=== PATIENT | female | born 1945 | race Caucasian/White ===

== ENCOUNTER → 2016-07-28 | Outpatient (CLI) | payer OTHER ==
[~2016-07-28] MED LIST: ACET-1256 PO; ASPI-232 PO; ATOR-22 PO; BSP/10 PO; CALC-20 PO; CHOL100027 PO; FERR1TAB62 PO; FLV1 PO; FURO40TA3 PO; KLN5X PO; LEVO75TA PO; LEVO88TA PO; LISI20TA3 PO; METH2.5T PO; METO50TA16 PO; METO50TA7 PO; MULT-188; NXM/40 PO; POTA20TA16 PO; PRLSR20 PO; SYMIN160 INH; TPRSR/50 PO; VENL150C PO; VENL75CA PO; VNTHFA/IN INH; WARF2TAB8 PO
[2016-07-28 16:49] LABS: BASO % 0.8 %; BASO ABS # 0.08 K/uL (0-0.2); COMPLETE YES; EOS % 4.3 %; HEMATOCRIT 30.4 % (37-47); IG% 0.3 %; LYMPH % 36.2 %; LYMPH ABS # 3.81 K/uL (1.2-3.4); MEAN CELL VOLUME 80.9 fL (80-100); MEAN CORPUSCULAR HEMOGLOBIN 24.7 pg (25-34); MEAN CORPUSCULAR HGB CONC 30.6 g/dl (32-36); MEAN PLATELET VOLUME 10.1 fL (7.4-10.4); MONO % 8.5 %; NEUT % 49.9 %; PLATELET COUNT 296 K/uL (130-400); RED BLOOD COUNT 3.76 M/uL (4.2-5.4); WHITE BLOOD COUNT 10.53 K/uL (4.8-10.8)
[2016-07-28 17:00] LABS: BLOOD UREA NITROGEN 19 mg/dl (7-18); BUN/CREATININE RATIO 17.5 (10-20); CALCIUM 8.8 mg/dl (8.5-10.1); CARBON DIOXIDE 28 mmol/L (21-32); CHLORIDE 106 mmol/L (98-107); GLUCOSE 83 mg/dl (70-99); POTASSIUM 4.5 mmol/L (3.5-5.1); SODIUM 141 mmol/L (136-145)
== END | disposition home or self-care (01) ==
LOC: C.LABPBG 15:14
PROVIDERS: ATTEND Internal Medicine Geriatric Medicine
DX: I10 Essential (primary) hypertension (principal); E03.9 Hypothyroidism, unspecified; I48.0 Paroxysmal atrial fibrillation; D64.9 Anemia, unspecified

== ENCOUNTER → 2016-08-02 | Outpatient (CLI) | payer OTHER ==
[~2016-08-02] MED LIST changes: +GADAVIST IV PRN
--- NOTE | 2016-08-02 15:54 | DIAGNOSTIC IMAGING REPORT ---
LUMBAR SPINE MRI WITH AND WITHOUT CONTRAST HISTORY: M54.16 Lumbar [id number] TECHNIQUE: Multiplanar multisequence MRI of the lumbar spine was performed both before and after the intravenous administration of contrast. COMPARISON: None. FINDINGS: For the purpose of the report the L5-S1 disc space will be located on axial image 27 of 30. Mild dextroscoliosis of the lumbar spine. Alignment is intact. No fracture or subluxation. The conus terminates at the L2-L3 disc space level. Moderate to space narrowing at L1-L2, L2-L3, and L5-S1. Mild disc space narrowing at L3-L4 and L4-L5. No significant abnormal enhancement identified. Moderate facet degenerative changes within the lower lumbar spine. L1-L2: Broad-based posterior disc bulge without significant central canal or neural foraminal narrowing. L2-L3: Broad-based posterior disc bulge resulting in mild central canal and mild bilateral neural foraminal narrowing. L3-L4: Broad-based posterior disc bulge asymmetric to the left resulting in mild central canal and mild left-sided neural foraminal narrowing. There is associated facet hypertrophy at this level. L4-L5: Broad-based posterior disc bulge with ligamentum and facet hypertrophy resulting in mild to moderate central canal narrowing. There is associated small left paracentral focal disc protrusion with a 10 x 5 mm sequestered disc fragment along the left posterior L4 vertebral body. This demonstrates superior subligamentous migration and compresses the exiting left L4 nerve root at this level. L5-S1: Broad-based posterior disc bulge with an associated broad-based posterior disc protrusion. This results in moderate central canal narrowing with the facet hypertrophy. There is moderate bilateral neural foraminal narrowing. IMPRESSION: 1. Mild to moderate central canal narrowing at L4-L5 due to a broad-based posterior disc bulge and a small left paracentral focal disc protrusion. There is also a 10 x 5 mm sequestered disc fragment along the left posterior L4 vertebral body. This demonstrates superior subligamentous migration and compresses the exiting left L4 nerve root at this level. 2. Moderate central canal narrowing at L5-S1 due to a broad-based posterior disc bulge and an associated broad-based posterior disc protrusion. There is also moderate bilateral neural foraminal narrowing at this level. 3. Additional degenerative changes as described above. Electronically signed by: Raghu Chew M.D. 08/02/2016 3:52 PM Dictated Date/Time: 08/02/2016 3:43 PM
== END | disposition home or self-care (01) ==
LOC: C.MRIBC 13:28
PROVIDERS: ATTEND Internal Medicine Geriatric Medicine
DX: M51.17 Intervertebral disc disorders with radiculopathy, lumbosacral region (principal)

== ENCOUNTER → 2016-08-08 | Outpatient (CLI) | payer OTHER ==
[~2016-08-08] MED LIST changes: -GADAVIST IV PRN; -LEVO88TA PO; -METO50TA7 PO; -WARF2TAB8 PO
[2016-08-08 17:33] LABS: BASO % 0.7 %; BASO ABS # 0.06 K/uL (0-0.2); COMPLETE YES; EOS % 0.5 %; HEMATOCRIT 33.2 % (37-47); IG% 0.5 %; LYMPH % 21.5 %; LYMPH ABS # 1.83 K/uL (1.2-3.4); MEAN CELL VOLUME 82.4 fL (80-100); MEAN CORPUSCULAR HEMOGLOBIN 25.1 pg (25-34); MEAN CORPUSCULAR HGB CONC 30.4 g/dl (32-36); MEAN PLATELET VOLUME 10.2 fL (7.4-10.4); MONO % 2.9 %; NEUT % 73.9 %; PLATELET COUNT 323 K/uL (130-400); RED BLOOD COUNT 4.03 M/uL (4.2-5.4); WHITE BLOOD COUNT 8.51 K/uL (4.8-10.8)
[2016-08-08 17:50] LABS: FERRITIN 7.7 ng/ml (8.0-388.0)
== END | disposition home or self-care (01) ==
LOC: C.LABPBG 13:55
PROVIDERS: ATTEND Internal Medicine Geriatric Medicine
DX: D64.9 Anemia, unspecified (principal)

== ENCOUNTER → 2016-09-08 | Outpatient (CLI) | payer OTHER | END | disposition home or self-care (01) | LOC: C.LABPBG 14:27 | PROVIDERS: ATTEND Internal Medicine Geriatric Medicine | DX: E03.9 Hypothyroidism, unspecified (principal) ==

== ENCOUNTER → 2016-09-25 | Outpatient (CLI) | payer OTHER ==
[2016-09-25 17:46] LABS: BASO % 0.8 %; BASO ABS # 0.07 K/uL (0-0.2); COMPLETE YES; EOS % 4.6 %; HEMATOCRIT 37.5 % (37-47); IG% 0.2 %; LYMPH % 27.9 %; LYMPH ABS # 2.32 K/uL (1.2-3.4); MEAN CELL VOLUME 90.8 fL (80-100); MEAN CORPUSCULAR HEMOGLOBIN 27.8 pg (25-34); MEAN CORPUSCULAR HGB CONC 30.7 g/dl (32-36); MEAN PLATELET VOLUME 10.9 fL (7.4-10.4); MONO % 7.6 %; NEUT % 58.9 %; PLATELET COUNT 237 K/uL (130-400); RED BLOOD COUNT 4.13 M/uL (4.2-5.4); WHITE BLOOD COUNT 8.33 K/uL (4.8-10.8)
[2016-09-25 18:03] LABS: BLOOD UREA NITROGEN 20 mg/dl (7-18); BUN/CREATININE RATIO 15.2 (10-20); CALCIUM 8.6 mg/dl (8.5-10.1); CARBON DIOXIDE 29 mmol/L (21-32); CHLORIDE 106 mmol/L (98-107); GLUCOSE 103 mg/dl (70-99); POTASSIUM 4.3 mmol/L (3.5-5.1); SODIUM 142 mmol/L (136-145)
--- NOTE | 2016-09-29 09:27 | CODING QUERY MEDICAL NECESSITY ---
SUPPORTING DIAGNOSIS NEEDED Dr. Schaefer, A supporting diagnosis is required for the test/procedure performed on this patient in order for us to be reimbursed by the patient's insurance. Please provide a supporting diagnosis for the following test/procedure listed below next to the test name along with your signature. *If there is no additional diagnosis for this patient that would support the following test/procedure please document that below next to the test/procedure. Test(s)/Procedure(s) that require a supporting diagnosis: * ([id number]) B12 VITAMIN LEVEL DIAGNOSIS: DATE OF SERVICE: 09/25/16 Provider Signature: Date: Thank you Gage Ibarra [facility] Information Management Once completed, please kindly fax back to [phone] For questions please call [phone]
== END | disposition home or self-care (01) ==
LOC: C.LABPBG 12:26
PROVIDERS: ATTEND Internal Medicine Geriatric Medicine
DX: I10 Essential (primary) hypertension (principal); D64.9 Anemia, unspecified; G62.9 Polyneuropathy, unspecified

== ENCOUNTER → 2016-11-09 | Outpatient (CLI) | payer OTHER ==
[~2016-11-09] MED LIST changes: -FERR1TAB62 PO; +FERR325T PO; -SYMIN160 INH; -TPRSR/50 PO; -VNTHFA/IN INH
[2016-11-09 14:32] LABS: BASO % 0.6 %; BASO ABS # 0.06 K/uL (0-0.2); COMPLETE YES; EOS % 3.3 %; HEMATOCRIT 40.4 % (37-47); IG% 0.4 %; LYMPH % 26.3 %; LYMPH ABS # 2.66 K/uL (1.2-3.4); MEAN CORPUSCULAR HEMOGLOBIN 29.1 pg (25-34); MEAN CORPUSCULAR HGB CONC 31.9 g/dl (32-36); MEAN PLATELET VOLUME 10.4 fL (7.4-10.4); MONO % 5.3 %; NEUT % 64.1 %; PLATELET COUNT 240 K/uL (130-400); RED BLOOD COUNT 4.44 M/uL (4.2-5.4)
[2016-11-09 14:44] LABS: PROTHROMBIN TIME (PATIENT) 10.6 SECONDS (9.0-12.0)
[2016-11-09 15:02] LABS: ALT/SGPT 37 U/L (12-78); BLOOD UREA NITROGEN 23 mg/dl (7-18); BUN/CREATININE RATIO 16.6 (10-20); CALCIUM 9.6 mg/dl (8.5-10.1); CARBON DIOXIDE 30 mmol/L (21-32); CHLORIDE 105 mmol/L (98-107); GLUCOSE 107 mg/dl (70-99); POTASSIUM 4.5 mmol/L (3.5-5.1); SODIUM 139 mmol/L (136-145)
[2016-11-09 15:05] LABS: ALB/GLOB RATIO 0.8 (0.9-2); ALKALINE PHOSPHATASE 100 U/L (45-117); AST/SGOT 27 U/L (15-37)
--- NOTE | 2016-11-09 15:28 | DIAGNOSTIC IMAGING REPORT ---
(CHEST) THORAX WITHOUT CT DOSE: 554.07 mGycm CLINICAL HISTORY: 71 years-old Female with CHRONIC ASTHMATIC BRONCHITIS, COUGH. TECHNIQUE: Multiaxial CT images of the chest were performed without contrast. A dose lowering technique was utilized adhering to the principles of ALARA. COMPARISON: Chest radiograph of same day CTA of the chest 02/24/2015. FINDINGS: No focal thyroid nodule is a 2.1 x 3.3 cm lesion which essentially fatty attenuating within the superior right breast which appears similar from comparison suggesting fat necrosis. No pathologic adenopathy about the chest. Coronary arterial calcifications are noted with prior median sternotomy and CABG. There is no pneumothorax or pleural effusion. Extensive multilobar bilateral bronchial wall thickening is noted in conjunction with tree-in-bud nodularity. There is mild bronchiectasis with atelectasis and volume loss of the inferior segment lingula. No obstructing mass or endobronchial lesion is identified. Biapical pleural-parenchymal scarring is again noted. Although in a different lobar pattern from comparison the disease of the chest appears similar. Moderate sized hiatal hernia with partial intrathoracic stomach is noted. There is a partially imaged soft tissue attenuating nodule of the right adrenal gland measuring up to 3.0 cm which appears unchanged from comparison suggesting lipid poor adenoma. Bones appear intact. Multilevel bridging osteophytes are seen throughout the spine. IMPRESSION: 1. Multifocal multilobar distribution of bronchial wall thickening with scattered areas of tree-in-bud nodularity, most compatible with infectious bronchitis and bronchiolitis. There is a similar pattern of disease from comparison CT 02/24/2015. 2. Mild bronchiectasis, volume loss and consolidation of the inferior segment lingula without obstructing mass or process identified. Attention on follow-up recommended. 3. Moderate-sized hiatal hernia with partially intrathoracic stomach. 4. Additional incidental findings as above Electronically signed by: Jacinto Mcclellan M.D. 11/09/2016 3:26 PM Dictated Date/Time: 11/09/2016 3:18 PM
--- NOTE | 2016-11-14 01:08 | PULMONARY FUNCTION TEST ---
SPIROMETRY Pre-bronchodilator spirometry reveals some mild obstructive ventilatory defect, even more pronounced low lung volumes. There was no significant response to bronchodilator but this should not preclude a therapeutic trial if clinically warranted. Lung volumes demonstrate evidence for significant air trapping. Diffusion capacity was elevated. This could represent a normal variant or be seen in the presence of bronchospastic airways disease. Clinical correlation is needed.
--- NOTE | 2016-11-24 07:43 | Procedure Note ---
Pre-Mod Sedation Assessment General Date of Moderate Sedation: Nov 24, 2016. Pre-Sedation Airway Assessment Smoking Status: Never Smoker Mallampati Classification: Class II ASA Classification: Class II Procedure Planning Contraindications-for Mod Sed: None Yes Notes The planned sedation has been discussed with the patient and consent obtained. I have identified the patient, determined the appropriateness of sedation and have assessed the patient immediately prior to the procedure. All medicine(s) and interventions are by my order.
--- NOTE | 2016-11-24 07:43 | History & Physical Bridge Note ---
H&P Re-Evaluation Bridge Note: I have examined the patient, reviewed the History & Physical and in the interval since the performance of the History & Physical I have noted the following changes of clinical significance: No changes noted
--- NOTE | 2016-11-24 07:53 | Discharge Instructions ---
Discharge Instructions Date of Service Nov 24, 2016. Admission Reason for Admission: Chronic Asthmatic Bronchitis, Cough;I10, D64.9,R05 Discharge Discharge Diagnosis / Problem: Chronic Asthmatic Bronchitis Discharge Goals Goal(s): Decrease discomfort, Improve function, Improve disease control, Diagnostic testing, Therapeutic intervention Activity Recommendations Activity Limitations: resume your previous activity Lifting Limitations: none Exercise/Sports Limitations: none May Resume Sexual Activity: when tolerated Shower/Bathe: no limitations Driving or Machine Use: resume 1 day after discharge None . Instructions / Follow-Up Instructions / Follow-Up ACTIVITY RECOMMENDATIONS: * Rest today, resume normal activity tomorrow. * Do not drive today. SPECIAL CARE INSTRUCTIONS: * Call your physician if you experience any chest or shoulder pain, fever, coughing, spitting up blood (more than 2 teaspoons) or excessive shortness of breath. * Remove dressing from IV site (where needle was placed into the vein) after 2 hours. Apply a warm, moist compress to site if irritation occurs. Call physician if site becomes red or painful to touch. FOLLOW UP VISIT: * Keep any scheduled doctor appointments. Current Hospital Diet ACTIVITY RECOMMENDATIONS: * Rest today, resume normal activity tomorrow. * Do not drive today. SPECIAL CARE INSTRUCTIONS: * Call your physician if you experience any chest or shoulder pain, fever, coughing, spitting up blood (more than 2 teaspoons) or excessive shortness of breath. * Remove dressing from IV site (where needle was placed into the vein) after 2 hours. Apply a warm, moist compress to site if irritation occurs. Call physician if site becomes red or painful to touch. FOLLOW UP VISIT: * Keep any scheduled doctor appointments.Patient's current hospital diet: Discharge Diet Recommended Diet: Regular Diet Pending Studies Studies pending at discharge: no Medical Emergencies . Who to Call and When: Medical Emergencies: If at any time you feel your situation is an emergency, please call 911 immediately. . Non-Emergent Contact Non-Emergency issues call your: Vacuum Filter Operator ACTIVITY RECOMMENDATIONS: * Rest today, resume normal activity tomorrow. * Do not drive today. SPECIAL CARE INSTRUCTIONS: * Call your physician if you experience any chest or shoulder pain, fever, coughing, spitting up blood (more than 2 teaspoons) or excessive shortness of breath. * Remove dressing from IV site (where needle was placed into the vein) after 2 hours. Apply a warm, moist compress to site if irritation occurs. Call physician if site becomes red or painful to touch. FOLLOW UP VISIT: * Keep any scheduled doctor appointments. . . "Provider Documentation" section prepared by Kulwinder Ibarra. . VTE Core Measure Inpt VTE Proph given/why not?: Treatment not indicated [place] Drug Monitoring Program Drug Monitoring Findings: ACTIVITY RECOMMENDATIONS: * Rest today, resume normal activity tomorrow. * Do not drive today. SPECIAL CARE INSTRUCTIONS: * Call your physician if you experience any chest or shoulder pain, fever, coughing, spitting up blood (more than 2 teaspoons) or excessive shortness of breath. * Remove dressing from IV site (where needle was placed into the vein) after 2 hours. Apply a warm, moist compress to site if irritation occurs. Call physician if site becomes red or painful to touch. FOLLOW UP VISIT: * Keep any scheduled doctor appointments.
== END | disposition home or self-care (01) ==
LOC: C.RC 13:11
PROVIDERS: ATTEND Internal Medicine Pulmonary Disease
DX: J44.9 Chronic obstructive pulmonary disease, unspecified (principal); R05 Cough

== ENCOUNTER → 2016-11-09 | Outpatient (CLI) | payer OTHER ==
--- NOTE | 2016-11-09 15:20 | DIAGNOSTIC IMAGING REPORT ---
CHEST 2 VIEWS ROUTINE CLINICAL HISTORY: R05 [id number] dyspnea COMPARISON STUDY: 03/15/2015 FINDINGS: Interval median sternotomy chronic parenchymal/pleural scar left base. No acute infiltrate. Slight bronchovascular prominence considered chronic. IMPRESSION: Chronic and postoperative change. No acute process. Small hiatal hernia. The above report was generated using voice recognition software. It may contain grammatical, syntax or spelling errors. Electronically signed by: Sb Cochran M.D. 11/09/2016 3:19 PM Dictated Date/Time: 11/09/2016 3:18 PM
== END | disposition home or self-care (01) ==
LOC: C.RAD 13:55
PROVIDERS: ATTEND Internal Medicine Geriatric Medicine
DX: R05 Cough (principal)

== ENCOUNTER → 2016-11-24 | Day surgery (SDC) | payer OTHER ==
[~2016-11-24] VITALS: Ht 170.2 cm; Wt 104.4 kg
[2016-11-24] VITALS (10 sets, daily range): BP systolic 102–135; BP diastolic 61–83; PULSE 65–84; TEMP 36.5–36.7; O2SAT 96–98; Ht 170.2 cm; Wt 104.4 kg
[~2016-11-24] MED LIST changes: +FENTANYL CITRATE 100 MCG 2 ML CARP IV ONE; +FENTANYL CITRATE INJ 50 MCG/1 ML 2 ML VIAL IV ONE; +LEVALBUTEROL 1.25MG/3ML NEB INH ONE; +MIDAZOLAM HCL 5 MG/ML 1 ML VIAL IV ONE; +MIDAZOLAM HCL 5 MG/ML 2ML VIAL IV ONE; +NURSING VERBAL MED ORDER ONE
--- NOTE | 2016-11-24 10:25 | Procedure Note ---
Pre-Mod Sedation Assessment General Date of Moderate Sedation: Nov 24, 2016. Pre-Sedation Airway Assessment Oral Cavity: Capped Teeth Hx of Sleep Apnea: No Smoking Status: Never Smoker Mallampati Classification: Class II ASA Classification: Class II Procedure Planning Contraindications-for Mod Sed: None Yes Notes The planned sedation has been discussed with the patient and consent obtained. I have identified the patient, determined the appropriateness of sedation and have assessed the patient immediately prior to the procedure. All medicine(s) and interventions are by my order.
--- NOTE | 2016-11-24 10:36 | Discharge Instructions ---
Discharge Instructions Date of Service Nov 24, 2016. Admission Reason for Admission: Chronic Asthmatic Bronchitis, Cough Discharge Discharge Diagnosis / Problem: Chronic Asthmatic Bronchitis Discharge Goals Goal(s): Improve disease control, Therapeutic intervention Activity Recommendations Activity Limitations: resume your previous activity Lifting Limitations: none Exercise/Sports Limitations: none May Resume Sexual Activity: when tolerated Shower/Bathe: no limitations Driving or Machine Use: no limitations None . Instructions / Follow-Up Instructions / Follow-Up ACTIVITY RECOMMENDATIONS: * Rest today, resume normal activity tomorrow. * Do not drive today. SPECIAL CARE INSTRUCTIONS: * Call your physician if you experience any chest or shoulder pain, fever, coughing, spitting up blood (more than 2 teaspoons) or excessive shortness of breath. * Remove dressing from IV site (where needle was placed into the vein) after 2 hours. Apply a warm, moist compress to site if irritation occurs. Call physician if site becomes red or painful to touch. FOLLOW UP VISIT: * Keep any scheduled doctor appointments. Current Hospital Diet Patient's current hospital diet: Discharge Diet Recommended Diet: Regular Diet Fluid Restriction: None Pending Studies Studies pending at discharge: no Laboratory Results ACTIVITY RECOMMENDATIONS: * Rest today, resume normal activity tomorrow. * Do not drive today. SPECIAL CARE INSTRUCTIONS: * Call your physician if you experience any chest or shoulder pain, fever, coughing, spitting up blood (more than 2 teaspoons) or excessive shortness of breath. * Remove dressing from IV site (where needle was placed into the vein) after 2 hours. Apply a warm, moist compress to site if irritation occurs. Call physician if site becomes red or painful to touch. FOLLOW UP VISIT: * Keep any scheduled doctor appointments. Work Instructions Return To Work: 1 day Lifting Limitations: none Medical Emergencies ACTIVITY RECOMMENDATIONS: * Rest today, resume normal activity tomorrow. * Do not drive today. SPECIAL CARE INSTRUCTIONS: * Call your physician if you experience any chest or shoulder pain, fever, coughing, spitting up blood (more than 2 teaspoons) or excessive shortness of breath. * Remove dressing from IV site (where needle was placed into the vein) after 2 hours. Apply a warm, moist compress to site if irritation occurs. Call physician if site becomes red or painful to touch. FOLLOW UP VISIT: * Keep any scheduled doctor appointments. . Who to Call and When: Medical Emergencies: If at any time you feel your situation is an emergency, please call 911 immediately. . Non-Emergent Contact Non-Emergency issues call your: Director Of Player Personnel ACTIVITY RECOMMENDATIONS: * Rest today, resume normal activity tomorrow. * Do not drive today. SPECIAL CARE INSTRUCTIONS: * Call your physician if you experience any chest or shoulder pain, fever, coughing, spitting up blood (more than 2 teaspoons) or excessive shortness of breath. * Remove dressing from IV site (where needle was placed into the vein) after 2 hours. Apply a warm, moist compress to site if irritation occurs. Call physician if site becomes red or painful to touch. FOLLOW UP VISIT: * Keep any scheduled doctor appointments. . . "Provider Documentation" section prepared by Kulwinder Ibarra. . VTE Core Measure Inpt VTE Proph given/why not?: Treatment not indicated (No anticoagulation) [place] Drug Monitoring [place] Drug Monitoring Findings: ACTIVITY RECOMMENDATIONS: * Rest today, resume normal activity tomorrow. * Do not drive today. SPECIAL CARE INSTRUCTIONS: * Call your physician if you experience any chest or shoulder pain, fever, coughing, spitting up blood (more than 2 teaspoons) or excessive shortness of breath. * Remove dressing from IV site (where needle was placed into the vein) after 2 hours. Apply a warm, moist compress to site if irritation occurs. Call physician if site becomes red or painful to touch. FOLLOW UP VISIT: * Keep any scheduled doctor appointments.
--- NOTE | 2016-11-24 12:15 | OPERATIVE REPORT ---
DATE OF OPERATION: 11/24/2016 PROCEDURE: Fiberoptic bronchoscopy with bronchoalveolar lavage. INDICATIONS: Chronic cough/diffuse tree-in-bud opacities. ANESTHESIA PREOPERATIVELY: None. ANESTHESIA DURING PROCEDURE: 100 mcg IV fentanyl, 6 mg IV Versed, 20 mL 2% Xylocaine spray and below the cords, and 4% viscous Xylocaine intranasally. DESCRIPTION OF PROCEDURE: Fiberoptic bronchoscope was inserted into the right naris with minimal difficulty and passed to the level of the true vocal cords. Cords appeared to approximate normally with phonation without evidence of lesions or paralysis. The scope was then introduced in the trachea and right and left tracheobronchial tree. The sanchez was sharp. The right main stem bronchus was found to be free of endobronchial lesions. The right upper lobe, the apical posterior-anterior segments, bronchus intermedius, right middle lobe and the medial and lateral segments and all basilar segments of right lower lobe were found to be free of endobronchial lesions with a moderate amount of mucopurulent secretion lavaged from right lower lobe until clear. Bronchial crypts and clefts were seen throughout the right tracheobronchial tree. Left main stem bronchus was explored and no endobronchial lesions were seen. Left upper lobe, lingular subdivision and left lower lobe were found to be free of endobronchial lesions down to subsegmental bronchi. The left lower lobe was copiously lavaged with normosol and the aspirate sent for appropriate studies. No brushings or biopsies were deemed necessary. Fluoroscopy was not utilized. The procedure was terminated. The patient was given a nebulizer treatment with Xopenex 1.25 mg and then transferred to the medical treatment unit hemodynamically stable with no signs of respiratory compromise. We will await microbiological and cytologic examination of the bronchial washings. I attest to the content of the Intraoperative Record and any orders documented therein. Any exception s are noted below.
[2016-11-28 10:22] LABS: HERPES SIMPLEX CULT SOURCE OTHER-STOOL; HERPES SIMPLEX VIRUS CULT NOT ISOLATED (NOT ISOLATED)
== END | disposition home or self-care (01) ==
LOC: C.ACU 08:44
PROVIDERS: ATTEND Internal Medicine Pulmonary Disease
DX: R05 Cough (principal); D35.00 Benign neoplasm of unspecified adrenal gland; D64.9 Anemia, unspecified; I70.0 Atherosclerosis of aorta; I65.29 Occlusion and stenosis of unspecified carotid artery; I25.10 Atherosclerotic heart disease of native coronary artery without angina pectoris; E78.5 Hyperlipidemia, unspecified; I48.0 Paroxysmal atrial fibrillation; M06.9 Rheumatoid arthritis, unspecified; F41.8 Other specified anxiety disorders; K21.9 Gastro-esophageal reflux disease without esophagitis; I10 Essential (primary) hypertension; E03.9 Hypothyroidism, unspecified; G62.9 Polyneuropathy, unspecified; E55.9 Vitamin D deficiency, unspecified; Z95.1 Presence of aortocoronary bypass graft; Z79.82 Long term (current) use of aspirin; Z79.899 Other long term (current) drug therapy

== ENCOUNTER → 2016-11-27 | Outpatient (CLI) | payer OTHER ==
[~2016-11-27] MED LIST changes: -FENTANYL CITRATE 100 MCG 2 ML CARP IV ONE; -FENTANYL CITRATE INJ 50 MCG/1 ML 2 ML VIAL IV ONE; -LEVALBUTEROL 1.25MG/3ML NEB INH ONE; -MIDAZOLAM HCL 5 MG/ML 1 ML VIAL IV ONE; -MIDAZOLAM HCL 5 MG/ML 2ML VIAL IV ONE; -NURSING VERBAL MED ORDER ONE
[2016-11-27 17:48] LABS: URINE APPEARANCE CLEAR (CLEAR); URINE BILIRUBIN NEG (NEG); URINE COLOR DK YELLOW; URINE EPITHELIAL CELL AUTO >30 /lpf (0-5); URINE NITRITE NEG (NEG); URINE SPECIFIC GRAVITY 1.025 (1.000-1.030); UROBILINOGEN NEG (NEG)
[2016-11-27 17:52] LABS: MANUAL MICROSCOPIC REQUIRED? NO; REVIEW REQ? YES
[2016-11-27 18:42] LABS: FERRITIN 26.9 ng/ml (8.0-388.0)
== END | disposition home or self-care (01) ==
LOC: C.LABPBG 13:51
PROVIDERS: ATTEND Internal Medicine Hematology & Oncology
DX: D50.0 Iron deficiency anemia secondary to blood loss (chronic) (principal)

== ENCOUNTER → 2017-01-11 | Outpatient (CLI) | payer OTHER ==
[2017-01-11 17:34] LABS: BASO % 0.3 %; BASO ABS # 0.03 K/uL (0-0.2); COMPLETE YES; EOS % 3.5 %; HEMATOCRIT 40.4 % (37-47); IG% 0.2 %; LYMPH % 28.6 %; LYMPH ABS # 2.65 K/uL (1.2-3.4); MEAN CELL VOLUME 96.7 fL (80-100); MEAN CORPUSCULAR HEMOGLOBIN 30.6 pg (25-34); MEAN CORPUSCULAR HGB CONC 31.7 g/dl (32-36); MEAN PLATELET VOLUME 10.8 fL (7.4-10.4); MONO % 12.8 %; NEUT % 54.6 %; PLATELET COUNT 176 K/uL (130-400); RED BLOOD COUNT 4.18 M/uL (4.2-5.4); WHITE BLOOD COUNT 9.25 K/uL (4.8-10.8)
[2017-01-11 17:48] LABS: ALT/SGPT 34 U/L (12-78); AST/SGOT 25 U/L (15-37); BLOOD UREA NITROGEN 13 mg/dl (7-18); BUN/CREATININE RATIO 10.5 (10-20); CALCIUM 8.4 mg/dl (8.5-10.1); CARBON DIOXIDE 31 mmol/L (21-32); CHLORIDE 103 mmol/L (98-107); GLUCOSE 93 mg/dl (70-99); POTASSIUM 3.7 mmol/L (3.5-5.1); SODIUM 139 mmol/L (136-145)
[2017-01-11 17:59] LABS: ALB/GLOB RATIO 0.8 (0.9-2); ALKALINE PHOSPHATASE 107 U/L (45-117); CHOLESTEROL 156 mg/dl (0-200); CHOLESTEROL/HDL RATIO 2.8; HDL CHOLESTEROL 55 mg/dl; LDL CHOLESTEROL CALCULATED 71 mg/dl; TRIGLYCERIDES 148 mg/dl (0-150); VERY LOW DENSITY LIPOPROT CALC 30 mg/dl
== END | disposition home or self-care (01) ==
LOC: C.LABPBG 14:36
PROVIDERS: ATTEND Internal Medicine Geriatric Medicine
DX: I10 Essential (primary) hypertension (principal); E03.9 Hypothyroidism, unspecified; D64.9 Anemia, unspecified; I25.10 Atherosclerotic heart disease of native coronary artery without angina pectoris

== ENCOUNTER → 2017-01-13 | Outpatient (CLI) | payer OTHER ==
--- NOTE | 2017-01-13 10:09 | DIAGNOSTIC IMAGING REPORT ---
CHEST 2 VIEWS ROUTINE HISTORY: COUGH COMPARISON: Chest 11/09/2016. FINDINGS: Postoperative changes. The heart remains stable in size. No pleural effusions. No pneumothorax. Moderate hiatus hernia is again noted. Patchy lingular density persists. IMPRESSION: No change compared to the prior study. Patchy density within the lingula persists and may represent atelectasis. No new focal lung consolidations identified. Electronically signed by: Raghu Chew M.D. 01/13/2017 10:08 AM Dictated Date/Time: 01/13/2017 10:06 AM
== END | disposition home or self-care (01) ==
LOC: C.RADBC 09:43
PROVIDERS: ATTEND Internal Medicine
DX: R05 Cough (principal); R06.00 Dyspnea, unspecified; R50.9 Fever, unspecified; R91.8 Other nonspecific abnormal finding of lung field

== ENCOUNTER → 2017-02-05 | Outpatient (CLI) | payer OTHER ==
[~2017-02-05] MED LIST changes: +SYMIN160 INH; +TPRSR/50 PO; +VNTHFA/IN INH
[2017-02-05 17:29] LABS: PARTIAL THROMBOPLASTIN RATIO 0.9; PROTHROMBIN TIME (PATIENT) 10.2 SECONDS (9.0-12.0)
== END | disposition home or self-care (01) ==
LOC: C.LABPBG 15:15
PROVIDERS: ATTEND Internal Medicine Pulmonary Disease
DX: J44.9 Chronic obstructive pulmonary disease, unspecified (principal); D64.9 Anemia, unspecified; R05 Cough; R06.00 Dyspnea, unspecified

== ENCOUNTER → 2017-02-08 | Day surgery (SDC) | payer OTHER ==
[2017-02-08] VITALS (17 sets, daily range): BP systolic 122–188; BP diastolic 66–118; PULSE 66–100; TEMP 36.3–36.9; O2SAT 92–100; Ht 167.6 cm; Wt 100.0 kg
[~2017-02-08] VITALS: Ht 167.6 cm; Wt 100.0 kg
[~2017-02-08] MED LIST changes: +FENTANYL CITRATE 100 MCG 2 ML CARP IV ONE; +FENTANYL CITRATE INJ 50 MCG/1 ML 2 ML VIAL IV STA; +LEVALBUTEROL 1.25MG/3ML NEB INH ONE; +MIDAZOLAM HCL 5 MG/ML 1 ML VIAL IV ONE; +MIDAZOLAM HCL 5 MG/ML 2ML VIAL IV ONE; +NURSING VERBAL MED ORDER ONE
--- NOTE | 2017-02-08 08:09 | Procedure Note ---
Pre-Mod Sedation Assessment General Date of Moderate Sedation: Feb 08, 2017. Vital Signs: Vital Signs Past 12 Hours Date Time Temp Pulse Resp B/P (MAP) Pulse Ox O2 Delivery O2 Flow Rate FiO2 02/08/17 07:50 36.3 90 22 159/90 97 Room Air 02/08/17 07:19 36.3 90 22 159/90 (113) 97 Room Air Pre-Sedation Airway Assessment Oral Cavity: WNL Short Thick Neck: No Hx of Sleep Apnea: No Smoking Status: Never Smoker Mallampati Classification: Class II ASA Classification: Class II Procedure Planning Contraindications-for Mod Sed: None Yes Notes The planned sedation has been discussed with the patient and consent obtained. I have identified the patient, determined the appropriateness of sedation and have assessed the patient immediately prior to the procedure. All medicine(s) and interventions are by my order.
--- NOTE | 2017-02-08 09:21 | Discharge Instructions ---
Discharge Instructions Date of Service Feb 08, 2017. Admission Reason for Admission: Chronic Asthmatic Bronchitis Discharge Discharge Diagnosis / Problem: ABPA Discharge Goals Goal(s): Diagnostic testing, Therapeutic intervention Activity Recommendations Activity Limitations: resume your previous activity Lifting Limitations: none Exercise/Sports Limitations: none May Resume Sexual Activity: when tolerated Shower/Bathe: no limitations Driving or Machine Use: resume 1 day after discharge None . Instructions / Follow-Up Instructions / Follow-Up ACTIVITY RECOMMENDATIONS: * Rest today, resume normal activity tomorrow. * Do not drive today. SPECIAL CARE INSTRUCTIONS: * Call your physician if you experience any chest or shoulder pain, fever, coughing, spitting up blood (more than 2 teaspoons) or excessive shortness of breath. * Remove dressing from IV site (where needle was placed into the vein) after 2 hours. Apply a warm, moist compress to site if irritation occurs. Call physician if site becomes red or painful to touch. FOLLOW UP VISIT: * Keep any scheduled doctor appointments. Current Hospital Diet Patient's current hospital diet: Discharge Diet Recommended Diet: Regular Diet Fluid Restriction: None Pending Studies Studies pending at discharge: no Laboratory Results Lipid Panel Test 01/11/17 14:44 Range/Units Triglycerides Level 148 0-150 mg/dl Cholesterol Level 156 0-200 mg/dl HDL Cholesterol 55 mg/dl Cholesterol/HDL Ratio 2.8 LDL Cholesterol, Calculated 71 mg/dl Medical Emergencies . Who to Call and When: Medical Emergencies: If at any time you feel your situation is an emergency, please call 911 immediately. . Non-Emergent Contact Non-Emergency issues call your: Route Rider Supervisor Call Non-Emergent contact if: temperature is above 101 ACTIVITY RECOMMENDATIONS: * Rest today, resume normal activity tomorrow. * Do not drive today. SPECIAL CARE INSTRUCTIONS: * Call your physician if you experience any chest or shoulder pain, fever, coughing, spitting up blood (more than 2 teaspoons) or excessive shortness of breath. * Remove dressing from IV site (where needle was placed into the vein) after 2 hours. Apply a warm, moist compress to site if irritation occurs. Call physician if site becomes red or painful to touch. FOLLOW UP VISIT: * Keep any scheduled doctor appointments. . . "Provider Documentation" section prepared by Kulwinder Ibarra. . VTE Core Measure Inpt VTE Proph given/why not?: Treatment not indicated
--- NOTE | 2017-02-08 20:35 | OPERATIVE REPORT ---
DATE OF OPERATION: 02/08/2017 TIME OF THE PROCEDURE: At 0800. PROCEDURE: Fiberoptic bronchoscopy with bronchoalveolar lavage. INDICATIONS: R/O allergic bronchopulmonary aspergillosis versus other etiology of mucoid impaction. ANESTHESIA PREOPERATIVELY: None. ANESTHESIA DURING PROCEDURE: 9 mg IV Versed, 100 mcg IV fentanyl, 20 mL 2% Xylocaine spray above and below the cords, 4% viscous Xylocaine intranasally. PROCEDURE: Fiberoptic bronchoscope was inserted into the right naris with minimal difficulty and passed to the level of the true vocal cords. The cords appeared to approximate normally with phonation without evidence of lesions or paralysis. The scope was then introduced in to the trachea and right and left tracheobronchial tree. Immediately adherent to the subglottic trachea was thick mucus that was lavaged until clear, the sanchez was sharp, the right main stem bronchus was explored initially and there was evidence for tracheomalacia/EDAC involving the right mainstem bronchus and distal portion of the trachea just above the sanchez. The right main stem bronchus was explored and no endobronchial lesion was seen. The right upper lobe, the apical posterior, anterior segments, bronchus intermedius, right middle lobe and the medial and lateral segments and all basilar segments of the right lower lobe were found to be free of endobronchial lesions with a moderate amount of mucopurulent secretion lavaged from all lobar and segmental bronchi until clear. Left tracheobronchial tree was explored and the left upper lobe, the apical posterior and anterior segments were free of endobronchial lesions, but the lingular orifice appeared to be impacted with mucous and thick secretions that was lavaged until clear. The superior and inferior segments and subsegments were visible post-lavage. The left lower lobe with all basilar segments were free of endobronchial lesions with a moderate degree of global inflammatory mucosal changes seen throughout the left tracheobronchial tree. No brushings or biopsies were deemed necessary. The procedure was terminated. The patient was given a nebulizer treatment with Xopenex 1.25 mg and transferred to the medical treatment unit hemodynamically stable with no signs of respiratory compromise. OVERALL ASSESSMENT: Mucoid impaction was most seen involving the lingula and other lobar and segmental bronchi. We will await microbiological and cytologic examination of the bronchial washings. I attest to the content of the Intraoperative Record and any orders documented therein. Any exceptions are noted below. MTDD
== END | disposition home or self-care (01) ==
LOC: C.ACU 06:26
PROVIDERS: ATTEND Internal Medicine Critical Care Medicine
DX: J44.9 Chronic obstructive pulmonary disease, unspecified (principal); J39.8 Other specified diseases of upper respiratory tract; I25.10 Atherosclerotic heart disease of native coronary artery without angina pectoris; I48.0 Paroxysmal atrial fibrillation; I70.0 Atherosclerosis of aorta; I65.29 Occlusion and stenosis of unspecified carotid artery; E78.5 Hyperlipidemia, unspecified; I12.9 Hypertensive chronic kidney disease with stage 1 through stage 4 chronic kidney disease, or unspecified chronic kidney disease; N18.3 Chronic kidney disease, stage 3 (moderate); K21.9 Gastro-esophageal reflux disease without esophagitis; E03.9 Hypothyroidism, unspecified; N30.10 Interstitial cystitis (chronic) without hematuria; D64.9 Anemia, unspecified; E55.9 Vitamin D deficiency, unspecified; D35.00 Benign neoplasm of unspecified adrenal gland; M06.9 Rheumatoid arthritis, unspecified; G62.9 Polyneuropathy, unspecified; F41.8 Other specified anxiety disorders; Z95.1 Presence of aortocoronary bypass graft; Z79.82 Long term (current) use of aspirin; Z79.899 Other long term (current) drug therapy

== ENCOUNTER → 2017-03-28 | Outpatient (CLI) | payer OTHER ==
[~2017-03-28] MED LIST changes: -FENTANYL CITRATE 100 MCG 2 ML CARP IV ONE; -FENTANYL CITRATE INJ 50 MCG/1 ML 2 ML VIAL IV STA; +FERR1TAB62 PO; -FERR325T PO; -LEVALBUTEROL 1.25MG/3ML NEB INH ONE; -METO50TA16 PO; -MIDAZOLAM HCL 5 MG/ML 1 ML VIAL IV ONE; -MIDAZOLAM HCL 5 MG/ML 2ML VIAL IV ONE; -NURSING VERBAL MED ORDER ONE; -NXM/40 PO; -POTA20TA16 PO
--- NOTE | 2017-03-28 12:50 | DIAGNOSTIC IMAGING REPORT ---
CHEST 2 VIEWS ROUTINE CLINICAL HISTORY: Shortness of breath. COMPARISON STUDY: Chest CT November 09, 2016 and chest radiograph January 13, 2017. FINDINGS: Note is made of median sternotomy wires and postoperative findings consistent with bypass grafting. Cardiomediastinal silhouette is stable. There is no evidence of pulmonary edema. A large hiatal hernia with partially intrathoracic stomach is noted. Biapical scarring is again noted. Mild lingular opacity is unchanged. A 1.7 cm nodular density lateral to the right hilum is new since prior exam. IMPRESSION: 1.7 cm nodular density lateral to the right hilum. This could reflect minimal airspace disease or summation artifact with overlying rib. A pulmonary nodule is considered less likely however this can be assessed on subsequent exams to ensure resolution. Otherwise, unchanged appearance of the chest with patchy lingular opacity. Electronically signed by: Alex Emmanuel M.D. 03/28/2017 12:48 PM Dictated Date/Time: 03/28/2017 12:44 PM
== END | disposition home or self-care (01) ==
LOC: C.RAD 11:58
PROVIDERS: ATTEND Physician Assistant
DX: R06.02 Shortness of breath (principal); R91.8 Other nonspecific abnormal finding of lung field

== ENCOUNTER → 2017-05-10 | Outpatient (CLI) | payer OTHER ==
[~2017-05-10] MED LIST changes: +OPTIRAY 320 IV PRN
--- NOTE | 2017-05-10 12:27 | DIAGNOSTIC IMAGING REPORT ---
(CHEST) THORAX WITH CT DOSE: 695.50 mGycm HISTORY: N30.10 Chronic interstitial [id number] Chronic asthmatic bron TECHNIQUE: Multiaxial CT images of the chest were performed following the intravenous administration of contrast. A dose lowering technique was utilized adhering to the principles of ALARA. COMPARISON: 11/09/2016 FINDINGS: Chronic right and to lesser extent left apical fibrotic change. This is unaltered from the prior exam. Minimal infiltrative changes superior segment left upper lobe are improved. Slightly progressive right hemithoracic interstitial and/or reticular nodular-type infiltrative changes. This includes a progressive minimal nodularity peripheral aspect right lower lobe. The bronchiectatic changes anterior aspect of the lingula are stable. Slightly progressive infiltrative changes posterior costophrenic angle on the right as well as left. This is also seen anterior margin right middle lobe. Moderate stable cardiomegaly. Prior median sternotomy. Several pretracheal and aortopulmonary window nodes generally stable from the prior exam. Prior median sternotomy with calcification of the coronary arterial vasculature. Benign appearing nodularity of the right adrenal is stable. IMPRESSION: 1. Waxing and waning infiltrative changes throughout both hemithoraces. 2. In general, findings involving the lung apices are improved, with the mid and basilar aspects of the lungs somewhat progressive in terms of interstitial and associated nodular change. 3. The mediastinal adenopathy is stable, with unchanging findings of hiatal hernia and right adrenal adenoma. 4. Six-month follow-up is felt to be appropriate unless clinical requirements indicate otherwise. The above report was generated using voice recognition software. It may contain grammatical, syntax or spelling errors. Electronically signed by: Sb Cochran M.D. 05/10/2017 12:26 PM Dictated Date/Time: 05/10/2017 12:19 PM
== END | disposition home or self-care (01) ==
LOC: C.CTS 12:01
PROVIDERS: ATTEND Physician Assistant
DX: J44.9 Chronic obstructive pulmonary disease, unspecified (principal); N30.10 Interstitial cystitis (chronic) without hematuria

== ENCOUNTER → 2017-05-16 | Outpatient (CLI) | payer OTHER ==
[~2017-05-16] MED LIST changes: -OPTIRAY 320 IV PRN
== END | disposition home or self-care (01) ==
LOC: C.LAB1850 15:27
PROVIDERS: ATTEND Internal Medicine Geriatric Medicine
DX: R39.9 Unspecified symptoms and signs involving the genitourinary system (principal)

== ENCOUNTER → 2017-05-16 | Outpatient (CLI) | payer OTHER | END | disposition home or self-care (01) | LOC: C.LAB1850 14:54 | PROVIDERS: ATTEND Internal Medicine Pulmonary Disease | DX: R05 Cough (principal) ==

== ENCOUNTER → 2017-08-13 | Outpatient (CLI) | payer OTHER ==
[2017-08-13 16:43] LABS: BASO % 0.7 %; BASO ABS # 0.07 K/uL (0-0.2); EOS % 2.6 %; EOS ABS # 0.27 K/uL (0-0.5); HEMATOCRIT 37.9 % (37-47); HEMOGLOBIN 12.7 g/dL (12.0-16.0); IG# 0.03 K/uL (0.00-0.02); LYMPH % 20.3 %; LYMPH ABS # 2.11 K/uL (1.2-3.4); MEAN CORPUSCULAR HEMOGLOBIN 33.5 pg (25-34); MEAN CORPUSCULAR HGB CONC 33.5 g/dl (32-36); MEAN PLATELET VOLUME 10.6 fL (7.4-10.4); MONO % 6.3 %; MONO ABS # 0.65 K/uL (0.11-0.59); NEUT % 69.8 %; NEUT ABS # 7.24 K/uL (1.4-6.5); PLATELET COUNT 245 K/uL (130-400); RED CELL DISTRIBUTION WIDTH CV 15.9 % (11.5-14.5); RED CELL DISTRIBUTION WIDTH SD 57.1 fL (36.4-46.3); WHITE BLOOD COUNT 10.37 K/uL (4.8-10.8)
[2017-08-13 16:50] LABS: BLOOD UREA NITROGEN 21 mg/dl (7-18); CALCIUM 9.1 mg/dl (8.5-10.1); CARBON DIOXIDE 29 mmol/L (21-32); GLUCOSE 115 mg/dl (70-99); POTASSIUM 4.2 mmol/L (3.5-5.1); SODIUM 138 mmol/L (136-145)
== END | disposition home or self-care (01) ==
LOC: C.LABPBG 14:11
PROVIDERS: ATTEND Internal Medicine Geriatric Medicine
DX: I10 Essential (primary) hypertension (principal); E03.9 Hypothyroidism, unspecified; J44.9 Chronic obstructive pulmonary disease, unspecified; E78.5 Hyperlipidemia, unspecified; D64.9 Anemia, unspecified; N18.3 Chronic kidney disease, stage 3 (moderate); R05 Cough; R06.02 Shortness of breath

== ENCOUNTER → 2017-08-20 | Outpatient (CLI) | payer OTHER ==
[~2017-08-20] MED LIST changes: +OPTIRAY 320 IV PRN
--- NOTE | 2017-08-20 13:47 | DIAGNOSTIC IMAGING REPORT ---
CHEST CT WITH CONTRAST CT DOSE: 863.53 mGy.cm HISTORY: Chronic cough with asthma J44.9 Chronic asthmatic [id number] [facility] TECHNIQUE: Multiaxial CT images of the chest were performed following the intravenous administration of contrast. A dose lowering technique was utilized adhering to the principles of ALARA. COMPARISON: Chest CT 05/10/2017 and 11/09/2016. FINDINGS: No dominant thyroid nodule identified. 1.1 cm right paratracheal lymph node is seen on image 128 of series 4 which is indeterminate and unchanged from comparison. No additional adenopathy of the chest identified. Mild multichamber cardiac enlargement. Prior median sternotomy and CABG with [place] coronary arterial calcifications. No pericardial effusion. Thoracic aorta is normal in both course and caliber without aneurysm or dissection identified. Medial course of the bilateral common carotid arteries. The opacified pulmonary arterial tree is unremarkable. No pneumothorax or pleural effusion. Biapical pleural-parenchymal scarring redemonstrated. Chronic consolidation with central air bronchograms involves the inferior segment lingula, unchanged. Moderate bilateral bronchial wall thickening with multifocal multilobar distribution of ill-defined centrilobular nodules with tree-in-bud nodularity. Areas of mucous plugging are noted within the bilateral lower lobes. Minimal areas of mosaic attenuation of the lateral right lung base suggest some air trapping. Overall pattern of disease has slightly improved from 05/10/2017. Unchanged 1.2 cm low attenuating lesion of the right hepatic lobe. Unchanged indeterminate 3.0 cm soft tissue attenuating lesion of the right adrenal gland. Areas of fat necrosis with internal hyperattenuation are again seen involving the superior aspect of the right breast measuring up to 2.5 cm, unchanged. Moderate hiatal hernia. The bones appear intact. Multilevel endplate spurring about the spine. IMPRESSION: 1. Mildly improved multifocal multilobar distribution of ill-defined centrilobular nodules with associated tree-in-bud nodularity and moderate bronchial wall thickening with areas of associated mucous plugging. Overall pattern of disease suggests infectious or inflammatory pneumonitis with respiratory bronchiolitis interstitial lung disease a differential consideration if the patient has a history of smoking. Nonspecific interstitial pneumonitis or acute or subacute hypersensitivity pneumonitis are additional differential considerations. Minimal mosaic attenuation of the right lung base suggests associated air trapping. 2. Cardiomegaly with prior median sternotomy and CABG. 3. Additional findings as above. Electronically signed by: Jacinto Mcclellan M.D. 08/20/2017 1:46 PM Dictated Date/Time: 08/20/2017 1:35 PM
== END | disposition home or self-care (01) ==
LOC: C.CTS 12:57
PROVIDERS: ATTEND Internal Medicine Pulmonary Disease
DX: J44.9 Chronic obstructive pulmonary disease, unspecified (principal); R05 Cough; R91.8 Other nonspecific abnormal finding of lung field; I51.7 Cardiomegaly; Z95.1 Presence of aortocoronary bypass graft

== ENCOUNTER 2020-07-01 15:57 | Observation (INO) ==
[2020-07-01] MEDS ORDERED: ONDANSETRON INJ 2 MG/ML 2 ML VIAL IV STA ×2 (16:16→20:15)
--- NOTE | 2020-07-01 16:25 | Emergency Department Note ---
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 States now thinking about she been constipated for about 5 days. Is a long history of constipation but improved after some MiraLAX regular usage. States yesterday began to feel somewhat nauseous and notes she has had multiple bowel movement. Induced vomiting several times with very transient minimal improvement. Denies fever but endorses some chills. Denies chest pain palpitations or shortness of breath. Denies suspect food intake or sick contacts. Endorses significant nausea and then utilized some laxatives and MiraLAX overnight into this morning and have 1 liquid bowel movement that was blackish in nature. While vomiting several times he noted a few black specks in the vomit. No history of similar no history of ulcers or GI bleed reported. Her doctor's office who recommended she come here given some concern for possible GI bleed. Denies use of Pepto-Bismol. States she regularly takes iron but is never noticed this change in her stool color like this before. States she feels a little bit fatigued and weak. States she had Todd large loose vomit this morning and got it on her feet and was taking a shower to clean up and felt lightheaded after this and thus called an ambulance to bring her here rather than come with a friend in their private vehicle. See some [place] for EMS but states she still feels quite nauseous upon arrival. 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 Just had some blood work done for PCP appointment in a week or 2. REVIEW OF SYSTEMS: A total of 10 review of systems was obtained and negative except as stated above in the HPI. PAST MEDICAL HISTORY: As noted above MEDICATIONS: Reviewed home medication list currently includes an 81 mg daily aspirin. SOCIAL HISTORY: Non-smoker, PHYSICAL EXAM: GENERAL: alert and oriented in no acute distress on stretcher Head: normocephalic and atraumatic EYES: No injection, discharge or icterus. NECK: Trachea midline. ENT: Mucous membranes pink and moist. LUNGS: Airway patent. No retractions. Breath sounds clear with good air entry bilaterally. HEART: Regular rate and rhythm. No chest wall tenderness ABDOMEN: Soft and non-tender, without guarding or rebound. Rectal: With nurse magician/illusionist rectal performed without obvious external hemorrhoids. Trace melena visualized externally and on rectal brown to black stool was appreciated Hemoccult positive. BACK: No bilateral flank tenderness. SKIN: Acyanotic, warm, dry, without rashes EXTREMITIES: Without tenderness or significant deformity with some trace bilateral pedal edema. NEUROLOGICAL: No focal deficits. No aphasia. No facial droop or slurred speech. EK beats per normal sinus rhythm with sinus arrhythmia. No PVC or PAC. No acute ST segment elevation is noted. QTc 437. CONTINUOUS CARDIAC MONITORING: was ordered and showed a heart rate of 90s-100s bpm in normal sinus rhythm to sinus tachycardia, did have a period of rate controlled a flutter self terminated. Patient's laboratory studies and imaging reviewed. Differential includes Diverticulosis, AVM, coagulopathy, colitis, inflammatory bowel disease, malignancy, Lucy-Simpson tear, esophagitis, peptic ulcer disease, variceal bleed, gastritis, epistaxis, fissure, hemorrhoids, as well as other pathologies. IMPRESSION/MEDICAL DECISION MAKING: Patient is complaining of some illness and nausea starting yesterday. Also noted some constipation issues took laxatives and MiraLAX and development this morning but appear to be melanotic and stool here is Hemoccult positive. Noted a few black flecks in vomit but no bright red blood in this or the stool today or overnight. Endorses some chills but again denies suspect food intake or fevers or sick contact. Received 2 doses of the Covid shot but a Covid test sent here. Blood work including type and screen will be sent. Already on twice daily PPI. Not having significant abdominal discomfort at this time. Is on aspirin. Denies heavy alcohol use. Question possible lower versus upper GI bleed. Laboratory studies show evidence of count increasing from 6.82 days ago to 14 today. Hemoglobin of 12.82 days ago and 12 today. Platelets appear stable. Renal function stable but BUN significantly elevated concerning for possible again GI bleed. Troponin is undetectable. No evidence of hepatitis or pancreatitis or elevated bilirubin. Covid testing negative here. INR within normal limits. Chest x-ray with cardiomegaly but no acute process per radiology. CT abdomen pelvis noncontrast per radiology without significant acute pathology explaining her symptoms today. Given IV dose of Protonix here 80 mg. Discussed with the patient findings. Given her symptoms discussed with her staying for further observation with her melanotic stools and nausea sym ptoms versus close outpatient follow-up. Patient lives alone and she felt more comfortable with further work-up here given her symptoms. Discussed with the hospitalist team. Patient did later have a brief episode of rate controlled a flutter (reported history of A. fib in the chart). Hospitalist team aware. Not anticoagulated given GI bleed today. DIAGNOSIS: Melena, nausea and vomiting DISPOSITION: Hospitalist will evaluate Patient was agreeable with this plan. 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 History of MRSA infection of lungs 6 YEARS AGO - TREATED Hyperlipidemia Hypertension Hypothyroidism Lumbar spinal stenosis Paroxysmal atrial fibrillation Polyposis of colon Rheumatoid arthritis Seasonal allergies Vitamin D deficiency Surgical History H/O arthroscopic knee surgery (~08/2018) History of bilateral breast reduction surgery History of bronchoscopy (~06/2013) History of cardiac cath FOR[facility]LY [facility], 1928–1983 - NO STENTS/ANGIOPLASTY -- > CABG - FOLLOWS W/ DR. SARABIA ([place]) - ALSO FOLLOWS W/ DR. LYNDA MCGILL FRYEBURG History of cataract surgery History of colonoscopy (~06/2016) W/ POLYPECTOMY History of coronary artery bypass graft (~01/2016) 3 VESSELS, [facility]- FOLLOWS W/ DR. SARABIA ([place]) - ALSO FOLLOWS W/ DR. LYNDA MCGILL FRYEBURG History of esophagogastroduodenoscopy (EGD) (~2011) History of sinus surgery History of thoracotomy (~03/2018) HX OF LEFT VATS WITH BIOPSY AND LYSIS OF ADHESIONS [place]. [facility] History of total abdominal hysterectomy and bilateral salpingo-oophorectomy History of tubal ligation Hx of arthroplasty TMJ Family History Brother Diabetes Heart disease Mother Stroke Father Stroke Grandmother Stroke Grandfather Stroke Aunt Breast cancer Son Congenital heart disease Unknown Hypertension Denies family history of Ovarian cancer Colorectal cancer Social History Smoking Status: Never smoker Second Hand Exposure: No; Hx Alcohol Use: Yes Hx Substance Use: No Preferred Language: Sami Communication Ability: Effective Visual Impairment: No Limitations 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 Beliefs That Will Affect Care: None marital status: / Current Living Situation: Alone current occupational status: retired Other Information That Helps Us Care for You: No Feels Safe at Home: Yes Safety Concerns: Feels Safe At This Time Assistive Devices: Denture - Upper and Glasses Assistive Devices Comment: upper partial not here Allergies Allergies Allergy/AdvReac Type Severity Reaction Status Date / Time diphtheria toxoid,fluid Allergy Intermediate TdAP=swelli Verified 07/01/20 16:54 ng/redness poliomyelitis vaccine,killed Allergy Intermediate TdAP=swelli Verified 07/01/20 16:54 ng/redness tetanus toxoid, adsorbed Allergy Intermediate TdAP=swelli Verified 07/01/20 16:54 ng/redness etanercept [From Enbrel] AdvReac Severe pneumonia Verified 07/01/20 16:54 amoxicillin [From Augmentin] AdvReac Intermediate GI symptoms Verified 07/01/20 16:54 clavulanic acid AdvReac Intermediate GI symptoms Verified 07/01/20 16:54 [From Augmentin] Home Meds Home Medications Medication Instructions Recorded Confirmed aspirin 81 mg PO QAM 04/01/18 07/01/20 calcium carbonate-vitamin D3 1 tab PO QAM 04/01/18 07/01/20 [Calcium 600 + D(3)] cyanocobalamin (vitamin B-12) 2,000 mcg PO QAM 04/01/18 07/01/20 [Vitamin B-12] furosemide [Lasix] 40 mg PO BID 04/01/18 07/01/20 losartan 25 mg PO QAM 04/01/18 07/01/20 acetaminophen 325 mg tablet 650 mg PO BID tab 01/13/19 07/01/20 venlafaxine 150 mg 150 mg PO HS cap 01/31/19 07/01/20 capsule,extended release 24 hr venlafaxine 75 mg capsule,extended 75 mg PO QAM cap 01/31/19 07/01/20 release 24 hr atorvastatin 40 mg tablet 40 mg PO HS tab 05/08/19 07/01/20 fluticasone fur. 100 mcg-umeclid 1 puffs INH DAILY 05/08/19 07/01/20 62.5 mcg-vilant 25 mcg inhalat.powder gabapentin 300 mg capsule 300 mg PO BID 05/08/19 07/01/20 montelukast 10 mg tablet 10 mg PO DAILY 05/08/19 07/01/20 doxycycline hyclate 50 mg PO BIDM 07/01/20 07/01/20 omeprazole 40 mg PO BID 07/01/20 07/01/20 Previous Rx's Medication Instructions Recorded hnqshrfzrs-asajsooygbeto-cqmuxcba 1 cap PO Q6H PRN #30 cap 05/28/19 50 mg-325 mg-40 mg capsule levothyroxine 100 mcg capsule 100 mcg PO QAM #90 cap 10/17/19 ketoconazole 2 % shampoo 1 applic TOPICAL Q14D #120 ml 12/31/19 ferrous gluconate 240 mg (27 mg 240 mg PO DAILY #90 tab 01/22/20 iron) tablet folic acid 1 mg tablet 1 mg PO QAM #90 tab 05/06/20 Results & Data (ED) Vital Signs Vital Signs - 24 hr 07/01/20 16:02 07/01/20 16:07 07/01/20 16:14 Temperature 36.9 C Temperature Source Oral Pulse Rate 88 100 H Pulse Rate from SpO2 Sensor 89 Pulse Rhythm Regular Pulse Strength Normal Respiratory Rate 20 20 Respiratory Effort / Characteristics Non-Labored Spontaneous Respiratory Depth Normal Respiratory Pattern Regular Blood Pressure 149/92 H 149/92 H Blood Pressure Mean 111 111 Blood Pressure Position Sitting Pulse Oximetry 100 94 96 Oxygen Delivery Method Room Air Room Air Sepsis Recent Fever Within 48 Hours No Sepsis New/Unexplained Change in Mental Status No Sepsis Action Taken by Nursing No Action Required 07/01/20 17:53 07/01/20 19:00 Temperature Temperature Source Pulse Rate 93 H 90 Pulse Rate from SpO2 Sensor 98 H 92 H Pulse Rhythm Pulse Strength Respiratory Rate 18 24 Respiratory Effort / Characteristics Respiratory Depth Respiratory Pattern Blood Pressure 118/70 Blood Pressure Mean 86 Blood Pressure Position Pulse Oximetry 98 96 Oxygen Delivery Method Sepsis Recent Fever Within 48 Hours Sepsis New/Unexplained Change in Mental Status Sepsis Action Taken by Nursing Laboratory Data Result diagrams: 07/01/20 23:03 07/01/20 16:47 Lab Results 07/01/20 07/01/20 07/01/20 Range/Units 16:44 16:44 16:47 WBC 14.00 H (4.8-10.8) K/uL RBC 3.77 L (4.2-5.4) M/uL Hgb 12.0 (12.0-16.0) g/dL Hct 35.6 L (37-47) % MCV 94.4 (80-100) fL MCH 31.8 (25-34) pg MCHC 33.7 (32-36) g/dL RDW Std Deviation 46.4 H (36.4-46.3) fL RDW Coeff of Sara 13.4 (11.5-14.5) % Plt Count 209 (130-400) K/uL MPV 10.7 H (7.4-10.4) fL Immature Gran % (Auto) 0.4 % Neut % (Auto) 80.5 % Lymph % (Auto) 11.9 % [place] % (Auto) 6.4 % Eos % (Auto) 0.5 % Baso % (Auto) 0.3 % Neut # (Auto) 11.29 H (1.4-6.5) K/uL Lymph # (Auto) 1.66 (1.2-3.4) K/uL [place] # (Auto) 0.89 H (0.11-0.59) K/uL Eos # (Auto) 0.07 (0-0.5) K/uL Baso # (Auto) 0.04 (0-0.2) K/uL Immature Gran # (Auto) 0.05 H (0.00-0.02) K/uL PT (9.0-12.0) Seconds INR (0.9-1.1) Sodium (136-145) mmol/L Potassium (3.5-5.1) mmol/L Chloride (98-107) mmol/L Carbon Dioxide (21-32) mmol/L Anion Gap (3-11) BUN (7-18) mg/dl Creatinine (0.6-1.2) mg/dl Est Cr Clr Drug Dosing ml/min Est GFR ( Amer) Est GFR (Non-Af Amer) BUN/Creatinine Ratio (10-20) Glucose (70-99) mg/dl Calcium (8.5-10.1) mg/dl Total Bilirubin (0.2-1) mg/dl AST (15-37) U/L ALT (12-78) U/L Alkaline Phosphatase (45-117) U/L Troponin I (0-0.045) ng/ml Total Protein (6.4-8.2) gm/dl Albumin (3.4-5.0) gm/dl Globulin (2.5-4.0) gm/dl Albumin/Globulin Ratio (0.9-2) Lipase (73-393) U/L Urine Color Urine Appearance (Clear) Urine pH (4.5-7.5) Ur Specific [place] (1.000-1.030) Urine Protein (Negative) Urine Glucose (UA) (Negative) Urine Ketones (Negative) Urine Blood (Negative) Urine Nitrite (Negative) Urine Bilirubin (Negative) Urine Urobilinogen (Negative) Ur Leukocyte Esterase (Negative) COVID-19 Eval Order Covid19 [facility]Now [facility] SARS-CoV-2, RNA, NAAT NEGATIVE (NEGATIVE) Blood Type Antibody Screen 07/01/20 07/01/20 07/01/20 Range/Units 16:47 16:47 16:47 WBC (4.8-10.8) K/uL RBC (4.2-5.4) M/uL Hgb (12.0-16.0) g/dL Hct (37-47) % MCV (80-100) fL MCH (25-34) pg MCHC (32-36) g/dL RDW Std Deviation (36.4-46.3) fL RDW Coeff of Sara (11.5-14.5) % Plt Count (130-400) K/uL MPV (7.4-10.4) fL Immature Gran % (Auto) % Neut % (Auto) % Lymph % (Auto) % [place] % (Auto) % Eos % (Auto) % Baso % (Auto) % Neut # (Auto) (1.4-6.5) K/uL Lymph # (Auto) (1.2-3.4) K/uL [place] # (Auto) (0.11-0.59) K/uL Eos # (Auto) (0-0.5) K/uL Baso # (Auto) (0-0.2) K/uL Immature Gran # (Auto) (0.00-0.02) K/uL PT 10.8 (9.0-12.0) Seconds INR 1.1 (0.9-1.1) Sodium 142 (136-145) mmol/L Potassium 5.1 (3.5-5.1) mmol/L Chloride 108 H (98-107) mmol/L Carbon Dioxide 29 (21-32) mmol/L Anion Gap 5.0 (3-11) BUN 68 H (7-18) mg/dl Creatinine 1.31 H (0.6-1.2) mg/dl Est Cr Clr Drug Dosing 44.6 ml/min Est GFR ( Amer) 45.7 Est GFR (Non-Af Amer) 39.5 BUN/Creatinine Ratio 51.9 H (10-20) Glucose 106 H (70-99) mg/dl Calcium 9.4 (8.5-10.1) mg/dl Total Bilirubin 0.5 (0.2-1) mg/dl AST 16 (15-37) U/L ALT 26 (12-78) U/L Alkaline Phosphatase 90 (45-117) U/L Troponin I < 0.015 (0-0.045) ng/ml Total Protein 7.3 (6.4-8.2) gm/dl Albumin 3.3 L (3.4-5.0) gm/dl Globulin 4.0 (2.5-4.0) gm/dl Albumin/Globulin Ratio 0.8 L (0.9-2) Lipase 94 (73-393) U/L Urine Color Urine Appearance (Clear) Urine pH (4.5-7.5) Ur Specific [place] (1.000-1.030) Urine Protein (Negative) Urine Glucose (UA) (Negative) Urine Ketones (Negative) Urine Blood (Negative) Urine Nitrite (Negative) Urine Bilirubin (Negative) Urine Urobilinogen (Negative) Ur Leukocyte Esterase (Negative) COVID-19 Eval Order SARS-CoV-2, RNA, NAAT (NEGATIVE) Blood Type O Positive Antibody Screen NEGATIVE 07/01/20 Range/Units 19:56 WBC (4.8-10.8) K/uL RBC (4.2-5.4) M/uL Hgb (12.0-16.0) g/dL Hct (37-47) % MCV (80-100) fL MCH (25-34) pg MCHC (32-36) g/dL RDW Std Deviation (36.4-46.3) fL RDW Coeff of Sara (11.5-14.5) % Plt Count (130-400) K/uL MPV (7.4-10.4) fL Immature Gran % (Auto) % Neut % (Auto) % Lymph % (Auto) % [place] % (Auto) % Eos % (Auto) % Baso % (Auto) % Neut # (Auto) (1.4-6.5) K/uL Lymph # (Auto) (1.2-3.4) K/uL [place] # (Auto) (0.11-0.59) K/uL Eos # (Auto) (0-0.5) K/uL Baso # (Auto) (0-0.2) K/uL Immature Gran # (Auto) (0.00-0.02) K/uL PT (9.0-12.0) Seconds INR (0.9-1.1) Sodium (136-145) mmol/L Potassium (3.5-5.1) mmol/L Chloride (98-107) mmol/L Carbon Dioxide (21-32) mmol/L Anion Gap (3-11) BUN (7-18) mg/dl Creatinine (0.6-1.2) mg/dl Est Cr Clr Drug Dosing ml/min Est GFR ( Amer) Est GFR (Non-Af Amer) BUN/Creatinine Ratio (10-20) Glucose (70-99) mg/dl Calcium (8.5-10.1) mg/dl Total Bilirubin (0.2-1) mg/dl AST (15-37) U/L ALT (12-78) U/L Alkaline Phosphatase (45-117) U/L Troponin I (0-0.045) ng/ml Total Protein (6.4-8.2) gm/dl Albumin (3.4-5.0) gm/dl Globulin (2.5-4.0) gm/dl Albumin/Globulin Ratio (0.9-2) Lipase (73-393) U/L Urine Color Yellow Urine Appearance Clear (Clear) Urine pH 6.0 (4.5-7.5) Ur Specific [place] 1.019 (1.000-1.030) Urine Protein Negative (Negative) Urine Glucose (UA) Negative (Negative) Urine Ketones Negative (Negative) Urine Blood Negative (Negative) Urine Nitrite Negative (Negative) Urine Bilirubin Negative (Negative) Urine Urobilinogen Negative (Negative) Ur Leukocyte Esterase Negative (Negative) COVID-19 Eval Order SARS-CoV-2, RNA, NAAT (NEGATIVE) Blood Type Antibody Screen Administered Medications Discontinued Medications Pantoprazole Sodium 80 mg/ (Dextrose) 100 mls @ 400 mls/hr IV ONE STA Stop: 07/01/20 16:44 Last Infusion: 07/01/20 17:54 Dose: 0 mls/hr Documented by: [id number] Admin: 07/01/20 17:23 Dose: 400 mls/hr Documented by: [id number] Sodium Chloride (Nss 1000ml) 1,000 mls @ 999 mls/hr IV .Q1H1M ONE Stop: 07/01/20 18:27 Last Infusion: 07/01/20 19:42 Dose: 0 mls/hr Documented by: [id number] Admin: 07/01/20 17:53 Dose: 999 mls/hr Documented by: [id number] Ondansetron HCl (Ondansetron Inj 2 Mg/Ml 2 Ml Vial) 4 mg IV NOW STA Stop: 07/01/20 16:17 Last Admin: 07/01/20 16:43 Dose: 4 mg Documented by: [id number] Ondansetron HCl (Ondansetron Inj 2 Mg/Ml 2 Ml Vial) Confirm Administered Dose 4 mg .ROUTE .STK-MED ONE Stop: 07/01/20 20:21 Last Admin: 07/01/20 20:22 Dose: 4 mg Documented by: [id number] Discharge Plan Visit Data Chief Complaint: Vomiting Stated Complaint: CONSTIPATION, ILLNESS NAUSEA ED Provider: Sergio Jones Discharge Problem: Nausea & vomiting, Melena Patient Disposition: Admitted As Inpatient Discharge Instructions Interventions: ED Discharge Assessment Last Done: 07/01/20 22:34 Discharge Problem: Nausea & vomiting Qualifiers: Vomiting type: unspecified Vomiting Intractability: non-intractable Qualified Code(s): R11.2 - Nausea with vomiting, unspecified
[2020-07-01] MEDS ORDERED: PANTOprazole 80 MG in DEXTROSE 5% 100 ML IV STA (16:30)
[2020-07-01 16:57] LABS: Basophils # (auto) 0.04 K/uL (0-0.2); Basophils % (auto) 0.3 %; Eosinophils # (auto) 0.07 K/uL (0-0.5); Eosinophils % (auto) 0.5 %; Hematocrit (blood only) 35.6 % (37-47); Immature Granulocytes # (auto) 0.05 K/uL (0.00-0.02); Immature Granulocytes % (auto) 0.4 %; Lymphocytes # (auto) 1.66 K/uL (1.2-3.4); Lymphocytes % (auto) 11.9 %; Mean Corpuscular Hemoglobin 31.8 pg (25-34); Mean Corpuscular Hgb Conc 33.7 g/dL (32-36); Mean Corpuscular Volume 94.4 fL (80-100); Mean Platelet Volume 10.7 fL (7.4-10.4); Monocytes # (auto) 0.89 K/uL (0.11-0.59); Monocytes % (auto) 6.4 %; Neutrophils # (auto) 11.29 K/uL (1.4-6.5); Neutrophils % (auto) 80.5 %; Platelet Count 209 K/uL (130-400); RDW Coefficient of Variation 13.4 % (11.5-14.5); RDW Standard Deviation 46.4 fL (36.4-46.3); Red Blood Count 3.77 M/uL (4.2-5.4)
[2020-07-01 17:07] LABS: INR 1.1 (0.9-1.1); Prothrombin Time 10.8 Seconds (9.0-12.0)
[2020-07-01 17:14] LABS: Alanine Aminotransferase 26 U/L (12-78); Albumin Level 3.3 gm/dl (3.4-5.0); Aspartate Aminotransferase 16 U/L (15-37); BUN Creatinine Ratio 51.9 (10-20); Blood Urea Nitrogen 68 mg/dl (7-18); Calcium 9.4 mg/dl (8.5-10.1); Carbon Dioxide 29 mmol/L (21-32); Chloride 108 mmol/L (98-107); Creatinine Clr Calc Pharmacy 44.6 ml/min; Est GFR (African American) 45.7; Est GFR (Non-African American) 39.5; Glucose 106 mg/dl (70-99); Lipase 94 U/L (73-393); Potassium 5.1 mmol/L (3.5-5.1); Sodium 142 mmol/L (136-145)
[2020-07-01 17:19] LABS: Albumin Globulin Ratio 0.8 (0.9-2); Alkaline Phosphatase 90 U/L (45-117); Bilirubin,Total 0.5 mg/dl (0.2-1); Total Protein 7.3 gm/dl (6.4-8.2); Troponin I < 0.015 ng/ml (0-0.045)
--- NOTE | 2020-07-01 17:19 | XRay Report ---
XR chest 1V portable HISTORY: 74 years-old Female vomiting acute vomiting with chest pain COMPARISON: Chest radiograph 11/05/2018, CT abdomen and pelvis 07/01/2020 TECHNIQUE: Portable AP view the chest FINDINGS: Cardiac silhouette is enlarged. Prior median sternotomy with CABG. Prominent epicardial fat pad. Mode rate hiatal hernia. There is no pneumothorax, pleural effusion, airspace consolidation or overt pulmo nary edema. Ejection changes of the shoulders and spine. IMPRESSION: 1. Cardiomegaly without acute process. 2. Moderate hiatal hernia. ACT 112: Negative or not required by law. The above report was generated using voice recognition software. It may contain grammatical, syntax o r spelling errors. Electronically signed by: Jacinto Mcclellan M.D. 07/01/2020 5:18 PM
[2020-07-01] MEDS ORDERED: SODIUM CHLORIDE 0.9% 1000ML 1,000 ML IV ONE (17:27)
--- NOTE | 2020-07-01 17:38 | CT Scan Report ---
ABDOMEN AND PELVIS CT WITHOUT CONTRAST CT DOSE: 932.37 mGycm HISTORY: Acute nausea with generalized abdominal pain nausea, melena TECHNIQUE: Multiaxial CT images of the abdomen and pelvis were performed without contrast. A dose lo wering technique was utilized adhering to the principles of ALARA. COMPARISON STUDY: CT abdomen and pelvis 11/16/2011 FINDINGS: Coronary artery calcifications. Ill-defined groundglass opacities of the right middle lobe appears similar to comparison suggestive of atelectasis/scarring versus chronic infectious or inflamm atory pneumonitis. No pneumatosis or pneumoperitoneum. The unenhanced spleen, moderately atrophic fernandez creas and left adrenal gland are unremarkable. 3.3 x 2.2 cm ovoid lesion of the right adrenal gland m eets diagnostic criteria for an adenoma with Hounsfield of 8, previously measuring 3.0 x 2.1 cm. 9 mm right hepatic lobe cyst. Otherwise unremarkable liver. Unremarkable gallbladder. Nonspecific bilateral perinephric stranding with bilateral renal cortical thinning. No urolith or obs tructive uropathy. Unremarkable urinary bladder. Hysterectomy. No adnexal mass lesion. Calcified plaq ue of the aorta without aneurysm. There is no adenopathy. Moderate sized hiatal hernia. Colonic diverticulosis without acute diverticulitis. The appendix is no t diagnostically visualized. No secondary signs of acute appendicitis. Diastases recti. Small periumb ilical hernia contains mesenteric fat and a nonobstructed loop of small bowel, diastases of 2.1 cm. D egenerative changes of the spine, pelvis and hips. No acute fracture or suspicious bone lesion. IMPRESSION: 1. No bowel obstruction or bowel wall thickening. 2. Colonic diverticulosis. 3. Small umbilical hernia contains mesenteric fat and a nonobstructed loop of small bowel. 4. Moderate sized hiatal hernia. 5. Additional findings as above. ACT 112: Negative or not required by law. The above report was generated using voice recognition software. It may contain grammatical, syntax o r spelling errors. Electronically signed by: Jacinto Mcclellan M.D. 07/01/2020 5:36 PM
[2020-07-01 20:09] LABS: Appearance Urine Clear (Clear); Bilirubin Urine Negative (Negative); Blood Urine Negative (Negative); Color Urine Yellow; Glucose Urine UA Negative (Negative); Ketones Urine Negative (Negative); Leukocyte Esterase Urine Negative (Negative); Nitrite Urine Negative (Negative); Protein Urine Negative (Negative); Specific Gravity Urine 1.019 (1.000-1.030); Urobilinogen Urine Negative (Negative)
[2020-07-01] MEDS ORDERED: ONDANSETRON INJ 2 MG/ML 2 ML VIAL ONE (20:20)
--- NOTE | 2020-07-01 21:37 | History & Physical Report ---
Date of Service July 01, 2020 Assessment & Plan (1) Melena: GI bleed Hemoglobin 12 on admission Type and cross, consented for blood transfusion Gastroenterology consult Protonix drip H&H q. 6 Zofran for nausea Continue folate and B12 supplements. iron supplement held due to potential to make stools appear melanotic Paroxysmal A. fib Rate controlled, not anticoagulated at home Takes aspirin daily. Held for now Coronary artery disease/hypertension Continue statin, Lasix, losartan Depression Continue venlafaxine at bedtime and a.m. doses CKD Creatinine 1.31 on admission Baseline appears to be 1.3 Hypothyroidism Continue levothyroxine GERD On Protonix drip for GI bleed as above Asthmatic bronchitis Continue montelukast, daily inhaler and fluticasone DVT prophylaxis: Contraindicated in setting of GI bleed FEN/GI: Blass, n.p.o. at midnight for possible procedure, Protonix drip CODE STATUS: Full code Dispo: MedSurg (2) Rheumatoid arthritis: (3) Paroxysmal atrial fibrillation: (4) Hypothyroidism: (5) Hypertension: (6) Hyperlipidemia: (7) GERD (gastroesophageal reflux disease): (8) Dyslipidemia: (9) Chronic kidney disease, stage III (moderate): (10) Chronic asthmatic bronchitis: (11) Obesity: (12) Adrenal cortical adenoma: (13) Nausea & vomiting: History of Present Illness 74-year-old female with past medical history of rheumatoid arthritis, PAF, hypertension, hyperlipidemia, GERD, hypothyroidism, CKD stage III, obesity, 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 States that she got her second Covid vaccination last and was feeling rather ill the following day so she started taking Aleve to help with her symptoms. She states that she took anywhere from 1-2 tabs at a time twice a day for the next 5 days. Today she was not feeling well had a decreased appetite and then had an episode of clear emesis with black coffee ground-like substance in it. She states that after that she also started feeling somewhat lightheaded had to go to the bathroom and had multiple melanotic stools which was abnormal and she normally is constipated. She denies seeing any bright red blood, she denies any previous episodes of coffee-ground emesis or melanotic stool. She does attest to having a history of colonic polyps that were evaluated by both eva Florez and Teresa gastroenterology. States that she went to [facility] for an outside opinion so that she would not have to get a colectomy who diagnosed her with nonhereditary FAP. She states that her [facility] Doctor removed to the polyps on a yearly basis but she now has not seen him for the past 2 years and has not had a colonoscopy in that same amount of time. She denies frequent caffeine use, she denies any alcohol use. She takes a daily baby aspirin. She denies any chest palpitations, shortness of breath, numbness or tingling. ER course significant for positive FOBT, CT abdomen pelvis showing diverticulosis without diverticulitis, moderate sized hiatal hernia and small umbilical hernia. Hemoglobin mildly reduced at 12 but otherwise stable. She was consented for blood transfusion if the need arose that she would need it. Primary Care Provider: Theo Tripathi, Allergies Allergy/AdvReac Type Severity Reaction Status Date / Time diphtheria toxoid,fluid Allergy Intermediate TdAP=swelli Verified 07/01/20 16:54 ng/redness poliomyelitis vaccine,killed Allergy Intermediate TdAP=swelli Verified 07/01/20 16:54 ng/redness tetanus toxoid, adsorbed Allergy Intermediate TdAP=swelli Verified 07/01/20 16:54 ng/redness etanercept [From Enbrel] AdvReac Severe pneumonia Verified 07/01/20 16:54 amoxicillin [From Augmentin] AdvReac Intermediate GI symptoms Verified 07/01/20 16:54 clavulanic acid AdvReac Intermediate GI symptoms Verified 07/01/20 16:54 [From Augmentin] Home Medications Medication Instructions Recorded Confirmed Type aspirin 81 mg PO QAM 04/01/18 07/01/20 History calcium carbonate-vitamin D3 1 tab PO QAM 04/01/18 07/01/20 History [Calcium 600 + D(3)] cyanocobalamin (vitamin B-12) 2,000 mcg PO QAM 04/01/18 07/01/20 History [Vitamin B-12] furosemide [Lasix] 40 mg PO BID 04/01/18 07/01/20 History losartan 25 mg PO QAM 04/01/18 07/01/20 History acetaminophen 325 mg tablet 650 mg PO BID tab 01/13/19 07/01/20 History venlafaxine 150 mg 150 mg PO HS cap 01/31/19 07/01/20 History capsule,extended release 24 hr venlafaxine 75 mg capsule,extended 75 mg PO QAM cap 01/31/19 07/01/20 History release 24 hr atorvastatin 40 mg tablet 40 mg PO HS tab 05/08/19 07/01/20 History fluticasone fur. 100 mcg-umeclid 1 puffs INH DAILY 05/08/19 07/01/20 History 62.5 mcg-vilant 25 mcg inhalat.powder gabapentin 300 mg capsule 300 mg PO BID 05/08/19 07/01/20 History montelukast 10 mg tablet 10 mg PO DAILY 05/08/19 07/01/20 History gkcdzrfcer-sahoxtlbnetmq-pczkdghx 1 cap PO Q6H PRN #30 cap 05/28/19 07/01/20 Rx 50 mg-325 mg-40 mg capsule levothyroxine 100 mcg capsule 100 mcg PO QAM #90 cap 10/17/19 07/01/20 Rx ketoconazole 2 % shampoo 1 applic TOPICAL Q14D #120 ml 12/31/19 07/01/20 Rx ferrous gluconate 240 mg (27 mg 240 mg PO DAILY #90 tab 01/22/20 07/01/20 Rx iron) tablet folic acid 1 mg tablet 1 mg PO QAM #90 tab 05/06/20 07/01/20 Rx doxycycline hyclate 50 mg PO BIDM 07/01/20 07/01/20 History omeprazole 40 mg PO BID 07/01/20 07/01/20 History Past Med/Surg History Medical History 43, 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 History of MRSA infection of lungs 6 YEARS AGO - TREATED Hyperlipidemia Hypertension Hypothyroidism Lumbar spinal stenosis Paroxysmal atrial fibrillation Polyposis of colon Rheumatoid arthritis Seasonal allergies Vitamin D deficiency Surgical History H/O arthroscopic knee surgery (~08/2018) History of bilateral breast reduction surgery History of bronchoscopy (~06/2013) History of cardiac cath [facility] - NO STENTS/ANGIOPLASTY -- > CABG - FOLLOWS W/ DR. SARABIA ([place]) - ALSO FOLLOWS W/ DR. HOWELL IN [place] History of cataract surgery History of colonoscopy (~06/2016) W/ POLYPECTOMY History of coronary artery bypass graft (~01/2016) 3 VESSELS, [facility]- FOLLOWS W/ DR. SARABIA ([place]) - ALSO FOLLOWS W/ DR. HOWELL IN [place] History of esophagogastroduodenoscopy (EGD) (~2011) History of sinus surgery History of thoracotomy (~03/2018) HX OF LEFT VATS WITH BIOPSY AND LYSIS OF ADHESIONS [place]. 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 Beliefs That Will Affect Care: None marital status: / Current Living Situation: Alone current occupational status: retired Other Information That Helps Us Care for You: No Feels Safe at Home: Yes Safety Concerns: Feels Safe At This Time Assistive Devices: Glasses Assistive Devices Comment: upper partial not here Review of Systems Constitutional: no fever, no chills, no body aches and no fatigue Respiratory: no cough and no dyspnea Cardiovascular: no chest pain, no dyspnea and no edema Gastrointestinal: + abdominal pain, + nausea, + vomiting, + coffee ground emesis, + change in bowel habits, + diarrhea/loose stools and + melena; no hematemesis, no constipation and no fecal incontinence Genitourinary: no hematuria Physical Exam Physical Exam: Constitutional: obese, in no apparent distress, sitting comfortably in bed. Eyes: EOMI, pupils equal and reactive bilaterally, no scleral icterus Cardiac: RRR, no murmurs, gallops or rubs. Normal S1, S2 Pulm: CTA BL, no wheezes, rhonchi, crackles or rubs, moving air well throughout both lungs Abd: soft, tender to palpation of LUQ and epigastrium, distended, normal bowel sounds, no rebound or guarding Extremities: 2+ peripheral pulses, no edema Neuro: no focal deficits, moving all 4 limbs, A&Ox3 Results & Data Results & Data ([facility]) Vital Signs (Past 12 Hours) Vital Signs Temp Pulse Resp BP Pulse Ox 07/01/20 20:25 100 H 21 148/77 H 99 07/01/20 19:00 90 24 96 07/01/20 17:53 93 H 18 118/70 98 07/01/20 16:14 96 07/01/20 16:07 36.9 C 100 H 20 149/92 H 94 07/01/20 16:02 88 20 149/92 H 100 Laboratory Results WBC 14.00 K/uL (4.8-10.8) H 07/01/20 16:47 RBC 3.77 M/uL (4.2-5.4) L 07/01/20 16:47 Hgb 11.7 g/dL (12.0-16.0) L 07/01/20 23:03 Hct 35.3 % (37-47) L 07/01/20 23:03 MCV 94.4 fL (80-100) 07/01/20 16:47 MCH 31.8 pg (25-34) 07/01/20 16:47 MCHC 33.7 g/dL (32-36) 07/01/20 16:47 RDW Std Deviation 46.4 fL (36.4-46.3) H 07/01/20 16:47 RDW Coeff of Sara 13.4 % (11.5-14.5) 07/01/20 16:47 Plt Count 209 K/uL (130-400) 07/01/20 16:47 MPV 10.7 fL (7.4-10.4) H 07/01/20 16:47 Immature Gran % (Auto) 0.4 % 07/01/20 16:47 Neut % (Auto) 80.5 % 07/01/20 16:47 Lymph % (Auto) 11.9 % 07/01/20 16:47 [place] % (Auto) 6.4 % 07/01/20 16:47 Eos % (Auto) 0.5 % 07/01/20 16:47 Baso % (Auto) 0.3 % 07/01/20 16:47 Neut # (Auto) 11.29 K/uL (1.4-6.5) H 07/01/20 16:47 Lymph # (Auto) 1.66 K/uL (1.2-3.4) 07/01/20 16:47 [place] # (Auto) 0.89 K/uL (0.11-0.59) H 07/01/20 16:47 Eos # (Auto) 0.07 K/uL (0-0.5) 07/01/20 16:47 Baso # (Auto) 0.04 K/uL (0-0.2) 07/01/20 16:47 Immature Gran # (Auto) 0.05 K/uL (0.00-0.02) H 07/01/20 16:47 PT 10.8 Seconds (9.0-12.0) 07/01/20 16:47 INR 1.1 (0.9-1.1) 07/01/20 16:47 Sodium 142 mmol/L (136-145) 07/01/20 16:47 Potassium 5.1 mmol/L (3.5-5.1) 07/01/20 16:47 Chloride 108 mmol/L (98-107) H 07/01/20 16:47 Carbon Dioxide 29 mmol/L (21-32) 07/01/20 16:47 Anion Gap 5.0 (3-11) 07/01/20 16:47 BUN 68 mg/dl (7-18) H 07/01/20 16:47 Creatinine 1.31 mg/dl (0.6-1.2) H 07/01/20 16:47 Est Cr Clr Drug Dosing 44.6 ml/min 07/01/20 16:47 Est GFR ( Amer) 45.7 07/01/20 16:47 Est GFR (Non-Af Amer) 39.5 07/01/20 16:47 BUN/Creatinine Ratio 51.9 (10-20) H 07/01/20 16:47 Glucose 106 mg/dl (70-99) H 07/01/20 16:47 Calcium 9.4 mg/dl (8.5-10.1) 07/01/20 16:47 Total Bilirubin 0.5 mg/dl (0.2-1) 07/01/20 16:47 AST 16 U/L (15-37) 07/01/20 16:47 ALT 26 U/L (12-78) 07/01/20 16:47 Alkaline Phosphatase 90 U/L (45-117) 07/01/20 16:47 Troponin I < 0.015 ng/ml (0-0.045) 07/01/20 16:47 Total Protein 7.3 gm/dl (6.4-8.2) 07/01/20 16:47 Albumin 3.3 gm/dl (3.4-5.0) L 07/01/20 16:47 Globulin 4.0 gm/dl (2.5-4.0) 07/01/20 16:47 Albumin/Globulin Ratio 0.8 (0.9-2) L 07/01/20 16:47 Lipase 94 U/L (73-393) 07/01/20 16:47 Urine Color Yellow 07/01/20 19:56 Urine Appearance Clear (Clear) 07/01/20 19:56 Urine pH 6.0 (4.5-7.5) 07/01/20 19:56 Ur Specific [place] 1.019 (1.000-1.030) 07/01/20 19:56 Urine Protein Negative (Negative) 07/01/20 19:56 Urine Glucose (UA) Negative (Negative) 07/01/20 19:56 Urine Ketones Negative (Negative) 07/01/20 19:56 Urine Blood Negative (Negative) 07/01/20 19:56 Urine Nitrite Negative (Negative) 07/01/20 19:56 Urine Bilirubin Negative (Negative) 07/01/20 19:56 Urine Urobilinogen Negative (Negative) 07/01/20 19:56 Ur Leukocyte Esterase Negative (Negative) 07/01/20 19:56 POC Stool Occult Blood Positive (Negative) A 07/01/20 Unknown COVID-19 Eval Order Covid19 IDNow [facility] 07/01/20 16:44 SARS-CoV-2, RNA, NAAT NEGATIVE (NEGATIVE) 07/01/20 16:44 Blood Type O Positive 07/01/20 16:47 Antibody Screen NEGATIVE 07/01/20 16:47 Code Status & VTE Plan VTE Prophylaxis Plan VTE Prophylaxis will be ordered: No Supervising Physician Co-Signing Physician Notes Attending addendum: I have physically seen this patient, have supervised the medical residents activities, and agree with the H&P unless as otherwise noted. Assessment and Plan: GI bleed NPO except essential medications H&H every 6 hours Pantoprazole bolus then drip Zofran 4 mg IV every 6 hours as needed Hold aspirin, doxycycline. Consult gastroenterology Paroxysmal atrial fibrillation/CAD/hypertension- Hold aspirin, furosemide, losartan Depression- Continue venlafaxine Hypothyroidism- Continue levothyroxine Remaining orders and notations as noted Resident Activity Tracking Resident Involvement: Resident Care Provided Care Provided: Adult Hospital Medicine (1) Nausea & vomiting Vomiting Intractability: non-intractable Vomiting type: unspecified Qualified Code(s): R11.2 - Nausea with vomiting, unspecified
[2020-07-01 23:13] LABS: Hematocrit (blood only) 35.3 % (37-47); Hemoglobin 11.7 g/dL (12.0-16.0)
[2020-07-01] MEDS: VENLAFAXINE HCL XR 150 MG CAPXR PO SCH (23:49)
[2020-07-01] MEDS: ATORVASTATIN 40 MG TAB PO SCH (23:49)
[2020-07-01] MEDS: FUROSEMIDE 40 MG TAB PO SCH (23:49)
[2020-07-01] MEDS: GABAPENTIN 300 MG CAP PO SCH (23:49)
[2020-07-01] MEDS: ACETAMINOPHEN 500 MG TAB PO SCH (23:51)
[2020-07-02] MEDS: PANTOprazole 40 MG in DEXTROSE 5% 100 ML IV SCH ×5 (00:23→19:30)
[2020-07-02] MEDS: SODIUM CHLORIDE 0.9% 1000ML 1,000 ML IV SCH ×3 (00:23→16:24)
[2020-07-02] MEDS: LEVOTHYROXINE SODIUM 100 MCG TABLET PO SCH (05:55)
[2020-07-02] MEDS: ACETAMINOPHEN 500 MG TAB PO SCH ×4 (06:44→21:23)
[2020-07-02 07:01] LABS: Hematocrit (blood only) 32.2 % (37-47); Hemoglobin 10.5 g/dL (12.0-16.0)
[2020-07-02] MEDS: MONTELUKAST SODIUM 10 MG TABLET PO SCH (07:39)
[2020-07-02] MEDS: FOLIC ACID 1 MG TAB PO SCH (07:39)
[2020-07-02] MEDS: UMECLIDINIUM/VILANTEROL 62.5/25MCG 7 PUFFS/INHALER INH SCH (07:39)
[2020-07-02] MEDS: FLUTICASONE FUROATE 100MCG 14 PUFFS/INHALER INH SCH (07:39)
[2020-07-02] MEDS: LOSARTAN POTASSIUM 25 MG TAB PO SCH (07:39)
[2020-07-02] MEDS: FUROSEMIDE 40 MG TAB PO SCH ×2 (07:40→20:17)
[2020-07-02] MEDS: VENLAFAXINE HCL XR 75 MG CAPXR PO SCH (07:40)
[2020-07-02] MEDS: CYANOCOBALAMIN 500 MCG TABLET (VITAMIN B-12) PO SCH (07:40)
[2020-07-02] MEDS: GABAPENTIN 300 MG CAP PO SCH ×2 (07:40→20:18)
[2020-07-02 07:41] LABS: BUN Creatinine Ratio 40.9 (10-20); Calcium 8.6 mg/dl (8.5-10.1); Creatinine Clr Calc Pharmacy 43.8 ml/min; Est GFR (African American) 44.9; Est GFR (Non-African American) 38.7; Potassium 3.9 mmol/L (3.5-5.1)
--- NOTE | 2020-07-02 10:12 | Gastrointestinal Consultation ---
Date of Consultation July 02, 2020 Assessment & Plan (1) Melena: Patient is a 74 yo female with melena and recent NSAID use. Also with a PMH of a non-hereditary polyposis syndrome for which a total colectomy was advised, however patient had declined and opted for routine colonoscopy surveil joelle for which she is due. -Keep NPO for EGD today with Dr. Crews -Continue to monitor H/H -Patient notes she already has plans for a 2020 colonoscopy at [facility] -IV Protonix 40 mg BID Thank you for allowing us to participate in the care of this patient. If you should have any further questions or concerns, do not hesitate to contact us at [phone] or our office at [phone]. Supervising Physician Co-Signing Physician Notes I personally evaluated the patient and agree with the findings as documented by Lillian Friend, MILLY Exam: abd: soft, nt, nd Proceed with EGD. History of Present Illness Reason for Consultation: GI bleeding, melena Attending Physician: Allie Looney MD History of Present Illness Patient is a 74 yo female with a PMH of PAF, HTN, HLD, GERD, CKD3, [place]'s Syndrome, Adrenal Cortical Adenoma, & Non-hereditary Polyposis syndrome. Since her recent COVID19 vaccination, she was feeling poorly and was taking Aleve to treat her symptoms. She reports that over the course of 5 days, she took about 4 tablets daily. She notes that she had coffee-ground emesis and began to experience multiple episodes of melanotic stool. This alarmed her because she is typically very constipated. H/H is 10.5/32.2. CT of the abdomen/pelvis in the ED showed diverticulosis, a hiatal hernia, & an umbilical hernia. In 2014, she had a colonoscopy by Dr. Triana. She was found to have innumerable polyps in the colon, many of which could not be removed at once. Dr. Triana referred the patient to heme/onc, genetics, and colorectal surgery due to the concern of a polyposis syndrome. She had a repeat colonoscopy 1 week after her colonoscopy with Dr. Triana. 44 polyps were resected at that time. The following week, another co lonoscopy retrieved 33 polyps. The patient saw [facility] Colorectal Surgery. A total colectomy was advised and scheduled. Patient was not interested in a colectomy and sought another opinion at [facility]. I am unclear of all of their formal recommendations, but the patient reports that without a colectomy she was advised to have a colonoscopy on an annual basis (at [facility]). She notes that at some point, that recommendation changed to every 2 years. She notes she is due this year and plans to proceed with this at [facility]. No pertinent family history. Allergies Allergy/AdvReac Type Severity Reaction Status Date / Time diphtheria toxoid,fluid Allergy Intermediate TdAP=swelli Verified 07/01/20 16:54 ng/redness poliomyelitis vaccine,killed Allergy Intermediate TdAP=swelli Verified 07/01/20 16:54 ng/redness tetanus toxoid, adsorbed Allergy Intermediate TdAP=swelli Verified 07/01/20 16:54 ng/redness etanercept [From Enbrel] AdvReac Severe pneumonia Verified 07/01/20 16:54 amoxicillin [From Augmentin] AdvReac Intermediate GI symptoms Verified 07/01/20 16:54 clavulanic acid AdvReac Intermediate GI symptoms Verified 07/01/20 16:54 [From Augmentin] Home Medications Medication Instructions Recorded Confirmed Type aspirin 81 mg PO QAM 04/01/18 07/01/20 History calcium carbonate-vitamin D3 1 tab PO QAM 04/01/18 07/01/20 History [Calcium 600 + D(3)] cyanocobalamin (vitamin B-12) 2,000 mcg PO QAM 04/01/18 07/01/20 History [Vitamin B-12] furosemide [Lasix] 40 mg PO BID 04/01/18 07/01/20 History losartan 25 mg PO QAM 04/01/18 07/01/20 History acetaminophen 325 mg tablet 650 mg PO BID tab 01/13/19 07/01/20 History venlafaxine 150 mg 150 mg PO HS cap 01/31/19 07/01/20 History capsule,extended release 24 hr venlafaxine 75 mg capsule,extended 75 mg PO QAM cap 01/31/19 07/01/20 History release 24 hr atorvastatin 40 mg tablet 40 mg PO HS tab 05/08/19 07/01/20 History fluticasone fur. 100 mcg-umeclid 1 puffs INH DAILY 05/08/19 07/01/20 History 62.5 mcg-vilant 25 mcg inhalat.powder gabapentin 300 mg capsule 300 mg PO BID 05/08/19 07/01/20 History montelukast 10 mg tablet 10 mg PO DAILY 05/08/19 07/01/20 History vqxinjjtqg-nwjgscmtqzglg-nmdzageo 1 cap PO Q6H PRN #30 cap 05/28/19 07/01/20 Rx 50 mg-325 mg-40 mg capsule levothyroxine 100 mcg capsule 100 mcg PO QAM #90 cap 10/17/19 07/01/20 Rx ketoconazole 2 % shampoo 1 applic TOPICAL Q14D #120 ml 12/31/19 07/01/20 Rx ferrous gluconate 240 mg (27 mg 240 mg PO DAILY #90 tab 01/22/20 07/01/20 Rx iron) tablet folic acid 1 mg tablet 1 mg PO QAM #90 tab 05/06/20 07/01/20 Rx doxycycline hyclate 50 mg PO BIDM 07/01/20 07/01/20 History omeprazole 40 mg PO BID 07/01/20 07/01/20 History Patient History Medical History 43, 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 History of MRSA infection of lungs 6 YEARS AGO - TREATED Hyperlipidemia Hypertension Hypothyroidism Lumbar spinal stenosis Paroxysmal atrial fibrillation Polyposis of colon Rheumatoid arthritis Seasonal allergies Vitamin D deficiency Surgical History H/O arthroscopic knee surgery (~08/2018) History of bilateral breast reduction surgery History of bronchoscopy (~06/2013) History of cardiac cath [facility] - NO STENTS/ANGIOPLASTY -- > CABG - FOLLOWS W/ DR. SARABIA ([place]) - ALSO FOLLOWS W/ DR. LYNDA MCGILL [place] History of cataract surgery History of colonoscopy (~06/2016) W/ POLYPECTOMY History of coronary artery bypass graft (~01/2016) 3 VESSELS, [facility]- FOLLOWS W/ DR. SARABIA ([place]) - ALSO FOLLOWS W/ DR. HOWELL IN [place] History of esophagogastroduodenoscopy (EGD) (~2011) History of sinus surgery History of thoracotomy (~03/2018) HX OF LEFT VATS WITH BIOPSY AND LYSIS OF ADHESIONS [place] 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 Beliefs That Will Affect Care: None marital status: / Current Living Situation: Alone current occupational status: retired Other Information That Helps Us Care for You: No Feels Safe at Home: Yes Safety Concerns: Feels Safe At This Time Assistive Devices: Glasses Assistive Devices Comment: upper partial not here Review of Systems Constitutional: no fever and no chills Respiratory: no dyspnea Cardiovascular: no chest pain Gastrointestinal: + coffee ground emesis and + melena Physical Exam Constitutional: well developed Neck: normal visual inspection Respiratory: normal respiratory effort Cardiovascular: Extremities: no edema Gastrointestinal (Abdomen): Inspection/Auscultation: abdomen normal to inspection Percussion/Palpation: abdomen soft; abdomen nontender Musculoskeletal: Head/Neck/Chest: normocephalic Psychiatric: A+Ox3, euthymic affect Results & Data ([facility]) Vital Signs (Past 12 Hours) Vital Signs Temp Pulse Pulse Resp BP BP Pulse Ox 07/02/20 07:22 36.8 C 75 16 97/57 L 95 07/01/20 22:45 36.8 C 107 H 16 166/79 H 99 07/01/20 22:30 90 20 122/71 99 PG Care Time/CCT Total # of Minutes Spent Total Time Spent with Patient: Total time spent is greater than 50% in coordination of care (as documented) at patient's floor/unit and/or counseling patient: Coding Level of Care Code 60372 Initial Inpt Care Lvl 3 Diagnoses Melena K92.1
[2020-07-02 11:05] LABS: Hematocrit (blood only) 32.8 % (37-47); Hemoglobin 10.7 g/dL (12.0-16.0)
--- NOTE | 2020-07-02 11:20 | Anesthesiology Consultation ---
Date of Service July 02, 2020 History Surgery Operation Date: 07/02/20 16:30 Proposed Procedures p Esophagogastroduodenoscopy Dr. Crews - Rudolph Crews MD Height/Weight Height: 5 ft 4 in Weight: 110.9 kg Allergies Allergy/AdvReac Type Severity Reaction Status Date / Time diphtheria toxoid,fluid Allergy Intermediate TdAP=swelli Verified 07/01/20 16:54 ng/redness poliomyelitis vaccine,killed Allergy Intermediate TdAP=swelli Verified 07/01/20 16:54 ng/redness tetanus toxoid, adsorbed Allergy Intermediate TdAP=swelli Verified 07/01/20 16:54 ng/redness etanercept [From Enbrel] AdvReac Severe pneumonia Verified 07/01/20 16:54 amoxicillin [From Augmentin] AdvReac Intermediate GI symptoms Verified 07/01/20 16:54 clavulanic acid AdvReac Intermediate GI symptoms Verified 07/01/20 16:54 [From Augmentin] Medications Home Medications Medication Instructions Recorded Confirmed Last Taken aspirin 81 mg PO QAM 04/01/18 07/01/20 06/30/20 calcium carbonate-vitamin D3 1 tab PO QAM 04/01/18 07/01/20 06/30/20 [Calcium 600 + D(3)] cyanocobalamin (vitamin B-12) 2,000 mcg PO QAM 04/01/18 07/01/20 06/30/20 [Vitamin B-12] furosemide [Lasix] 40 mg PO BID 04/01/18 07/01/20 06/30/20 losartan 25 mg PO QAM 04/01/18 07/01/20 06/30/20 acetaminophen 325 mg tablet 650 mg PO BID tab 01/13/19 07/01/20 06/30/20 venlafaxine 150 mg 150 mg PO HS cap 01/31/19 07/01/20 06/30/20 capsule,extended release 24 hr venlafaxine 75 mg capsule,extended 75 mg PO QAM cap 01/31/19 07/01/20 07/01/20 release 24 hr atorvastatin 40 mg tablet 40 mg PO HS tab 05/08/19 07/01/20 06/30/20 fluticasone fur. 100 mcg-umeclid 1 puffs INH DAILY 05/08/19 07/01/20 06/30/20 62.5 mcg-vilant 25 mcg inhalat.powder gabapentin 300 mg capsule 300 mg PO BID 05/08/19 07/01/20 06/30/20 montelukast 10 mg tablet 10 mg PO DAILY 05/08/19 07/01/20 06/30/20 xbufgspdoy-wydpymaknumxg-aubrgajx 1 cap PO Q6H PRN #30 cap 05/28/19 07/01/20 Unknown 50 mg-325 mg-40 mg capsule levothyroxine 100 mcg capsule 100 mcg PO QAM #90 cap 10/17/19 07/01/20 06/30/20 ketoconazole 2 % shampoo 1 applic TOPICAL Q14D #120 ml 12/31/19 07/01/20 Unknown ferrous gluconate 240 mg (27 mg 240 mg PO DAILY #90 tab 01/22/20 07/01/20 06/30/20 iron) tablet folic acid 1 mg tablet 1 mg PO QAM #90 tab 05/06/20 07/01/20 06/30/20 doxycycline hyclate 50 mg PO BIDM 07/01/20 07/01/20 06/30/20 omeprazole 40 mg PO BID 07/01/20 07/01/20 06/30/20 Active Medications Generic Name Dose Route Start Last Admin Trade Name Freq PRN Reason Stop Dose Admin Acetaminophen 1,000 mg 07/02/20 06:00 07/02/20 09:34 Acetaminophen 500 Mg Tab PO 08/01/20 05:59 1,000 mg Q8 DONNA Administration Atorvastatin Calcium 40 mg 07/01/20 22:46 07/01/20 23:49 Atorvastatin 40 Mg Tab PO 07/31/20 22:45 40 mg HS DONNA Administration Cyanocobalamin 2,000 mcg 07/02/20 09:00 07/02/20 07:40 Cyanocobalamin 500 Mcg Tablet (Vitamin B-12) PO 08/01/20 08:59 2,000 mcg QAM DONNA Administration Fluticasone Furoate 1 puffs 07/02/20 09:00 07/02/20 07:39 Fluticasone Furoate 100mcg 14 Puffs/Inhaler INH 08/01/20 08:59 1 puffs DAILY DONNA Administration Folic Acid 1 mg 07/02/20 09:00 07/02/20 07:39 Folic Acid 1 Mg Tab PO 08/01/20 08:59 1 mg QAM DONNA Administration Furosemide 40 mg 07/01/20 22:46 07/02/20 07:40 Furosemide 40 Mg Tab PO 07/31/20 22:45 40 mg BID DONNA Administration Gabapentin 300 mg 07/01/20 22:46 07/02/20 07:40 Gabapentin 300 Mg Cap PO 07/31/20 22:45 300 mg BID DONNA Administration Pantoprazole Sodium 40 mg/ 100 mls @ 20 mls/hr 07/01/20 23:00 07/02/20 09:34 Dextrose IV 07/31/20 22:59 8 mg/hr Q5H DONNA 20 mls/hr Administration 8 MG/HR Sodium Chloride 1,000 mls @ 125 mls/hr 07/01/20 22:46 07/02/20 07:38 Nss 1000ml IV 07/31/20 22:45 125 mls/hr .Q8H DONNA Administration Levothyroxine Sodium 100 mcg 07/02/20 06:30 07/02/20 05:55 Levothyroxine Sodium 100 Mcg Tablet PO 08/01/20 06:29 100 mcg DAILYBB DONNA Administration Losartan Potassium 25 mg 07/02/20 09:00 07/02/20 07:39 Losartan Potassium 25 Mg Tab PO 08/01/20 08:59 25 mg QAM DONNA Administration Montelukast Sodium 10 mg 07/02/20 09:00 07/02/20 07:39 Montelukast Sodium 10 Mg Tablet PO 08/01/20 08:59 10 mg DAILY DONNA Administration Umeclidinium/Vilanterol 1 puffs 07/02/20 09:00 07/02/20 07:39 Umeclidinium/Vilanterol 62.5/25mcg 7 Puffs/Inhaler INH 08/01/20 08:59 1 puffs DAILY DONNA Administration Venlafaxine HCl 75 mg 07/02/20 09:00 07/02/20 07:40 Venlafaxine Hcl Xr 75 Mg Capxr PO 08/01/20 08:59 75 mg QAM DONNA Administration Venlafaxine HCl 150 mg 07/01/20 22:46 07/01/20 23:49 Venlafaxine Hcl Xr 150 Mg Capxr PO 07/31/20 22:45 150 mg HS DONNA Administration NPO Date Last Intake of Fluids: 07/01/20 Time Last Intake of Fluids: 23:59 Date Last Intake of Solids: 07/01/20 Time Last Intake of Solids: 23:59 Past Medical History Medical History 43, 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 History of MRSA infection of lungs 6 YEARS AGO - TREATED Hyperlipidemia Hypertension Hypothyroidism Lumbar spinal stenosis Paroxysmal atrial fibrillation Polyposis of colon Rheumatoid arthritis Seasonal allergies Vitamin D deficiency Past Family History Family History Brother Diabetes Heart disease Mother Stroke Father Stroke Grandmother Stroke Grandfather Stroke Aunt Breast cancer Son Congenital heart disease Unknown Hypertension Denies family history of Ovarian cancer Colorectal cancer Past Surgical History Surgical History H/O arthroscopic knee surgery (~08/2018) History of bilateral breast reduction surgery History of bronchoscopy (~06/2013) History of cardiac cath [facility] - NO STENTS/ANGIOPLASTY -- > CABG - FOLLOWS W/ DR. SARABIA ([place]) - ALSO FOLLOWS W/ DR. HOWELL IN [place] History of cataract surgery History of colonoscopy (~06/2016) W/ POLYPECTOMY History of coronary artery bypass graft (~01/2016) 3 [facility], [facility]- FOLLOWS W/ DR. SARABIA ([place]) - ALSO FOLLOWS W/ DR. LYNDA MCGILL [place] History of esophagogastroduodenoscopy (EGD) (~2011) History of sinus surgery History of thoracotomy (~03/2018) HX OF LEFT VATS WITH BIOPSY AND LYSIS OF ADHESIONS [place]. [facility] History of total abdominal hysterectomy and bilateral salpingo-oophorectomy History of tubal ligation Hx of arthroplasty TMJ Social History Smoking Status: Never smoker Hx Alcohol Use: Yes alcohol intake frequency: holidays/special occasions only Hx Substance Use: No substance use type: does not use Physical Exam Vital Signs Last Vital Signs Temp 36.8 C 07/02/20 07:22 Pulse 75 07/02/20 07:22 Resp 16 07/02/20 07:22 BP 97/57 L 07/02/20 07:22 Pulse Ox 95 07/02/20 07:22 Testing Laboratory Results 07/02/20 10:32 07/02/20 06:36 PT 10.8 Seconds (9.0-12.0) 07/01/20 16:47 INR 1.1 (0.9-1.1) 07/01/20 16:47 Urine Color Yellow 07/01/20 19:56 Urine Appearance Clear (Clear) 07/01/20 19:56 Urine pH 6.0 (4.5-7.5) 07/01/20 19:56 Ur Specific [place] 1.019 (1.000-1.030) 07/01/20 19:56 Urine Protein Negative (Negative) 07/01/20 19:56 Urine Glucose (UA) Negative (Negative) 07/01/20 19:56 Urine Ketones Negative (Negative) 07/01/20 19:56 Urine Nitrite Negative (Negative) 07/01/20 19:56 Ur Leukocyte Esterase Negative (Negative) 07/01/20 19:56 Blood Type O Positive 07/01/20 16:47 Antibody Screen NEGATIVE 07/01/20 16:47 Electrocardiogram Date: 07/01/20 Normal sinus rhythm with sinus arrhythmia Normal ECG When compared with ECG of 19-MAR-2018 11:06, No significant change was found Chest X-Ray Date: 07/01/20 IMPRESSION: 1. Cardiomegaly without acute process. 2. Moderate hiatal hernia.
[2020-07-02] MEDS ORDERED: PROPOFOL IV EMULSION 10 MG/ML 20 ML VIAL IV ONE (11:48)
[2020-07-02] MEDS ORDERED: LIDOCAINE HCL 2% 2 ML VIAL/AMP(20MG/ML) INFIL ONE (11:48)
--- NOTE | 2020-07-02 12:33 | GI REPORT ---
Patient Name: Mariel Tao Procedure Date: 07/02/2020 11:59 AM Date of : 1945 Admit Type: Inpatient Age: 74 Gender: Female Attending MD: Rudolph Crews MD Procedure: Upper GI endoscopy Providers: Rudolph Crews MD Referring MD: Allie Looney Indications: Unexplained iron deficiency anemia, Melena Medicines: Monitored Anesthesia Care Complications: No immediate complications. Estimated blood loss: None. Estimated Blood Loss: Estimated blood loss: none. Procedure: Pre-Anesthesia Assessment: - Prior Anticoagulants: The patient has taken no previous anticoagulant or antiplatelet agents. - ASA Grade Assessment: II - A patient with mild systemic disease. After obtaining informed consent, the endoscope was passed under direct vision. Throughout the procedure, the patient's blood pressure, pulse, and oxygen saturations were monitored continuously. The Endoscope was introduced through the mouth, and advanced to the second part of duodenum. The upper GI endoscopy was accomplished without difficulty. The patient tolerated the procedure well. Findings: A large hiatal hernia was present. Segmental mild inflammation characterized by erythema was found in the gastric antrum. Biopsies were taken with a cold forceps for Helicobacter pylori testing. Estimated blood loss: none. The duodenal bulb and second portion of the duodenum were normal. No evidence of blood, ulcers, AVMs throughout entire exam. Impression: - Large hiatal hernia. - Gastritis. Biopsied. - Normal duodenal bulb and second portion of the duodenum. Recommendation: - Return patient to [facility] for ongoing care. - Resume previous diet today. - Await pathology results. -protonix daily -strict avoidance of NSAIDS -trend H/H, transfuse prn -will need colonoscopy as an outpatient Rudolph Crews MD 07/02/2020 12:32:49 PM This report has been signed electronically. Note Initiated On: 07/02/2020 11:59 AM Number of Addenda: 0 I attest to the content of the Intraoperative Record and orders documented therein, exceptions below {[id number]}
--- NOTE | 2020-07-02 13:17 | Hospitalist Progress Note ---
Date of Service July 02, 2020 Assessment & Plan (1) Melena: Mariel is a very pleasant 74-year-old female with a notable past medical history of nonhereditary polyposis syndrome, GERD, Eunice's syndrome, proximal atrial fibrillation, hypertension, hyperlipidemia, and CKD stage III who presen ciaran to [facility] for evaluation of lightheadedness, melanotic stools, and coffee-ground emesis in the setting of recent heavy NSAID use over the last 5 days, currently admitted for work-up of an upper GI bleed. She remains hemodynamically stable. Gastritis with Likely Upper GI Bleed -- in setting of new, heavy NSAID use - Patient reporting ~2 days of melanotic stools, coffee-ground emesis, and lightheadedness - COVID-19 vaccine last --> took Aleve ~4/day for last 5 days - Work-up significant for the following/: - Hgb as below - CT A/P: No acute process. Diverticulosis. Hiatal, umbilical hernia - EGD (07/02): Segmental inflammation in gastric antrum (gastritis). No blood, ulcers, AVMs. - Biopsy: [ await results ] - Type/Screen: O+/Ig- - GI consulted, appreciate insight and recommendations: - Continue PPI (gtt for now) - Strict avoidance of NSAIDs - Resume diet - Await biopsy results, r/o H. pylori - Suspect that this is an upper source, however, cannot r/o colonic source -- especially given her history. Plan as below. - 2 large-bore IVs - As below Acute Blood Loss Anemia -- secondary to suspected GIB - Hgb on admission 12 --> ~10.5 on 07/02 AM - H&H q6h - Continue Folate, B12 - Transfuse < 7 or if symptomatic - Otherwise as above Nonhereditary Polyposis Syndrome -- followed by [facility] - Discovered in [address] Triana, numerous polyps identified -- dignosed thereafter - Previously seen by [facility], who recommended/scheduled a total colectomy - Patient now follows with [facility] -- patient reports that she was advised to have yearly colonoscopies - Approx. 2 years since last colonoscopy - Upon discharge, patient will need another colonoscopy to f/u -- cannot r/o LGIB as possible explanation for symptoms Paroxysmal Atrial Fibrillation - Documented on pcp chart from 2017 - Rate controlled. - Not on anticoagulation at home. Likely sec to GI bleed risk?. Follow. CHRONIC MEDICAL PROBLEMS CAD: Continue statin, hold ASA HTN: Continue Losartan, Lasix MDD: Continue Effexor CKD: Cr baseline ~1.3. Noted. 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 He and agree with the findings and care plan. Subjective NAEO. Feeling well this AM. Denies dizziness, lightheadedness, shortness of breath. Denies chest pain. Says she feels hungry. No n/v/d. No emesis through admission. We reviewed her admitting history -- no additions at this time Review of Systems Review of Systems: as per HPI Physical Exam Constitutional: Well, but somewhat pale appearing 74-year-old female who is lyign back in her hospital bed, relaxed, upon my arrival. She speaks freely and without conversational dyspnea. NAD. Respiratory: Good respiratory effort with symmetric expansion of the chest. Lungs CTAB without crackles or wheezes. Cardiovascular: Normal rate, irregular rhythm. S1/S2 present without m/r/g. Gastrointestinal (Abdomen): NABS. Abdomen is soft, nontender, and nondistended. No rebound or guarding. Results & Data Results & Data ([facility]) Vital Signs (Past 12 Hours) Vital Signs Temp Pulse Resp BP Pulse Ox 07/02/20 12:32 61 18 104/54 L 100 07/02/20 11:33 37.1 C 74 18 149/67 H 95 07/02/20 07:22 36.8 C 75 16 97/57 L 95 Resident Activity Tracking Resident Involvement: Resident Care Provided Care Provided: Adult Hospital Medicine (1) Nausea & vomiting Vomiting Intractability: non-intractable Vomiting type: unspecified Qualified Code(s): R11.2 - Nausea with vomiting, unspecified
--- NOTE | 2020-07-02 13:33 | Electrocardiogram Report ---
Test Reason : Blood Pressure : / mmHG Vent. Rate : 094 BPM Atrial Rate : 094 BPM P-R Int : 184 ms QRS Dur : 092 ms QT Int : 350 ms P-R-T Axes : 032 024 038 degrees QTc Int : 437 ms Normal sinus rhythm with sinus arrhythmia Normal ECG When compared with ECG of 19-MAR-2018 11:06, No significant change was found Confirmed by Robert Kaur ([id number]) on 07/02/2020 1:32:46 PM Referred By: REFERRED SELF Confirmed By:Robert Kaur
--- NOTE | 2020-07-02 13:42 | Anesthesiology Progress Note ---
Date of Service July 02, 2020 Anesthesia Post Procedure Vital Signs Vital Signs: Temp Pulse Pulse Resp BP BP Pulse Ox 07/02/20 13:17 70 14 119/46 L 98 07/02/20 13:02 77 14 120/60 99 07/02/20 12:47 75 14 105/41 L 98 07/02/20 12:32 61 18 104/54 L 100 07/02/20 11:33 37.1 C 74 18 149/67 H 95 07/02/20 07:22 36.8 C 75 16 97/57 L 95 07/01/20 22:45 36.8 C 107 H 16 166/79 H 99 07/01/20 22:30 90 20 122/71 99 07/01/20 20:25 100 H 21 148/77 H 99 07/01/20 19:00 90 24 96 07/01/20 17:53 93 H 18 118/70 98 07/01/20 16:14 96 07/01/20 16:07 36.9 C 100 H 20 149/92 H 94 07/01/20 16:02 88 20 149/92 H 100 Transfer of Care Handoff Completed per policy Notes Mental Status: alert / awake / arousable and participated in evaluation Patient Amnestic to Procedure: Yes Nausea / Vomiting: adequately controlled Pain: adequately controlled Airway Patency, RR, SpO2: stable & adequate BP & HR: stable & adequate Hydration State: stable & adequate Anesthetic Complications: no major complications apparent and Pt Satisfied with anesthetic care Notes: The patient is s/p EGD with Dr. Zelaya to evaluate for history of anemia and coffee ground emesis. She was noted to be in atrial fibrillation when she was placed on the monitor in the procedure room. Her HR was controlled in the 70s and she is asymptomatic. She did have an episode of atiral fibrillation immediately after her CABG in 2016 but appears to have been in a sinus rhythm since then. A 12 lead EKG was done in recovery and confirmed atrial fibrillation with a competing junctional rhythm, HR 70. I notified the family practice resident, Parveen He, who is taking care of the patient on the floor.
[2020-07-02 17:31] LABS: Hematocrit (blood only) 33.7 % (37-47); Hemoglobin 10.8 g/dL (12.0-16.0)
[2020-07-02] MEDS: ATORVASTATIN 40 MG TAB PO SCH (20:18)
--- NOTE | 2020-07-02 20:49 | Billing Data ---
Date of Service July 02, 2020 Coding Level of Care Code 29305 Initial Inpt Care Lvl 3
--- NOTE | 2020-07-02 21:17 | Electrocardiogram Report ---
Test Reason : Blood Pressure : / mmHG Vent. Rate : 070 BPM Atrial Rate : 000 BPM P-R Int : 000 ms QRS Dur : 098 ms QT Int : 424 ms P-R-T Axes : 000 020 076 degrees QTc Int : 457 ms Atrial fibrillation Incomplete right bundle branch block Cannot rule out Anterior infarct , age undetermined Abnormal ECG When compared with ECG of 01-JUL-2020 16:41, Atrial fibrillation has replaced Sinus rhythm Nonspecific T wave abnormality no longer evident in Inferior leads Confirmed by Robert Kaur ([id number]) on 07/02/2020 9:17:37 PM Referred By: REFERRED SELF Confirmed By:Robert Kaur
[2020-07-02] MEDS: VENLAFAXINE HCL XR 150 MG CAPXR PO SCH (21:23)
[2020-07-02] MEDS ORDERED: MELATONIN 3 MG TAB PO PRN (23:46)
[2020-07-03] MEDS: SODIUM CHLORIDE 0.9% 1000ML 1,000 ML IV SCH ×2 (00:05→08:40)
[2020-07-03] MEDS: PANTOprazole 40 MG in DEXTROSE 5% 100 ML IV SCH ×3 (01:13→10:52)
[2020-07-03] MEDS: LEVOTHYROXINE SODIUM 100 MCG TABLET PO SCH (05:52)
[2020-07-03] MEDS: ACETAMINOPHEN 500 MG TAB PO SCH (05:52)
[2020-07-03 07:21] LABS: Hematocrit (blood only) 28.2 % (37-47); Hemoglobin 9.3 g/dL (12.0-16.0)
[2020-07-03] MEDS: FOLIC ACID 1 MG TAB PO SCH (07:28)
[2020-07-03] MEDS: GABAPENTIN 300 MG CAP PO SCH (07:29)
[2020-07-03] MEDS: VENLAFAXINE HCL XR 75 MG CAPXR PO SCH (07:29)
[2020-07-03] MEDS: CYANOCOBALAMIN 500 MCG TABLET (VITAMIN B-12) PO SCH (07:29)
[2020-07-03] MEDS: MONTELUKAST SODIUM 10 MG TABLET PO SCH (07:29)
[2020-07-03] MEDS: UMECLIDINIUM/VILANTEROL 62.5/25MCG 7 PUFFS/INHALER INH SCH (07:31)
[2020-07-03] MEDS: FLUTICASONE FUROATE 100MCG 14 PUFFS/INHALER INH SCH (07:31)
[2020-07-03] MEDS: LOSARTAN POTASSIUM 25 MG TAB PO SCH (08:42)
[2020-07-03] MEDS: FUROSEMIDE 40 MG TAB PO SCH (08:42)
[2020-07-03] MEDS ORDERED: LORazepam 0.5 MG TAB PO PRN (10:56)
[2020-07-03 12:22] LABS: Hematocrit (blood only) 30.5 % (37-47); Hemoglobin 9.9 g/dL (12.0-16.0)
--- NOTE | 2020-07-03 12:51 | Discharge Summary ---
Date of Service July 03, 2020 Admission HPI Per Admitting Provider 74-year-old female with past medical history of rheumatoid arthritis, PAF, hypertension, hyperlipidemia, GERD, hypothyroidism, CKD stage III, obesity, adrenal cortical adenoma and Nakia's syndrome who presents to the emergency department with weakness lightheadedness and coffee-ground emesis. States that she got her second Covid vaccination last and was feeling rather ill the following day so she started taking Aleve to help with her symptoms. She states that she took anywhere from 1-2 tabs at a time twice a day for the next 5 days. Today she was not feeling well had a decreased appetite and then had an episode of clear emesis with black coffee ground-like substance in it. She states that after that she also started feeling somewhat lightheaded had to go to the bathroom and had multiple melanotic stools which was abnormal and she normally is constipated. She denies seeing any bright red blood, she denies any previous episodes of coffee-ground emesis or melanotic stool. She does attest to having a history of colonic polyps that were evaluated by both eva Florez and [facility]. States that she went to [facility] for an outside opinion so that she would not have to get a colectomy who diagnosed her with nonhereditary FAP. She states that her [facility] Doctor removed to the polyps on a yearly basis but she now has not seen him for the past 2 years and has not had a colonoscopy in that same amount of time. She denies frequent caffeine use, she denies any alcohol use. She takes a daily baby aspirin. She denies any chest palpitations, shortness of breath, numbness or tingling. ER course significant for positive FOBT, CT abdomen pelvis showing diverticulosis without diverticulitis, moderate sized hiatal hernia and small umbilical hernia. Hemoglobin mildly reduced at 12 but otherwise stable. She was consented for blood transfusion if the need arose that she would need it. Admission Exam Per Admitting Provider Physical Exam: Constitutional: obese, in no apparent distress, sitting comfortably in bed. Eyes: EOMI, pupils equal and reactive bilaterally, no scleral icterus Cardiac: RRR, no murmurs, gallops or rubs. Normal S1, S2 Pulm: CTA BL, no wheezes, rhonchi, crackles or rubs, moving air well throughout both lungs Abd: soft, tender to palpation of LUQ and epigastrium, distended, normal bowel sounds, no rebound or guarding Extremities: 2+ peripheral pulses, no edema Neuro: no focal deficits, moving all 4 limbs, A&Ox3 Principal Diagnosis Acute blood loss anemia Gastrointestinal bleed Gastritis Discharge Exam Constitutional Well-appearing 74-year-old female who is lying back in her hospital bed, relaxed, upon my arrival. She converses freely and without any acute distress. Respiratory Good respiratory effort with symmetric expansion of the chest. Lungs are clear to auscultation bilaterally without crackles or wheezes. No conversational dyspnea. Cardiovascular Normal rate, irregular rhythm. S1 and S2 are present with a grade 1 out of 6 systolic ejection murmur best heard at the right upper sternal border that does not radiate. No rubs or gallops. Gastrointestinal (Abdomen) Normoactive bowel sounds. Abdomen soft, nontender, nondistended to palpation. No rebound or guarding. Skin Slightly pale appearing. Capillary refill < 3 seconds in UEs. Discharge Data Allergies Allergy/AdvReac Type Severity Reaction Status Date / Time diphtheria toxoid,fluid Allergy Intermediate TdAP=swelli Verified 07/01/20 16:54 ng/redness poliomyelitis vaccine,killed Allergy Intermediate TdAP=swelli Verified 07/01/20 16:54 ng/redness tetanus toxoid, adsorbed Allergy Intermediate TdAP=swelli Verified 07/01/20 16:54 ng/redness etanercept [From Enbrel] AdvReac Severe pneumonia Verified 07/01/20 16:54 amoxicillin [From Augmentin] AdvReac Intermediate GI symptoms Verified 07/01/20 16:54 clavulanic acid AdvReac Intermediate GI symptoms Verified 07/01/20 16:54 [From Augmentin] Consultations 07/01/20 20:14 ED Decision to Admit Stat 07/01/20 22:46 Consult Gastroenterology Routine Procedures Performed Operation Date: 07/02/20 16:30 Actual Procedures p EGD Biopsy Cytology - Rudolph Crews MD Ordered Studies ABDOMEN AND PELVIS CT WITHOUT CONTRAST (07/01) CT DOSE: 932.37 mGycm HISTORY: Acute nausea with generalized abdominal pain nausea, melena TECHNIQUE: Multiaxial CT images of the abdomen and pelvis were performed without contrast. A dose lowering technique was utilized adhering to the principles of ALARA. COMPARISON STUDY: CT abdomen and pelvis 11/16/2011 FINDINGS: Coronary artery calcifications. Ill-defined groundglass opacities of the right middle lobe appears similar to comparison suggestive of atelectasis/scarring versus chronic infectious or inflammatory pneumonitis. No pneumatosis or pneumoperitoneum. The unenhanced spleen, moderately atrophic pancreas and left adrenal gland are unremarkable. 3.3 x 2.2 cm ovoid lesion of the right adrenal gland meets diagnostic criteria for an adenoma with Hounsfield of 8, previously measuring 3.0 x 2.1 cm. 9 mm right hepatic lobe cyst. Otherwise unremarkable liver. Unremarkable gallbladder. Nonspecific bilateral perinephric stranding with bilateral renal cortical thinning. No urolith or obstructive uropathy. Unremarkable urinary bladder. Hysterectomy. No adnexal mass lesion. Calcified plaque of the aorta without aneurysm. There is no adenopathy. Moderate sized hiatal hernia. Colonic diverticulosis without acute diverticuli tis. The appendix is not diagnostically visualized. No secondary signs of acute appendicitis. Diastases recti. Small periumbilical hernia contains mesenteric fat and a nonobstructed loop of small bowel, diastases of 2.1 cm. Degenerative changes of the spine, pelvis and hips. No acute fracture or suspicious bone lesion. IMPRESSION: 1. No bowel obstruction or bowel wall thickening. 2. Colonic diverticulosis. 3. Small umbilical hernia contains mesenteric fat and a nonobstructed loop of small bowel. 4. Moderate sized hiatal hernia. 5. Additional findings as above. EGD (07/02) - Large hiatal hernia - Duodenal bulb and second portion of duodenum were normal. No evidence of blood, ulcers, AVMs throughout the entire exam - Segmental mild inflammation characterized by erythema found in the gastric antrum. Biopsies taken for H. pylori testing. No blood loss. Hospital Course (1) Melena: Mariel is a very pleasant 74-year-old female with a notable past medical history of nonhereditary polyposis syndrome, GERD, Salinas's syndrome, proximal atrial fibrillation, hypertension, hyperlipidemia, and CKD stage III who presented to [facility] for evaluation of lightheadedness, melanotic stools, and coffee-ground emesis in the setting of recent heavy NSAID use over the last 5 days, currently admitted for work-up of an upper GI bleed. She remains hemodynamically stable. Gastritis with Likely Upper GI Bleed -- in setting of new, heavy NSAID use - Patient reporting ~2 days of melanotic stools, coffee-ground emesis, and lightheadedness - COVID-19 vaccine last --> took Aleve ~4/day for last 5 days - Work-up significant for the following/: - Anemia as below - CT A/P: No acute process. Diverticulosis. Hiatal, umbilical hernia - EGD (07/02): Segmental inflammation in gastric antrum (gastritis). No blood, ulcers, AVMs. - Antrum Biopsy: [ await results at discharge ] - GI consulted, appreciate insight and recommendations: - Continue PPI on discharge - Strict avoidance of NSAIDs - Await biopsy results, r/o H. pylori (not available at time of discharge) - Suspect that this is an upper source, however, cannot r/o colonic source -- especially given her history. Plan as below. Acute Blood Loss Anemia -- secondary to suspected GIB - Hgb on admission 12 --> 9.3 lowest, improved to 9.9 prior to discharge - Continue Folate, B12 - Recommend repeat CBC within 3 days of discharge Nonhereditary Polyposis Syndrome -- followed by [facility] - Discovered in [address] Triana, numerous polyps identified -- diagnosed thereafter - Previously seen [facility], who recommended/scheduled a total colectomy - Patient now follows with [facility] -- patient reports that she was advised to have yearly colonoscopies (2 years since last one) - Upon discharge, patient will need another colonoscopy to f/u -- cannot r/o LGIB as possible explanation for symptoms - Patient preferred to maintain care with [place] Paroxysmal Atrial Fibrillation -- rate controlled while here - Noted to be in NSR upon arrival, but AF without RVR throughout admission - Has been noted in past back to [phone] around time of patient's bypass surgery - Likely secondary to physiologic stress in setting of acute GIB - Discussed need for cardiology follow-up, which patient will be arranging upon discharge with her preferred oil mixer - Anticoagulation contraindicated at this time in setting of likely GIB, acute blood loss anemia CHRONIC MEDICAL PROBLEMS CAD: Continue statin, hold ASA at discharge HTN: Continue Losartan, Lasix MDD: Continue Effexor CKD: Cr baseline ~1.3. Noted. GERD: Protonix as above Asthmatic Bronchitis: Continue Singulair, inhalers, fluticasone PPX: SCDs, PPI FEN/GI: Regular Dispo: MedSurg CODE STATUS: Full code (2) Rheumatoid arthritis: (3) Paroxysmal atrial fibrillation: (4) Hypothyroidism: (5) Hypertension: (6) Hyperlipidemia: (7) GERD (gastroesophageal reflux disease): (8) Dyslipidemia: (9) Chronic kidney disease, stage III (moderate): (10) Chronic asthmatic bronchitis: (11) Obesity: (12) Adrenal cortical adenoma: (13) Nausea & vomiting: Total Time Total Time Spent Total Time Spent (In Minutes): 30 minutes Discharge Plan Discharge Items Patient Disposition: Home - Self-Care Reason For Visit: MELANOTIC STOOL Discharge Diagnosis: gastrointestinal bleed acute blood loss anemia paroxysmal atrial fibrillation Condition on Discharge: Good Activity: Per Instructions section Non-emergency contact: Primary Care Provider, Green Feed Attendant and Brush Cleaner Call non-emergency contact if: you have any medication questions, your symptoms worsen and your temperature is above 101 Follow-up/Referrals: Theo Tripathi DO [Primary Care Provider] - Diet: Heart Healthy Addtl Attending Provider Instructions: You were seen at [facility] from 07/01- for evaluation of symptoms concerning for an acute gastrointestinal bleed. Upon your arrival, you were found to be slightly anemic -- suggesting mild blood loss. You were started on medications to protect your GI tract while here. The gastrointestinal team was consulted to aid with management. You underwent an upper GI scope ("EGD") which did not show any active areas of bleeding, but did reveal inflammation at the top part of your stomach. A biopsy was taken to further understand why this information was occurring. We continued with regular checks of your blood counts as well as vital signs. While your hemoglobin (component of red blood cells) did show decreasing, it did stabilize while here. AIt is difficult to say at this time exactly where the bleeding in the GI tract is coming from; given your history of nonpolyposis in the large bowel, it is possible that this may represent the s ource. As discussed, you will need a colonoscopy performed as an outpatient; since you have followed with [facility] in the past, you were working with your team to set this up through them. If you are unable to arrange this through their office in a timely manner, we are glad to arranage this through our system. During your stay here, you were also found to have an irregular heart rhythm (atrial fibrillation - paroxysmal type). This has been noted in your medical history on arrival; however, you should continue following with your oil mixer upon discharge to determine next steps of caring for this. Starting anticoagulation at this time is not appropriate, given the concern for an active/ongoing GI bleed. Upon discharge, please refrain from using any NSAID medications (ibuprofen, Aleve, Motrin) and Aspirin until safetly directed to do so by your doctor; these can make an active GI bleed worse and cause them to happen again. In the interim, we recommend Tylenol as an alternative pain medication. It is also important that you continue utilizing your Protonix (or alternative) on a daily basis. No other medication changes were made while here. We recommend following up with your primary care physician within 1 week to review this visit. In the interim, if you experience any lightheadedness, dizziness, feeling like you are to pass out, dark or discolored stools, bright red stools, recurrent nausea or vomiting, vomit with a black appearance, shortness of breath, or any other worrisome symptoms, please seek medical attention, if your symptoms are serious, please call 911 or report to the nearest ER for evaluation. Pending Studies at Discharge: Yes Studies:: Pending -- stomach wall biopsy Stand-Alone Forms: My [facility], Smoking Cessation Medications and DC Order Prescriptions: New pantoprazole [Protonix] 40 mg tablet,delayed release (DR/EC) 40 mg PO HS 28 Days Qty: 28 RF: 0 Continued bhjxjnktpi-fhumnmimvfjvb-bvmr 50-325-40 mg capsule 1 cap PO Q6H PRN (Reason: pain) Qty: 30 RF: 0 levothyroxine 100 mcg capsule 100 mcg PO QAM Qty: 90 RF: 3 ferrous gluconate [Ferate] 240 mg (27 mg iron) tablet 240 mg PO DAILY Qty: 90 RF: 3 folic acid 1 mg tablet 1 mg PO QAM Qty: 90 RF: 1 gabapentin 300 mg capsule 300 mg PO BID RF: 0 montelukast 10 mg tablet 10 mg PO DAILY RF: 0 Trelegy Ellipta 100-62.5-25 mcg blister with device 1 puffs INH DAILY RF: 0 acetaminophen 325 mg tablet 650 mg PO BID RF: 0 venlafaxine 150 mg capsule,extended release 24hr 150 mg PO HS RF: 0 venlafaxine 75 mg capsule,extended release 24hr 75 mg PO QAM RF: 0 atorvastatin 40 mg tablet 40 mg PO HS RF: 0 ketoconazole 2 % shampoo 1 applic topical Q14D Qty: 120 RF: 1 furosemide [Lasix] 40 mg Tablet 40 mg PO BID RF: 0 losartan 25 mg Tablet 25 mg PO QAM RF: 0 cyanocobalamin (vitamin B-12) [Vitamin B-12] 2,000 mcg Tablet Extended Release 2,000 mcg PO QAM RF: 0 calcium carbonate-vitamin D3 [Calcium 600 + D(3)] 600 mg(1,500mg) -400 unit Tablet 1 tab PO QAM RF: 0 doxycycline hyclate 50 mg capsule 50 mg PO BIDM RF: 0 omeprazole 40 mg capsule,delayed release(DR/EC) 40 mg PO BID RF: 0 Discontinued aspirin 81 mg Tablet,Delayed Release (Dr/Ec) 81 mg PO QAM RF: 0 Discharge Orders: Discharge Order (Routine); Ordered 07/03/20 Ordered By: Parveen Zamarripa/Other Patient Handouts: Bleeding Gastrointestinal, Anatomy of the Digestive System, ED Upper GI Bleeding (Stable) Admission Data Admit Date/Time: 07/01/20 20:14 Attending Provider: Allie Looney Admit Provider: Rosalva Carmen Primary Care Provider: Theo Tripathi Other Providers: Lance Trevino ; Isaac Triana Other Interventions: Discharge Summary Assessment (RN) Last Done: 07/03/20 13:09 Supervising Physician Co-Signing Physician Notes Resident Physician Supervision Note: I independently interviewed and examined the patient and verified the ho history and physical, reviewed labs and image studies, discussed the case with the resident Dr. He and agree with the findings and care plan. Resident Activity Tracking Resident Involvement: Resident Care Provided Care Provided: Adult Hospital Medicine
== END 2020-07-03 15:27 | disposition home or self-care (01) ==
LOC: 3W 15:57 → ED 15:57 → SUATTDRO 20:14 → 3W 22:34

== ENCOUNTER 2022-10-19 01:41 | Inpatient (IN) ==
[2022-10-19] MEDS ORDERED: ONDANSETRON INJ 2 MG/ML 2 ML VIAL ONE (01:56)
[2022-10-19] MEDS ORDERED: ONDANSETRON INJ 2 MG/ML 2 ML VIAL IV STA (01:57)
[2022-10-19] MEDS ORDERED: fentaNYL citrate PF 100 MCG/2 ML VIAL ONE (02:48)
[2022-10-19 03:02] LABS: Creatinine Clr Calc Pharmacy 34.3 ml/min
[2022-10-19 03:24] LABS: Basophils # (auto) 0.03 K/uL (0-0.2); Basophils % (auto) 0.5 %; Hematocrit (blood only) 33.9 % (37.0-47.0); Hemoglobin 11.3 g/dl (12.0-16.0); Immature Granulocytes # (auto) 0.05 K/uL (0.01-0.20); Immature Granulocytes % (auto) 0.9 %; Lymphocytes # (auto) 0.54 K/uL (1.2-3.4); Lymphocytes % (auto) 9.7 %; Mean Corpuscular Hemoglobin 31.5 pg (25.0-34.0); Mean Corpuscular Hgb Conc 33.3 g/dL (32.0-36.0); Mean Corpuscular Volume 94.4 fL (80.0-100.0); Mean Platelet Volume 10.4 fL (9.4-12.4); Monocytes # (auto) 0.27 K/uL (0.11-0.59); Monocytes % (auto) 4.9 %; Neutrophils # (auto) 4.65 K/uL (1.40-6.50); Platelet Count 128 K/uL (130-400); RDW Coefficient of Variation 13.4 % (11.5-14.5); RDW Standard Deviation 46.2 fL (36.4-46.3); Red Blood Count 3.59 M/uL (4.20-5.40); White Blood Count 5.54 K/ul (4.8-10.8)
--- NOTE | 2022-10-19 03:38 | Emergency Department Note ---
Impression & Plan Headache, Nausea Admit to the [facility] ED Provider Note NAME: SJ GORMAN AGE: 77 SEX: F ARRIVES VIA: Ambulance INFORMANT: Patient and her son ED PROVIDER(S): Katharine Lee DO CHIEF COMPLAINT: Headache and nausea PLAN: Disposition: Admit to the [facility] Condition: Fair MEDICAL DECISION MAKING: This is a 77-year-old female patient who presents to the emergency department with severe frontal headache and nausea. The patient has a history of chronic headaches for which she takes venlafaxine. She underwent MRI of the brain around noontime yesterday as an outpatient which was unremarkable. Patient started with significant nausea before the MRI. The head pain started around midnight tonight. EMS was called to the home because the symptoms were severe. On my evaluation of the patient, her symptoms seemed vertiginous in nature. She was given 2 doses of IV Zofran to get control of the nausea. She was given a dose of IV fentanyl which gave significant relief to her headache. She went for a CT scan of the brain to rule out any acute pathology since the symptoms were so severe. This was negative. Laboratory studies revealed no leukocytosis. Hemoglobin was slightly low at 11.3 creatinine was slightly elevated at 1.63. Patient's glucose was 119. There were no other significant electrolyte abnormalities noted. Patient did take her own dose of venlafaxine while here in the ER and stated that she was feeling much better while she was lying there. Once the patient attempted to get up and drink clear liquids, she became quite nauseated again and the dizziness returned. She does not feel that she could be safe for discharge home. I discussed the case with the [facility] and they will evaluate for further management. Triage Nursing notes reviewed and agree with them. Additional history obtained from patient's son is at the bedside External medical records were reviewed including MRI of the brain from earlier today Vital Signs: reviewed and remarkable for bradycardia Differential diagnosis: Intracranial hemorrhage, vertigo, anxiety, posterior circulation stroke ER treatment provided: Cardiac monitoring Twelve-lead EKG IV Zofran IV fentanyl IV Zofran Oral venlafaxine Diagnostics interpreted by me: ECG: Normal sinus rhythm at a rate of 66 with first-degree AV block Cardiac Monitoring: Sinus bradycardia at a rate of 55. Laboratory studies: See below Imaging studies: As per stat rad CT scan of the brain: See report HPI: 77/F arrives for evaluation of nausea and headache. Patient has a history of chronic headaches for which she takes venlafaxine. She explains that she typically gets a withdrawal headache if she misses a dose of that medication. Patient presents with a severe headache, nausea and dry heaving. She has not missed any doses of the medication. Patient symptoms are exacerbated by head movement and bright lights. PAST MEDICAL HISTORY:See Below PAST SURGICAL HISTORY:See Below FAMILY HISTORY:See Below SOCIAL HISTORY:See Below HOME MEDICATIONS:See list ALLERGIES:See list VITALS:See Below PHYSICAL EXAMINATION: HEENT: Head - normocephalic and atraumatic. Pupils are equal, round, and re active to light. Extraocular eye muscles are intact and sclera are anicteric. Ears - bilaterally patent canals with noninjected tympanic membranes and no evidence of hemotympanum. Nose - moist nasal mucosa without discharge. Mouth - moist buccal mucosa. Oropharynx is nonerythematous and there is no tonsillar exudate or edema noted. Neck: Supple; no JVD or cervical lymphadenopathy Heart: Bradycardic rate and regular rhythm there is a normal S1 and S2 with no murmurs, clicks, or gallops appreciated. Lungs: Clear to auscultation bilaterally with no wheezes, rales, or rhonchi. Abdomen: Soft, completely nontender, nondistended, with good bowel sounds. There are no palpable pulsatile masses or hepatosplenomegaly. There is no guarding, rigidity, or rebound noted. Extremities: No evidence of cyanosis, clubbing, or edema. There are easily palpable peripheral pulses. Neuro:The patient is awake and alert, oriented to day, time, and place. Muscle strength is 5/5 in all 4 extremities. 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 There are no cerebellar signs. ED COURSE: Times/Reassessments: 0145: Patient was evaluated in room A-11. A complete history and physical was performed. Twelve-lead EKG was obtained as described above. An order was placed for continuous cardiac monitoring. The patient was in a sinus bradycardia at a rate of 55. Patient had significant nausea and dry heaving. She was given a dose of IV Zofran upon my initial evaluation of her. Much of the history was obtained from the patient's son who was at the bedside. She continued with severe nausea and dry heaving with any type of eye movement or head movement. She was given a second dose of IV Zofran. Patient complained of severe headache and was given a dose of IV fentanyl. She went for CT scan of the brain as described above. Upon returning from radiology, the patient took her home dose of venlafaxine. Patient was able to sleep for a period of time. She seemed to be feeling somewhat better. She was given clear liquids to drink but unfortunately became quite nauseated again and upon sitting up became dizzy again. I discussed the case with the [facility] and they will evaluate for further management. 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 Amblyopia Aortic atherosclerosis Asthma Bronchiectasis CAD (coronary artery disease) Chronic kidney disease, stage III (moderate) Chronic sinusitis Depression Dietary counseling and surveillance Dyslipidemia Familial adenomatous polyposis Gastrointestinal bleed Generalized osteoarthritis GERD (gastroesophageal reflux disease) History of fractured vertebra Hyperlipidemia Hypertension Hypothyroidism Lumbar spinal stenosis Metabolic syndrome Paroxysmal atrial fibrillation Periodic limb movement disorder Pulmonary nodule Rheumatoid arthritis Surgical History H/O arthroscopic knee surgery (~08/2018) History of bilateral breast reduction surgery History of bronchoscopy (~06/2013) History of cardiac cath History of cataract surgery History of colonoscopy (~06/2016) History of coronary artery bypass graft (~01/2016) History of esophagogastroduodenoscopy (EGD) (~2011) History of sinus surgery History of thoracotomy (~03/2018) History of total abdominal hysterectomy and bilateral salpingo-oophorectomy History of tubal ligation Hx of arthroplasty Family History Brother Diabetes Heart disease Mother Stroke Father Stroke Grandmother Stroke Grandfather Stroke Aunt Breast cancer Son Congenital heart disease Unknown Hypertension Daughter Liposarcoma Denies family history of Ovarian cancer Prostate cancer Myocardial infarction Colorectal cancer Social History Smoking Status: Never smoker Second Hand Exposure: No; Do You Dip or Chew Tobacco: No; Hx Alcohol Use: No Hx Substance Use: No Preferred Language: Sami Communication Ability: Effective Visual Impairment: Limited Hearing Ability: Normal 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 Beliefs That Will Affect Care: None marital status: / Current Living Situation: Alone current occupational status: retired Feels Safe at Home: Yes Childhood Exposure to Second-Hand Smoke: No caffeine: Yes Dental Care, Regularly: Yes Physical Activity Frequency: Does not Exercise Seatbelt Use: always Sunscreen Use: No Assistive Devices: Contacts and Glasses Allergies Allergies Allergy/AdvReac Type Severity Reaction Status Date / Time diphtheria toxoid,fluid Allergy Intermediate TdAP=swelli Verified 10/02/22 14:44 ng/redness poliomyelitis vaccine,killed Allergy Intermediate TdAP=swelli Verified 10/02/22 14:44 ng/redness tetanus toxoid, adsorbed Allergy Intermediate TdAP=swelli Verified 10/02/22 14:44 ng/redness nickel Allergy Mild pruritus Verified 10/02/22 14:44 etanercept [From Enbrel] AdvReac Severe pneumonia Verified 10/02/22 14:44 amoxicillin [From Augmentin] AdvReac Intermediate GI symptoms Verified 10/02/22 14:44 clavulanic acid AdvReac Intermediate GI symptoms Verified 10/02/22 14:44 [From Augmentin] NSAIDS (Non-Steroidal AdvReac Intermediate gi bleed Verified 10/02/22 14:44 Anti-Inflamma Home Meds Home Medications Medication Instructions Recorded Confirmed calcium carbonate 600 mg-vitamin 1 tab PO QAM 04/01/18 09/28/22 D3 10 mcg (400 unit) tablet (Calcium 600 + D(3)) venlafaxine 150 mg 150 mg PO HS 01/31/19 09/28/22 capsule,extended release 24 hr venlafaxine 75 mg capsule,extended 75 mg PO QAM 01/31/19 09/28/22 release 24 hr isosorbide dinitrate 30 mg tablet 30 mg PO ONCE 02/03/21 09/28/22 diazepam See Rx Instructions PO .COMPLEX 07/26/22 09/28/22 aspirin 81 mg tablet,delayed 81 mg PO DAILY 09/22/22 09/28/22 release (Adult Low Dose Aspirin) cholecalciferol (vitamin D3) 25 25 mcg PO DAILY 09/22/22 09/28/22 mcg (1,000 unit) capsule fluticasone fur. 100 mcg-umeclid 1 inh inhalation DAILY 09/22/22 09/28/22 62.5 mcg-vilant 25 mcg inhalat.powder (Trelegy Ellipta) furosemide 40 mg tablet (Lasix) 80 mg PO DAILY 09/22/22 09/28/22 metoprolol succinate 50 mg 50 mg PO DAILY 09/22/22 09/28/22 tablet,extended release 24 hr nitroglycerin 0.4 mg sublingual 0.4 mg sublingual Q5M PRN 09/22/22 09/28/22 tablet (Nitrostat) acetaminophen 500 mg tablet 1,000 mg PO BID PRN 10/02/22 10/02/22 ferrous sulfate 325 mg (65 mg 325 mg PO DAILY 10/02/22 10/02/22 iron) tablet cyanocobalamin-cobamamide [B12] 1 tab sublingual DAILY 10/17/22 Previous Rx's Medication Instructions Recorded levalbuterol tartrate 45 2 inh inhalation Q6H #15 grams 10/21/21 mcg/actuation aerosol inhaler (Xopenex HFA) omeprazole 40 mg capsule,delayed 40 mg PO BID #180 caps 02/13/22 release montelukast 10 mg tablet 10 mg PO QPM #90 tabs 02/28/22 Walking Cane #1 ea 05/29/22 atorvastatin 40 mg tablet 40 mg PO HS #90 tabs 08/28/22 levothyroxine 100 mcg tablet See Rx Instructions .Route 09/25/22 .COMPLEX #90 tabs Results & Data (ED) Vital Signs Vital Signs - 24 hr 10/19/22 01:45 10/19/22 02:17 10/19/22 03:00 Temperature 37.1 C Temperature Source Oral Pulse Rate 67 55 L 59 L Pulse Rate from SpO2 Sensor 60 Respiratory Rate 16 24 Respiratory Effort / Characteristics Non-Labored Spontaneous Respiratory Depth Normal Blood Pressure 146/80 H Blood Pressure Mean 102 Pulse Oximetry 94 95 Oxygen Delivery Method Room Air Sepsis Recent Fever Within 48 Hours No Sepsis New/Unexplained Change in Mental Status No Sepsis Action Taken by Nursing No Action Required 10/19/22 03:30 10/19/22 04:00 10/19/22 04:30 Temperature Temperature Source Pulse Rate 59 L 59 L 60 Pulse Rate from SpO2 Sensor 58 L 60 59 L Respiratory Rate 22 24 27 H Respiratory Effort / Characteristics Respiratory Depth Blood Pressure 121/60 122/60 122/63 Blood Pressure Mean 80 80 82 Pulse Oximetry 95 98 98 Oxygen Delivery Method Sepsis Recent Fever Within 48 Hours Sepsis New/Unexplained Change in Mental Status Sepsis Action Taken by Nursing 10/19/22 05:00 10/19/22 05:01 10/19/22 05:01 Temperature Temperature Source Pulse Rate 58 L 61 Pulse Rate from SpO2 Sensor 58 L Respiratory Rate 30 H 24 Respiratory Effort / Characteristics Respiratory Depth Blood Pressure Blood Pressure Mean 73 Pulse Oximetry 97 Oxygen Delivery Method Sepsis Recent Fever Within 48 Hours Sepsis New/Unexplained Change in Mental Status Sepsis Action Taken by Nursing 10/19/22 05:27 10/19/22 05:30 Temperature Temperature Source Pulse Rate 60 61 Pulse Rate from SpO2 Sensor 62 62 Respiratory Rate 24 24 Respiratory Effort / Characteristics Respiratory Depth Blood Pressure 131/69 Blood Pressure Mean 89 Pulse Oximetry 95 93 Oxygen Delivery Method Sepsis Recent Fever Within 48 Hours Sepsis New/Unexplained Change in Mental Status Sepsis Action Taken by Nursing Laboratory Data 10/19/22 01:50 10/19/22 01:57 Lab Results 10/19/22 10/19/22 Range/Units 01:50 01:57 WBC 5.54 (4.8-10.8) K/ul RBC 3.59 L (4.20-5.40) M/uL Hgb 11.3 L (12.0-16.0) g/dl Hct 33.9 L (37.0-47.0) % MCV 94.4 (80.0-100.0) fL MCH 31.5 (25.0-34.0) pg MCHC 33.3 (32.0-36.0) g/dL RDW Std Deviation 46.2 (36.4-46.3) fL RDW Coeff of Sara 13.4 (11.5-14.5) % Plt Count 128 L (130-400) K/uL MPV 10.4 (9.4-12.4) fL Immature Gran % (Auto) 0.9 % Neut % (Auto) 84.0 % Lymph % (Auto) 9.7 % [place] % (Auto) 4.9 % Eos % (Auto) 0.0 % Baso % (Auto) 0.5 % Neut # (Auto) 4.65 (1.40-6.50) K/uL Lymph # (Auto) 0.54 L (1.2-3.4) K/uL [place] # (Auto) 0.27 (0.11-0.59) K/uL Eos # (Auto) 0.00 (0-0.50) K/uL Baso # (Auto) 0.03 (0-0.2) K/uL Immature Gran # (Auto) 0.05 (0.01-0.20) K/uL Sodium 136 (136-145) mmol/L Potassium 3.9 (3.5-5.1) mmol/L Chloride 102 (98-107) mmol/L Carbon Dioxide 25 (21-32) mmol/L Anion Gap 9 (3-11) BUN 22 (6-23) mg/dl Creatinine 1.63 H (0.6-1.2) mg/dl Est Cr Clr Drug Dosing 34.3 ml/min Est GFR ( Amer) 34.4 Est GFR (Non-Af Amer) 29.7 BUN/Creatinine Ratio 13.5 (10-20) Glucose 119 H (70-99(Fasting)) mg/dl Calcium 8.6 (8.6-10.3) mg/dl Total Bilirubin 0.6 (0.2-1.0) mg/dl AST 25 (13-39) U/L ALT 14 (7-52) U/L Alkaline Phosphatase 69 (34-104) U/L Total Protein 6.7 (6.0-8.3) gm/dl Albumin 3.6 (3.4-5.0) gm/dl Globulin 3.1 (2.5-4.0) gm/dl Albumin/Globulin Ratio 1.2 (0.9-2) Administered Medications Discontinued Medications Fentanyl Citrate (Fentanyl Citrate Pf 100 Mcg/2 Ml Vial) Confirm Administered Dose 100 mcg .ROUTE .AugmentWare-MED ONE Stop: 10/19/22 02:49 Last Admin: 10/19/22 04:09 Dose: Not Given Documented By: NOLVIA Ondansetron HCl (Ondansetron Inj 2 Mg/Ml 2 Ml Vial) Confirm Administered Dose 4 mg .ROUTE .STK-MED ONE Stop: 10/19/22 01:57 Last Admin: 10/19/22 04:10 Dose: Not Given Documented By: NOLVIA Ondansetron HCl (Ondansetron Inj 2 Mg/Ml 2 Ml Vial) 4 mg IV NOW STA Stop: 10/19/22 01:58 Last Admin: 10/19/22 04:09 Dose: Not Given Documented By: NOLVIA Imaging Data Radiologist's Impression: Head CT 10/19/22 03:11 Exam(s): CT HEAD Without Contrast EXAM: CT Head Without Intravenous Contrast CLINICAL HISTORY: Reason for exam: SYNCOPE. TECHNIQUE: Axial computed tomography images of the head/brain without intravenous contrast. Automated exposure control was utilized for the study. A dose lowering technique was utilized adhering to the principles of ALARA. COMPARISON: May 22, 2022 CT head and MRI brain from October 18, 2022. FINDINGS: Brain: Mild patchy periventricular and deep white matter low density throughout the cerebrum consistent with chronic small vessel disease and/or senescent changes, unchanged. No acute large vessel infarct or intracranial hemorrhage is seen. Ventricles: Unremarkable. No ventriculomegaly. Bones/joints: Mild hyperostosis of the skull, unchanged. No acute fracture. Soft tissues: Unremarkable. Sinuses: Unremarkable as visualized. No acute sinusitis. Mastoid air cells: Unremarkable as visualized. No mastoid effusion. IMPRESSION: Mild patchy periventricular and deep white matter low density throughout the cerebrum consistent with chronic small vessel disease and/or senescent changes, unchanged. No acute large vessel infarct or intracranial hemorrhage is seen. Electronically signed by: Sergio Samson MD 10/19/22 04:42 AM Discharge Plan Visit Data Chief Complaint: Nausea Stated Complaint: Head Pain, Nausea, Dizziness ED Provider: Katharine Lee Discharge Problem: Headache, Nausea Discharge Instructions [place]/Other Patient Handouts: Understanding Headache Pain Activity Restrictions/Additional Instructions: Rest Keep yourself well-hydrated Take medications as directed Follow-up with your PCP and psychiatrist to discuss headaches and any further episodes of dizziness Return to the emergency department for any worsening symptoms. Forms Stand Alone Forms: My [employer] Prescriptions Prescriptions: No Action omeprazole 40 mg capsule,delayed release(DR/EC) 40 mg PO BID Qty: 180 3RF Rx Instructions: TAKE 1 CAPSULE BY MOUTH TWICE A DAY montelukast 10 mg tablet 10 mg PO QPM Qty: 90 3RF atorvastatin 40 mg tablet 40 mg PO HS Qty: 90 3RF metoprolol succinate 50 mg tablet extended release 24 hr 50 mg PO DAILY furosemide [Lasix] 40 mg tablet 80 mg PO DAILY Hold Instructions: per [place] Ellipta 100-62.5-25 mcg blister with device 1 inh inhalation DAILY cholecalciferol (vitamin D3) 25 mcg (1,000 unit) capsule 25 mcg PO DAILY aspirin [Adult Low Dose Aspirin] 81 mg tablet,delayed release (DR/EC) 81 mg PO DAILY nitroglycerin [Nitrostat] 0.4 mg tablet, sublingual 0.4 mg sublingual Q5M PRN Rx Instructions: do not exceed 3 doses per episode levothyroxine 100 mcg tablet See Rx Instructions .ROUTE .COMPLEX Qty: 90 3RF Dose Instruction: TAKE 1 TABLET BY MOUTH DAILY Rx Instructions: TAKE 1 TABLET BY MOUTH DAILY cyanocobalamin-cobamamide [B12] 1 tab sublingual DAILY Rx Instructions: 1000 ius daily (DME) Walking Cane Misc See Rx Instructions .Route Qty: 1 0RF Rx Instructions: As directed acetaminophen 500 mg tablet 1,000 mg PO BID PRN ferrous sulfate 325 mg (65 mg iron) tablet 325 mg PO DAILY levalbuterol tartrate [Xopenex HFA] 45 mcg/actuation HFA aerosol inhaler 2 inh inhalation Q6H Qty: 15 2RF venlafaxine 150 mg capsule,extended release 24hr 150 mg PO HS venlafaxine 75 mg capsule,extended release 24hr 75 mg PO QAM isosorbide dinitrate 30 mg tablet 30 mg PO ONCE Rx Instructions: allow nitrate-free interval of 12-14 hrs per 24-hr period diazepam See Rx Instructions PO .COMPLEX Rx Instructions: 1/2 in a.m. and whole tablet at qhs orally; calcium carbonate-vitamin D3 [Calcium 600 + D(3)] 600 mg(1,500mg) -400 unit Tablet 1 tab PO QAM Referrals Referrals: Theo Tripathi DO [Primary Care Provider] - Headache Qualifiers: Headache type: other headache syndrome Qualified Code(s): G44.89 - Other headache syndrome
--- NOTE | 2022-10-19 04:44 | CT Scan Report ---
Exam(s): CT HEAD Without Contrast EXAM: CT Head Without Intravenous Contrast CLINICAL HISTORY: Reason for exam: SYNCOPE. TECHNIQUE: Axial computed tomography images of the head/brain without intravenous contrast. Automated exposure control was utilized for the study. A dose lowering technique was utilized adhering to the principles of ALARA. COMPARISON: May 22, 2022 CT head and MRI brain from October 18, 2022. FINDINGS: Brain: Mild patchy periventricular and deep white matter low density throughout the cerebrum consistent with chronic small vessel disease and/or senescent changes, unchanged. No acute large vessel infarct or intracranial hemorrhage is seen. Ventricles: Unremarkable. No ventriculomegaly. Bones/joints: Mild hyperostosis of the skull, unchanged. No acute fracture. Soft tissues: Unremarkable. Sinuses: Unremarkable as visualized. No acute sinusitis. Mastoid air cells: Unremarkable as visualized. No mastoid effusion. IMPRESSION: Mild patchy periventricular and deep white matter low density throughout the cerebrum consistent with chronic small vessel disease and/or senescent changes, unchanged. No acute large vessel infarct or intracranial hemorrhage is seen. Electronically signed by: Sergio Samson MD 10/19/22 04:42 AM
[2022-10-19] MEDS ORDERED: ACETAMINOPHEN 1,000 MG/100 ML VIAL IV STA (06:39)
[2022-10-19] MEDS ORDERED: LORazepam 2 MG/1 ML VIAL IV STA (06:39)
--- NOTE | 2022-10-19 06:48 | History & Physical Report ---
Date of Service October 19, 2022 Assessment & Plan (1) Headache: Plan: 77yo female with severe, intermittent headache. Patient's description is somewhat consistent with "brain zaps" or SSRI/SNRI discontinuation headache. Patient states, however, that she did not miss any doses and her timing of doses was fairly consistent as well. She did just take her 150mg dose around 03:00 in the ER. MRI brain performed yesterday without evidence of acute CVA. Physical exam is largely unremarkable -Observation to medical with telemetry -Check MR Venogram - possible dural venous sinus thrombosis -Less likely infectious etiology - patient has multiple bug bites on her extr emities - mosquitos/?ticks - will check tick labs. She is not meningitic or encephalopathic -Tylenol as needed -Oxycodone as needed -Continue Venlafaxine -Reglan as needed for nausea (2) Hypertension: Plan: Blood pressure stable -Continue Metoprolol and Isosorbide -Monitor (3) CAD (coronary artery disease): Plan: CAD s/p CABG x 4V. No chest pain. Echo in April 2022 with reduced EF of 54% -Continue Metoprolol -Continue Atorvastatin -Continue ASA -Continue Isosorbide -Holding Lasix for now as patient appears dry on exam. Consider resuming in AM (4) Hyperlipidemia: Plan: Chronic. Stable -Continue Atorvastatin (5) Hypothyroidism: Plan: Chronic. Stable. Last TSH on 09/28/22 = 3.647 -Continue Synthroid 100mcg po daily (6) GERD (gastroesophageal reflux disease): Plan: Patient is on Omeprazole BID -Continue Protonix 40mg po BID while inpatient (7) Depression: Plan: Chronic -Continue Venlafaxine F/E/N - LR at 125mL/hr x 1 liter, check Mg and PO4 and replete as needed, full liquid diet - advance as tolerated - patient reports she has no appetite Ppx -Low risk for DVT Code - Full DIspo -Observation to medical with telemetry History of Present Illness Chief Complaint: severe headache Primary Care Provider: Theo Tripathi DO Mariel Tao is a 77yo female with history of HTN, CAD, PAF, HLP, Hypothyroidsim and depression presenting with worsening headache. Patein reports overall decline over the last several weeks - poor appetite, decreased oral intake, generalized weakness and gait instability. She woke from sleep early in the morning on 10/18/22 with a severe headache. Headache is located on the left temporal region and radiates bandlike across the forehead. She describes it as a severe shocking pain, intermittent. Patient takes Venlafaxine 75mg po qAM and 150mg po qHS and reports that she has experienced a similar headache in the past when she was late on her dosing or skipped a dose. She did not skip any doses recently and reports taking her medication as prescribed. The headache persisted all day yesterday which eventually prompted her to call her son and EMS. Patient has nausea associated with the headache. She was recently seen by her PCP and had an MRI of the brain performed on 10/18/22 which was unremarkable. Patient fell down the stairs in April and sustained head and neck trauma. No head trauma since then. No fever but she has occasional chills. She reports poor appetite and decreased oral intake. Otherwise denies chest pain, palpitations, abdominal pain, diarrhea. No recent travel or sick contacts. She denies tick bites but does have some bug bites on her arms and legs. She denies dizziness or vertigo. Denies blurry vision, loss of vision, focal numbness/tingling/weakness. No additional complaints at this time. In the ER she is in moderate distress due to ongoing pain and nausea. She was administered [id number] IV x 2 doses with minimal improvement in pain. She was given Fentanyl 100mcg IV with improvement in symptoms. She tried to get up after the Fentanyl and had a recurrence of her nausea and headache. Pain made worse by looking to the side. Associated dry heaving. ER Course: Fentanyl 100mcg Zofran 4mg IV x 2 Ativan 0.5mg IV - ordered Tylenol 1gm IV - ordered Allergies Allergy/AdvReac Type Severity Reaction Status Date / Time diphtheria toxoid,fluid Allergy Intermediate TdAP=swelli Verified 10/02/22 14:44 ng/redness poliomyelitis vaccine,killed Allergy Intermediate TdAP=swelli Verified 10/02/22 14:44 ng/redness tetanus toxoid, adsorbed Allergy Intermediate TdAP=swelli Verified 10/02/22 14:44 ng/redness nickel Allergy Mild pruritus Verified 10/02/22 14:44 etanercept [From Enbrel] AdvReac Severe pneumonia Verified 10/02/22 14:44 amoxicillin [From Augmentin] AdvReac Intermediate GI symptoms Verified 10/02/22 14:44 clavulanic acid AdvReac Intermediate GI symptoms Verified 10/02/22 14:44 [From Augmentin] NSAIDS (Non-Steroidal AdvReac Intermediate gi bleed Verified 10/02/22 14:44 Anti-Inflamma Home Medications Medication Instructions Recorded Confirmed Type calcium carbonate 600 mg-vitamin 1 tab PO QAM 04/01/18 10/19/22 History D3 10 mcg (400 unit) tablet (Calcium 600 + D(3)) venlafaxine 150 mg 150 mg PO HS 01/31/19 10/19/22 History capsule,extended release 24 hr venlafaxine 75 mg capsule,extended 75 mg PO QAM 01/31/19 10/19/22 History release 24 hr isosorbide dinitrate 30 mg tablet 30 mg PO ONCE 02/03/21 10/19/22 History levalbuterol tartrate 45 2 inh inhalation Q6H #15 grams 10/21/21 09/28/22 Rx mcg/actuation aerosol inhaler (Xopenex HFA) omeprazole 40 mg capsule,delayed 40 mg PO BID #180 caps 02/13/22 10/19/22 Rx release montelukast 10 mg tablet 10 mg PO QPM #90 tabs 02/28/22 10/19/22 Rx Walking Cane #1 ea 05/29/22 09/28/22 Rx diazepam 5 mg PO UD 07/26/22 10/19/22 History atorvastatin 40 mg tablet 40 mg PO HS #90 tabs 08/28/22 10/19/22 Rx aspirin 81 mg tablet,delayed 81 mg PO DAILY 09/22/22 10/19/22 History release (Adult Low Dose Aspirin) cholecalciferol (vitamin D3) 25 25 mcg PO DAILY 09/22/22 10/19/22 History mcg (1,000 unit) capsule fluticasone fur. 100 mcg-umeclid 1 inh inhalation DAILY 09/22/22 09/28/22 History 62.5 mcg-vilant 25 mcg inhalat.powder (Trelegy Ellipta) furosemide 40 mg tablet (Lasix) 80 mg PO DAILY 09/22/22 10/19/22 History metoprolol succinate 50 mg 50 mg PO DAILY 09/22/22 10/19/22 History tablet,extended release 24 hr nitroglycerin 0.4 mg sublingual 0.4 mg sublingual Q5M PRN 09/22/22 09/28/22 History tablet (Nitrostat) levothyroxine 100 mcg tablet See Rx Instructions .Route 09/25/22 10/19/22 Rx .COMPLEX #90 tabs acetaminophen 500 mg tablet 1,000 mg PO BID PRN Pain 10/02/22 10/19/22 History ferrous sulfate 325 mg (65 mg 325 mg PO DAILY 10/02/22 10/19/22 History iron) tablet cyanocobalamin-cobamamide [B12] 1 tab sublingual DAILY 10/17/22 History fluticasone fur. 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 Follows with pulm at [facility] Bronchiectasis CAD (coronary artery disease) s/p CABG x 3 in 2015. Chronic kidney disease, stage III (moderate) Chronic sinusitis Depression Dietary counseling and surveillance Dyslipidemia Familial adenomatous polyposis Gastrointestinal bleed Generalized osteoarthritis GERD (gastroesophageal reflux disease) History of fractured vertebra Hyperlipidemia Hypertension Hypothyroidism Lumbar spinal stenosis Metabolic syndrome Paroxysmal atrial fibrillation Post-op after CABG. EKG 07/02/20 also shows afib. Seen by cardio 07/16/20 after brief hospitalization for UGIB. ASA was d/c'd at that time due to GI bleed. Cardio notes possible recent afib but states would not anticoagulate at this time anyway due to bleed. At [facility] appt, notably in SR on exam, and H/H has normalized. Pt will call clother in re: restarting ASA. Periodic limb movement disorder Pulmonary nodule Rheumatoid arthritis Started seeing rheum 07/2020, started on MTX Surgical History H/O arthroscopic knee surgery (~08/2018) History of bilateral breast reduction surgery History of bronchoscopy (~06/2013) History of cardiac cath [facility] - NO STENTS/ANGIOPLASTY -- > CABG - FOLLOWS W/ DR. SARABIA ([place]) - ALSO FOLLOWS W/ DR. LYNDA MCGILL [place] History of cataract surgery History of colonoscopy (~06/2016) 09/2021 repeat 1 yr History of coronary artery bypass graft (~01/2016) 2016 - 3 V[address], [facility]- FOLLOWS W/ DR. SARABIA ([place]) - ALSO FOLLOWS W/ DR. LYNDA MCGILL [place] History of esophagogastroduodenoscopy (EGD) (~2011) History of sinus surgery History of thoracotomy (~03/2018) HX OF LEFT VATS WITH BIOPSY AND LYSIS OF ADHESIONS SLAVALAREvangelista. [facility] History of total abdominal hysterectomy and bilateral salpingo-oophorectomy History of tubal ligation Hx of arthroplasty TMJ Family History Brother Diabetes Heart disease Mother Stroke Father Stroke Grandmother Stroke Grandfather Stroke Aunt Breast cancer Son Congenital heart disease Unknown Hypertension Daughter , 50 Liposarcoma Denies family history of Ovarian cancer Prostate cancer Myocardial infarction Colorectal cancer Social History Smoking Status: Never smoker Second Hand Exposure: No; Do You Dip or Chew Tobacco: No; Hx Alcohol Use: No Hx Substance Use: No Preferred Language: Bulgarian Communication Ability: Effective Visual Impairment: Limited Hearing Ability: Normal Clother In Required: No Beliefs That Will Affect Care: None marital status: / Current Living Situation: Alone current occupational status: retired Feels Safe at Home: Yes Childhood Exposure to Second-Hand Smoke: No caffeine: Yes Dental Care, Regularly: Yes Physical Activity Frequency: Does not Exercise Seatbelt Use: always Sunscreen Use: No Assistive Devices: Contacts and Glasses Review of Systems Review of Systems: All systems reviewed & are unremarkable except as noted in HPI & below Physical Exam Physical Exam: General: patient resting comfortably, NAD, ill in appearance, AA&O x 4 Skin: warm, dry, intact, bruising present on LLE, scattered small eschar on bilateral arms and legs HEENT: NC/AT, PERRL with no nystagmus or saccades, EOMI, anicteric sclera, conjunctiva without injection, limited bedside fundoscopic exam with normal vessels and no evidence of papilledema, external ear normal to inspection and nontender, nares patent, dry mucus membranes, dentition intact, no oropharyngeal lesions, neck supple, trachea midline, no LAD, no thyromegaly, no JVD Heart: +S1/S2, regular, bradycardic, no m/r/g Lungs: equal air entry bilaterally, no rales/rhonchi/wheezes Abd: +BS, soft, NT/ND, no masses/organomegaly/ascites Ext: warm, 2+ pulses in UE/LE bilaterally, no clubbing/cyanosis or edema Neuro: nonfocal, patient AA&O x 4, speech intact, no facial droop, moving all extremities on command with equal strength 5/5 Results & Data Results & Data Vital Signs (Past 12 Hours) Vital Signs Temp Pulse Resp BP Pulse Ox O2 Del Method 10/19/22 06:30 63 26 H 142/72 H 93 10/19/22 06:00 54 L 26 H 93 10/19/22 06:00 135/76 10/19/22 05:30 61 24 93 10/19/22 05:27 60 24 131/69 95 10/19/22 05:01 61 24 10/19/22 05:00 58 L 30 H 97 10/19/22 04:30 60 27 H 122/63 98 10/19/22 04:00 59 L 24 122/60 98 10/19/22 03:30 59 L 22 121/60 95 10/19/22 03:00 59 L 24 95 10/19/22 02:17 55 L 10/19/22 01:45 37.1 C 67 16 146/80 H 94 Room Air Laboratory Results Laboratory Results WBC 5.54 K/ul (4.8-10.8) 10/19/22 01:50 RBC 3.59 M/uL (4.20-5.40) L 10/19/22 01:50 Hgb 11.3 g/dl (12.0-16.0) L 10/19/22 01:50 Hct 33.9 % (37.0-47.0) L 10/19/22 01:50 MCV 94.4 fL (80.0-100.0) 10/19/22 01:50 MCH 31.5 pg (25.0-34.0) 10/19/22 01:50 MCHC 33.3 g/dL (32.0-36.0) 10/19/22 01:50 RDW Std Deviation 46.2 fL (36.4-46.3) 10/19/22 01:50 RDW Coeff of Sara 13.4 % (11.5-14.5) 10/19/22 01:50 Plt Count 128 K/uL (130-400) L 10/19/22 01:50 MPV 10.4 fL (9.4-12.4) 10/19/22 01:50 Immature Gran % (Auto) 0.9 % 10/19/22 01:50 Neut % (Auto) 84.0 % 10/19/22 01:50 Lymph % (Auto) 9.7 % 10/19/22 01:50 Stevens % (Auto) 4.9 % 10/19/22 01:50 Eos % (Auto) 0.0 % 10/19/22 01:50 Baso % (Auto) 0.5 % 10/19/22 01:50 Neut # (Auto) 4.65 K/uL (1.40-6.50) 10/19/22 01:50 Lymph # (Auto) 0.54 K/uL (1.2-3.4) L 10/19/22 01:50 Stevens # (Auto) 0.27 K/uL (0.11-0.59) 10/19/22 01:50 Eos # (Auto) 0.00 K/uL (0-0.50) 10/19/22 01:50 Baso # (Auto) 0.03 K/uL (0-0.2) 10/19/22 01:50 Immature Gran # (Auto) 0.05 K/uL (0.01-0.20) 10/19/22 01:50 Sodium 136 mmol/L (136-145) 10/19/22 01:57 Potassium 3.9 mmol/L (3.5-5.1) 10/19/22 01:57 Chloride 102 mmol/L (98-107) 10/19/22 01:57 Carbon Dioxide 25 mmol/L (21-32) 10/19/22 01:57 Anion Gap 9 (3-11) 10/19/22 01:57 BUN 22 mg/dl (6-23) 10/19/22 01:57 Creatinine 1.63 mg/dl (0.6-1.2) H 10/19/22 01:57 Est Cr Clr Drug Dosing 34.3 ml/min 10/19/22 01:57 Est GFR ( Amer) 34.4 10/19/22 01:57 Est GFR (Non-Af Amer) 29.7 10/19/22 01:57 BUN/Creatinine Ratio 13.5 (10-20) 10/19/22 01:57 Glucose 119 mg/dl (70-99(Fasting)) H 10/19/22 01:57 Calcium 8.6 mg/dl (8.6-10.3) 10/19/22 01:57 Total Bilirubin 0.6 mg/dl (0.2-1.0) 10/19/22 01:57 AST 25 U/L (13-39) 10/19/22 01:57 ALT 14 U/L (7-52) 10/19/22 01:57 Alkaline Phosphatase 69 U/L (34-104) 10/19/22 01:57 Total Protein 6.7 gm/dl (6.0-8.3) 10/19/22 01:57 Albumin 3.6 gm/dl (3.4-5.0) 10/19/22 01:57 Globulin 3.1 gm/dl (2.5-4.0) 10/19/22 01:57 Albumin/Globulin Ratio 1.2 (0.9-2) 10/19/22 01:57 SARS-CoV-2, RNA, NAAT NEGATIVE (NEGATIVE) 10/19/22 05:[address] 10/19/22 03:11 Exam(s): CT HEAD Without Contrast EXAM: CT Head Without Intravenous Contrast CLINICAL HISTORY: Reason for exam: SYNCOPE. TECHNIQUE: Axial computed tomography images of the head/brain without intravenous contrast. Automated exposure control was utilized for the study. A dose lowering technique was utilized adhering to the principles of ALARA. COMPARISON: May 22, 2022 CT head and MRI brain from October 18, 2022. FINDINGS: Brain: Mild patchy periventricular and deep white matter low density throughout the cerebrum consistent with chronic small vessel disease and/or senescent changes, unchanged. No acute large vessel infarct or intracranial hemorrhage is seen. Ventricles: Unremarkable. No ventriculomegaly. Bones/joints: Mild hyperostosis of the skull, unchanged. No acute fracture. Soft tissues: Unremarkable. Sinuses: Unremarkable as visualized. No acute sinusitis. Mastoid air cells: Unremarkable as visualized. No mastoid effusion. IMPRESSION: Mild patchy periventricular and deep white matter low density throughout the cerebrum consistent with chronic small vessel disease and/or senescent changes, unchanged. No acute large vessel infarct or intracranial hemorrhage is seen. Electronically signed by: Sergio Samson MD 10/19/22 04:42 AM MR brain wo/w con OUTPATIENT STUDY FROM 10/18/22 CLINICAL HISTORY: headache, memory changes s/p fall 04/2022 TECHNIQUE: Multiplanar and multisequence MR images of the brain were obtained prior to and following administration of gadolinium contrast. Comparison: Comparison is made to MRI brain 06/22/[address] head 05/22/2022 FINDINGS: No abnormal restricted diffusion is identified. Foci of T2 and FLAIR hyperintensity are noted in the paraventricular areas consistent with chronic small vessel ischemic disease. Ex vacuo ventriculomegaly and sulcal enlargement is noted compatible with diffuse volume loss. No mass or abnormal enhancement is seen. There is no mass effect or midline shift. There is no evidence of acute intraparenchymal hemorrhage. No extra axial fluid collections are seen. The corpus callosum, pituitary gland, and cerebellar tonsils appear grossly unremarkable. Flow voids of the major intracranial arterial vessels are identified. Postsu rgical changes of sinus no significant sinus disease. IMPRESSION: No acute abnormalities. ACT 112: Negative or not required by law. Electronically signed by: Vince Goodwin M.D. 10/18/2022 2:44 PM Dictated:10/18/22 1432 Transcribed: 10/18/22 1435 ECG Additional Comments: Per my interpretation - study reveals SR at 66bpm, normal axis, 1st degree AV block with UV=464bm, QRS normal at 98, QTC 440. No acute ischemic changes PG Care Time/CCT Total # of Minutes Spent Total Time Spent with Patient: Total time spent is greater than 50% in coordination of care (as documented) at patient's floor/unit and/or counseling patient: Coding Level of Care Code 15375 INT INP/OBS CARE 3/75MIN Diagnoses Headache G44.89 Headache type: other headache syndrome Hypertension I10 CAD (coronary artery disease) I25.10 Hyperlipidemia E78.5 Hypothyroidism E03.9 GERD (gastroesophageal reflux disease) K21.9 Depression F32.9 (1) Headache Headache type: other headache syndrome Qualified Code(s): G44.89 - Other headache syndrome
[2022-10-19 07:22] LABS: Lyme Ab IgG w/WB Rflx Negative (Negative); Lyme Ab IgM w/WB Rflx Negative (Negative)
[2022-10-19] MEDS ORDERED: LACTATED RINGER'S 1,000 ML IV SCH (07:51)
[2022-10-19] MEDS ORDERED: LEVALBUTEROL TARTRATE 15 GM HFA.AER.AD INH PRN (07:51)
[2022-10-19] MEDS ORDERED: METOCLOPRAMIDE HCL INJ 5 MG/ML 2 ML VIAL IV PRN (07:51)
--- NOTE | 2022-10-19 08:53 | Electrocardiogram Report ---
Test Reason : Blood Pressure : / mmHG Vent. Rate : 066 BPM Atrial Rate : 066 BPM P-R Int : 214 ms QRS Dur : 098 ms QT Int : 420 ms P-R-T Axes : 081 001 078 degrees QTc Int : 440 ms Sinus rhythm with 1st degree A-V block with Premature supraventricular complexes Abnormal ECG When compared with ECG of 02-JUL-2020 13:19, Sinus rhythm has replaced Atrial fibrillation T wave inversion no longer evident in Anterior leads Confirmed by Bishop Malagon ([id number]) on 10/19/2022 8:53:25 AM Referred By: REFERRED SELF Confirmed By:Bishop Malagon
[2022-10-19] MEDS: PANTOprazole 40 MG TAB PO SCH ×2 (08:57→20:18)
[2022-10-19] MEDS: ASPIRIN 81 MG ECTAB PO SCH (08:57)
[2022-10-19] MEDS: METOPROLOL SUCC 50MG EXT REL TAB PO SCH (08:57)
[2022-10-19] MEDS: VENLAFAXINE HCL XR 75 MG CAPXR PO SCH (08:57)
[2022-10-19] MEDS: UMECLIDINIUM/VILANTEROL 62.5/25MCG 7 PUFFS/INHALER INH SCH (08:58)
[2022-10-19] MEDS ORDERED: NON-FORMULARY MEDICATION (Fluticasone-Umeclidin-Vilanter [Trelegy Ellipta] 100-62.5-25 mcg INH SCH (09:00)
[2022-10-19 09:04] LABS: Albumin Level 3.6 gm/dl (3.4-5.0); Bilirubin,Total 0.5 mg/dl (0.2-1.0); Calcium 8.7 mg/dl (8.6-10.3)
[2022-10-19 09:10] LABS: Albumin Globulin Ratio 1.2 (0.9-2); BUN Creatinine Ratio 13.9 (10-20); Est GFR (African American) 35.7; Est GFR (Non-African American) 30.8; Globulin 3.1 gm/dl (2.5-4.0); Phosphorus 3.3 mg/dl (2.5-4.9); Total Protein 6.7 gm/dl (6.0-8.3)
[2022-10-19] MEDS ORDERED: diazePAM 5 MG TABLET PO PRN (09:10)
--- NOTE | 2022-10-19 09:50 | Magnetic Resonance Report ---
MR VENOGRAM OF THE BRAIN CLINICAL HISTORY: Headache. COMPARISON STUDY: CT of the brain dated 10/19/2022. MRI of the brain dated 10/18/2022. TECHNIQUE: Sagittal MR venogram of the brain is performed. 3-D reformats are created and assessed. IV contrast was not administered for this examination. FINDINGS: There is no MRI evidence of venous sinus thrombosis. The superior sagittal sinus is widely patent, as are the transverse and sigmoid sinuses. Normal flow is shown within the internal jugular v eins. The inferior sagittal sinus and the straight sinus are clear. IMPRESSION: Normal MR venogram of the brain. Electronically signed by: Michael Corona M.D. 10/19/2022 9:48 AM
[2022-10-19] MEDS: FLUTICASONE FUROATE 100MCG 14 PUFFS/INHALER INH SCH (10:15)
[2022-10-19] MEDS: ISOSORBIDE MONO EXTENDED REL 30 MG TABCR PO SCH (11:17)
[2022-10-19] MEDS: ONDANSETRON INJ 2 MG/ML 2 ML VIAL IV PRN (14:22)
[2022-10-19] MEDS: ACETAMINOPHEN 325 MG TAB PO PRN (18:40)
[2022-10-19] MEDS: VENLAFAXINE HCL XR 150 MG CAPXR PO SCH (20:17)
[2022-10-19] MEDS: MONTELUKAST SODIUM 10 MG TABLET PO SCH (20:17)
[2022-10-19] MEDS: ATORVASTATIN 40 MG TAB PO SCH (20:18)
[2022-10-20] MEDS: LEVOTHYROXINE SODIUM 100 MCG TABLET PO SCH (05:43)
[2022-10-20 07:06] LABS: BUN Creatinine Ratio 18.4 (10-20); Calcium 8.3 mg/dl (8.6-10.3); Creatinine Clr Calc Pharmacy 36.9 ml/min; Est GFR (African American) 38.9 ml/min; Est GFR (Non-African American) 33.6 ml/min
[2022-10-20 07:41] LABS: Hematocrit (blood only) 33.1 % (37.0-47.0); Hemoglobin 11.4 g/dl (12.0-16.0); Mean Corpuscular Hemoglobin 31.5 pg (25.0-34.0); Mean Corpuscular Hgb Conc 34.4 g/dL (32.0-36.0); Mean Corpuscular Volume 91.4 fL (80.0-100.0); Mean Platelet Volume 11.3 fL (9.4-12.4); Platelet Count 71 K/uL (130-400); Platelet Estimate Decreased (Normal); RDW Coefficient of Variation 13.9 % (11.5-14.5); Red Blood Count 3.62 M/uL (4.20-5.40); White Blood Count 5.08 K/ul (4.8-10.8)
[2022-10-20 07:42] LABS: Anaplasmosis Smear(Rpt to DOH) Pos for Anaplasma
[2022-10-20] MEDS: oxyCODONE HCL IR 5 MG TAB (IMMEDIATE RELEASE) PO PRN ×2 (08:45→21:21)
[2022-10-20] MEDS: ACETAMINOPHEN 325 MG TAB PO PRN ×3 (08:45→20:16)
[2022-10-20] MEDS: ASPIRIN 81 MG ECTAB PO SCH (08:46)
[2022-10-20] MEDS: PANTOprazole 40 MG TAB PO SCH ×2 (08:46→20:16)
[2022-10-20] MEDS: METOPROLOL SUCC 50MG EXT REL TAB PO SCH (08:46)
[2022-10-20] MEDS: ONDANSETRON INJ 2 MG/ML 2 ML VIAL IV PRN (08:46)
[2022-10-20] MEDS: VENLAFAXINE HCL XR 75 MG CAPXR PO SCH (08:46)
[2022-10-20] MEDS: ISOSORBIDE MONO EXTENDED REL 30 MG TABCR PO SCH (08:46)
[2022-10-20] MEDS: UMECLIDINIUM/VILANTEROL 62.5/25MCG 7 PUFFS/INHALER INH SCH (08:47)
[2022-10-20] MEDS: FLUTICASONE FUROATE 100MCG 14 PUFFS/INHALER INH SCH (08:47)
[2022-10-20] MEDS: DOXYCYCLINE HYCLATE 100 MG in DEXTROSE 5% 100 ML IV SCH ×2 (09:23→20:16)
[2022-10-20] MEDS ORDERED: HEPARIN SOD 5,000 UNIT/0.5 ML VIAL SQ STA (10:08)
--- NOTE | 2022-10-20 10:09 | Hospitalist Progress Note ---
Date of Service October 20, 2022 Assessment & Plan (1) Anaplasmosis: Plan: 77yo female with severe, intermittent headache. Patient's description is somewhat consistent with "brain zaps" or SSRI/SNRI discontinuation headache. Patient states, however, that she did not miss any doses and her timing of doses was fairly consistent as well. She did just take her 150mg dose around 03:00 in the ER. MRI brain performed yesterday without evidence of acute CVA. Physical exam is largely unremarkable At this point, it appears her symptoms likely from anaplasmosis. Patient does have a cat at home. Patient now with fever, generalized weakness, headache though headache has improved Patient will get first dose of doxycyline on 10/20 Will order PT/OT and will monitor (2) Headache: Plan: -Check MR Venogram - possible dural venous sinus thrombosis: negative -As headache is improving, likely from problem 1 -Tylenol as needed -Oxycodone as needed -Continue Venlafaxine -Reglan as needed for nausea (3) Hypertension: Plan: Blood pressure stable -Continue Metoprolol and Isosorbide -Monitor (4) CAD (coronary artery disease): Plan: CAD s/p CABG x 4V. No chest pain. Echo in April 2022 with slightly reduced EF of 54% -Continue Metoprolol -Continue Atorvastatin -Continue ASA -Continue Isosorbide -Lasix continues to be on hold due to acute kidney injury and patient being dry. (5) Hyperlipidemia: Plan: Chronic. Stable -Continue Atorvastatin (6) Hypothyroidism: Plan: Chronic. Stable. Last TSH on 09/28/22 = 3.647 -Continue Synthroid 100mcg po daily (7) GERD (gastroesophageal reflux disease): Plan: Patient is on Omeprazole BID -Continue Protonix 40mg po BID while inpatient (8) Depression: Plan: Chronic -Continue Venlafaxine F/E/N - LR at 125mL/hr x 1 liter, check Mg and PO4 and replete as needed, full liquid diet - advance as tolerated - patient reports she has no appetite Ppx -heparin Code - Full Admission and Anticipated Discharge Date Admission Date: October 19, 2022 Subjective Patient reports feeling weak, tired, and continues to have a headache. Review of Systems Review of Systems: All systems reviewed & are unremarkable except as noted in HPI & below Physical Exam Physical Exam: General: patient resting comfortably, NAD Skin: warm, dry, intact HEENT: NC/AT Heart: +S1/S2, RRR Lungs: equal air entry bilaterally Abd: +BS, soft, NT/ND, no masses/organomegaly/ascites Ext: warm, 2+ pulses in UE/LE bilaterally Neuro: nonfocal, patient AA&O x 4 Results & Data Results & Data Vital Signs (Past 12 Hours) Vital Signs Temp Pulse Resp BP BP Pulse Ox O2 Del Method 10/20/22 09:25 38.4 C H 10/20/22 08:26 37.8 C H 76 20 116/68 91 Room Air 10/20/22 06:28 78 20 90 Room Air 10/20/22 03:48 37.8 C H 77 22 145/79 H 93 Room Air 10/19/22 23:34 Room Air 10/19/22 22:17 36.5 C 62 16 103/64 91 Room Air PG Care Time/CCT Total # of Minutes Spent Total Time Spent with Patient: Total time spent is greater than 50% in coordination of care (as documented) at patient's floor/unit and/or counseling patient: Coding Level of Care Code 03804 SUB INP/OBS CARE 2/35MIN Diagnoses Anaplasmosis A77.49 Headache G44.89 Headache type: other headache syndrome Hypertension I10 CAD (coronary artery disease) I25.10 Hyperlipidemia E78.5 Hypothyroidism E03.9 GERD (gastroesophageal reflux disease) K21.9 Depression F32.9 (2) Headache Headache type: other headache syndrome Qualified Code(s): G44.89 - Other headache syndrome
[2022-10-20] MEDS: CALCIUM CARBONATE 1250MG TAB PO SCH ×2 (12:47→20:16)
[2022-10-20] MEDS ORDERED: HEPARIN SOD 5,000 UNIT/0.5 ML VIAL SQ SCH ×2 (14:00)
[2022-10-20] MEDS: POLYETHYLENE (MIRALAX) 17 GM PACK PO SCH (15:53)
[2022-10-20] MEDS: MONTELUKAST SODIUM 10 MG TABLET PO SCH (20:16)
[2022-10-20] MEDS: ATORVASTATIN 40 MG TAB PO SCH (20:16)
[2022-10-20] MEDS: VENLAFAXINE HCL XR 150 MG CAPXR PO SCH (20:16)
[2022-10-20] MEDS ORDERED: SOD PHOSPHATE/SOD BIPHOSPHATE ENEMA 132 ML BTL PR ONE (21:41)
[2022-10-21] MEDS: LEVOTHYROXINE SODIUM 100 MCG TABLET PO SCH (05:38)
[2022-10-21 07:10] LABS: Hematocrit (blood only) 34.5 % (37.0-47.0); Hemoglobin 11.5 g/dl (12.0-16.0); Mean Corpuscular Hgb Conc 33.3 g/dL (32.0-36.0); Mean Platelet Volume 11.9 fL (9.4-12.4); Platelet Count 46 K/uL (130-400); RDW Coefficient of Variation 14.3 % (11.5-14.5); RDW Standard Deviation 48.5 fL (36.4-46.3); Red Blood Count 3.71 M/uL (4.20-5.40); White Blood Count 4.06 K/ul (4.8-10.8)
[2022-10-21 07:33] LABS: BUN Creatinine Ratio 19.5 (10-20); Calcium 8.1 mg/dl (8.6-10.3); Creatinine Clr Calc Pharmacy 27.8 ml/min; Est GFR (African American) 27.7 ml/min; Est GFR (Non-African American) 23.9 ml/min; Potassium 3.6 mmol/L (3.5-5.1)
[2022-10-21] MEDS: PANTOprazole 40 MG TAB PO SCH ×2 (08:49→20:50)
[2022-10-21] MEDS: DOXYCYCLINE HYCLATE 100 MG in DEXTROSE 5% 100 ML IV SCH ×2 (08:49→20:50)
[2022-10-21] MEDS: VENLAFAXINE HCL XR 75 MG CAPXR PO SCH (08:50)
[2022-10-21] MEDS: ASPIRIN 81 MG ECTAB PO SCH (08:50)
[2022-10-21] MEDS: ISOSORBIDE MONO EXTENDED REL 30 MG TABCR PO SCH (08:51)
[2022-10-21] MEDS: DOCUSATE SODIUM/SENNA 50/8.6MG TAB PO SCH (08:51)
[2022-10-21] MEDS: POLYETHYLENE (MIRALAX) 17 GM PACK PO SCH (08:53)
[2022-10-21] MEDS: FLUTICASONE FUROATE 100MCG 14 PUFFS/INHALER INH SCH (08:53)
[2022-10-21] MEDS: UMECLIDINIUM/VILANTEROL 62.5/25MCG 7 PUFFS/INHALER INH SCH (08:53)
[2022-10-21] MEDS: METOPROLOL SUCC 50MG EXT REL TAB PO SCH (09:03)
--- NOTE | 2022-10-21 13:14 | Hospitalist Progress Note ---
Date of Service October 21, 2022 Assessment & Plan (1) Anaplasmosis: Plan: Anaplasmosis smear was +. Leukopenia, thrombocytopenia, fevers, chills, high AST, etc all suggestive of anaplasmosis (or viral infection). Remains on doxycycline, day #2 of such. Lyme screen was negative. Babesiosis smear was negative. Pancytopenia should be leveling off in the next 24-36 hours, then counts will likely begin to rise. Repeat CBC w/ diff in am. Repeat AST in am. Cont doxycycline. If she fails to improve with doxycycline, headaches worsen, etc would need to consider LP - anaplasmosis can cause meningoencephalitis. Fortunately she has no signs of such at this time. (2) Headache: Plan: MRI brain 10/18 negative for acute findings. MRV brain 10/[address] head 10/19 negative for ICH/acute findings. No meningeal signs on exam. Headache is likely due to #1. Should improve with doxycycline and time. If headaches worsen or persist may need to consider LP but hold off at this time. (3) Lung field abnormal finding on examination: Plan: The patient has known h/o asthma and bronchiectasis per the record. She has b/l rales and wheezes on exam. CXR today without overt edema. There is a ?LLL infiltrate. Uncertain if she has a developing pneumonia in the LLL or if all of her lung exam findings are 2nd asthma/bronchiectasis. Will add rocephin 2gm daily in the event she has a LLL pneumonia brewing. Start duonebs QID. Flutter valve/incentive spirometry. Consider repeat cxr in 1-2 days. Defer on systemic steroids. Cont usual home inhalers. (4) Hyponatremia: Plan: Worse today. Patient appears mildly volume contracted; no signs of decompensated CHF. Check urine osm, urine Na. Checked serum osm - <280. Gentle hydration - NS x 1 liter and repeat BMP am. Hold lasix. (5) Acute metabolic encephalopathy: Plan: 2nd to #1. Can't rule out #4 contributing. Benzodiazepine withdrawal could be contributing as well. (6) Paroxysmal atrial fibrillation: Plan: Patient is in a.fib. Rates are controlled with metoprolol succinate 50mg daily. She had PAF following her CABG years ago. Uncertain why she is not on chronic anticoagulation but will need to consider such. Cannot institute a blood thinner at this time, however, due to thrombocytopenia. Cont metoprolol. Appreciate cardiology consultation. (7) Hypertension: Plan: Controlled with metoprolol & imdur. BPs are low-normal due to #1 and an element of volume contraction. Adjust meds as needed. (8) CAD (coronary artery disease): Plan: CAD s/p CABG x 4V. Echo in April 2022 with slightly reduced EF of 54% but still normal. Grade 1 diastolic dysfunction also seen. She does not examine volume overloaded today. Continue Metoprolol Continue Atorvastatin HOLD ASA due to dropping platelets Continue Isosorbide (9) Hyperlipidemia: Plan: AST only minimally elevated Reasonable to continue Atorvastatin (10) Hypothyroidism: Plan: TSH on 09/28/22 = 3.647 Continue Synthroid 100mcg po daily (11) GERD (gastroesophageal reflux disease): Plan: Continue Protonix 40mg po BID while inpatient Resume omeprazole at discharge (12) Depression: Plan: Continue Venlafaxine Son concerned she misses several doses at times at home Will reinforce compliance May benefit ultimately from home health services (13) Mixed action and resting tremor: Plan: Worse than baseline Due to benzodiazepine withdrawal (no benzos in 2+ days)? Start back her valium at home doses Follow tremor (14) Mobitz type 1 second degree AV block: Plan: Seen on tele intermittently No higher block witnessed Follow closely on monitors Appreciate Dr Mauricio's consultation (15) Anxiety: Plan: Resume valium - 2.5mg qam, 5mg qpm She takes valium SCHEDULED, not prn (16) 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 CBC daily (17) Morbid obesity with BMI of 40.0-44.9, adult: Plan: BMI 40 (18) Rheumatoid arthritis: Plan: Mtx on hold Plan PT, OT consults appreciated; as of today would need rehab post-d/c, but perhaps strength/mobility will improve as anaplasmosis clears son extensively updated at bedside today care d/w Dr Mauricio cardiology extensive care time today (85 min) - extensive chart review, extensive lab review, reviewing outside records from cardiology, discussion with Dr Mauricio, ordering & interpretation of additional labs, complex care coordination, review of PDMP (benzos), etc Admission and Anticipated Discharge Date Admission Date: October 20, 2022 Subjective tele overnight - [place] 1 AV block noted intermittently last pm she also appears to be in rate-controlled a.fib no higher AV block seen son at bedside during the visit interestingly he researches/studies tick-borne diseases at [facility] he reports that her mental status today - although not back to baseline - is better than yesterday she reports ongoing headaches, fever, chills, weakness, fatigue, and lack of appetite no dyspnea at rest some cough in addition, she is concerned she is not getting her usual valium for years she was taking clonazepam, then was changed briefly to ativan by her psychiatrist early in 2022, then ultimately changed to valium she takes the valium EVERY Day twice a day -- 1/2 tab (2.5mg) each am, 1 full tab (5mg) each evening her tremors are worse than baseline - tremors started when her daughter earlier this year? Review of Systems Review of Systems: gen - fevers/chills/weakness cv - no chest pain, no orthopnea pulm - no dyspnea at rest GI - no nausea/emesis/abd pain Physical Exam Physical Exam: gen - obese, sickly, a little confused at times, tremulous eyes - PERRL mouth - MM dry neck - no JVD; no nuchal rigidity or pain/tenderness heart - irregular, s1 s2, no murmur lungs - b/l basilar rales with wheezes, no respiratory distress abd - soft NT ND BS+ ext - no edema, pulses 2+ b/l psych - follows commands, but mildly confused neuro - tremors b/l arms Results & Data Results & Data Vital Signs (Past 12 Hours) Vital Signs Temp Pulse Resp BP BP Pulse Ox O2 Del Method 10/21/22 12:01 38.9 C H 72 20 114/70 91 Room Air 10/21/22 07:47 36.7 C 54 L 20 100/65 93 Room Air 10/21/22 04:20 36.5 C 53 L 20 114/60 93 Room Air Laboratory Results Laboratory Results - last 24 hr 10/21/22 10/21/22 06:24 06:24 WBC 4.06 L RBC 3.71 L Hgb 11.5 L Hct 34.5 L MCV 93.0 MCH 31.0 MCHC 33.3 RDW Std Deviation 48.5 H RDW Coeff of Sara 14.3 Plt Count 46 L MPV 11.9 Sodium 129 L Potassium 3.6 Chloride 94 L Carbon Dioxide 25 Anion Gap 10 BUN 38 H Creatinine 1.95 H D Est Cr Clr Drug Dosing 27.8 Est GFR ( Amer) 27.7 Est GFR (Non-Af Amer) 23.9 BUN/Creatinine Ratio 19.5 Glucose 81 Calcium 8.1 L Diagnostic Findings Laboratory Results - last 24 hr 10/21/22 10/21/22 10/21/22 06:24 06:24 16:04 WBC 4.06 L RBC 3.71 L Hgb 11.5 L Hct 34.5 L MCV 93.0 MCH 31.0 MCHC 33.3 RDW Std Deviation 48.5 H RDW Coeff of Sara 14.3 Plt Count 46 L MPV 11.9 PT 12.2 H INR 1.1 Sodium 129 L Potassium 3.6 Chloride 94 L Carbon Dioxide 25 Anion Gap 10 BUN 38 H Creatinine 1.95 H D Est Cr Clr Drug Dosing 27.8 Est GFR ( Amer) 27.7 Est GFR (Non-Af Amer) 23.9 BUN/Creatinine Ratio 19.5 Glucose 81 Osmolality Calcium 8.1 L Total Bilirubin AST ALT Alkaline Phosphatase B-Natriuretic Peptide Total Protein Albumin Globulin Albumin/Globulin Ratio 10/21/22 10/21/22 10/21/22 16:04 16:04 16:04 WBC RBC Hgb Hct MCV MCH MCHC RDW Std Deviation RDW Coeff of Sara Plt Count MPV PT INR Sodium 127 L Potassium 3.8 Chloride 96 L Carbon Dioxide 24 Anion Gap 7 BUN 42 H Creatinine 1.81 H Est Cr Clr Drug Dosing 30.0 Est GFR ( Amer) 30.3 Est GFR (Non-Af Amer) 26.1 BUN/Creatinine Ratio 23.2 H Glucose 95 Osmolality 278 L Calcium 8.3 L Total Bilirubin 0.9 AST 62 H ALT 28 Alkaline Phosphatase 91 B-Natriuretic Peptide 1050 H Total Protein 5.9 L Albumin 3.2 L Globulin 2.7 Albumin/Globulin Ratio 1.2 PG Care Time/CCT Total # of Minutes Spent Total Time Spent with Patient: Total time spent is greater than 50% in coordination of care (as documented) at patient's floor/unit and/or counseling patient: Prolonged Care Time Prolonged Care Time: Yes Total Prolonged Care Time: 85 Coding Level of Care Code 24022 SUB INP/OBS CARE 3/50MIN (25 - SIGNIFICANT, SEPARATELY IDENTIFIABLE ) Diagnoses Anaplasmosis A77.49 Headache G44.89 Headache type: other headache syndrome Lung field abnormal finding on examination R91.8 Hyponatremia E87.1 Acute metabolic encephalopathy G93.41 Paroxysmal atrial fibrillation I48.0 Hypertension I10 CAD (coronary artery disease) I25.10 Hyperlipidemia E78.5 Hypothyroidism E03.9 GERD (gastroesophageal reflux disease) K21.9 Depression F32.9 Mixed action and resting tremor R25.9 Mobitz type 1 second degree AV block I44.1 Anxiety F41.9 Pancytopenia D61.818 Morbid obesity with BMI of 40.0-44.9, adult E66.01; Z68.41 Rheumatoid arthritis M06.9 Additional Codes Prolonged Care Time - Prolonged Care Time: Yes ([id number]) (2) Headache Headache type: other headache syndrome Qualified Code(s): G44.89 - Other headache syndrome
[2022-10-21] MEDS ORDERED: diazePAM 5 MG TABLET PO ONE (13:28)
--- NOTE | 2022-10-21 16:22 | XRay Report ---
XR chest 1V portable HISTORY: fevers, check for pneumonia COMPARISON: Chest 02/24/2022. FINDINGS: No pneumothorax. The heart remains mildly enlarged. There is a large hiatus hernia, unchang ed. There are poststernotomy changes. Mild interstitial thickening is likely chronic. No evidence for pulmonary edema. There are old, healed left-sided rib fractures. Small bilateral pleural effusions a re noted. There are patchy left basilar densities. The upper lung zones remain clear. IMPRESSION: 1. Small bilateral pleural effusions. 2. Stable cardiomegaly. 3. Patchy left basilar densities which favor atelectasis. A pneumonia could also have a similar appea lisa. 4. Large hiatus hernia, unchanged. ACT 112: Negative or not required by law. Electronically signed by: Raghu Chew M.D. 10/21/2022 4:20 PM
[2022-10-21 16:48] LABS: Albumin Globulin Ratio 1.2 (0.9-2); Albumin Level 3.2 gm/dl (3.4-5.0); BUN Creatinine Ratio 23.2 (10-20); Bilirubin,Total 0.9 mg/dl (0.2-1.0); Calcium 8.3 mg/dl (8.6-10.3); Est GFR (African American) 30.3 ml/min; Est GFR (Non-African American) 26.1 ml/min; Globulin 2.7 gm/dl (2.5-4.0); Potassium 3.8 mmol/L (3.5-5.1); Total Protein 5.9 gm/dl (6.0-8.3)
[2022-10-21 16:56] LABS: INR 1.1 (0.9-1.1); Prothrombin Time 12.2 Seconds (9.0-12.0)
[2022-10-21] MEDS ORDERED: SODIUM CHLORIDE 0.9% 1000ML 1,000 ML IV SCH (17:30)
--- NOTE | 2022-10-21 17:31 | Cardiology Consultation ---
Date of Consultation October 21, 2022 Assessment & Plan (1) Paroxysmal atrial fibrillation: (2) CAD (coronary artery disease): (3) Hyperlipidemia: (4) Hypertension: (5) Edema: Plan ASSESSMENT/PLAN: 1. Atrial fibrillation: Had atrial fibrillation following CABG. Unclear if she had other episodes. Asymptomatic and likely to have paroxysmal atrial fibrillation. She is asymptomatic currently. Heart rate well controlled. Continue beta-kimberlyn. Recommend anticoagulation for stroke risk reduction when able. 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 When platelet count is reasonable, would recommend anticoagulation therapy. 2. Possible Mobitz 1/blocked PACs: While in sinus, first-degree AV block with transient Mobitz 1. No symptoms. No significant pause. No specific therapy necessary. Could consider outpatient monitor through her primary exhibit designer. 3. CAD s/p CABG x 4: No angina. Continue aspirin if no contraindication, high intensity statin therapy, beta-kimberlyn. Can continue nitrate therapy. She appears euvolemic and in fact edema much better than baseline according to her son. BNP is elevated but clinically does not appear hypervolemic and has had reduced oral intake. Can resume home diuretic later this hospital stay, when more appropriate. 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 5. Hypertension: Blood pressure well controlled. No changes made at this time. 6. Dyslipidemia: Continue high intensity statin therapy. 7. Edema: Edema much better than typical per her son. Can resume outpatient diuretic when taking more adequate p.o. She does not appear significantly hypervolemic today. 8. Hyponatremia: As per primary service. 9. Disposition: Recommend close follow-up with her primary exhibit designer after discharge. Please call with any further questions or concerns or if further inpatient evaluation is necessary from a cardiac standpoint. Patient care communicated with Dr. Rasheed of the primary hospitalist service. Thank you for allowing me to participate in the care of your patient. Please call for any other questions or concerns. Sincerely, Gibran Mauricio M.D. History of Present Illness Reason for Consultation: Arrhythmia Requesting Physician: Toni Rasheed MD Attending Physician: Toni Rasheed MD History of Present Illness Ms. Tao is a pleasant 77-year-old female with a history significant for CAD s/p CABG x4 (approximately 2015 [facility]), hypertension, CKD, dyslipidemia and at least postoperative atrial fibrillation from CABG. She also had a history of upper GI bleed in the setting of aspirin and NSAID use. Her primary exhibit designer is with [facility]. She was hospitalized on 10/19/2022 and has been diagnosed with anaplasmosis. She presented with severe headaches and has had fever, generalized weakness, and confusion. Her son, Jax, who performs research on ticks and tick borne illnesses through [facility], was present at the bedside. He states that she has had significant improvement in the past 24 hours after receiving antibiotics. History was obtained both from the patient but also supplemented by her son. She noted some dyspnea on exertion with physical therapy today. Her son admits that she has been sedentary for the past 2 or 3 years. She lives alone and has fallen on multiple occasions including rib fractures and vertebrae fractures. She states that the falls have been mechanical in nature and denied syncope or near syncope as part of her falling. They report that multiple falls occurred in April 2022. She chronically has lower extremity swelling. Her son states that her legs are typically not elevated. She had to buy bigger shoes to allow for her feet to fit. She used Lasix 80 mg daily as an outpatient. Her exhibit designer changed her diuretic to a "stronger" medication for some time but there were apparently some issues and she was placed back on Lasix 80 mg daily. Her son states that she has lost 25 pounds in the past 2 months. He states that her legs look much improved currently. There was reported upper GI bleed in 2020 and she recalls being on aspirin and Aleve at that time. She did not require a blood transfusion at that time and has not had any further bleeding such as melena, hematochezia, or hematuria. She denies chest pain, shortness of breath at rest, orthopnea, or palpitations. On telemetry, she was noted to have sinus rhythm with first-degree AV block. There appeared to be Mobitz 1 transiently as well as junctional escape beats. There appeared to be locked PACs. These issues appear to be transient and there were no significant pauses upon formal review. She then developed atrial fibrillation on 10/20/2022 at 1637 and her heart rate was actually slower while in A-fib compared to sinus. She remains completely asymptomatic in this regard and did not note a change. Review of systems: As above. Review of systems otherwise negative/unremarkable. Family history: Mother and father with stroke. Social history: She denies tobacco, alcohol, or drug abuse. She lives alone. She had 2 children but her daughter . Her son, Jax, was present at the bedside. Jax studies ticks at [facility]. Allergies Allergy/AdvReac Type Severity Reaction Status Date / Time diphtheria toxoid,fluid Allergy Intermediate TdAP=swelli Verified 10/02/22 14:44 ng/redness poliomyelitis vaccine,killed Allergy Intermediate TdAP=swelli Verified 10/02/22 14:44 ng/redness tetanus toxoid, adsorbed Allergy Intermediate TdAP=swelli Verified 10/02/22 14:44 ng/redness nickel Allergy Mild pruritus Verified 10/02/22 14:44 etanercept [From Enbrel] AdvReac Severe pneumonia Verified 10/02/22 14:44 amoxicillin [From Augmentin] AdvReac Intermediate GI symptoms Verified 10/02/22 14:44 clavulanic acid AdvReac Intermediate GI symptoms Verified 10/02/22 14:44 [From Augmentin] NSAIDS (Non-Steroidal AdvReac Intermediate gi bleed Verified 10/02/22 14:44 Anti-Inflamma Home Medications Medication Instructions Recorded Confirmed Type calcium carbonate 600 mg-vitamin 1 tab PO QAM 04/01/18 10/19/22 History D3 10 mcg (400 unit) tablet (Calcium 600 + D(3)) venlafaxine 150 mg 150 mg PO HS 01/31/19 10/19/22 History capsule,extended release 24 hr venlafaxine 75 mg capsule,extended 75 mg PO QAM 01/31/19 10/19/22 History release 24 hr isosorbide dinitrate 30 mg tablet 30 mg PO ONCE 02/03/21 10/19/22 History levalbuterol tartrate 45 2 inh inhalation Q6H #15 grams 10/21/21 09/28/22 Rx mcg/actuation aerosol inhaler (Xopenex HFA) omeprazole 40 mg capsule,delayed 40 mg PO BID #180 caps 02/13/22 10/19/22 Rx release montelukast 10 mg tablet 10 mg PO QPM #90 tabs 02/28/22 10/19/22 Rx Walking Cane #1 ea 05/29/22 09/28/22 Rx diazepam 5 mg PO UD 04/05/23 06/29/23 History atorvastatin 40 mg tablet 40 mg PO HS #90 tabs 08/28/22 10/19/22 Rx aspirin 81 mg tablet,delayed 81 mg PO DAILY 09/22/22 10/19/22 History release (Adult Low Dose Aspirin) cholecalciferol (vitamin D3) 25 25 mcg PO DAILY 09/22/22 10/19/22 History mcg (1,000 unit) capsule fluticasone fur. 100 mcg-umeclid 1 inh inhalation DAILY 09/22/22 09/28/22 History 62.5 mcg-vilant 25 mcg inhalat.powder (Trelegy Ellipta) furosemide 40 mg tablet (Lasix) 80 mg PO DAILY 09/22/22 10/19/22 History metoprolol succinate 50 mg 50 mg PO DAILY 09/22/22 10/19/22 History tablet,extended release 24 hr nitroglycerin 0.4 mg sublingual 0.4 mg sublingual Q5M PRN 09/22/22 09/28/22 History tablet (Nitrostat) levothyroxine 100 mcg tablet See Rx Instructions .Route 09/25/22 10/19/22 Rx .COMPLEX #90 tabs acetaminophen 500 mg tablet 1,000 mg PO BID PRN Pain 10/02/22 10/19/22 History ferrous sulfate 325 mg (65 mg 325 mg PO DAILY 10/02/22 10/19/22 History iron) tablet cyanocobalamin-cobamamide [B12] 1 tab sublingual DAILY 10/17/22 History fluticasone fur. 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 Follows with pulm at [facility] Bronchiectasis CAD (coronary artery disease) s/p CABG x 3 in 2016. Chronic kidney disease, stage III (moderate) Chronic sinusitis Depression Dietary counseling and surveillance Dyslipidemia Familial adenomatous polyposis Gastrointestinal bleed Generalized osteoarthritis GERD (gastroesophageal reflux disease) History of fractured vertebra Hyperlipidemia Hypertension Hypothyroidism Lumbar spinal stenosis Metabolic syndrome Paroxysmal atrial fibrillation Post-op after CABG. EKG 07/02/20 also shows afib. Seen by cardio 07/16/20 after brief hospitalization for UGIB. ASA was d/c'd at that time due to GI bleed. Cardio notes possible recent afib but states would not anticoagulate at this time anyway due to bleed. At [facility] appt, notably in SR on exam, and H/H has normalized. Pt will call exhibit designer re: restarting ASA. Periodic limb movement disorder Pulmonary nodule Rheumatoid arthritis Started seeing rheum 07/2020, started on MTX Surgical History H/O arthroscopic knee surgery (~08/2018) History of bilateral breast reduction surgery History of bronchoscopy (~06/2013) History of cardiac cath [facility] - NO STENTS/ANGIOPLASTY -- > CABG - FOLLOWS W/ DR. SARABIA ([place]) - ALSO FOLLOWS W/ DR. HOWELL IN [place] History of cataract surgery History of colonoscopy (~06/2016) 09/2021 repeat 1 yr History of coronary artery bypass graft (~01/2016) 2016 - 3 VESSELS, [facility]- FOLLOWS W/ DR. SARABIA ([place]) - ALSO FOLLOWS W/ DR. HOWELL IN [place] History of esophagogastroduodenoscopy (EGD) (~2011) History of sinus surgery History of thoracotomy (~03/2018) HX OF LEFT VATS WITH BIOPSY AND LYSIS OF ADHESIONS [place]. [facility] History of total abdominal hysterectomy and bilateral salpingo-oophorectomy History of tubal ligation Hx of arthroplasty TMJ Family History Brother Diabetes Heart disease Mother Stroke Father Stroke Grandmother Stroke Grandfather Stroke Aunt Breast cancer Son Congenital heart disease Unknown Hypertension Daughter , 50 Liposarcoma Denies family history of Ovarian cancer Prostate cancer Myocardial infarction Colorectal cancer Social History Smoking Status: Never smoker Second Hand Exposure: No; Do You Dip or Chew Tobacco: No; Tobacco Cessation Education Requested by Patient: No Hx Alcohol Use: Yes Alcohol type: beer Hx Substance Use: No Preferred Language: Cymraes Communication Ability: Effective Visual Impairment: Limited Hearing Ability: Normal [employer] Products Inspectors Required: No Beliefs That Will Affect Care: None marital status: / Current Living Situation: Alone current occupational status: retired Feels Safe at Home: Yes Safety Concerns: Feels Safe At This Time Childhood Exposure to Second-Hand Smoke: No caffeine: Yes Dental Care, Regularly: Yes Physical Activity Frequency: Does not Exercise Seatbelt Use: always Sunscreen Use: No Assistive Devices: Cane Physical Exam Physical Exam: Gen.: No acute distress. Alert. HEENT: Anicteric sclera. Neck: No JVD. Thick neck. No bruits. Normal carotid upstrokes bilaterally. Cardiac: No ventricular heave. Irregularly irregular. Heart rate near 60 bpm. Normal S1-S2. No murmurs, rubs, or gallops. Pulmonary: Occasional crackles bilaterally with expiratory wheezing. Abdomen: Soft, nontender, nondistended, with normoactive bowel sounds. No bruits noted. Extremities: 2+ radial pulses bilaterally. 2+ posterior tibialis pulses bilaterally. Trace bilateral lower extremity edema. No cyanosis. Results & Data Vital Signs (Past 12 Hours) Vital Signs Temp Pulse Resp BP Pulse Ox O2 Del Method 10/21/22 15:15 36.8 C 60 20 107/70 93 Room Air 10/21/22 12:01 38.9 C H 72 20 114/70 91 Room Air 10/21/22 07:47 36.7 C 54 L 20 100/65 93 Room Air Intake & Output 10/19/22 10/20/22 10/21/22 10/22/22 06:59 06:59 06:59 06:59 Intake Total 1497.083 / 2334.207 5773 / 1320 590 / 590 Output Total Balance 1497.083 / 2766.638 3642 / 1319 590 / 590 Weight 232 lb 2.348 oz 234 lb 2.095 oz Laboratory Results Laboratory Results - last 24 hr 10/21/22 10/21/22 10/21/22 06:24 06:24 16:04 WBC 4.06 L RBC 3.71 L Hgb 11.5 L Hct 34.5 L MCV 93.0 MCH 31.0 MCHC 33.3 RDW Std Deviation 48.5 H RDW Coeff of Sara 14.3 Plt Count 46 L MPV 11.9 PT 12.2 H INR 1.1 Sodium 129 L Potassium 3.6 Chloride 94 L Carbon Dioxide 25 Anion Gap 10 BUN 38 H Creatinine 1.95 H D Est Cr Clr Drug Dosing 27.8 Est GFR ( Amer) 27.7 Est GFR (Non-Af Amer) 23.9 BUN/Creatinine Ratio 19.5 Glucose 81 Osmolality Calcium 8.1 L Total Bilirubin AST ALT Alkaline Phosphatase B-Natriuretic Peptide Total Protein Albumin Globulin Albumin/Globulin Ratio 10/21/22 10/21/22 10/21/22 16:04 16:04 16:04 WBC RBC Hgb Hct MCV MCH MCHC RDW Std Deviation RDW Coeff of Sara Plt Count MPV PT INR Sodium 127 L Potassium 3.8 Chloride 96 L Carbon Dioxide 24 Anion Gap 7 BUN 42 H Creatinine 1.81 H Est Cr Clr Drug Dosing 30.0 Est GFR ( Amer) 30.3 Est GFR (Non-Af Amer) 26.1 BUN/Creatinine Ratio 23.2 H Glucose 95 Osmolality 278 L Calcium 8.3 L Total Bilirubin 0.9 AST 62 H ALT 28 Alkaline Phosphatase 91 B-Natriuretic Peptide 1050 H Total Protein 5.9 L Albumin 3.2 L Globulin 2.7 Albumin/Globulin Ratio 1.2 Diagnostic Findings Telemetry personally reviewed as outlined in HPI. ECG personally reviewed 10/19/2022: Sinus rhythm first-degree AV block with PAC 66 bpm. ECG 10/21/2022 at 1245: A-fib [address]/T wave abnormality. Labs reviewed from 10/21/2022 and notable for: Pancytopenia, abnormal renal function, normal potassium, worsening hyponatremia. BNP 1050. Echo from 05/17/2022 report reviewed: LVEF 54%. Mild MR. Mild to moderate TR. Moderate left atrial dilation. History and physical report reviewed. Chest x-ray 10/21/2022: Small bilateral pleural effusions. Large hiatal hernia. Patchy left basilar densities. Medications Administered Current Inpatient Medications Acetaminophen (Acetaminophen 325 Mg Tab) 650 mg PO Q4H PRN PRN Reason: pain/fever Stop: 11/18/22 07:50 Last Admin: 10/20/22 20:16 Dose: 650 mg Albuterol (Albut/Ipratrop 3mg/0.5mg Neb 3 Ml Vial) 3 ml NEB QIDR [facility]; Protocol Stop: 11/20/22 18:59 Aspirin (Aspirin 81 Mg Ectab) 81 mg PO DAILY [facility] Stop: 11/18/22 08:59 Last Admin: 10/21/22 08:50 Dose: 81 mg Atorvastatin Calcium (Atorvastatin 40 Mg Tab) 40 mg PO HS [facility] Stop: 11/18/22 20:59 Last Admin: 10/20/22 20:16 Dose: 40 mg Diazepam (Diazepam 5 Mg Tablet) 5 mg PO DAILY PRN PRN Reason: Anxiety Stop: 11/18/22 09:09 Diazepam (Diazepam 5 Mg Tablet) 5 mg PO HS [facility] Stop: 11/20/22 20:59 Diazepam (Diazepam 5 Mg Tablet) 2.5 mg PO QAM [facility] Stop: 11/21/22 08:59 Fluticasone Furoate (Fluticasone Furoate 100mcg 14 Puffs/Inhaler) 1 puffs INH DAILY [facility] Stop: 11/18/22 08:59 Last Admin: 10/21/22 08:53 Dose: 1 puffs Doxycycline Hyclate 100 mg/ (Dextrose) 110 mls @ 50 mls/hr IV Q12H [facility] Stop: 11/03/22 08:29 Last Infusion: 10/21/22 11:01 Dose: Infused Sodium Chloride (Nss 1000ml) 1,000 mls @ 80 mls/hr IV .[id number] [facility] Stop: 10/22/22 05:59 Isosorbide Mononitrate (Isosorbide [place] Extended Rel 30 Mg Tabcr) 30 mg PO DAILY [facility] Stop: 11/18/22 09:29 Last Admin: 10/21/22 08:51 Dose: 30 mg Levalbuterol HCl (Levalbuterol Tartrate 15 Gm Hfa.Aer.Ad) 2 puffs INH QID PRN PRN Reason: Shortness Of Breath Stop: 11/18/22 07:50 Last Admin: 10/20/22 06:28 Dose: 2 puffs Levothyroxine Sodium (Levothyroxine Sodium 100 Mcg Tablet) 100 mcg PO DAILYBB [facility] Stop: 11/19/22 06:29 Last Admin: 10/21/22 05:38 Dose: 100 mcg Metoclopramide HCl (Metoclopramide Hcl Inj 5 Mg/Ml 2 Ml Vial) 10 mg IV Q6H PRN PRN Reason: Nausea Stop: 11/18/22 07:50 Last Admin: 10/19/22 18:39 Dose: 10 mg Metoprolol Succinate (Metoprolol Succ 50mg Ext Rel Tab) 50 mg PO DAILY [facility] Stop: 11/18/22 08:59 Last Admin: 10/21/22 09:03 Dose: Not Given Montelukast Sodium (Montelukast Sodium 10 Mg Tablet) 10 mg PO QPM [facility] Stop: 11/18/22 20:59 Last Admin: 10/20/22 20:16 Dose: 10 mg Ondansetron HCl (Ondansetron Inj 2 Mg/Ml 2 Ml Vial) 4 mg IV Q6H PRN PRN Reason: Nausea Stop: 11/18/22 07:50 Last Admin: 10/20/22 08:46 Dose: 4 mg Oxycodone HCl (Oxycodone Hcl Ir 5 Mg Tab (Immediate Release)) 5 mg PO Q4H PRN PRN Reason: Pain Stop: 11/02/22 07:50 Last Admin: 10/20/22 21:21 Dose: 5 mg Pantoprazole Sodium (Pantoprazole 40 Mg Tab) 40 mg PO BID [facility] Stop: 11/18/22 08:59 Last Admin: 10/21/22 08:49 Dose: 40 mg Polyethylene Glycol (Polyethylene (Miralax) 17 Gm Pack) 17 gm PO DAILY [facility] Stop: 11/19/22 14:44 Last Admin: 10/21/22 08:53 Dose: 17 gm Senna/Docusate Sodium (Docusate Sodium/Senna 50/8.6mg Tab) 1 tab PO QAM [facility] Stop: 11/20/22 08:59 Last Admin: 10/21/22 08:51 Dose: 1 tab Umeclidinium/Vilanterol (Umeclidinium/Vilanterol 62.5/25mcg 7 Puffs/Inhaler) 1 puffs INH DAILY [facility] Stop: 11/18/22 08:59 Last Admin: 10/21/22 08:53 Dose: 1 puffs Venlafaxine HCl (Venlafaxine Hcl Xr 75 Mg Capxr) 75 mg PO QAM [facility] Stop: 07/29/23 08:59 Last Admin: 10/21/22 08:50 Dose: 75 mg Venlafaxine HCl (Venlafaxine Hcl Xr 150 Mg Capxr) 150 mg PO HS [facility] Stop: 11/18/22 20:59 Last Admin: 10/20/22 20:16 Dose: 150 mg PG Care Time/CCT Total # of Minutes Spent Total Time Spent with Patient: Total time spent is greater than 50% in coordination of care (as documented) at patient's floor/unit and/or counseling patient: Coding Level of Care Code 25650 INT INP/OBS CARE 3/75MIN Diagnoses Paroxysmal atrial fibrillation I48.0 CAD (coronary artery disease) I25.10 Hyperlipidemia E78.5 Hypertension I10 Edema R60.9
[2022-10-21] MEDS: ALBUT/IPRATROP 3MG/0.5MG NEB 3 ML VIAL NEB SCH (19:15)
[2022-10-21] MEDS: cefTRIAXone SODIUM 2,000 MG in DEXTROSE 5% 50 ML IV SCH (19:51)
[2022-10-21] MEDS: VENLAFAXINE HCL XR 150 MG CAPXR PO SCH (20:50)
[2022-10-21] MEDS: ATORVASTATIN 40 MG TAB PO SCH (20:50)
[2022-10-21] MEDS: ACETAMINOPHEN 325 MG TAB PO PRN (20:50)
[2022-10-21] MEDS: diazePAM 5 MG TABLET PO SCH (20:50)
[2022-10-21] MEDS: MELATONIN 3 MG TAB PO SCH (20:50)
[2022-10-21] MEDS: MONTELUKAST SODIUM 10 MG TABLET PO SCH (20:50)
--- NOTE | 2022-10-21 21:45 | Electrocardiogram Report ---
Test Reason : Blood Pressure : / mmHG Vent. Rate : 055 BPM Atrial Rate : 043 BPM P-R Int : 000 ms QRS Dur : 108 ms QT Int : 460 ms P-R-T Axes : 000 009 074 degrees QTc Int : 440 ms Probable Atrial fibrillation with slow ventricular response with occasional Premature ventricular com plexes Low voltage QRS Incomplete right bundle branch block Nonspecific ST and T wave abnormality Abnormal ECG When compared with ECG of 19-OCT-2022 01:46, Atrial fibrillation has replaced Sinus rhythm Confirmed by Cholo Mauricio ([id number]) on 10/21/2022 9:45:29 PM Referred By: REFERRED SELF Confirmed By:Cholo Mauricio
[2022-10-21 23:38] LABS: Appearance Urine Clear (Clear); Bacteria Urine Automated Negative (Negative); Bilirubin Urine Negative (Negative); Blood Urine Negative (Negative); Color Urine Yellow; Epithelial Cell Urine Auto >30 /lpf (0-5); Glucose Urine UA Negative (Negative); Ketones Urine Negative (Negative); Leukocyte Esterase Urine 1+ (Negative); Nitrite Urine Negative (Negative); Protein Urine Trace (Negative); Urobilinogen Urine Negative (Negative); pH Urine 5.5 (4.5-7.5)
[2022-10-21 23:55] LABS: RBC Urine Automated 0-4 /hpf (0-4)
[2022-10-22] MEDS: oxyCODONE HCL IR 5 MG TAB (IMMEDIATE RELEASE) PO PRN (01:41)
[2022-10-22] MEDS: ONDANSETRON INJ 2 MG/ML 2 ML VIAL IV PRN (01:41)
[2022-10-22 02:24] LABS: Babesia microti DNA Not Detected (Not Detected)
[2022-10-22] MEDS: LEVOTHYROXINE SODIUM 100 MCG TABLET PO SCH (05:37)
[2022-10-22 06:44] LABS: BUN Creatinine Ratio 22.4 (10-20); Calcium 8.1 mg/dl (8.6-10.3); Creatinine Clr Calc Pharmacy 31.9 ml/min; Est GFR (African American) 32.7 ml/min; Est GFR (Non-African American) 28.2 ml/min; Potassium 3.8 mmol/L (3.5-5.1)
[2022-10-22 06:46] LABS: Hematocrit (blood only) 31.6 % (37.0-47.0); Hemoglobin 10.8 g/dl (12.0-16.0); Mean Corpuscular Hemoglobin 31.2 pg (25.0-34.0); Mean Corpuscular Hgb Conc 34.2 g/dL (32.0-36.0); Mean Corpuscular Volume 91.3 fL (80.0-100.0); Mean Platelet Volume 13.4 fL (9.4-12.4); Platelet Count 48 K/uL (130-400); RDW Coefficient of Variation 13.8 % (11.5-14.5); RDW Standard Deviation 46.4 fL (36.4-46.3); Red Blood Count 3.46 M/uL (4.20-5.40); White Blood Count 6.38 K/ul (4.8-10.8)
[2022-10-22 06:57] LABS: Basophils # (auto) 0.04 K/uL (0-0.2); Basophils % (auto) 0.6 %; Echinocytes 1+; Eosinophils # (auto) 0.06 K/uL (0-0.50); Eosinophils % (auto) 0.9 %; Immature Granulocytes # (auto) 0.03 K/uL (0.01-0.20); Immature Granulocytes % (auto) 0.5 %; Lymphocytes % (auto) 37.6 %; Monocytes # (auto) 0.69 K/uL (0.11-0.59); Monocytes % (auto) 10.8 %; Neutrophils # (auto) 3.16 K/uL (1.40-6.50); Neutrophils % (auto) 49.6 %
[2022-10-22] MEDS: ALBUT/IPRATROP 3MG/0.5MG NEB 3 ML VIAL NEB SCH ×4 (07:36→19:23)
[2022-10-22] MEDS: PANTOprazole 40 MG TAB PO SCH ×2 (08:08→20:44)
[2022-10-22] MEDS: ISOSORBIDE MONO EXTENDED REL 30 MG TABCR PO SCH (08:09)
[2022-10-22] MEDS: METOPROLOL SUCC 50MG EXT REL TAB PO SCH (08:09)
[2022-10-22] MEDS: ASPIRIN 81 MG ECTAB PO SCH (08:09)
[2022-10-22] MEDS: VENLAFAXINE HCL XR 75 MG CAPXR PO SCH (08:09)
[2022-10-22] MEDS: DOCUSATE SODIUM/SENNA 50/8.6MG TAB PO SCH (08:10)
[2022-10-22] MEDS: diazePAM 5 MG TABLET PO SCH ×2 (08:10→20:47)
[2022-10-22] MEDS: UMECLIDINIUM/VILANTEROL 62.5/25MCG 7 PUFFS/INHALER INH SCH (08:10)
[2022-10-22] MEDS: FLUTICASONE FUROATE 100MCG 14 PUFFS/INHALER INH SCH (08:11)
[2022-10-22] MEDS: POLYETHYLENE (MIRALAX) 17 GM PACK PO SCH (08:13)
[2022-10-22] MEDS: DOXYCYCLINE HYCLATE 100 MG in DEXTROSE 5% 100 ML IV SCH ×2 (08:19→20:46)
[2022-10-22] MEDS: SODIUM CHLORIDE 1 GM TABLET PO SCH (15:00)
--- NOTE | 2022-10-22 20:33 | Hospitalist Progress Note ---
Date of Service October 22, 2022 Assessment & Plan (1) Anaplasmosis: Plan: IMPROVING. Anaplasmosis smear was +. Leukopenia, thrombocytopenia, fevers, chills, high AST, etc all suggestive of anaplasmosis (or viral infection). Remains on doxycycline, day #3 of such. Plan 14 days of Rx. Leave on IV formulation until she is consistently taking PO and keeping everything down. Lyme screen was negative. Babesiosis smear was negative. Babesiosis DNA returned negative. Leukopenia resolved today. Platelets have plateaued at 46; 48 today. AST modestly improved today. No fevers or chills today; headache improved. Anaplasmosis DNA test is pending. CBC in am. (2) Headache: Plan: MRI brain 10/18 negative for acute findings. MRV brain 10/[address] head 10/19 negative for ICH/acute findings. No meningeal signs on exam. Headache is 2nd to #1 --- improving with doxycycline. If headaches were to worsen or persist may need to consider LP but hold off at this time. She clinically does not have signs of meningitis. (3) Lung field abnormal finding on examination: Plan: The patient has known h/o asthma and bronchiectasis per the record. She has b/l rales and wheezes on exam. CXR yesterday without overt edema. There was a ?LLL infiltrate. Uncertain if she has a developing pneumonia in the LLL or if all of her lung exam findings are 2nd asthma/bronchiectasis. Added rocephin 2gm daily on 10/21/22 in the event she has a LLL pneumonia brewing. Cont duonebs QID. Flutter valve/incentive spirometry. Defer on systemic steroids. Cont usual home inhalers. Will repeat a 2-view cxr in am tomorrow. If the LLL infiltrate is better consider d/c of rocephin. (4) Hyponatremia: Plan: IMPROVED s/p 1 liter of saline overnight. U osm was low - thus, no SIADH. U Na low at 13 - c/w solute deficiency (recent emesis, chronic lasix, etc). Na now 133. To get Na level back to 135-140 place on a few days of NaCL tablets 1gm daily. Repeat BMP am. (5) Acute metabolic encephalopathy: Plan: 2nd to #1. IMPROVING. Cont doxy for anaplasmosis Cont supportive care (6) Paroxysmal atrial fibrillation: Plan: Patient is in rate-controlled a.fib Remains on metoprolol succinate 50mg daily. She had PAF following her CABG years ago. Uncertain why she is not on chronic anticoagulation but will need to consider such. Cannot institute a blood thinner at this time, however, due to thrombocytopenia. Appreciate cardiology consultation by Dr Mauricio. He, too, recommends anticoagulation when medically stable for such. (7) Hypertension: Plan: Controlled with metoprolol & imdur. BPs are stable today. Adjust meds as needed. (8) CAD (coronary artery disease): Plan: CAD s/p CABG x 4V. Echo in April 2022 with slightly reduced EF of 54% but still normal. Grade 1 diastolic dysfunction also seen. Again she does not examine volume overloaded today. 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: Plan: She reports multiple family members with chronic tremor This is c/w familial tremor I spoke to her today about seeing neurology as outpatient to seek out Rx for her severe tremor (14) Mobitz type 1 second degree AV block: Plan: Seen on tele intermittently 48 hours ago No higher block witnessed Follow closely on monitors Appreciate Dr Mauricio's consultation -- ok to continue on metoprolol; continue telemetry (15) Anxiety: Plan: Cont valium scheduled - 2.5mg qam, 5mg qpm These are prescribed by her psychiatrist PDMP confirms valium scripts (16) 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 WBC count improved today H/H stable Platelets have leveled off CBC daily B12/folate earlier this month were both wnl TSH wnl (17) Morbid obesity with BMI of 40.0-44.9, adult: Plan: BMI 40 (18) Rheumatoid arthritis: Plan: Mtx on hold Plan PT, OT consults appreciated -- rehab advised post discharge son extensively updated at bedside yesterday and by phone today Admission and Anticipated Discharge Date Admission Date: October 20, 2022 Subjective tele overnight - a.fib, rates <100 pt sitting in chair by the window she feels better today appetite a little better headache improved energy modestly better no fevers today tremors slightly better today Review of Systems Review of Systems: gen - no fevers or chills today cv - no chest pain pulm - denies dyspnea at rest; albuterol nebs have helped her breathing over the last 24 hours GI - no pain, nausea, vomiting overnight Physical Exam Physical Exam: gen - obese, looks better today, sitting in chair mouth - MMM today neck - no JVD heart - irregular, s1 s2, no murmur lungs - b/l basilar rales improved today; wheezes not present today; no respiratory distress; airation improved abd - soft NT ND BS+ ext - no edema, pulses 2+ b/l psych - confusion improved neuro - tremors b/l arms - modestly better today Results & Data Results & Data Vital Signs (Past 12 Hours) Vital Signs Temp Pulse Resp BP BP Pulse Ox O2 Del Method 10/22/22 19:49 37.5 C 63 18 111/65 90 Room Air 10/22/22 15:13 68 18 96 Room Air 10/22/22 14:57 37.2 C 66 20 110/71 94 Room Air 10/22/22 13:23 37.3 C 67 20 115/71 96 Room Air 10/22/22 10:51 67 18 93 Room Air Laboratory Results Laboratory Results - last 24 hr 10/19/22 10/21/22 10/21/22 06:51 Unknown Unknown WBC RBC Hgb Hct MCV MCH MCHC RDW Std Deviation RDW Coeff of Sara Plt Count MPV Immature Gran % (Auto) Neut % (Auto) Lymph % (Auto) Hitchcock % (Auto) Eos % (Auto) Baso % (Auto) Neut # (Auto) Lymph # (Auto) Hitchcock # (Auto) Eos # (Auto) Baso # (Auto) Immature Gran # (Auto) Echinocytes Sodium Potassium Chloride Carbon Dioxide Anion Gap BUN Creatinine Est Cr Clr Drug Dosing Est GFR ( Amer) Est GFR (Non-Af Amer) BUN/Creatinine Ratio Glucose Calcium AST Urine Color Yellow Urine Appearance Clear Urine pH 5.5 Ur Specific Austin 1.010 Urine Protein Trace H Urine Glucose (UA) Negative Urine Ketones Negative Urine Blood Negative Urine Nitrite Negative Urine Bilirubin Negative Urine Urobilinogen Negative Ur Leukocyte Esterase 1+ H Urine WBC (Auto) 5-10 H Urine RBC (Auto) 0-4 U Hyaline Cast (Auto) 1-5 U Epithel Cells (Auto) >30 H Urine Bacteria (Auto) Negative Urine Yeast Not Reportable Urine Osmolality 257 L Ur Random Sodium Babesia microti DNA PCR Not Detected 10/21/22 10/22/22 10/22/22 Unknown 06:05 06:05 WBC 6.38 RBC 3.46 L Hgb 10.8 L Hct 31.6 L MCV 91.3 MCH 31.2 MCHC 34.2 RDW Std Deviation 46.4 H RDW Coeff of Sara 13.8 Plt Count 48 L MPV 13.4 H Immature Gran % (Auto) 0.5 Neut % (Auto) 49.6 Lymph % (Auto) 37.6 Hitchcock % (Auto) 10.8 Eos % (Auto) 0.9 Baso % (Auto) 0.6 Neut # (Auto) 3.16 Lymph # (Auto) 2.40 Hitchcock # (Auto) 0.69 H Eos # (Auto) 0.06 Baso # (Auto) 0.04 Immature Gran # (Auto) 0.03 Echinocytes 1+ Sodium 133 L Potassium 3.8 Chloride 99 Carbon Dioxide 26 Anion Gap 8 BUN 38 H Creatinine 1.70 H Est Cr Clr Drug Dosing 31.9 Est GFR ( Amer) 32.7 Est GFR (Non-Af Amer) 28.2 BUN/Creatinine Ratio 22.4 H Glucose 80 Calcium 8.1 L AST 52 H Urine Color Urine Appearance Urine pH Ur Specific Austin Urine Protein Urine Glucose (UA) Urine Ketones Urine Blood Urine Nitrite Urine Bilirubin Urine Urobilinogen Ur Leukocyte Esterase Urine WBC (Auto) Urine RBC (Auto) U Hyaline Cast (Auto) U Epithel Cells (Auto) Urine Bacteria (Auto) Urine Yeast Urine Osmolality Ur Random Sodium 13 Babesia microti DNA PCR PG Care Time/CCT Total # of Minutes Spent Total Time Spent with Patient: Total time spent is greater than 50% in coordination of care (as documented) at patient's floor/unit and/or counseling patient: Coding Level of Care Code 33584 SUB INP/OBS CARE 50MIN Diagnoses Anaplasmosis A77.49 Headache G44.89 Headache type: other headache syndrome Lung field abnormal finding on examination R91.8 Hyponatremia E87.1 Acute metabolic encephalopathy G93.41 Paroxysmal atrial fibrillation I48.0 Hypertension I10 CAD (coronary artery disease) I25.10 Hyperlipidemia E78.5 Hypothyroidism E03.9 GERD (gastroesophageal reflux disease) K21.9 Depression F32.9 Mixed action and resting tremor R25.9 Mobitz type 1 second degree AV block I44.1 Anxiety F41.9 Pancytopenia D61.818 Morbid obesity with BMI of 40.0-44.9, adult E66.01; Z68.41 Rheumatoid arthritis M06.9 (2) Headache Headache type: other headache syndrome Qualified Code(s): G44.89 - Other headache syndrome
[2022-10-22] MEDS: ATORVASTATIN 40 MG TAB PO SCH (20:45)
[2022-10-22] MEDS: VENLAFAXINE HCL XR 150 MG CAPXR PO SCH (20:45)
[2022-10-22] MEDS: MONTELUKAST SODIUM 10 MG TABLET PO SCH (20:45)
[2022-10-22] MEDS: MELATONIN 3 MG TAB PO SCH (20:45)
[2022-10-22] MEDS: cefTRIAXone SODIUM 2,000 MG in DEXTROSE 5% 50 ML IV SCH (20:46)
[2022-10-22] MEDS: ACETAMINOPHEN 325 MG TAB PO PRN (20:47)
[2022-10-23] MEDS: LEVOTHYROXINE SODIUM 100 MCG TABLET PO SCH (05:34)
[2022-10-23] MEDS: ALBUT/IPRATROP 3MG/0.5MG NEB 3 ML VIAL NEB SCH ×4 (07:20→19:53)
[2022-10-23 08:25] LABS: Hematocrit (blood only) 31.5 % (37.0-47.0); Hemoglobin 10.8 g/dl (12.0-16.0); Mean Corpuscular Hgb Conc 34.3 g/dL (32.0-36.0); Mean Corpuscular Volume 90.5 fL (80.0-100.0); Mean Platelet Volume 12.1 fL (9.4-12.4); Platelet Count 66 K/uL (130-400); RDW Coefficient of Variation 14.1 % (11.5-14.5); RDW Standard Deviation 46.7 fL (36.4-46.3); Red Blood Count 3.48 M/uL (4.20-5.40); White Blood Count 8.87 K/ul (4.8-10.8)
[2022-10-23] MEDS: POLYETHYLENE (MIRALAX) 17 GM PACK PO SCH (08:25)
[2022-10-23] MEDS: VENLAFAXINE HCL XR 75 MG CAPXR PO SCH (08:26)
[2022-10-23] MEDS: DOCUSATE SODIUM/SENNA 50/8.6MG TAB PO SCH (08:26)
[2022-10-23] MEDS: SODIUM CHLORIDE 1 GM TABLET PO SCH (08:26)
[2022-10-23] MEDS: METOPROLOL SUCC 50MG EXT REL TAB PO SCH (08:26)
[2022-10-23] MEDS: FLUTICASONE FUROATE 100MCG 14 PUFFS/INHALER INH SCH (08:27)
[2022-10-23] MEDS: PANTOprazole 40 MG TAB PO SCH ×2 (08:27→22:21)
[2022-10-23] MEDS: UMECLIDINIUM/VILANTEROL 62.5/25MCG 7 PUFFS/INHALER INH SCH (08:27)
[2022-10-23] MEDS: ISOSORBIDE MONO EXTENDED REL 30 MG TABCR PO SCH (08:27)
[2022-10-23] MEDS: DOXYCYCLINE HYCLATE 100 MG in DEXTROSE 5% 100 ML IV SCH ×2 (08:33→20:43)
[2022-10-23] MEDS: diazePAM 5 MG TABLET PO SCH ×2 (08:33→20:49)
[2022-10-23 08:43] LABS: BUN Creatinine Ratio 24.1 (10-20); Calcium 8.5 mg/dl (8.6-10.3); Creatinine Clr Calc Pharmacy 39.9 ml/min; Est GFR (Non-African American) 35.3 ml/min; Potassium 3.6 mmol/L (3.5-5.1)
--- NOTE | 2022-10-23 09:17 | XRay Report ---
XR chest 2V PA/lateral CLINICAL HISTORY: ?LLL infiltrate, interval change COMPARISON STUDY: Chest CT November 02, 2021. Chest radiograph October 21, 2022. FINDINGS: Median sternotomy wires are noted. Cardiomegaly is unchanged. No evidence for pulmonary fede ma. Small bilateral pleural effusions are again noted. Mild left basilar opacity persists. A hiatal h ernia is again noted. IMPRESSION: 1. No change in mild left basilar opacity which could reflect a focus of pneumonia or atelectasis. 2. Small bilateral pleural effusions. ACT 112: Negative or not required by law. Electronically signed by: Alex Emmanuel M.D. 10/23/2022 9:15 AM
[2022-10-23 09:25] LABS: Basophils # (auto) 0.04 K/uL (0-0.2); Basophils % (auto) 0.5 %; Eosinophils # (auto) 0.11 K/uL (0-0.50); Eosinophils % (auto) 1.2 %; Immature Granulocytes # (auto) 0.03 K/uL (0.01-0.20); Immature Granulocytes % (auto) 0.3 %; Lymphocytes # (auto) 3.51 K/uL (1.2-3.4); Lymphocytes % (auto) 39.6 %; Monocytes # (auto) 0.73 K/uL (0.11-0.59); Monocytes % (auto) 8.2 %; Neutrophils # (auto) 4.45 K/uL (1.40-6.50); Neutrophils % (auto) 50.2 %
[2022-10-23] MEDS: cefTRIAXone SODIUM 2,000 MG in DEXTROSE 5% 50 ML IV SCH (18:17)
[2022-10-23] MEDS: ATORVASTATIN 40 MG TAB PO SCH (20:50)
[2022-10-23] MEDS: MONTELUKAST SODIUM 10 MG TABLET PO SCH (20:50)
[2022-10-23] MEDS: MELATONIN 3 MG TAB PO SCH (20:50)
[2022-10-23] MEDS: VENLAFAXINE HCL XR 150 MG CAPXR PO SCH (20:51)
--- NOTE | 2022-10-23 22:21 | Electrocardiogram Report ---
Test Reason : Blood Pressure : / mmHG Vent. Rate : 070 BPM Atrial Rate : 065 BPM P-R Int : 000 ms QRS Dur : 106 ms QT Int : 372 ms P-R-T Axes : 000 010 059 degrees QTc Int : 401 ms Atrial fibrillation Incomplete right bundle branch block Nonspecific ST and T wave abnormality Abnormal ECG When compared with ECG of 20-OCT-2022 16:44, No significant change Confirmed by Cholo Mauricio [id number] on 10/23/2022 10:21:31 PM Referred By: REFERRED SELF Confirmed By:Cholo Mauricio
--- NOTE | 2022-10-23 23:05 | Hospitalist Progress Note ---
Date of Service October 23, 2022 Assessment & Plan (1) Anaplasmosis: Plan: IMPROVING. Anaplasmosis smear was +. Leukopenia, thrombocytopenia, fevers, chills, high AST, etc all suggestive of anaplasmosis (or viral infection). Remains on doxycycline, day #3 of such. Plan 14 days of Rx. Leave on IV formulation until she is consistently taking PO and keeping everything down. Lyme screen was negative. Babesiosis smear was negative. Babesiosis DNA returned negative. Leukopenia resolved today. Platelets have plateaued at 46; now improving. AST modestly improved today. No fevers or chills today; headache improved. Anaplasmosis DNA test is pending. (2) Headache: Plan: MRI brain 10/18 negative for acute findings. MRV brain 10/[address] head 10/19 negative for ICH/acute findings. No meningeal signs on exam. Headache is 2nd to #1 --- improving with doxycycline. She clinically does not have signs of meningitis. Continues to improve. (3) Lung field abnormal finding on examination: Plan: The patient has known h/o asthma and bronchiectasis per the record. She has b/l rales and wheezes on exam. CXR yesterday without overt edema. There was a ?LLL infiltrate. Uncertain if she has a developing pneumonia in the LLL or if all of her lung exam findings are 2nd asthma/bronchiectasis. Added rocephin 2gm daily on 10/21/22 in the event she has a LLL pneumonia brewing. Cont duonebs QID. Flutter valve/incentive spirometry. Defer on systemic steroids. Cont usual home inhalers. Will repeat a 2-view cxr in am tomorrow. If the LLL infiltrate is better consider d/c of rocephin. Difficult to determine improvement with x ray, will continue for now. Consider ordering procal and crp. (4) Hyponatremia: Plan: IMPROVED s/p 1 liter of saline overnight. U osm was low - thus, no SIADH. U Na low at 13 - c/w solute deficiency (recent emesis, chronic lasix, etc). Na improving. To get Na level back to 135-140 place on a few days of NaCL tablets 1gm daily. (5) Acute metabolic encephalopathy: Plan: 2nd to #1. IMPROVING. Cont doxy for anaplasmosis Cont supportive care (6) Paroxysmal atrial fibrillation: Plan: Patient is in rate-controlled a.fib Remains on metoprolol succinate 50mg daily. She had PAF following her CABG years ago. Uncertain why she is not on chronic anticoagulation but will need to consider such. Cannot institute a blood thinner at this time, however, due to thrombocytopenia. Appreciate cardiology consultation by Dr Mauricio. He, too, recommends anticoagulation when medically stable for such. (7) Hypertension: Plan: Controlled with metoprolol & imdur. BPs are stable today. Adjust meds as needed. (8) CAD (coronary artery disease): Plan: CAD s/p CABG x 4V. Echo in April 2022 with slightly reduced EF of 54% but still normal. Grade 1 diastolic dysfunction also seen. Again she does not examine volume overloaded today. 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: Plan: She reports multiple family members with chronic tremor This is c/w familial tremor I spoke to her today about seeing neurology as outpatient to seek out Rx for her severe tremor (14) Mobitz type 1 second degree AV block: Plan: Seen on tele intermittently 48 hours ago No higher block witnessed Follow closely on monitors Appreciate Dr Mauricio's consultation -- ok to continue on metoprolol; continue telemetry (15) Anxiety: Plan: Cont valium scheduled - 2.5mg qam, 5mg qpm These are prescribed by her psychiatrist PDMP confirms valium scripts (16) 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 She has no new complaints. Review of Systems Review of Systems: All systems reviewed & are unremarkable except as noted in HPI & below Physical Exam Physical Exam: General: patient resting comfortably, NAD Skin: warm, dry, intact HEENT: NC/AT Heart: +S1/S2, RRR Lungs: equal air entry bilaterally Abd: +BS, soft, NT/ND, no masses/organomegaly/ascites Ext: warm, 2+ pulses in UE/LE bilaterally Neuro: nonfocal, patient AA&O x 4 Results & Data Results & Data Vital Signs (Past 12 Hours) Vital Signs Temp Pulse Pulse Resp BP Pulse Ox O2 Del Method 10/23/22 20:00 Room Air 10/23/22 19:55 49 L 18 95 Room Air 10/23/22 19:00 36.8 C 85 18 125/77 95 Room Air 10/23/22 15:18 37.2 C 56 L 18 131/78 92 Room Air 10/23/22 15:02 78 18 91 Room Air 10/23/22 15:00 60 PG Care Time/CCT Total # of Minutes Spent Total Time Spent with Patient: Total time spent is greater than 50% in coordination of care (as documented) at patient's floor/unit and/or counseling patient: Coding Level of Care Code 68042 SUB INP/OBS CARE 2/35MIN Diagnoses Anaplasmosis A77.49 Headache G44.89 Headache type: other headache syndrome Lung field abnormal finding on examination R91.8 Hyponatremia E87.1 Acute metabolic encephalopathy G93.41 Paroxysmal atrial fibrillation I48.0 Hypertension I10 CAD (coronary artery disease) I25.10 Hyperlipidemia E78.5 Hypothyroidism E03.9 GERD (gastroesophageal reflux disease) K21.9 Depression F32.9 Mixed action and resting tremor R25.9 Mobitz type 1 second degree AV block I44.1 Anxiety F41.9 Pancytopenia D61.818 Morbid obesity with BMI of 40.0-44.9, adult E66.01; Z68.41 Rheumatoid arthritis M06.9 (2) Headache Headache type: other headache syndrome Qualified Code(s): G44.89 - Other headache syndrome
[2022-10-24] MEDS: LEVOTHYROXINE SODIUM 100 MCG TABLET PO SCH (05:55)
[2022-10-24 06:49] LABS: Hematocrit (blood only) 28.8 % (37.0-47.0); Hemoglobin 9.8 g/dl (12.0-16.0); Mean Corpuscular Hemoglobin 31.5 pg (25.0-34.0); Mean Corpuscular Volume 92.6 fL (80.0-100.0); Mean Platelet Volume 11.3 fL (9.4-12.4); Platelet Count 78 K/uL (130-400); RDW Coefficient of Variation 14.1 % (11.5-14.5); Red Blood Count 3.11 M/uL (4.20-5.40); White Blood Count 9.51 K/ul (4.8-10.8)
[2022-10-24 07:13] LABS: BUN Creatinine Ratio 21.6 (10-20); Calcium 8.3 mg/dl (8.6-10.3); Est GFR (African American) 47.4 ml/min; Est GFR (Non-African American) 40.9 ml/min; Potassium 3.6 mmol/L (3.5-5.1)
[2022-10-24] MEDS: ALBUT/IPRATROP 3MG/0.5MG NEB 3 ML VIAL NEB SCH ×4 (07:35→19:47)
[2022-10-24] MEDS: UMECLIDINIUM/VILANTEROL 62.5/25MCG 7 PUFFS/INHALER INH SCH (09:42)
[2022-10-24] MEDS: FLUTICASONE FUROATE 100MCG 14 PUFFS/INHALER INH SCH (09:42)
[2022-10-24] MEDS: VENLAFAXINE HCL XR 75 MG CAPXR PO SCH (09:43)
[2022-10-24] MEDS: SODIUM CHLORIDE 1 GM TABLET PO SCH (09:43)
[2022-10-24] MEDS: PANTOprazole 40 MG TAB PO SCH ×2 (09:43→22:18)
[2022-10-24] MEDS: DOCUSATE SODIUM/SENNA 50/8.6MG TAB PO SCH (09:44)
[2022-10-24] MEDS: ISOSORBIDE MONO EXTENDED REL 30 MG TABCR PO SCH (09:44)
[2022-10-24] MEDS: METOPROLOL SUCC 50MG EXT REL TAB PO SCH (09:44)
[2022-10-24] MEDS: POLYETHYLENE (MIRALAX) 17 GM PACK PO SCH ×2 (09:46→22:17)
[2022-10-24] MEDS: diazePAM 5 MG TABLET PO SCH ×2 (09:54→22:17)
[2022-10-24] MEDS: DOXYCYCLINE HYCLATE 100 MG in DEXTROSE 5% 100 ML IV SCH ×2 (09:56→22:16)
[2022-10-24] MEDS: cefTRIAXone SODIUM 2,000 MG in DEXTROSE 5% 50 ML IV SCH (17:09)
--- NOTE | 2022-10-24 18:13 | XRay Report ---
KUB CLINICAL HISTORY: Constipation. FINDINGS: 4 AP, portable, supine abdominal radiographs are correlated with abdominal CT dated 08/11/19. There is a nonobstructed abdominal bowel gas pattern. Mild fecal retention is seen throughout the colon. There is no evidence of intraperitoneal free air on these supine images. There are no abnorma l abdominal calcifications. Phleboliths are seen in the pelvis. The skeletal structures are osteopeni c and appear intact. Moderate lumbosacral spondylosis is observed. IMPRESSION: No acute abnormality is identified. Electronically signed by: Michael Corona M.D. 10/24/2022 6:11 PM
[2022-10-24] MEDS: MONTELUKAST SODIUM 10 MG TABLET PO SCH (22:17)
[2022-10-24] MEDS: ATORVASTATIN 40 MG TAB PO SCH (22:17)
[2022-10-24] MEDS: MELATONIN 3 MG TAB PO SCH (22:18)
[2022-10-24] MEDS: VENLAFAXINE HCL XR 150 MG CAPXR PO SCH (22:18)
--- NOTE | 2022-10-24 23:44 | Hospitalist Progress Note ---
Date of Service October 24, 2022 Assessment & Plan (1) Anaplasmosis: Plan: IMPROVING. Anaplasmosis smear was +. Leukopenia, thrombocytopenia, fevers, chills, high AST, etc all suggestive of anaplasmosis (or viral infection). Remains on doxycycline, day #3 of such. Plan 14 days of Rx. Leave on IV formulation until she is consistently taking PO and keeping everything down. Lyme screen was negative. Babesiosis smear was negative. Babesiosis DNA returned negative. Leukopenia resolved today. Platelets have plateaued at 46; now improving. AST modestly improved today. No fevers or chills today; headache improved. Anaplasmosis DNA test is pending. (2) Headache: Plan: MRI brain 10/18 negative for acute findings. MRV brain 10/[address] head 10/19 negative for ICH/acute findings. No meningeal signs on exam. Headache is 2nd to #1 --- improving with doxycycline. She clinically does not have signs of meningitis. Continues to improve. (3) Lung field abnormal finding on examination: Plan: The patient has known h/o asthma and bronchiectasis per the record. She has b/l rales and wheezes on exam. CXR yesterday without overt edema. There was a ?LLL infiltrate. Uncertain if she has a developing pneumonia in the LLL or if all of her lung exam findings are 2nd asthma/bronchiectasis. Added rocephin 2gm daily on 10/21/22 in the event she has a LLL pneumonia brewing. Cont duonebs QID. Flutter valve/incentive spirometry. Defer on systemic steroids. Cont usual home inhalers. Difficult to determine improvement with x ray, will continue for now. Consider ordering procal and crp. At this point, will continue antibiotics and monitor. (4) Hyponatremia: Plan: IMPROVED s/p 1 liter of saline overnight. U osm was low - thus, no SIADH. U Na low at 13 - c/w solute deficiency (recent emesis, chronic lasix, etc). Na improving. To get Na level back to 135-140 place on a few days of NaCL tablets 1gm daily. (5) Acute metabolic encephalopathy: Plan: 2nd to #1. IMPROVING. Cont doxy for anaplasmosis Cont supportive care (6) Paroxysmal atrial fibrillation: Plan: Patient is in rate-controlled a.fib Remains on metoprolol succinate 50mg daily. She had PAF following her CABG years ago. Uncertain why she is not on chronic anticoagulation but will need to consider such. Cannot institute a blood thinner at this time, however, due to thrombocytopenia. Appreciate cardiology consultation by Dr Mauricio. He, too, recommends anticoagulation when medically stable for such. (7) Hypertension: Plan: Controlled with metoprolol & imdur. BPs are stable today. Adjust meds as needed. (8) CAD (coronary artery disease): Plan: CAD s/p CABG x 4V. Echo in April 2022 with slightly reduced EF of 54% but still normal. Grade 1 diastolic dysfunction also seen. Again she does not examine volume overloaded today. 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: Plan: She reports multiple family members with chronic tremor This is c/w familial tremor I spoke to her today about seeing neurology as outpatient to seek out Rx for her severe tremor (14) Mobitz type 1 second degree AV block: Plan: Seen on tele intermittently 48 hours ago No higher block witnessed Follow closely on monitors Appreciate Dr Mauricio's consultation -- ok to continue on metoprolol; continue telemetry (15) Anxiety: Plan: Cont valium scheduled - 2.5mg qam, 5mg qpm These are prescribed by her psychiatrist PDMP confirms valium scripts (16) 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 Review of Systems Review of Systems: All systems reviewed & are unremarkable except as noted in HPI & below Physical Exam Physical Exam: General: patient resting comfortably, NAD Skin: warm, dry, intact HEENT: NC/AT Heart: +S1/S2, RRR Lungs: equal air entry bilaterally Abd: +BS, soft, NT/ND, no masses/organomegaly/ascites Ext: warm, 2+ pulses in UE/LE bilaterally Neuro: nonfocal, patient AA&O x 4 Results & Data Results & Data Vital Signs (Past 12 Hours) Vital Signs Temp Pulse Resp BP Pulse Ox O2 Del Method 10/24/22 22:55 36.8 C 53 L 20 110/61 98 Room Air 10/24/22 19:47 48 L 18 95 Room Air 10/24/22 19:40 36.7 C 55 L 18 115/62 97 Room Air 10/24/22 15:00 36.4 C L 82 18 130/78 90 Room Air 10/24/22 14:41 58 L 20 97 Room Air PG Care Time/CCT Total # of Minutes Spent Total Time Spent with Patient: Total time spent is greater than 50% in coordination of care (as documented) at patient's floor/unit and/or counseling patient: Coding Level of Care Code 43950 SUB INP/OBS CARE 2/35MIN Diagnoses Anaplasmosis A77.49 Headache G44.89 Headache type: other headache syndrome Lung field abnormal finding on examination R91.8 Hyponatremia E87.1 Acute metabolic encephalopathy G93.41 Paroxysmal atrial fibrillation I48.0 Hypertension I10 CAD (coronary artery disease) I25.10 Hyperlipidemia E78.5 Hypothyroidism E03.9 GERD (gastroesophageal reflux disease) K21.9 Depression F32.9 Mixed action and resting tremor R25.9 Mobitz type 1 second degree AV block I44.1 Anxiety F41.9 Pancytopenia D61.818 Morbid obesity with BMI of 40.0-44.9, adult E66.01; Z68.41 Rheumatoid arthritis M06.9 (2) Headache Headache type: other headache syndrome Qualified Code(s): G44.89 - Other headache syndrome
[2022-10-25] MEDS: LEVOTHYROXINE SODIUM 100 MCG TABLET PO SCH (05:35)
[2022-10-25] MEDS: ALBUT/IPRATROP 3MG/0.5MG NEB 3 ML VIAL NEB SCH ×4 (07:08→19:40)
[2022-10-25] MEDS: POLYETHYLENE (MIRALAX) 17 GM PACK PO SCH ×2 (08:17→21:39)
[2022-10-25] MEDS: DOXYCYCLINE HYCLATE 100 MG in DEXTROSE 5% 100 ML IV SCH ×2 (08:17→21:42)
[2022-10-25] MEDS: UMECLIDINIUM/VILANTEROL 62.5/25MCG 7 PUFFS/INHALER INH SCH (08:17)
[2022-10-25] MEDS: FLUTICASONE FUROATE 100MCG 14 PUFFS/INHALER INH SCH (08:17)
[2022-10-25] MEDS: SODIUM CHLORIDE 1 GM TABLET PO SCH (08:18)
[2022-10-25] MEDS: METOPROLOL SUCC 50MG EXT REL TAB PO SCH (08:18)
[2022-10-25] MEDS: DOCUSATE SODIUM/SENNA 50/8.6MG TAB PO SCH (08:18)
[2022-10-25] MEDS: diazePAM 5 MG TABLET PO SCH ×2 (08:18→21:37)
[2022-10-25] MEDS: ISOSORBIDE MONO EXTENDED REL 30 MG TABCR PO SCH (08:18)
[2022-10-25] MEDS: VENLAFAXINE HCL XR 75 MG CAPXR PO SCH (08:18)
[2022-10-25] MEDS: PANTOprazole 40 MG TAB PO SCH ×2 (08:18→21:38)
[2022-10-25] MEDS ORDERED: MINERAL OIL ENEMA 133 ML BTL PR ONE (16:10)
[2022-10-25] MEDS: cefTRIAXone SODIUM 2,000 MG in DEXTROSE 5% 50 ML IV SCH (18:16)
[2022-10-25] MEDS ORDERED: ALBUT/IPRATROP 3MG/0.5MG NEB 3 ML VIAL NEB PRN (20:11)
[2022-10-25] MEDS: MELATONIN 3 MG TAB PO SCH (21:37)
[2022-10-25] MEDS: ATORVASTATIN 40 MG TAB PO SCH (21:38)
[2022-10-25] MEDS: VENLAFAXINE HCL XR 150 MG CAPXR PO SCH (21:38)
[2022-10-25] MEDS: MONTELUKAST SODIUM 10 MG TABLET PO SCH (21:38)
--- NOTE | 2022-10-25 22:27 | Hospitalist Progress Note ---
Date of Service October 25, 2022 Assessment & Plan (1) Anaplasmosis: Plan: IMPROVING. Anaplasmosis smear was +. Leukopenia, thrombocytopenia, fevers, chills, high AST, etc all suggestive of anaplasmosis (or viral infection). Remains on doxycycline, day #3 of such. Plan 14 days of Rx. Leave on IV formulation until she is consistently taking PO and keeping everything down. Lyme screen was negative. Babesiosis smear was negative. Babesiosis DNA returned negative. Leukopenia resolved today. Platelets have plateaued at 46; now improving. AST modestly improved today. No fevers or chills today; headache improved. Anaplasmosis DNA test is pending. Pending placement. Anticoagulation not ordered due to thrombocytopenia. (2) Headache: Plan: MRI brain 10/18 negative for acute findings. MRV brain 10/[address] head 10/19 negative for ICH/acute findings. No meningeal signs on exam. Headache is 2nd to #1 --- improving with doxycycline. She clinically does not have signs of meningitis. Continues to improve. (3) Lung field abnormal finding on examination: Plan: The patient has known h/o asthma and bronchiectasis per the record. She has b/l rales and wheezes on exam. CXR yesterday without overt edema. There was a ?LLL infiltrate. Uncertain if she has a developing pneumonia in the LLL or if all of her lung exam findings are 2nd asthma/bronchiectasis. Added rocephin 2gm daily on 10/21/22 in the event she has a LLL pneumonia brewing. Cont duonebs QID. Flutter valve/incentive spirometry. Defer on systemic steroids. Cont usual home inhalers. Difficult to determine improvement with x ray, will continue for now. Consider ordering procal and crp. At this point, will continue antibiotics and monitor. (4) Hyponatremia: Plan: IMPROVED s/p 1 liter of saline overnight. U osm was low - thus, no SIADH. U Na low at 13 - c/w solute deficiency (recent emesis, chronic lasix, etc). Na improving. To get Na level back to 135-140 place on a few days of NaCL tablets 1gm daily. (5) Acute metabolic encephalopathy: Plan: 2nd to #1. IMPROVING. Cont doxy for anaplasmosis Cont supportive care (6) Paroxysmal atrial fibrillation: Plan: Patient is in rate-controlled a.fib Remains on metoprolol succinate 50mg daily. She had PAF following her CABG years ago. Uncertain why she is not on chronic anticoagulation but will need to consider such. Cannot institute a blood thinner at this time, however, due to thrombocytopenia. Appreciate cardiology consultation by Dr Mauricio. He, too, recommends anticoagulation when medically stable for such. (7) Hypertension: Plan: Controlled with metoprolol & imdur. BPs are stable today. Adjust meds as needed. (8) CAD (coronary artery disease): Plan: CAD s/p CABG x 4V. Echo in April 2022 with slightly reduced EF of 54% but still normal. Grade 1 diastolic dysfunction also seen. Again she does not examine volume overloaded today. 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: Plan: She reports multiple family members with chronic tremor This is c/w familial tremor I spoke to her today about seeing neurology as outpatient to seek out Rx for her severe tremor (14) Mobitz type 1 second degree AV block: Plan: Seen on tele intermittently 48 hours ago No higher block witnessed Follow closely on monitors Appreciate Dr Mauricio's consultation -- ok to continue on metoprolol; continue telemetry (15) Anxiety: Plan: Cont valium scheduled - 2.5mg qam, 5mg qpm These are prescribed by her psychiatrist PDMP confirms valium scripts (16) 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 Admission and Anticipated Discharge Date Admission Date: October 20, 2022 Subjective Patient reports she only has BMs at home. Patient had no BM today, but has no nausea nor does she feel distended. Review of Systems Review of Systems: All systems reviewed & are unremarkable except as noted in HPI & below Physical Exam Physical Exam: General: patient resting comfortably, NAD Skin: warm, dry, intact HEENT: NC/AT Heart: +S1/S2, RRR Lungs: equal air entry bilaterally Abd: +BS, soft, NT/ND, no masses/organomegaly/ascites Ext: warm, 2+ pulses in UE/LE bilaterally Neuro: nonfocal, patient AA&O x 4 Results & Data Results & Data Vital Signs (Past 12 Hours) Vital Signs Temp Pulse Pulse Resp BP BP Pulse Ox 10/25/22 19:19 36.6 C 62 18 121/76 97 10/25/22 16:30 10/25/22 15:37 68 10/25/22 15:24 36.5 C 69 16 124/78 95 10/25/22 15:02 63 20 90 10/25/22 11:23 36.4 C L 71 20 121/63 95 10/25/22 10:43 66 20 93 O2 Del Method 10/25/22 19:19 Room Air 10/25/22 16:30 Room Air 10/25/22 15:37 10/25/22 15:24 Room Air 10/25/22 15:02 Room Air 10/25/22 11:23 Room Air 10/25/22 10:43 Room Air PG Care Time/CCT Total # of Minutes Spent Total Time Spent with Patient: Total time spent is greater than 50% in coordination of care (as documented) at patient's floor/unit and/or counseling patient: Coding Level of Care Code 45568 SUB INP/OBS CARE 2/35MIN Diagnoses Anaplasmosis A77.49 Headache G44.89 Headache type: other headache syndrome Lung field abnormal finding on examination R91.8 Hyponatremia E87.1 Acute metabolic encephalopathy G93.41 Paroxysmal atrial fibrillation I48.0 Hypertension I10 CAD (coronary artery disease) I25.10 Hyperlipidemia E78.5 Hypothyroidism E03.9 GERD (gastroesophageal reflux disease) K21.9 Depression F32.9 Mixed action and resting tremor R25.9 Mobitz type 1 second degree AV block I44.1 Anxiety F41.9 Pancytopenia D61.818 Morbid obesity with BMI of 40.0-44.9, adult E66.01; Z68.41 Rheumatoid arthritis M06.9 (2) Headache Headache type: other headache syndrome Qualified Code(s): G44.89 - Other headache syndrome
[2022-10-26] MEDS: LEVOTHYROXINE SODIUM 100 MCG TABLET PO SCH (05:49)
[2022-10-26] MEDS: diazePAM 5 MG TABLET PO SCH ×2 (08:39→21:15)
[2022-10-26] MEDS: VENLAFAXINE HCL XR 75 MG CAPXR PO SCH (08:39)
[2022-10-26] MEDS: SODIUM CHLORIDE 1 GM TABLET PO SCH (08:40)
[2022-10-26] MEDS: POLYETHYLENE (MIRALAX) 17 GM PACK PO SCH ×2 (08:40→21:15)
[2022-10-26] MEDS: METOPROLOL SUCC 50MG EXT REL TAB PO SCH (08:40)
[2022-10-26] MEDS: DOXYCYCLINE HYCLATE 100 MG in DEXTROSE 5% 100 ML IV SCH ×2 (08:40→21:15)
[2022-10-26] MEDS: PANTOprazole 40 MG TAB PO SCH ×2 (08:40→21:14)
[2022-10-26] MEDS: DOCUSATE SODIUM/SENNA 50/8.6MG TAB PO SCH (08:40)
[2022-10-26] MEDS: ISOSORBIDE MONO EXTENDED REL 30 MG TABCR PO SCH (08:40)
[2022-10-26] MEDS: FLUTICASONE FUROATE 100MCG 14 PUFFS/INHALER INH SCH (08:41)
[2022-10-26] MEDS: UMECLIDINIUM/VILANTEROL 62.5/25MCG 7 PUFFS/INHALER INH SCH (08:41)
--- NOTE | 2022-10-26 09:01 | Hospitalist Progress Note ---
Date of Service October 26, 2022 Assessment & Plan (1) Anaplasmosis: Plan: IMPROVING. Anaplasmosis smear was +. Leukopenia, thrombocytopenia, fevers, chills, high AST, etc all suggestive of anaplasmosis. Remains on doxycycline, LD 11/03/22. Leave on IV formulation until she is consistently taking PO and keeping everything down. Lyme screen was negative. Babesiosis smear was negative. Babesiosis DNA returned negative. Leukopenia resolved Platelets improving. AST modestly improved No fevers or chills today; headache improved. 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 (2) Headache: Plan: MRI brain 10/18 negative for acute findings. MRV brain 10/[address] head 10/19 negative for ICH/acute findings. No meningeal signs on exam. Headache is 2nd to anaplasmosis --- improving with doxycycline. (3) Lung field abnormal finding on examination: Plan: The patient has known h/o asthma and bronchiectasis per the record. Added rocephin 2gm daily on 10/21/22 complete 5 days of treatment Cont duonebs QID. Flutter valve/incentive spirometry. Defer on systemic steroids. Cont usual home inhalers. (4) Hyponatremia: Plan: IMPROVED/resolved (5) Acute metabolic encephalopathy: Plan: 2nd to #1. IMPROVING. Cont doxy for anaplasmosis Cont supportive care (6) Paroxysmal atrial fibrillation: Plan: Patient is in rate-controlled a.fib with metoprolol succinate 50mg daily. She had PAF following her CABG years ago. she is not on chronic anticoagulation but will not start with thrombocytopenia. Appreciate cardiology consultation by Dr Mauricio did have heather one on monitor intermittently He recommends continued metoprolol and to consider anticoagulation when medically stable for such. (7) CAD (coronary artery disease): Plan: CAD s/p CABG x 4V. Echo in April 2022 with slightly reduced EF of 54% but still normal. Grade 1 diastolic dysfunction also seen. Again she does not examine volume overloaded Continue Metoprolol Continue Atorvastatin HOLD ASA due to low platelets Continue Isosorbide (8) Hypothyroidism: Plan: TSH on 09/28/22 = 3.647 Continue Synthroid 100mcg po daily (9) GERD (gastroesophageal reflux disease): Plan: Continue Protonix 40mg po BID while inpatient Resume omeprazole at discharge (10) Depression: Plan: Continue Venlafaxine Son concerned she misses several doses at times at home Will reinforce compliance Anxiety also, Cont valium scheduled - 2.5mg qam, 5mg qpm These are prescribed by her psychiatrist PDMP confirms valium scripts (11) Mixed action and resting tremor: Plan: She reports multiple family members with chronic tremor This is c/w familial tremor consider outpt follow up neurology (12) Morbid obesity with BMI of 40.0-44.9, adult: Plan: BMI 40 (13) Rheumatoid arthritis: Plan: Mtx on hold with acute infection Plan PT, OT consults appreciated -- rehab advised post discharge pending placement, pt frustrated on the process Admission and Anticipated Discharge Date Admission Date: October 20, 2022 Subjective pt feels improved is frustrated with the issues with placement for rehab. overall clinical symptoms are resolving, does not know were she could have gotten anaplasmosis Physical Exam Physical Exam: awake alert and appropriate cardiac is regular lungs are clear Results & Data Results & Data Vital Signs (Past 12 Hours) Vital Signs Temp Pulse Pulse Resp BP Pulse Ox O2 Del Method 10/26/22 07:52 97.5 F L 71 20 118/65 93 Room Air 10/26/22 03:31 97.5 F L 67 18 119/71 95 Room Air 10/25/22 22:03 66 10/25/22 22:37 97.5 F L 67 18 127/77 96 Room Air PG Care Time/CCT Total # of Minutes Spent Total Time Spent with Patient: Total time spent is greater than 50% in coordination of care (as documented) at patient's floor/unit and/or counseling patient: Coding Level of Care Code 78931 SUB INP/OBS CARE 2/35MIN Diagnoses Anaplasmosis A77.49 Headache G44.89 Headache type: other headache syndrome Lung field abnormal finding on examination R91.8 Hyponatremia E87.1 Acute metabolic encephalopathy G93.41 Paroxysmal atrial fibrillation I48.0 CAD (coronary artery disease) I25.10 Hypothyroidism E03.9 GERD (gastroesophageal reflux disease) K21.9 Depression F32.9 Mixed action and resting tremor R25.9 Morbid obesity with BMI of 40.0-44.9, adult E66.01; Z68.41 Rheumatoid arthritis M06.9 (2) Headache Headache type: other headache syndrome Qualified Code(s): G44.89 - Other headache syndrome
[2022-10-26] MEDS: cefTRIAXone SODIUM 2,000 MG in DEXTROSE 5% 50 ML IV SCH (17:34)
[2022-10-26] MEDS: VENLAFAXINE HCL XR 150 MG CAPXR PO SCH (21:15)
[2022-10-26] MEDS: MELATONIN 3 MG TAB PO SCH (21:15)
[2022-10-26] MEDS: MONTELUKAST SODIUM 10 MG TABLET PO SCH (21:15)
[2022-10-26] MEDS: ATORVASTATIN 40 MG TAB PO SCH (21:15)
[2022-10-27] MEDS: LEVOTHYROXINE SODIUM 100 MCG TABLET PO SCH (05:44)
[2022-10-27] MEDS: DOXYCYCLINE HYCLATE 100 MG in DEXTROSE 5% 100 ML IV SCH ×2 (08:21→23:20)
[2022-10-27] MEDS: VENLAFAXINE HCL XR 75 MG CAPXR PO SCH (08:21)
[2022-10-27] MEDS: diazePAM 5 MG TABLET PO SCH (08:21)
[2022-10-27] MEDS: DOCUSATE SODIUM/SENNA 50/8.6MG TAB PO SCH (08:21)
[2022-10-27] MEDS: ISOSORBIDE MONO EXTENDED REL 30 MG TABCR PO SCH (08:21)
[2022-10-27] MEDS: PANTOprazole 40 MG TAB PO SCH ×2 (08:22→21:04)
[2022-10-27] MEDS: METOPROLOL SUCC 50MG EXT REL TAB PO SCH (08:22)
[2022-10-27] MEDS: SODIUM CHLORIDE 1 GM TABLET PO SCH (08:22)
[2022-10-27] MEDS: UMECLIDINIUM/VILANTEROL 62.5/25MCG 7 PUFFS/INHALER INH SCH (08:22)
[2022-10-27] MEDS: FLUTICASONE FUROATE 100MCG 14 PUFFS/INHALER INH SCH (08:22)
[2022-10-27] MEDS: POLYETHYLENE (MIRALAX) 17 GM PACK PO SCH ×2 (08:23→21:04)
--- NOTE | 2022-10-27 19:47 | Hospitalist Progress Note ---
Date of Service October 27, 2022 Assessment & Plan (1) Anaplasmosis: Plan: IMPROVING. Anaplasmosis smear was +. Leukopenia, thrombocytopenia, fevers, chills, high AST, etc all suggestive of anaplasmosis. Remains on doxycycline, LD 11/03/22. Leave on IV formulation until she is consistently taking PO and keeping everything down. Lyme screen was negative. Babesiosis smear was negative. Babesiosis DNA returned negative. Leukopenia resolved Platelets improving. AST modestly improved No fevers or chills today; headache improved. 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 (2) Headache: Plan: MRI brain 10/18 negative for acute findings. MRV brain 10/[address] head 10/19 negative for ICH/acute findings. No meningeal signs on exam. Headache is 2nd to anaplasmosis --- improving with doxycycline. (3) Lung field abnormal finding on examination: Plan: The patient has known h/o asthma and bronchiectasis per the record. Added rocephin 2gm daily on 10/21/22 complete 5 days of treatment Cont duonebs QID. Flutter valve/incentive spirometry. Defer on systemic steroids. Cont usual home inhalers. (4) Hyponatremia: Plan: IMPROVED/resolved (5) Acute metabolic encephalopathy: Plan: 2nd to #1. IMPROVING. Cont doxy for anaplasmosis Cont supportive care (6) Paroxysmal atrial fibrillation: Plan: Patient is in rate-controlled a.fib with metoprolol succinate 50mg daily. She had PAF following her CABG years ago. she is not on chronic anticoagulation but will not start with thrombocytopenia. Appreciate cardiology consultation by Dr Mauricio did have heather one on monitor intermittently He recommends continued metoprolol and to consider anticoagulation when medically stable for such. (7) CAD (coronary artery disease): Plan: CAD s/p CABG x 4V. Echo in April 2022 with slightly reduced EF of 54% but still normal. Grade 1 diastolic dysfunction also seen. Again she does not examine volume overloaded Continue Metoprolol Continue Atorvastatin HOLD ASA due to low platelets Continue Isosorbide (8) Hypothyroidism: Plan: TSH on 09/28/22 = 3.647 Continue Synthroid 100mcg po daily (9) GERD (gastroesophageal reflux disease): Plan: Continue Protonix 40mg po BID while inpatient Resume omeprazole at discharge (10) Depression: Plan: Continue Venlafaxine Son concerned she misses several doses at times at home Will reinforce compliance Anxiety also, Cont valium scheduled - 2.5mg qam, 5mg qpm These are prescribed by her psychiatrist PDMP confirms valium scripts (11) Mixed action and resting tremor: Plan: She reports multiple family members with chronic tremor This is c/w familial tremor consider outpt follow up neurology (12) Morbid obesity with BMI of 40.0-44.9, adult: Plan: BMI 40 (13) Rheumatoid arthritis: Plan: Mtx on hold with acute infection Plan PT, OT consults appreciated -- rehab advised post discharge pending placement, pt frustrated on the process Admission and Anticipated Discharge Date Admission Date: October 20, 2022 Subjective pt is frustrated but improving headache resolved dispostion is in question Physical Exam Physical Exam: patient with no focal symptoms is frustrated about her disposition issues to continues to do poorly and Occupational Therapy requesting rehab placement Results & Data Results & Data Vital Signs (Past 12 Hours) Vital Signs Temp Pulse Pulse Resp BP Pulse Ox O2 Del Method 10/27/22 16:00 72 10/27/22 15:00 97.5 F L 86 18 150/77 H 96 Room Air 10/27/22 11:40 98.2 F 70 18 123/65 93 Room Air PG Care Time/CCT Total # of Minutes Spent Total Time Spent with Patient: Total time spent is greater than 50% in coordination of care (as documented) at patient's floor/unit and/or counseling patient: Coding Level of Care Code 73479 SUB INP/OBS CARE 2/35MIN Diagnoses Anaplasmosis A77.49 Headache G44.89 Headache type: other headache syndrome Lung field abnormal finding on examination R91.8 Hyponatremia E87.1 Acute metabolic encephalopathy G93.41 Paroxysmal atrial fibrillation I48.0 CAD (coronary artery disease) I25.10 Hypothyroidism E03.9 GERD (gastroesophageal reflux disease) K21.9 Depression F32.9 Mixed action and resting tremor R25.9 Morbid obesity with BMI of 40.0-44.9, adult E66.01; Z68.41 Rheumatoid arthritis M06.9 (2) Headache Headache type: other headache syndrome Qualified Code(s): G44.89 - Other headache syndrome
[2022-10-27] MEDS ORDERED: DOXYCYCLINE HYCLATE 100 MG CAP PO STA (20:31)
[2022-10-27] MEDS ORDERED: clonazePAM 1 MG TAB PO SCH (21:00)
[2022-10-27] MEDS: MONTELUKAST SODIUM 10 MG TABLET PO SCH (21:03)
[2022-10-27] MEDS: VENLAFAXINE HCL XR 150 MG CAPXR PO SCH (21:03)
[2022-10-27] MEDS: ATORVASTATIN 40 MG TAB PO SCH (21:04)
[2022-10-27] MEDS: MELATONIN 3 MG TAB PO SCH (21:04)
[2022-10-28] MEDS: LEVOTHYROXINE SODIUM 100 MCG TABLET PO SCH (05:54)
--- NOTE | 2022-10-28 07:57 | Hospitalist Progress Note ---
Date of Service October 28, 2022 Assessment & Plan (1) Anaplasmosis: Plan: IMPROVING. Anaplasmosis smear was +. Leukopenia, thrombocytopenia, fevers, chills, high AST, etc all suggestive of anaplasmosis. Remains on doxycycline, LD 11/03/22. Leave on IV formulation until she is consistently taking PO and keeping everything down. Lyme screen was negative. Babesiosis smear was negative. Babesiosis DNA returned negative. Leukopenia resolved Platelets improving. AST modestly improved No fevers or chills today; headache improved. 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 (2) Headache: Plan: MRI brain 10/18 negative for acute findings. MRV brain 10/[address] head 10/19 negative for ICH/acute findings. No meningeal signs on exam. Headache is 2nd to anaplasmosis --- improving with doxycycline. (3) Lung field abnormal finding on examination: Plan: The patient has known h/o asthma and bronchiectasis per the record. Added rocephin 2gm daily on 10/21/22 complete 5 days of treatment Cont duonebs QID. Flutter valve/incentive spirometry. Defer on systemic steroids. Cont usual home inhalers. (4) Hyponatremia: Plan: IMPROVED/resolved (5) Acute metabolic encephalopathy: Plan: 2nd to #1. IMPROVING. Cont doxy for anaplasmosis Cont supportive care (6) Paroxysmal atrial fibrillation: Plan: Patient is in rate-controlled a.fib with metoprolol succinate 50mg daily. She had PAF following her CABG years ago. she is not on chronic anticoagulation but will not start with thrombocytopenia. Appreciate cardiology consultation by Dr Mauricio did have heather one on monitor intermittently He recommends continued metoprolol and to consider anticoagulation when medically stable for such. (7) CAD (coronary artery disease): Plan: CAD s/p CABG x 4V. Echo in April 2022 with slightly reduced EF of 54% but still normal. Grade 1 diastolic dysfunction also seen. Again she does not examine volume overloaded Continue Metoprolol Continue Atorvastatin HOLD ASA due to low platelets Continue Isosorbide (8) Hypothyroidism: Plan: TSH on 09/28/22 = 3.647 Continue Synthroid 100mcg po daily (9) GERD (gastroesophageal reflux disease): Plan: Continue Protonix 40mg po BID while inpatient Resume omeprazole at discharge (10) Depression: Plan: Continue Venlafaxine Son concerned she misses several doses at times at home Will reinforce compliance , psychiatric eval consolitated two doses of effexor to one and added hs mirtazapine, changing To clonazepam only (11) Mixed action and resting tremor: Plan: She reports multiple family members with chronic tremor This is c/w familial tremor consider outpt follow up neurology (12) Morbid obesity with BMI of 40.0-44.9, adult: Plan: BMI 40 (13) Rheumatoid arthritis: Plan: Mtx on hold with acute infection Plan PT, OT consults appreciated -- rehab advised post discharge pending placement, pt frustrated on the process Admission and Anticipated Discharge Date Admission Date: October 20, 2022 Subjective pt is frustrated but improving headache resolved dispostion is in question seen by psyche and added mirtazapine Physical Exam Physical Exam: patient with no focal symptoms is frustrated about her disposition issues to continues to do poorly and Occupational Therapy requesting rehab placement Pt has periods of asymptomatic bradycardia checked Qtc and is stable, pt is resistant to reducing b kimberlyn per her head of biology recommendation Results & Data Results & Data Vital Signs (Past 12 Hours) Vital Signs Temp Pulse Pulse Resp BP Pulse Ox O2 Del Method 10/28/22 04:24 98.1 F 68 18 116/76 91 Room Air 10/27/22 23:13 49 L 10/27/22 21:50 Room Air 10/27/22 20:16 98.6 F 55 L 18 145/71 H 94 Room Air PG Care Time/CCT Total # of Minutes Spent Total Time Spent with Patient: Total time spent is greater than 50% in coordination of care (as documented) at patient's floor/unit and/or counseling patient: Coding Level of Care Code 96596 SUB INP/OBS CARE 2/35MIN Diagnoses Anaplasmosis A77.49 Headache G44.89 Headache type: other headache syndrome Lung field abnormal finding on examination R91.8 Hyponatremia E87.1 Acute metabolic encephalopathy G93.41 Paroxysmal atrial fibrillation I48.0 CAD (coronary artery disease) I25.10 Hypothyroidism E03.9 GERD (gastroesophageal reflux disease) K21.9 Depression F32.9 Mixed action and resting tremor R25.9 Morbid obesity with BMI of 40.0-44.9, adult E66.01; Z68.41 Rheumatoid arthritis M06.9 (2) Headache Headache type: other headache syndrome Qualified Code(s): G44.89 - Other headache syndrome
[2022-10-28] MEDS: DOCUSATE SODIUM/SENNA 50/8.6MG TAB PO SCH (08:47)
[2022-10-28] MEDS: PANTOprazole 40 MG TAB PO SCH ×2 (08:47→21:09)
[2022-10-28] MEDS: ISOSORBIDE MONO EXTENDED REL 30 MG TABCR PO SCH (08:47)
[2022-10-28] MEDS: SODIUM CHLORIDE 1 GM TABLET PO SCH (08:47)
[2022-10-28] MEDS: UMECLIDINIUM/VILANTEROL 62.5/25MCG 7 PUFFS/INHALER INH SCH (08:48)
[2022-10-28] MEDS: FLUTICASONE FUROATE 100MCG 14 PUFFS/INHALER INH SCH (08:48)
[2022-10-28] MEDS: METOPROLOL SUCC 50MG EXT REL TAB PO SCH (08:48)
[2022-10-28] MEDS: POLYETHYLENE (MIRALAX) 17 GM PACK PO SCH ×2 (08:48→21:09)
[2022-10-28] MEDS ORDERED: VENLAFAXINE HCL XR 150 MG CAPXR PO SCH (09:00)
--- NOTE | 2022-10-28 10:59 | Psychiatric Consultation ---
Date of Consultation October 28, 2022 Impression / Recommendations Impression 77 yo woman with a history of depression, anxiety and complicated bereavement admitted medically. Diagnostically consistent with MDD, GALA and adjustment disorder with anxiety in setting of inpatient hospitalization. Acute risk of self-harm is low given denial of SI. Discussed medication treatment options in detail. Discussed risks, benefits and alternatives. Patient would like to start and consented to mirtazapine for depression augmentation, GALA, and sleep benefits as well as clonazepam as needed for severe anxiety/panic. Reviewed side effects including but not limited to: sedation, increased appetite with mirtazapine and cognitive deficits, fall risk, not operating car/heavy machinery and addictive potential with clonazepam. (1) Anxiety: (2) Depression: Plan -Consolidate Effexor XR to 225mg qAM -Start mirtazapine 15mg HS -Discontinue scheduled Klonopin and prn diazepam -Start clonazepam 0.5mg BID prn for anxiety/panic attacks -She has outpatient psychiatry follow-up at [facility] with Dr. 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 Psychiatry consulted for recommendations regarding depression and anxiety. Chief Complaint "I just really don't like being in the hospital". History of Present Illness Mariel reports worsened anxiety due to being in the hospital and that "it's the waiting that's difficult" expressing her desire to return home. Reviewed that she feels she needs some subacute rehab to get stronger for a few days before returning home but has been looking into options for having friends available if she were to go home who could provide help with laundry/cleaning/groceries. Her son is also a good support. She's been dealing with depression throughout her life, feels it is currently stable though has been worse in the last 1.5 years since her daughter last July 2021. Her anxiety has been lifelong since childhood and recently she felt it has been "fine" but is worse in the hospital as it reminds her of her mother being in a skilled nursing and prefers to be at home. She likes her Effexor and was restarted don benzodiazepines by Dr. Garcia, her outpatient psychiatrist at [facility], after the of her daughter. At one point had been off clonazepam completely but then restarted after her da ughter's , more recently was switched to Valium given her sense that clonazepam wasn't working as well. She hasn't been finding Valium helpful recently and would prefer to go back to clonazepam. She understands that it increases risk of falls and agrees with goal of using it as prn and ideally tapering in the outpatient setting over time. She denies SI, denies any history of suicide attempts, no hx of inpt psych hospitalization. Allergies Allergy/AdvReac Type Severity Reaction Status Date / Time diphtheria toxoid,fluid Allergy Intermediate TdAP=swelli Verified 10/02/22 14:44 ng/redness poliomyelitis vaccine,killed Allergy Intermediate TdAP=swelli Verified 10/02/22 14:44 ng/redness tetanus toxoid, adsorbed Allergy Intermediate TdAP=swelli Verified 10/02/22 14:44 ng/redness nickel Allergy Mild pruritus Verified 10/02/22 14:44 etanercept [From Enbrel] AdvReac Severe pneumonia Verified 10/02/22 14:44 amoxicillin [From Augmentin] AdvReac Intermediate GI symptoms Verified 10/02/22 14:44 clavulanic acid AdvReac Intermediate GI symptoms Verified 10/02/22 14:44 [From Augmentin] NSAIDS (Non-Steroidal AdvReac Intermediate gi bleed Verified 10/02/22 14:44 Anti-Inflamma Home Medications Medication Instructions Recorded Confirmed Type calcium carbonate 600 mg-vitamin 1 tab PO QAM 04/01/18 10/19/22 History D3 10 mcg (400 unit) tablet (Calcium 600 + D(3)) venlafaxine 150 mg 150 mg PO HS 01/31/19 10/19/22 History capsule,extended release 24 hr venlafaxine 75 mg capsule,extended 75 mg PO QAM 01/31/19 10/19/22 History release 24 hr isosorbide dinitrate 30 mg tablet 30 mg PO ONCE 02/03/21 10/19/22 History levalbuterol tartrate 45 2 inh inhalation Q6H #15 grams 10/21/21 09/28/22 Rx mcg/actuation aerosol inhaler (Xopenex HFA) omeprazole 40 mg capsule,delayed 40 mg PO BID #180 caps 02/13/22 10/19/22 Rx release montelukast 10 mg tablet 10 mg PO QPM #90 tabs 02/28/22 10/19/22 Rx Walking Cane #1 ea 05/29/22 09/28/22 Rx diazepam 5 mg PO UD 07/26/22 10/19/22 History atorvastatin 40 mg tablet 40 mg PO HS #90 tabs 08/28/22 10/19/22 Rx aspirin 81 mg tablet,delayed 81 mg PO DAILY 09/22/22 10/19/22 History release (Adult Low Dose Aspirin) cholecalciferol (vitamin D3) 25 25 mcg PO DAILY 09/22/22 10/19/22 History mcg (1,000 unit) capsule fluticasone fur. 100 mcg-umeclid 1 inh inhalation DAILY 09/22/22 09/28/22 History 62.5 mcg-vilant 25 mcg inhalat.powder (Trelegy Ellipta) furosemide 40 mg tablet (Lasix) 80 mg PO DAILY 09/22/22 10/19/22 History metoprolol succinate 50 mg 50 mg PO DAILY 09/22/22 10/19/22 History tablet,extended release 24 hr nitroglycerin 0.4 mg sublingual 0.4 mg sublingual Q5M PRN 09/22/22 09/28/22 History tablet (Nitrostat) levothyroxine 100 mcg tablet See Rx Instructions .Route 09/25/22 10/19/22 Rx .COMPLEX #90 tabs acetaminophen 500 mg tablet 1,000 mg PO BID PRN Pain 10/02/22 10/19/22 History ferrous sulfate 325 mg (65 mg 325 mg PO DAILY 10/02/22 10/19/22 History iron) tablet cyanocobalamin-cobamamide [B12] 1 tab sublingual DAILY 10/17/22 History fluticasone fur. 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 Follows with pulm at [facility] Bronchiectasis CAD (coronary artery disease) s/p CABG x 3 in 2016. Chronic kidney disease, stage III (moderate) Chronic sinusitis Depression Dietary counseling and surveillance Dyslipidemia Familial adenomatous polyposis Gastrointestinal bleed Generalized osteoarthritis GERD (gastroesophageal reflux disease) History of fractured vertebra Hyperlipidemia Hypertension Hypothyroidism Lumbar spinal stenosis Metabolic syndrome Paroxysmal atrial fibrillation Post-op after CABG. EKG 07/02/20 also shows afib. Seen by cardio 07/16/20 after brief hospitalization for UGIB. ASA was d/c'd at that time due to GI bleed. Cardio notes possible recent afib but states would not anticoagulate at this time anyway due to bleed. At [facility] appt, notably in SR on exam, and H/H has normalized. Pt will call microbiology quality control technician re: restarting ASA. Periodic limb movement disorder Pulmonary nodule Rheumatoid arthritis Started seeing rheum 07/2020, started on MTX Surgical History H/O arthroscopic knee surgery (~08/2018) History of bilateral breast reduction surgery History of bronchoscopy (~06/2013) History of cardiac cath COUNT INCLUDES THE [facility] - NO STENTS/ANGIOPLASTY -- > CABG - FOLLOWS W/ DR. SARABIA ([place]) - ALSO FOLLOWS W/ DR. LYNDA MCGILL ADAK History of cataract surgery History of colonoscopy (~06/2016) 09/2021 repeat 1 yr History of coronary artery bypass graft (~01/2016) 2016 - 3 [place], [facility]- FOLLOWS W/ DR. SARABIA ([place]) - ALSO FOLLOWS W/ DR. LYNDA MCGILL ADAK History of esophagogastroduodenoscopy (EGD) (~2011) History of sinus surgery History of thoracotomy (~03/2018) HX OF LEFT VATS WITH BIOPSY AND LYSIS OF ADHESIONS [place]. [facility] History of total abdominal hysterectomy and bilateral salpingo-oophorectomy History of tubal ligation Hx of arthroplasty TMJ Family History Brother Diabetes Heart disease Mother Stroke Father Stroke Grandmother Stroke Grandfather Stroke Aunt Breast cancer Son Congenital heart disease Unknown Hypertension Daughter , 50 Liposarcoma Denies family history of Ovarian cancer Prostate cancer Myocardial infarction Colorectal cancer Social History Smoking Status: Never smoker Second Hand Exposure: No; Do You Dip or Chew Tobacco: No; Tobacco Cessation Education Requested by Patient: No Hx Alcohol Use: Yes Alcohol type: beer Hx Substance Use: No Preferred Language: Azeri Communication Ability: Effective Visual Impairment: Limited Hearing Ability: Normal Operating Theatre Technician Required: No Beliefs That Will Affect Care: None marital status: / Current Living Situation: Alone current occupational status: retired Feels Safe at Home: Yes Safety Concerns: Feels Safe At This Time Childhood Exposure to Second-Hand Smoke: No caffeine: Yes Dental Care, Regularly: Yes Physical Activity Frequency: Does not Exercise Seatbelt Use: always Sunscreen Use: No Assistive Devices: Cane Physical Exam Psychiatric: Orientation: alert and oriented x 3 Apperance: appropriately dressed and appropriately groomed Eye Contact: good eye contact Motor Behavior: no abnormal motor movements Speech: normal rate/rhythm/volume of speech Affect: + constricted affect Mood: + depressed mood and + anxious mood Thought Process: goal directed thought process Thought Content: reality based without delusions Suicidal Thoughts: denies suicidal thoughts Homicidal Thoughts: denies homicidal thoughts Hallucinations: no auditory hallucinations and no visual hallucinations Cognition: attention grossly intact and language grossly intact Estimated Intelligence: consistent with education level Insight: + fair insight Judgment: + fair judgement Vital Signs (Past 24 Hours): Last Vital Signs Temp 36.4 C L 10/28/22 07:22 Pulse 57 L 10/28/22 07:22 Resp 18 10/28/22 07:22 BP 148/73 H 10/28/22 07:22 Pulse Ox 93 10/28/22 07:22 O2 Del Method Room Air 10/28/22 07:22 Review of Systems All systems reviewed & are unremarkable except as noted in HPI & below Results & Data (PSY) Laboratory Results -Sodium normal Medications Administered Acetaminophen (Acetaminophen 325 Mg Tab) 650 mg PO Q4H PRN PRN Reason: pain/fever Stop: 11/18/22 07:50 Last Admin: 10/22/22 20:47 Dose: 650 mg Documented By: Admin: 10/21/22 20:50 Dose: 650 mg Documented By: Admin: 10/20/22 20:16 Dose: 650 mg Documented By: Admin: 10/20/22 16:10 Dose: 650 mg Documented By: Admin: 10/20/22 08:45 Dose: 650 mg Documented By: [id number] Admin: 10/19/22 18:40 Dose: 650 mg Documented By: ROWAN Aspirin (Aspirin 81 Mg Ectab) 81 mg PO DAILY DONNA Stop: 11/18/22 08:59 Last Admin: 10/22/22 08:09 Dose: 81 mg Documented By: Admin: 10/21/22 08:50 Dose: 81 mg Documented By: Admin: 10/20/22 08:46 Dose: 81 mg Documented By: [id number] Admin: 10/19/22 08:57 Dose: 81 mg Documented By: JUDAH Atorvastatin Calcium (Atorvastatin 40 Mg Tab) 40 mg PO HS DONNA Stop: 11/18/22 20:59 Last Admin: 10/27/22 21:04 Dose: 40 mg Documented By: Admin: 10/26/22 21:15 Dose: 40 mg Documented By: Admin: 10/25/22 21:38 Dose: 40 mg Documented By: Admin: 10/24/22 22:17 Dose: 40 mg Documented By: Admin: 10/23/22 20:50 Dose: 40 mg Documented By: Admin: 10/22/22 20:45 Dose: 40 mg Documented By: Admin: 10/21/22 20:50 Dose: 40 mg Documented By: Admin: 10/20/22 20:16 Dose: 40 mg Documented By: Admin: 10/19/22 20:18 Dose: 40 mg Documented By: VEENA Clonazepam (Clonazepam 1 Mg Tab) 1 mg PO HS DONNA Stop: 11/26/22 20:59 Last Admin: 10/27/22 21:04 Dose: 1 mg Documented By: JACQUELIN Fluticasone Furoate (Fluticasone Furoate 100mcg 14 Puffs/Inhaler) 1 puffs INH DAILY DONNA Stop: 11/18/22 08:59 Last Admin: 10/28/22 08:48 Dose: 1 puffs Documented By: Admin: 10/27/22 08:22 Dose: 1 puffs Documented By: Admin: 10/26/22 08:41 Dose: 1 puffs Documented By: Admin: 10/25/22 08:17 Dose: 1 puffs Documented By: Admin: 10/24/22 09:42 Dose: 1 puffs Documented By: Admin: 10/23/22 08:27 Dose: 1 puffs Documented By: Admin: 10/22/22 08:11 Dose: 1 puffs Documented By: Admin: 10/21/22 08:53 Dose: 1 puffs Documented By: Admin: 10/20/22 08:47 Dose: 1 puffs Documented By: [id number] Admin: 10/19/22 10:15 Dose: 1 puffs Documented By: JUDAH Doxycycline Hyclate 100 mg/ (Dextrose) 110 mls @ 50 mls/hr IV Q12H DONNA Stop: 11/03/22 08:29 Last Admin: 10/27/22 23:20 Dose: Not Given Documented By: Infusion: 10/27/22 10:30 Dose: 0 mls/hr Documented By: Admin: 10/27/22 08:21 Dose: 50 mls/hr Documented By: Infusion: 10/26/22 23:36 Dose: 0 mls/hr Documented By: Admin: 10/26/22 21:15 Dose: 50 mls/hr Documented By: Infusion: 10/26/22 11:00 Dose: 0 mls/hr Documented By: Admin: 10/26/22 08:40 Dose: 50 mls/hr Documented By: Infusion: 10/25/22 23:59 Dose: 0 mls/hr Documented By: Admin: 10/25/22 21:42 Dose: 50 mls/hr Documented By: Infusion: 10/25/22 10:35 Dose: 0 mls/hr Documented By: Admin: 10/25/22 08:17 Dose: 50 mls/hr Documented By: Infusion: 10/25/22 01:35 Dose: 0 mls/hr Documented By: Admin: 10/24/22 22:16 Dose: 50 mls/hr Documented By: Infusion: 10/24/22 12:22 Dose: 0 mls/hr Documented By: Admin: 10/24/22 09:56 Dose: 50 mls/hr Documented By: Infusion: 10/23/22 23:07 Dose: 0 mls/hr Documented By: Admin: 10/23/22 20:43 Dose: 50 mls/hr Documented By: Infusion: 10/23/22 10:55 Dose: 0 mls/hr Documented By: Admin: 10/23/22 08:33 Dose: 50 mls/hr Documented By: Infusion: 10/22/22 22:51 Dose: 0 mls/hr Documented By: Admin: 10/22/22 20:46 Dose: 50 mls/hr Documented By: Infusion: 10/22/22 10:31 Dose: 0 mls/hr Documented By: Admin: 10/22/22 08:19 Dose: 50 mls/hr Documented By: Infusion: 10/21/22 23:23 Dose: 0 mls/hr Documented By: Admin: 10/21/22 20:50 Dose: 50 mls/hr Documented By: Infusion: 10/21/22 11:01 Dose: 0 mls/hr Documented By: Admin: 10/21/22 08:49 Dose: 50 mls/hr Documented By: Infusion: 10/20/22 22:36 Dose: 0 mls/hr Documented By: Admin: 10/20/22 20:16 Dose: 50 mls/hr Documented By: Infusion: 10/20/22 11:44 Dose: 0 mls/hr Documented By: [id number] Admin: 10/20/22 09:23 Dose: 50 mls/hr Documented By: [id number] Isosorbide Mononitrate (Isosorbide [facility] Extended Rel 30 Mg Tabcr) 30 mg PO DAILY DONNA Stop: 11/18/22 09:29 Last Admin: 10/28/22 08:47 Dose: 30 mg Documented By: Admin: 10/27/22 08:21 Dose: 30 mg Documented By: Admin: 10/26/22 08:40 Dose: 30 mg Documented By: Admin: 10/25/22 08:18 Dose: 30 mg Documented By: Admin: 10/24/22 09:44 Dose: 30 mg Documented By: Admin: 10/23/22 08:27 Dose: 30 mg Documented By: Admin: 10/22/22 08:09 Dose: 30 mg Documented By: Admin: 10/21/22 08:51 Dose: 30 mg Documented By: Admin: 10/20/22 08:46 Dose: 30 mg Documented By: [id number] Admin: 10/19/22 11:17 Dose: 30 mg Documented By: JUDAH Levalbuterol HCl (Levalbuterol Tartrate 15 Gm Hfa.Aer.Ad) 2 puffs INH QID PRN PRN Reason: Shortness Of Breath Stop: 11/18/22 07:50 Last Admin: 10/20/22 06:28 Dose: 2 puffs Documented By: TAN Levothyroxine Sodium (Levothyroxine Sodium 100 Mcg Tablet) [facility]: 11/19/22 06:29 Last Admin: 10/28/22 05:54 Dose: 100 mcg Documented By: Admin: 10/27/22 05:44 Dose: 100 mcg Documented By: Admin: 10/26/22 05:49 Dose: 100 mcg Documented By: Admin: 10/25/22 05:35 Dose: 100 mcg Documented By: Admin: 10/24/22 05:55 Dose: 100 mcg Documented By: Admin: 10/23/22 05:34 Dose: 100 mcg Documented By: Admin: 10/22/22 05:37 Dose: 100 mcg Documented By: Admin: 10/21/22 05:38 Dose: 100 mcg Documented By: Admin: 10/20/22 05:43 Dose: 100 mcg Documented By: VEENA Melatonin (Melatonin 3 Mg Tab) 3 mg PO [facility] Stop: 11/20/22 20:59 Last Admin: 10/27/22 21:04 Dose: 3 mg Documented By: Admin: 10/26/22 21:15 Dose: 3 mg Documented By: Admin: 10/25/22 21:37 Dose: 3 mg Documented By: Admin: 10/24/22 22:18 Dose: 3 mg Documented By: Admin: 10/23/22 20:50 Dose: 3 mg Documented By: Admin: 10/22/22 20:45 Dose: 3 mg Documented By: Admin: 10/21/22 20:50 Dose: 3 mg Documented By: VEENA Metoprolol Succinate (Metoprolol Succ 50mg Ext Rel Tab) 50 mg PO DAILY [facility] Stop: 11/18/22 08:59 Last Admin: 10/28/22 08:48 Dose: Not Given Documented By: Admin: 10/27/22 08:22 Dose: 50 mg Documented By: Admin: 10/26/22 08:40 Dose: 50 mg Documented By: Admin: 10/25/22 08:18 Dose: 50 mg Documented By: Admin: 10/24/22 09:44 Dose: 50 mg Documented By: Admin: 10/23/22 08:26 Dose: 50 mg Documented By: Admin: 10/22/22 08:09 Dose: 50 mg Documented By: Admin: 10/21/22 09:03 Dose: Not Given Documented By: Admin: 10/20/22 08:46 Dose: 50 mg Documented By: [id number] Admin: 10/19/22 08:57 Dose: 50 mg Documented By: JUDAH Montelukast Sodium (Montelukast Sodium 10 Mg Tablet) 10 mg PO QPM DONNA Stop: 11/18/22 20:59 Last Admin: 10/27/22 21:03 Dose: 10 mg Documented By: Admin: 10/26/22 21:15 Dose: 10 mg Documented By: Admin: 10/25/22 21:38 Dose: 10 mg Documented By: Admin: 10/24/22 22:17 Dose: 10 mg Documented By: Admin: 10/23/22 20:50 Dose: 10 mg Documented By: Admin: 10/22/22 20:45 Dose: 10 mg Documented By: Admin: 10/21/22 20:50 Dose: 10 mg Documented By: Admin: 10/20/22 20:16 Dose: 10 mg Documented By: Admin: 10/19/22 20:17 Dose: 10 mg Documented By: VEENA Ondansetron HCl (Ondansetron Inj 2 Mg/Ml 2 Ml Vial) 4 mg IV Q6H PRN PRN Reason: Nausea Stop: 11/18/22 07:50 Last Admin: 10/22/22 01:41 Dose: 4 mg Documented By: Admin: 10/20/22 08:46 Dose: 4 mg Documented By: [id number] Admin: 10/19/22 14:22 Dose: 4 mg Documented By: JUDAH Oxycodone HCl (Oxycodone Hcl Ir 5 Mg Tab (Immediate Release)) 5 mg PO Q4H PRN PRN Reason: Pain Stop: 11/02/22 07:50 Last Admin: 10/22/22 01:41 Dose: 5 mg Documented By: Admin: 10/20/22 21:21 Dose: 5 mg Documented By: Admin: 10/20/22 08:45 Dose: 5 mg Documented By: [id number] Pantoprazole Sodium (Pantoprazole 40 Mg Tab) 40 mg PO BID DONNA Stop: 11/18/22 08:59 Last Admin: 10/28/22 08:47 Dose: 40 mg Documented By: Admin: 10/27/22 21:04 Dose: 40 mg Documented By: Admin: 10/27/22 08:22 Dose: 40 mg Documented By: Admin: 10/26/22 21:14 Dose: 40 mg Documented By: Admin: 10/26/22 08:40 Dose: 40 mg Documented By: Admin: 10/25/22 21:38 Dose: 40 mg Documented By: Admin: 10/25/22 08:18 Dose: 40 mg Documented By: Admin: 10/24/22 22:18 Dose: 40 mg Documented By: Admin: 10/24/22 09:43 Dose: 40 mg Documented By: Admin: 10/23/22 22:21 Dose: 40 mg Documented By: Admin: 10/23/22 08:27 Dose: 40 mg Documented By: Admin: 10/22/22 20:44 Dose: 40 mg Documented By: Admin: 10/22/22 08:08 Dose: 40 mg Documented By: Admin: 10/21/22 20:50 Dose: 40 mg Documented By: Admin: 10/21/22 08:49 Dose: 40 mg Documented By: Admin: 10/20/22 20:16 Dose: 40 mg Documented By: Admin: 10/20/22 08:46 Dose: 40 mg Documented By: [id number] Admin: 10/19/22 20:18 Dose: 40 mg Documented By: Admin: 10/19/22 08:57 Dose: 40 mg Documented By: JUDAH Polyethylene Glycol (Polyethylene (Miralax) 17 Gm Pack) 17 gm PO BID DONNA Stop: 11/23/22 08:59 Last Admin: 10/28/22 08:48 Dose: Not Given Documented By: Admin: 10/27/22 21:04 Dose: 17 gm Documented By: Admin: 10/27/22 08:23 Dose: Not Given Documented By: Admin: 10/26/22 21:15 Dose: 17 gm Documented By: Admin: 10/26/22 08:40 Dose: 17 gm Documented By: Admin: 10/25/22 21:39 Dose: 17 gm Documented By: Admin: 10/25/22 08:17 Dose: 17 gm Documented By: Admin: 10/24/22 22:17 Dose: 17 gm Documented By: Admin: 10/24/22 09:46 Dose: 17 gm Documented By: RICCO Senna/Docusate Sodium (Docusate Sodium/Senna 50/8.6mg Tab) 1 tab PO QAM DONNA Stop: 11/20/22 08:59 Last Admin: 10/28/22 08:47 Dose: 1 tab Documented By: Admin: 10/27/22 08:21 Dose: 1 tab Documented By: Admin: 10/26/22 08:40 Dose: 1 tab Documented By: Admin: 10/25/22 08:18 Dose: 1 tab Documented By: Admin: 10/24/22 09:44 Dose: 1 tab Documented By: Admin: 10/23/22 08:26 Dose: 1 tab Documented By: Admin: 10/22/22 08:10 Dose: 1 tab Documented By: Admin: 10/21/22 08:51 Dose: 1 tab Documented By: SUZIE Sodium Chloride (Sodium Chloride 1 Gm Tablet) 1 gm PO DAILY DONNA Stop: 11/21/22 14:29 Last Admin: 10/28/22 08:47 Dose: 1 gm Documented By: Admin: 10/27/22 08:22 Dose: 1 gm Documented By: Admin: 10/26/22 08:40 Dose: 1 gm Documented By: Admin: 10/25/22 08:18 Dose: 1 gm Documented By: Admin: 10/24/22 09:43 Dose: 1 gm Documented By: Admin: 10/23/22 08:26 Dose: 1 gm Documented By: Admin: 10/22/22 15:00 Dose: 1 gm Documented By: SUZIE Umeclidinium/Vilanterol (Umeclidinium/Vilanterol 62.5/25mcg 7 Puffs/Inhaler) 1 puffs INH DAILY DONNA Stop: 11/18/22 08:59 Last Admin: 10/28/22 08:48 Dose: 1 puffs Documented By: Admin: 10/27/22 08:22 Dose: 1 puffs Documented By: Admin: 10/26/22 08:41 Dose: 1 puffs Documented By: Admin: 10/25/22 08:17 Dose: 1 puffs Documented By: Admin: 10/24/22 09:42 Dose: 1 puffs Documented By: Admin: 10/23/22 08:27 Dose: 1 puffs Documented By: Admin: 10/22/22 08:10 Dose: 1 puffs Documented By: Admin: 10/21/22 08:53 Dose: 1 puffs Documented By: Admin: 10/20/22 08:47 Dose: 1 puffs Documented By: [id number] Admin: 10/19/22 08:58 Dose: 1 puffs Documented By: JUDAH Venlafaxine HCl (Venlafaxine Hcl Xr 150 Mg Capxr) 150 mg PO HS DONNA Stop: 11/18/22 20:59 Last Admin: 10/27/22 21:03 Dose: 150 mg Documented By: Admin: 10/26/22 21:15 Dose: 150 mg Documented By: Admin: 10/25/22 21:38 Dose: 150 mg Documented By: Admin: 10/24/22 22:18 Dose: 150 mg Documented By: Admin: 10/23/22 20:51 Dose: 150 mg Documented By: Admin: 10/22/22 20:45 Dose: 150 mg Documented By: Admin: 10/21/22 20:50 Dose: 150 mg Documented By: Admin: 10/20/22 20:16 Dose: 150 mg Documented By: Admin: 10/19/22 20:17 Dose: 150 mg Documented By: VEENA Coding Level of Care Code 21616 IN/OBS CONSULT LVL 4,60M Diagnoses Anxiety F41.9 Depression F32.9 Time Spent (min) 65
[2022-10-28] MEDS: clonazePAM 0.5 MG TAB PO PRN ×2 (13:17→21:15)
--- NOTE | 2022-10-28 19:43 | Communication Note ---
Date of Service: October 28, 2022 Received notification patient was to be on doxycycline for anaplasmosis with end date 11/03/22, however no abx running at this time, IV doxycycline currently on hold, placed order for doxycycline 100mg PO BID.
[2022-10-28] MEDS: MIRTAZAPINE TAB 15 MG TAB PO SCH (21:09)
[2022-10-28] MEDS: DOXYCYCLINE HYCLATE 100 MG CAP PO SCH (21:09)
[2022-10-28] MEDS: VENLAFAXINE HCL XR 75 MG CAPXR PO SCH (21:09)
[2022-10-28] MEDS: MONTELUKAST SODIUM 10 MG TABLET PO SCH (21:09)
[2022-10-28] MEDS: ATORVASTATIN 40 MG TAB PO SCH (21:09)
[2022-10-28] MEDS: MELATONIN 3 MG TAB PO SCH (21:09)
[2022-10-29] MEDS: LEVOTHYROXINE SODIUM 100 MCG TABLET PO SCH (06:07)
--- NOTE | 2022-10-29 07:01 | Electrocardiogram Report ---
Test Reason : Blood Pressure : / mmHG Vent. Rate : 059 BPM Atrial Rate : 357 BPM P-R Int : 000 ms QRS Dur : 100 ms QT Int : 458 ms P-R-T Axes : 000 013 -80 degrees QTc Int : 453 ms Atrial fibrillation with slow ventricular response Abnormal ECG When compared with ECG of 21-OCT-2022 12:45, Incomplete right bundle branch block is no longer Present Confirmed by Joao Baker ([id number]) on 10/29/2022 7:00:58 AM Referred By: REFERRED SELF Confirmed By:Fran Baker
[2022-10-29] MEDS: UMECLIDINIUM/VILANTEROL 62.5/25MCG 7 PUFFS/INHALER INH SCH (07:09)
[2022-10-29 07:10] LABS: Hematocrit (blood only) 34.2 % (37.0-47.0); Hemoglobin 11.2 g/dl (12.0-16.0); Mean Corpuscular Hemoglobin 31.1 pg (25.0-34.0); Mean Corpuscular Hgb Conc 32.7 g/dL (32.0-36.0); Mean Platelet Volume 10.1 fL (9.4-12.4); Platelet Count 245 K/uL (130-400); RDW Standard Deviation 48.8 fL (36.4-46.3); White Blood Count 8.57 K/ul (4.8-10.8)
[2022-10-29] MEDS: POLYETHYLENE (MIRALAX) 17 GM PACK PO SCH ×2 (07:10→20:09)
[2022-10-29] MEDS: FLUTICASONE FUROATE 100MCG 14 PUFFS/INHALER INH SCH (07:10)
[2022-10-29] MEDS: ISOSORBIDE MONO EXTENDED REL 30 MG TABCR PO SCH (07:12)
[2022-10-29] MEDS: METOPROLOL SUCC 50MG EXT REL TAB PO SCH (07:12)
[2022-10-29] MEDS: DOCUSATE SODIUM/SENNA 50/8.6MG TAB PO SCH (07:12)
[2022-10-29] MEDS: SODIUM CHLORIDE 1 GM TABLET PO SCH (07:12)
[2022-10-29] MEDS: DOXYCYCLINE HYCLATE 100 MG CAP PO SCH ×2 (07:13→20:08)
[2022-10-29] MEDS: PANTOprazole 40 MG TAB PO SCH ×2 (07:14→20:08)
[2022-10-29 07:37] LABS: BUN Creatinine Ratio 14.3 (10-20); Calcium 8.8 mg/dl (8.6-10.3); Creatinine Clr Calc Pharmacy 53.5 ml/min; Est GFR (African American) 58.5 ml/min; Est GFR (Non-African American) 50.5 ml/min; Potassium 4.4 mmol/L (3.5-5.1)
--- NOTE | 2022-10-29 07:43 | Hospitalist Progress Note ---
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 Leukopenia, thrombocytopenia, fevers, chills, high AST, etc all suggestive of anaplasmosis. Remains on doxycycline, LD 11/03/22. Lyme screen was negative. Babesiosis smear was negative. Babesiosis DNA returned negative. Leukopenia resolved Platelets improving. AST modestly improved No fevers or chills, headache improved. 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 (2) Headache: Plan: MRI brain 10/18 negative for acute findings. MRV brain 10/[address] head 10/19 negative for ICH/acute findings. No meningeal signs on exam. Headache is 2nd to anaplasmosis --- improving with doxycycline. (3) Lung field abnormal finding on examination: Plan: The patient has known h/o asthma and bronchiectasis per the record. Added rocephin 2gm daily on 10/21/22 complete 5 days of treatment Cont duonebs QID. Flutter valve/incentive spirometry. Defer on systemic steroids. Cont usual home inhalers. (4) Paroxysmal atrial fibrillation: Plan: Patient is in rate-controlled a.fib with metoprolol succinate 50mg daily. She had PAF following her CABG years ago. she is not on chronic anticoagulation but will not start in the sort of anticoagulation until she speaks to her range mounter in [facility] Appreciate cardiology consultation by Dr Mauricio did have mobitz one on monitor intermittently He recommends continued metoprolol and to consider anticoagulation when medically stable for such. however patient refuses anticoagulation as above (5) CAD (coronary artery disease): Plan: CAD s/p CABG x 4V. Echo in April 2022 with slightly reduced EF of 54% but still normal. Grade 1 diastolic dysfunction also seen. with mild shortness of breath and lower extremity edema will reinstitute d iuretic therapy at this time for acute on chronic diastolic heart failure which is mild Continue Metoprolol Continue Atorvastatin HOLD ASA due to low platelets Continue Isosorbide (6) Depression: Plan: Continue Venlafaxine Son concerned she misses several doses at times at home Will reinforce compliance , psychiatric eval consolitated two doses of effexor to one and added hs mirtazapine, changing To clonazepam only (7) Mixed action and resting tremor: Plan: She reports multiple family members with chronic tremor This is c/w familial tremor consider outpt follow up neurology (8) Hyponatremia: Plan: IMPROVED/resolved (9) Rheumatoid arthritis: Plan: Mtx on hold with acute infection Plan PT, OT consults appreciated -- rehab advised post discharge pending placement, pt frustrated on the process Admission and Anticipated Discharge Date Admission Date: October 20, 2022 Subjective patient's headache has resolved. Has not seen much effect from 1 dose of mirtazapine. This morning having some mild dyspnea and coughing. No productivity of her cough. Patient remains on room air Physical Exam Physical Exam: with shortness of breath in the a.m. of 7 9 pulm examination did not reveal any focal air loss wheezes or crackles. As needed nebulizer was ordered. She does have trace lower extremity edema bilaterally Results & Data Results & Data Vital Signs (Past 12 Hours) Vital Signs Temp Pulse Resp BP BP Pulse Ox O2 Del Method 10/29/22 07:22 97.5 F L 70 16 150/70 H 93 Room Air 10/29/22 02:58 97.7 F 72 20 160/81 H 96 Room Air 10/28/22 23:26 97.5 F L 74 20 168/82 H 94 Room Air 10/28/22 22:20 Room Air 10/28/22 20:07 97.3 F L 66 18 115/61 93 Room Air Laboratory Results reviewed CBC\ reviewed chemistry PG Care Time/CCT Total # of Minutes Spent Total Time Spent with Patient: Total time spent is greater than 50% in coordination of care (as documented) at patient's floor/unit and/or counseling patient: Coding Level of Care Code 07689 SUB INP/OBS CARE 2/35MIN Diagnoses Anaplasmosis A77.49 Headache G44.89 Headache type: other headache syndrome Lung field abnormal finding on examination R91.8 Paroxysmal atrial fibrillation I48.0 CAD (coronary artery disease) I25.10 Depression F32.9 Mixed action and resting tremor R25.9 Hyponatremia E87.1 Rheumatoid arthritis M06.9 (2) Headache Headache type: other headache syndrome Qualified Code(s): G44.89 - Other headache syndrome
[2022-10-29] MEDS ORDERED: VENLAFAXINE HCL XR 75 MG CAPXR PO SCH (09:00)
[2022-10-29] MEDS: clonazePAM 0.5 MG TAB PO PRN (14:34)
[2022-10-29] MEDS ORDERED: FUROSEMIDE 20 MG TAB PO ONE (14:52)
[2022-10-29] MEDS: ATORVASTATIN 40 MG TAB PO SCH (20:07)
[2022-10-29] MEDS: MIRTAZAPINE TAB 15 MG TAB PO SCH (20:08)
[2022-10-29] MEDS: MELATONIN 3 MG TAB PO SCH (20:08)
[2022-10-29] MEDS: MONTELUKAST SODIUM 10 MG TABLET PO SCH (20:08)
[2022-10-29] MEDS: HEPARIN SOD 5,000 UNIT/0.5 ML VIAL SQ SCH (21:14)
[2022-10-30] MEDS: LEVOTHYROXINE SODIUM 100 MCG TABLET PO SCH (06:04)
[2022-10-30] MEDS: HEPARIN SOD 5,000 UNIT/0.5 ML VIAL SQ SCH ×3 (06:04→21:48)
[2022-10-30 06:38] LABS: Hematocrit (blood only) 31.8 % (37.0-47.0); Hemoglobin 10.4 g/dl (12.0-16.0); Mean Corpuscular Hemoglobin 30.6 pg (25.0-34.0); Mean Corpuscular Hgb Conc 32.7 g/dL (32.0-36.0); Mean Corpuscular Volume 93.5 fL (80.0-100.0); Platelet Count 233 K/uL (130-400); RDW Coefficient of Variation 14.2 % (11.5-14.5); RDW Standard Deviation 48.1 fL (36.4-46.3); White Blood Count 8.56 K/ul (4.8-10.8)
[2022-10-30] MEDS: VENLAFAXINE HCL XR 75 MG CAPXR PO SCH (08:46)
[2022-10-30] MEDS: SODIUM CHLORIDE 1 GM TABLET PO SCH (08:47)
[2022-10-30] MEDS: DOCUSATE SODIUM/SENNA 50/8.6MG TAB PO SCH (08:47)
[2022-10-30] MEDS: PANTOprazole 40 MG TAB PO SCH ×2 (08:48→20:38)
[2022-10-30] MEDS: ISOSORBIDE MONO EXTENDED REL 30 MG TABCR PO SCH (08:48)
[2022-10-30] MEDS: FUROSEMIDE 40 MG TAB PO SCH (08:48)
[2022-10-30] MEDS: METOPROLOL SUCC 50MG EXT REL TAB PO SCH (08:48)
[2022-10-30] MEDS: DOXYCYCLINE HYCLATE 100 MG CAP PO SCH ×2 (08:48→20:38)
[2022-10-30] MEDS: POLYETHYLENE (MIRALAX) 17 GM PACK PO SCH ×2 (08:48→20:40)
[2022-10-30] MEDS: FLUTICASONE FUROATE 100MCG 14 PUFFS/INHALER INH SCH (08:49)
[2022-10-30] MEDS: UMECLIDINIUM/VILANTEROL 62.5/25MCG 7 PUFFS/INHALER INH SCH (08:49)
[2022-10-30] MEDS: clonazePAM 0.5 MG TAB PO PRN ×2 (08:56→20:37)
--- NOTE | 2022-10-30 15:20 | Hospitalist Progress Note ---
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 Leukopenia, thrombocytopenia, fevers, chills, high AST, etc all suggestive of anaplasmosis. Remains on doxycycline, LD 11/03/22. Lyme screen was negative. Babesiosis smear was negative. Babesiosis DNA returned negative. Leukopenia resolved Platelets improving. AST modestly improved No fevers or chills, headache improved. 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 (2) Headache: Plan: MRI brain 10/18 negative for acute findings. MRV brain 10/[address] head 10/19 negative for ICH/acute findings. No meningeal signs on exam. Headache is 2nd to anaplasmosis --- improving with doxycycline. (3) Lung field abnormal finding on examination: Plan: The patient has known h/o asthma and bronchiectasis per the record. Added rocephin 2gm daily on 10/21/22 complete 5 days of treatment Cont duonebs QID. Flutter valve/incentive spirometry. Defer on systemic steroids. Cont usual home inhalers. (4) Paroxysmal atrial fibrillation: Plan: Patient is in rate-controlled a.fib with metoprolol succinate 50mg daily. She had PAF following her CABG years ago. she is not on chronic anticoagulation but will not start in the sort of anticoagulation until she speaks to her cushion maker in [facility] Appreciate cardiology consultation by Dr Mauricio did have mobitz one on monitor intermittently He recommends continued metoprolol and to consider anticoagulation when medically stable for such. however patient refuses anticoagulation as above restarted diuretic 10/29/22 for HFpEF (5) CAD (coronary artery disease): Plan: CAD s/p CABG x 4V. Echo in April 2022 with slightly reduced EF of 54% but still normal. Grade 1 diastolic dysfunction also seen. with mild shortness of breath and lower extremity edema will reinstitute diuretic therapy at this time for acute on chronic diastolic heart failure which is mild Continue Metoprolol Continue Atorvastatin HOLD ASA due to low platelets Continue Isosorbide (6) Depression: Plan: Continue Venlafaxine Son concerned she misses several doses at times at home Will reinforce compliance , psychiatric eval consolitated two doses of effexor to one and added hs mirtazapine, changing To clonazepam only (7) Mixed action and resting tremor: Plan: She reports multiple family members with chronic tremor This is c/w familial tremor consider outpt follow up neurology (8) Hyponatremia: Plan: IMPROVED/resolved (9) Rheumatoid arthritis: Plan: Mtx on hold with acute infection Plan PT, OT consults appreciated -- rehab advised post discharge pending placement, pt frustrated on the process Admission and Anticipated Discharge Date Admission Date: October 20, 2022 Subjective patient's headache has resolved. Has not seen much effect from mirtazapine. pt is feeling better Physical Exam Physical Exam: with shortness of breath in the a.m. of 7 9 pulm examination did not reveal any focal air loss wheezes or crackles. As needed nebulizer was ordered. She does have trace lower extremity edema bilaterally Results & Data Results & Data Vital Signs (Past 12 Hours) Vital Signs Temp Pulse Pulse Resp BP BP Pulse Ox 10/30/22 10:59 98.4 F 84 20 137/91 97 10/30/22 11:16 97.9 F 55 L 20 133/75 96 10/30/22 07:00 51 L 10/30/22 09:26 10/30/22 07:19 97.5 F L 46 L 20 142/74 H 93 O2 Del Method 10/30/22 10:59 Room Air 10/30/22 11:16 Room Air 10/30/22 07:00 10/30/22 09:26 Room Air 10/30/22 07:19 Room Air PG Care Time/CCT Total # of Minutes Spent Total Time Spent with Patient: Total time spent is greater than 50% in coordination of care (as documented) at patient's floor/unit and/or counseling patient: Coding Level of Care Code 64154 SUB INP/OBS CARE 2/35MIN Diagnoses Anaplasmosis A77.49 Headache G44.89 Headache type: other headache syndrome Lung field abnormal finding on examination R91.8 Paroxysmal atrial fibrillation I48.0 CAD (coronary artery disease) I25.10 Depression F32.9 Mixed action and resting tremor R25.9 Hyponatremia E87.1 Rheumatoid arthritis M06.9 (2) Headache Headache type: other headache syndrome Qualified Code(s): G44.89 - Other headache syndrome
[2022-10-30] MEDS: MELATONIN 3 MG TAB PO SCH (20:38)
[2022-10-30] MEDS: ATORVASTATIN 40 MG TAB PO SCH (20:38)
[2022-10-30] MEDS: MONTELUKAST SODIUM 10 MG TABLET PO SCH (20:39)
[2022-10-30] MEDS: MIRTAZAPINE TAB 15 MG TAB PO SCH (20:39)
[2022-10-31] MEDS: LEVOTHYROXINE SODIUM 100 MCG TABLET PO SCH (05:39)
[2022-10-31] MEDS: HEPARIN SOD 5,000 UNIT/0.5 ML VIAL SQ SCH ×2 (05:39→13:58)
[2022-10-31 07:31] LABS: Hematocrit (blood only) 30.6 % (37.0-47.0); Hemoglobin 10.1 g/dl (12.0-16.0); Mean Corpuscular Volume 93.9 fL (80.0-100.0); Mean Platelet Volume 10.5 fL (9.4-12.4); Platelet Count 242 K/uL (130-400); RDW Standard Deviation 47.8 fL (36.4-46.3); Red Blood Count 3.26 M/uL (4.20-5.40)
[2022-10-31 07:50] LABS: BUN Creatinine Ratio 17.4 (10-20); Calcium 8.5 mg/dl (8.6-10.3); Creatinine Clr Calc Pharmacy 46.7 ml/min; Est GFR (African American) 49.3 ml/min; Est GFR (Non-African American) 42.5 ml/min; Potassium 4.4 mmol/L (3.5-5.1)
[2022-10-31] MEDS: SODIUM CHLORIDE 1 GM TABLET PO SCH (08:35)
[2022-10-31] MEDS: VENLAFAXINE HCL XR 75 MG CAPXR PO SCH (08:35)
[2022-10-31] MEDS: POLYETHYLENE (MIRALAX) 17 GM PACK PO SCH (08:35)
[2022-10-31] MEDS: METOPROLOL SUCC 50MG EXT REL TAB PO SCH (08:35)
[2022-10-31] MEDS: FLUTICASONE FUROATE 100MCG 14 PUFFS/INHALER INH SCH (08:36)
[2022-10-31] MEDS: ISOSORBIDE MONO EXTENDED REL 30 MG TABCR PO SCH (08:36)
[2022-10-31] MEDS: DOCUSATE SODIUM/SENNA 50/8.6MG TAB PO SCH (08:36)
[2022-10-31] MEDS: DOXYCYCLINE HYCLATE 100 MG CAP PO SCH (08:36)
[2022-10-31] MEDS: FUROSEMIDE 40 MG TAB PO SCH (08:36)
[2022-10-31] MEDS: UMECLIDINIUM/VILANTEROL 62.5/25MCG 7 PUFFS/INHALER INH SCH (08:37)
[2022-10-31] MEDS: PANTOprazole 40 MG TAB PO SCH (08:47)
--- NOTE | 2022-10-31 13:28 | Discharge Summary ---
Date of Service October 31, 2022 Admission HPI Per Admitting Provider Mariel Tao is a 77yo female with history of HTN, CAD, PAF, HLP, Hypothyroidsim and depression presenting with worsening headache. Patein reports overall decline over the last several weeks - poor appetite, decreased oral intake, generalized weakness and gait instability. She woke from sleep early in the morning on 10/18/22 with a severe headache. Headache is located on the left temporal region and radiates bandlike across the forehead. She describes it as a severe shocking pain, intermittent. Patient takes Venlafaxine 75mg po qAM and 150mg po qHS and reports that she has experienced a similar headache in the past when she was late on her dosing or skipped a dose. She did not skip any doses recently and reports taking her medication as prescribed. The headache persisted all day yesterday which eventu ally prompted her to call her son and EMS. Patient has nausea associated with the headache. She was recently seen by her PCP and had an MRI of the brain performed on 10/18/22 which was unremarkable. Patient fell down the stairs in April and sustained head and neck trauma. No head trauma since then. No fever but she has occasional chills. She reports poor appetite and decreased oral intake. Otherwise denies chest pain, palpitations, abdominal pain, diarrhea. No recent travel or sick contacts. She denies tick bites but does have some bug bites on her arms and legs. She denies dizziness or vertigo. Denies blurry vision, loss of vision, focal numbness/tingling/weakness. No additional complaints at this time. In the ER she is in moderate distress due to ongoing pain and nausea. She was administered Smippx0cc IV x 2 doses with minimal improvement in pain. She was given Fentanyl 100mcg IV with improvement in symptoms. She tried to get up after the Fentanyl and had a recurrence of her nausea and headache. Pain made worse by looking to the side. Associated dry heaving. ER Course: Fentanyl 100mcg Zofran 4mg IV x 2 Ativan 0.5mg IV - ordered Tylenol 1gm IV - ordered Principal Diagnosis Anaplasmosis paroxysmal atrial fibrillation patient declining anticoagulation at this point heart failure preserved ejection fraction depression with starting mirtazapine rheumatoid arthritis typically treated with methotrexate Discharge Exam patient is awake and alert cardiac exam is irregular but rate controlled lungs are clear Discharge Data Allergies Allergy/AdvReac Type Severity Reaction Status Date / Time diphtheria toxoid,fluid Allergy Intermediate TdAP=swelli Verified 10/02/22 14:44 ng/redness poliomyelitis vaccine,killed Allergy Intermediate TdAP=swelli Verified 10/02/22 14:44 ng/redness tetanus toxoid, adsorbed Allergy Intermediate TdAP=swelli Verified 10/02/22 14:44 ng/redness nickel Allergy Mild pruritus Verified 10/02/22 14:44 etanercept [From Enbrel] AdvReac Severe pneumonia Verified 10/02/22 14:44 amoxicillin [From Augmentin] AdvReac Intermediate GI symptoms Verified 10/02/22 14:44 clavulanic acid AdvReac Intermediate GI symptoms Verified 10/02/22 14:44 [From Augmentin] NSAIDS (Non-Steroidal AdvReac Intermediate gi bleed Verified 10/02/22 14:44 Anti-Inflamma Consultations 10/19/22 05:37 ED Decision to Admit Stat 10/21/22 13:13 Consult Cardiology Routine 10/27/22 19:44 Consult Psychiatry Routine Ordered Studies 10/19/22 03:11 CT head/brain wo con Stat 10/19/22 07:51 MRI venography head [MR venography head wo con] Routine Hospital Course (1) Anaplasmosis: associated acute metabolic encephalopathy has since resolved Anaplasmosis smear was +. Leukopenia, thrombocytopenia, fevers, chills, high AST, etc all suggestive of anaplasmosis. Remains on doxycycline, LD 11/03/22. Lyme screen was negative. Babesiosis smear was negative. Babesiosis DNA returned negative. Leukopenia resolved Platelets improved AST modestly improved No fevers or chills, headache improved. 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 MRV brain 10/[address] head 10/19 negative for ICH/acute findings. No meningeal signs on exam. Headache is 2nd to anaplasmosis --- improving with doxycycline. (3) Lung field abnormal finding on examination: The patient has known h/o asthma and bronchiectasis per the record. Added rocephin 2gm daily on 10/21/22 complete 5 days of treatment patient on usual home inhalers with long-acting beta agonist steroids and anticholinergics (4) Paroxysmal atrial fibrillation: Patient is in rate-controlled a.fib with metoprolol succinate 50mg daily. She had PAF following her CABG years ago. she is not on chronic anticoagulation but will not start in the sort of anticoagulation until she speaks to her insurance defense attorney in [place] Appreciate cardiology consultation by Dr Mauricio did have mobfatou one on monitor intermittently He recommends continued metoprolol and to consider anticoagulation when medically stable for such. however patient refuses anticoagulation until speaking to her insurance defense attorney in [place] restarted diuretic 10/29/22 for HFpEF (5) CAD (coronary artery disease): CAD s/p CABG x 4V. Echo in April 2022 with slightly reduced EF of 54% but still normal. Grade 1 diastolic dysfunction also seen. with mild shortness of breath and lower extremity edema will reinstitute diuretic therapy at this time for acute on chronic diastolic heart failure which is mild Continue Metoprolol Continue Atorvastatin okay to resume aspirin at time of discharge Continue Isosorbide (6) Depression: Continue Venlafaxine Son concerned she misses several doses at times at home Will reinforce compliance , psychiatric eval consolitated two doses of effexor to one and added hs mirtazapine, changing To clonazepam as needed only (7) Mixed action and resting tremor: She reports multiple family members with chronic tremor This is c/w familial tremor consider outpt follow up neurology (8) Hyponatremia: IMPROVED/resolved (9) Rheumatoid arthritis: Mtx on hold with acute infection may resume when treatment complete Total Time Total Time Spent Total Time Spent (In Minutes): it required greater than 30 minutes to prepare this patient for discharge Discharge Plan Discharge Items Patient Disposition: Transfer Inpatient Rehab Fac Reason For Visit: SEVERE HEADACHE, NAUSEA Discharge Diagnosis: anaplasmosis general deconditioning PAF pt defers Anticoagulation until discuss with Mixing Plant Dumper in [place] Activity: Per Instructions section Non-emergency contact: Primary Care Provider and Mixing Plant Dumper Call non-emergency contact if: your symptoms worsen Follow-up/Referrals: Theo Tripathi, [Primary Care Provider] - Diet: Regular Addtl Attending Provider Instructions: will complete doxycycline last dose 11/03/22 discuss chronic anticoagulation with your insurance defense attorney, please consider this as it will reduce your stroke risk patient was restarted on Lasix for heart failure preserved ejection fraction a half his usual home doses may be related to dietary restriction here in institutionalized setting although records states patient was on methotrexate treatment for rheumatoid arthritis I cannot locate her outpatient dose in the medication pharmacy lookup and patient is unclear of her typical dose Pending Studies at Discharge: No Stand-Alone Forms: My [facility] Skilled Items Patient informed of condition?: Yes DNR: No Discharge Level of Care: Acute rehab Communicable Disease: No Discharge Prognosis: Stable Lines: None Urinary Catheter: No Medications and DC Order Prescriptions: New doxycycline hyclate 100 mg Capsule 100 mg PO BID Qty: 7 0RF Anoro Ellipta 62.5-25 mcg/actuation Blister With Device 1 ea inhalation DAILY Qty: 60 4RF furosemide 40 mg Tablet 40 mg PO QAM Qty: 30 3RF venlafaxine 75 mg Capsule,Extended Release 24hr 225 mg PO QAM Qty: 30 0RF polyethylene glycol 3350 [Miralax] 17 gram Powder In Packet 17 g PO BID Qty: 30 0RF clonazepam 0.5 mg Tablet 0.5 mg PO BID PRN (Reason: anxiety) Qty: 60 0RF sennosides-docusate sodium [Senokot-S] 8.6-50 mg Tablet 1 tab PO QAM Qty: 30 0RF mirtazapine 15 mg Tablet 15 mg PO HS Qty: 30 3RF Arnuity Ellipta 100 mcg/actuation Blister With Device 1 inh inhalation DAILY Qty: 30 0RF aspirin 81 mg capsule 81 mg PO DAILY Qty: 30 0RF Continued omeprazole 40 mg capsule,delayed release(DR/EC) 40 mg PO BID Qty: 180 3RF Rx Instructions: TAKE 1 CAPSULE BY MOUTH TWICE A DAY montelukast 10 mg tablet 10 mg PO QPM Qty: 90 3RF atorvastatin 40 mg tablet 40 mg PO HS Qty: 90 3RF metoprolol succinate 50 mg tablet extended release 24 hr 50 mg PO DAILY cholecalciferol (vitamin D3) 25 mcg (1,000 unit) capsule 25 mcg PO DAILY aspirin [Adult Low Dose Aspirin] 81 mg tablet,delayed release (DR/EC) 81 mg PO DAILY nitroglycerin [Nitrostat] 0.4 mg tablet, sublingual 0.4 mg sublingual Q5M PRN Rx Instructions: do not exceed 3 doses per episode levothyroxine 100 mcg tablet See Rx Instructions .ROUTE .COMPLEX Qty: 90 3RF Dose Instruction: TAKE 1 TABLET BY MOUTH DAILY Rx Instructions: TAKE 1 TABLET BY MOUTH DAILY (DME) Walking Cane Misc See Rx Instructions .Route Qty: 1 0RF Rx Instructions: As directed acetaminophen 500 mg tablet 1,000 mg PO BID PRN (Reason: Pain) levalbuterol tartrate [Xopenex HFA] 45 mcg/actuation HFA aerosol inhaler 2 inh inhalation Q6H Qty: 15 2RF isosorbide dinitrate 30 mg tablet 30 mg PO ONCE Rx Instructions: allow nitrate-free interval of 12-14 hrs per 24-hr period calcium carbonate-vitamin D3 [Calcium 600 + D(3)] 600 mg(1,500mg) -400 unit Tablet 1 tab PO QAM tramadol 50 mg tablet 50 mg PO DAILY PRN (Reason: Pain) Changed ferrous sulfate 325 mg (65 mg iron) tablet 325 mg PO Q48H Qty: 30 0RF Discontinued furosemide [Lasix] 40 mg tablet 80 mg PO DAILY Hold Instructions: per Quintin Trelegy Ellipta 100-62.5-25 mcg blister with device 1 inh inhalation DAILY cyanocobalamin-cobamamide [B12] 1 tab sublingual DAILY Rx Instructions: 1000 ius daily venlafaxine 150 mg capsule,extended release 24hr 150 mg PO HS venlafaxine 75 mg capsule,extended release 24hr 75 mg PO QAM diazepam 5 mg PO UD Rx Instructions: 1/2 tablet in the morning and full tablet in the evening Trelegy Ellipta 100-62.5-25 mcg blister with device 1 inh INHALATION DAILY Discharge Orders: Discharge Order (Routine); Ordered 10/31/22 Ordered By: Nico Cline Admission Data Admit Date/Time: 10/20/22 10:00 Attending Provider: Nico Cline Admit Provider: Barbara Samson Primary Care Provider: Thoe Tripathi Other Providers: Barbara Samson ; Cholo Mauricio ; [facility] ; [facility] ; Jeny Roca ; Seema Wagner ; Sb Frank Coding Level of Care Code 95940 INP/OBS DISCH >30 MIN Diagnoses Anaplasmosis A77.49 Headache G44.89 Headache type: other headache syndrome Lung field abnormal finding on examination R91.8 Paroxysmal atrial fibrillation I48.0 CAD (coronary artery disease) I25.10 Depression F32.9 Mixed action and resting tremor R25.9 Hyponatremia E87.1 Rheumatoid arthritis M06.9
== END 2022-10-31 15:59 | DRG 867 ==
LOC: ED 01:41 → EDINP 01:41 → SUATTDRO 06:23 → 2N 07:51 → SUATTDRO 10-20 10:00

== ENCOUNTER 2024-01-26 12:17 | Observation (INO) ==
--- OUTSIDE RECORDS SUMMARY | 2024-01-26 12:24 | External Medical Summary | Summary of Care ---
Author Name Unknown Organization [facility] Address [address] [place] [address] Phone [phone] Care Team Providers Care Emergency Vehicle Operator Name Role Phone Theo Tripathi Primary Care Provider [phone] Reason for Visit * Reason Onset Date Comments Durable Medical Equipment 01/01/2024 Kepp O xygen now Encounter Details Date Type Department Care Team (Late st Contact Info) Description 01/01/2024 Telephone Pulmonary Medicine Evonne Anton [address] [address] [phone] Les Paul MD [address] [phone] Durable Medical Equipment (Kepp Oxygen now) Allergies Active Allergy Reactions Criticality Noted Date Comments Amoxicillin High 09/21/2022 Other Reaction(s): GI symptoms Clavulanic Acid High 09/21/2022 Other Reaction(s): GI symptoms Etanercept High 09/21/2022 Other Reaction(s): pneumonia Lisinopril Cough Low 10/02/2016 Naproxen Medium 02/08/2022 Other reaction(s): Angioedema Nickel Low 03/21/2022 Other reaction(s): pruritus Nsaids Bleeding High 01/24/2021 Tetanus Toxoid, Adsorbed High 03/21/2022 Other reaction(s): TdAP=swelling/redness documented as of this encounter (statuses as of 01/09/2024) Medications Medication Sig Dispensed Refills Start Date End Date Status Venlafaxine HCl ER 75 MG Oral Capsule Extended Release 24 Hour One tablet in the morning, 2 at bedtime 10/15/2014 Active Acetaminophen 500 MG Oral Tablet Take 1 Tablet by mouth in the morning and 1 Tablet before bedtime. 10/15/2014 Active Valsartan 80 MG Oral Tablet (Diovan) Take 1 Tablet by mouth in the morning. 1 daily. 07/15/2020 Active Furosemide 40 MG Oral Tablet (Lasix) Take 1 Tablet by mouth in the morning and 1 Tablet before bedtime. 07/17/2020 Active Calcium Carbonate-Vitamin D 600-400 MG-UNIT Oral Tablet Take 1 Tablet by mouth in the morning. 1 daily. Active Atorvastatin Calcium 40 MG Oral Tablet (Lipitor) Take 1 Tablet by mouth in the morning. 02/12/2020 Active Metoprolol Succinate ER 50 MG Oral Tablet Extended Release 24 Hour (toPROL XL) Take 1 Tablet by mouth in the morning. 02/23/2020 Active [facility] Iron 240 (27 Fe) MG Oral Tablet Take 1 Tab by mouth daily. daily 05/29/2020 Active Levothyroxine Sodium 100 MCG Oral Tablet (Levoxyl) Take 1 Tablet by mouth daily first thing in the morning. Active Omeprazole 40 MG Oral Capsule Delayed Release (PriLOSEC) Take 1 Capsule by mouth 2 times a day. Active Isosorbide Mononitrate ER 30 MG Oral Tablet Extended Release 24 Hour (Imdur) Take 1 Tablet by mouth in the morning. 1 daily. 12/31/2020 Active Nitroglycerin 0.4 MG Sublingual Tablet Sublingual (Nitrostat) Place 1 Tablet under the tongue. As needed 12/31/2020 Active Montelukast Sodium 10 MG Oral Tablet (Singulair) Take 1 Tablet by mouth every evening. 2021 Active Funtqjqpsq-FJAL-Ve ffeine 50-325-40 MG Oral Capsule Take 1 Capsule by mouth every 6 hours as needed. 10/21/2021 Active Aspirin EC 81 MG Oral Tablet Delayed Release Take 1 Tablet by mouth in the morning. Active diazePAM 5 MG Oral Tablet (Valium) 1/2 tablet by mouth in the morning and 1 tablet by mouth at night 07/02/2022 Active metOLazone 5 MG Oral Tablet (Zaroxolyn) Take 1 Tablet by mouth in the morning. 05/18/2022 Active traMADol HCl 50 MG Oral Tablet (Ultram) Take 1 Tablet by mouth daily as needed. 08/01/2022 Active Vitamin B-12 1000 MCG Oral Tablet (Cyanocobalamin) Take 1 Tablet by mouth in the morning. Active Eliquis 5 MG Oral Tablet Take 1 Tablet by mouth in the morning and 1 Tablet before bedtime. 11/09/2022 Active Empagliflozin 10 MG Oral Tablet (Jardiance) Take 1 Tablet by mouth. 02/07/2023 Active Mirtazapine 15 MG Oral Tablet (Remeron) Take 1 Tablet by mouth every night at bedtime. 11/01/2022 Active Mupirocin 2 % External Ointment (Bactroban) APPLY TOPICALLY TWICE A DAY 03/01/2023 Active Allopurinol 300 MG Oral Tablet (Zyloprim)Indicati ons:Idiopathic chronic gout of multiple sites without tophus Take 1 Tablet by mouth in the morning. 90 Tablet 2 04/18/2023 Active Trelegy Ellipta 100-62.5-25 MCG/ACT Aerosol Powder Breath Activated TAKE 1 PUFF BY MOUTH EVERY DAY 60 Blister Dosing Unit 2 09/04/2023 Active Nystatin 049425 UNIT/ML Mouth/Throat Suspension APPLY 1 ML BUCCALLY DAILY ADMINISTER 1/2 OF DOSE IN EACH SIDE OF THE MOUTH 07/11/2023 Active Potassium Chloride ER 20 MEQ Oral Tablet Extended Release Take 1 Tablet by mouth in the morning and 1 Tablet before bedtime. 08/28/2023 Active Topiramate 25 MG Oral Tablet (topAMAX) TAKE 2 TABLETS BY MOUTH EVERY MORNING AND TAKE 1 TABLET EVERY EVENING 09/19/2023 Active Levalbuterol Tartrate 45 MCG/ACT Inhalation Aerosol (Xopenex HFA) Inhale 1 Puff by mouth every 4 hours as needed for Wheezing. 15 g 12 11/29/2023 Active documented as of this encounter (statuses as of 01/09/2024) Active Problems Problem Noted Date Diagnosed Date Chronic respiratory failure with hypoxia 024 Senile osteoporosis 03/14/2023 Idiopathic chronic gout of multiple sites withou t tophus 03/14/2023 RAMIREZ (dyspnea on exertion) 12/30/2015 History of rheumatoid arthritis 12/20/2015 Left wrist fracture 09/27/2015 Gastroesophageal reflux disease without esophagi tis 09/27/2015 Vitamin D deficiency 10/15/2014 Colon polyps 10/15/2014 Hypertrophy of breast 07/05/2012 ADVANCE DIRECTIVE INFORMATION 03/25/2012 Overview: Yes, patient instructed to provide copy of Advance Directive for provider to review and to be scanned into Electronic Medical Record DDD (degenerative disc disease), cervical 2011 Anemia 03/13/2011 Cervical spondylosis 03/13/2011 Disorder of intervertebral disc 03/13/2011 BMI 35-39 ISOLATED (SEE ACTUAL BMI) 10/04/2009 Overview: Per Obesity Protocol, #19 Chronic interstitial cystitis 07/28/2008 [place] ulcerative colitis 10/13/2004 Diaphragmatic hernia 10/13/2004 GERD (gastroesophageal reflux disease) 5 GENERAL OSTEOARTHROSIS 03/13/2002 Intradermal nevus, Back 09/10/99 01/09/2002 documented as of this encounter (statuses as of 01/09/2024) Resolved Problems Problem Noted Date Diagnosed Date Resolved Date Methotrexate, band instrument repairer, current use 09/27/2020 02/08/2022 Osteoporosis 09/27/2015 12/30/2015 #00R-192/SEUN/ Godwin Villarreal 03/09/2003 0 08/06/2009 Overview: Renamed Per Clinical Trials Billing Project. Pt is a participant in the [employer] (Consortium of Rheumatology Researchers of [place]) national data collection study. For further information please call Dr Michael Villarreal or Alis Torres, RN, CCRC at [phone] [facility] RESEARCH OTHER*[id number] 03/09/2003 10/18/2009 Overview: Renamed Per Clinical Trials Billing Project. Pt is a participant in the [employer] (Consortium of Rheumatology Researchers of [place]) national data collection study. For further information please call Dr Michael Villarreal or Alis Torres RN, CCRC at [phone] ARTHRITIS,RHEUMATOID 03/13/2002 016 Overview: MTX (2000-) documented as of this encounter (statuses as of 01/09/2024) Immunizations Name Administration Dates Next Due COVID-19 mRNA, LNP-s, No Pre serve, 2-Dose Series (Moderna) 07/28/2020,06/27/2020,05/28/2020 COVID-19, mRNA, LNP-s, PF, B ooster, 100mcg/0.5mg (Moderna) 01/22/2021 Covid-19, Mrna, Lnp-s, Pf, B ivalent, 30 Mcg, IM, 12 yrs and above (Pfizer) 03/21/2022 PPD 06/04/2006,03/09/2003 Pneumococcal Conjugate Vacc, 13 Valent (Prevnar) 09/30/2015 Pneumococcal Conjugate Vacci ne, 20-valent ([id number]) 11/22/2021 Pneumococcal Polysaccharide PPV23 (Pneumovax) 10/23/2013,09/09/2007 Seasonal Influenza, High Dos e, Trivalent, PF, IM (Fluzone HD) 03/09/2019 Seasonal Influenza, Quadriva lent Hd (Fluzone Hd) 03/14/2023,02/14/2022 Seasonal Influenza, Trivalen t, (IIV3), with Preserv, (Fluzone) 01/31/2016,01/21/2015,03/05/2014,11/2010,02/03/2009,01/28/2008,03/20/20 01 03/20/2002 Varicella Zoster Vaccine (Adult) 11/04/2015 documented as of this encounter Social History Tobacco Use Types Packs/Day Years Used Date Smoking Tobacco: Never Passive Smoke Exposure: Never Smokeless Tobacco: Never Alcohol Use Standard Drinks/Week Comments No 0 (1 standard drink = 0.6 oz pur e alcohol) Utilities Answer Date Recorded Do you have trouble paying y our heating, water, or electric bill? (Adult - for ages 18 years and over) Not on file 10/09/2023 Is your family able to pay t he heat, water, or electric bill? (Household - for ages 0-17 years) Not on file 10/09/2023 Does your family have access to good internet? (Household - for ages 0-17 years) Not on file 10/09/2023 Social Connections Answer Date Recorded How often do you feel lonely or isolated from those around you? (Adult - for ages 18 years and over) Not on file 10/09/2023 Sex and Gender Information Value Date Recorded Sex Assigned at Female 03/11/2023 7:21 PM EST Gender Identity Female 03/11/2023 7:21 PM EST Sexual Orientation Straight 03/11/2023 7: 21 PM EST Job Start Date Occupation Industry Not on file Not on file Not on file documented as of this encounter Miscellaneous Notes * Telephone Encounter - Claudine Bergman OSA - 01/09/2024 2:50 PM EDT Eliseo from [facility] is calling in stating that the patient would like to keep her oxygen now. Any questions please give her a call. Thank you! * Telephone Encounter - Sheyla Lynch OSA - 01/01/2024 9:11 AM EDT Order to cancel oxygen faxed to [facility]. documented in this encounter Plan of Treatment Upcoming Encounters Date Type Department Care Team (Late st Contact Info) Description 01/25/2024 11:00 AM EDT Nurse Only Rheumatology [address] [place] [phone] [place], Nurse [address] [place] [address] 10/13/2024 10:00 AM EDT Office Visit Rheumatology [address] [place] [phone] Theo Humphries MD [address] [facility] [place] [address] 12/01/2024 12:00 PM EDT Office Visit Pulmonary Medicine, [facility] [address] [place] [address] Les Paul MD [address] [place] [phone] Health Maintenance Due Date Last Done Comments Depression Screening 1957 Zoster Vaccines (2 of 3) 12/30/2015 11/04/2015 TSH 04/07/2017 04/07/2016, 08/21, 05/26/2014, Additional history exists DXA Scan 10/26/2022 10/26/2020, 01/22, 11/24/2015, Additional history exists *BISPHONATE OR OTHER ACCEPTABLE MEDICATION NEEDED FOR OSTEOPOROSIS (REFER TO SMARTSET #1146) 05/12/2023 COVID-19 Vaccine ( season) 2023 03/18/2023, 03/18/2023, 03/21/2022, Additional history exists Influenza Vaccine (FLU shot) (#1) 2023 03/14/2023, 02/14/2022, 03/09/2019, Additional history exists Colonoscopy 10/12/2024 10/12/2021, 06/21, 12/23/2004, Additional history exists Pneumococcal Vaccine: 65+ Years Completed 11/22/2021, 09/30/2015, 10/23/2013, Additional history exists VITAMIN D LEVEL ONCE IN A LIFETIME-USE SMARTSET# 23668 Completed 05/17/2023, 04/07/2016, 12/30/2015, Additional history exists HPV (Gardasil) Vaccine Aged Out No lo nger eligible based on patient's age to complete this topic Hepatitis B Vaccine Aged Out No longe r eligible based on patient's age to complete this topic MENINGOCOCCAL (MENACTRA/MENVEO) Aged Out No longer eligible based on patient's age to complete this topic documented as of this encounter Medical Devices Implanted Type Area Edge Bonder Device Identifier Shelf Expiration Date Model / Serial / Lot Lens Intraoc 25.5 - [id number] - [id number] Implanted:Qty: 1 on 03/28/2022 by Kian Rhodes MD at OR [facility] Left: Eye BAUSCH & LOMB 10/20/2026 [id number] / [id number] documented as of this encounter Advance Directives * No Code (Latest Code Status on File) Date Activated Date Inactivated Comments 03/28/2022 9:16 AM 03/28/2022 3:58 PM This order r eflects the patients wishes and were consensually agreed upon. Question Answer Comments Discussion of Advance Directives occurred with: Patient Does the patient have a Living Will? No Does the patient have Health Care Power of Attor lachelle? No * Full Code Date Activated Date Inactivated Comments 07/18/2012 1:45 PM 07/19/2012 4:53 PM This order r eflects the patients wishes and were consensually agreed upon. * Full Code Date Activated Date Inactivated Comments 01/26/2012 5:46 PM 01/28/2012 3:35 PM This order r eflects the patients wishes and were consensually agreed upon. Care Teams Emergency Vehicle Operator Relationship Specialty Start Date End Date Theo Tripathi DO [address] [place] [address] PCP - General Family Medicine 09/29/20 documented as of this encounter
--- OUTSIDE RECORDS SUMMARY | 2024-01-26 12:24 | External Medical Summary | Summary of Care ---
Author Name Unknown Organization [facility] Address [address] [place] [address] Phone [phone] Care Team Providers Care Inspector Plumbing Name Role Phone Theo Tripathi Primary Care Provider [phone] Reason for Visit * Reason Onset Date Comments Order Request 01/22/2024 Encounter Details Date Type Department Care Team (Late st Contact Info) Description 01/22/2024 Telephone Rheumatology [address] [address] Theo Humphries MD [address] [place] [address] Order Request Allergies Active Allergy Reactions Criticality Noted Date [...] as of this encounter (statuses as of 01/22/2024) Medications Medication Sig Dispensed Refills Start Date [...] Tablet by mouth every evening. 2021 Active Dnfrbaxtcw-WDGG-Sk ffeine 50-325-40 MG Oral Capsule Take 1 [...] Blister Dosing Unit 2 09/04/2023 Active Nystatin 156766 UNIT/ML Mouth/Throat Suspension APPLY 1 ML BUCCALLY [...] for Wheezing. 15 g 12 11/29/2023 Active Hospital, Clinic, or Other Facility Administered Medication Ordered Dose Route Frequency Start Date End Date Status Denosumab (Prolia) subcut inj 60 mgIndications:Senile osteoporosis 60 mg SC [id number] 01/22/2024 01/16/2025 Active documented as of this encounter (statuses as of 01/22/2024) Active Problems Problem Noted Date Diagnosed Date [...] Obesity Protocol, #19 Chronic interstitial cystitis 07/28/2008 [place] ulcerative colitis 10/13/2004 Diaphragmatic hernia 10/13/2004 GERD (gastroesophageal reflux disease) 5 GENERAL OSTEOARTHROSIS 03/13/2002 Intradermal nevus, Back 09/10/99 01/09/2002 documented as of this encounter (statuses as of 01/22/2024) Resolved Problems Problem Noted Date Diagnosed Date Resolved Date Methotrexate, termination clerk, current use 09/27/2020 02/08/2022 Osteoporosis 09/27/2015 12/30/2015 #[id number]-[id number]/SEUN/ Godwin Villarreal 03/09/2003 0 08/06/2009 Overview: Renamed Per Clinical Trials Billing Project. Pt is a participant in the [employer] (Consortium of Rheumatology Researchers of [place]) national data collection study. For further information please call Dr Michael Villarreal or Alis Torres, RN, CCRC at [phone] [employer] RESEARCH OTHER*[id number] 03/09/2003 10/18/2009 Overview: Renamed Per Clinical Trials Billing Project. Pt is a participant in the [employer] (Consortium of Rheumatology Researchers of [place]) national data collection study. For further information please call Dr Michael Villarreal or Alis Torres RN, [facility] at [phone] ARTHRITIS,RHEUMATOID 03/13/2002 016 Overview: MTX (2000-) documented as of this encounter (statuses as of 01/22/2024) Immunizations Name Administration Dates Next Due COVID-19 mRNA, LNP-s, No Pre serve, 2-Dose Series (Moderna) 07/28/2020,06/27/2020,05/28/2020 COVID-19, mRNA, LNP-s, PF, B ooster, 100mcg/0.5mg (Moderna) 01/22/2021 Covid-19, Mrna, Lnp-s, Pf, B ivalent, 30 Mcg, IM, 12 yrs and above (Pfizer) 03/21/2022 PPD 06/04/2006 Pneumococcal Conjugate Vacc, 13 Valent (Prevnar) 09/30/2015 Pneumococcal Conjugate Vacci ne, 20-valent ([id number]) 11/22/2021 Pneumococcal Polysaccharide PPV23 (Pneumovax) 10/23/2013,09/09/2007 Seasonal Influenza, High Dos e, Trivalent, PF, IM (Fluzone HD) 03/09/2019 Seasonal Influenza, Quadriva lent Hd (Fluzone Hd) 03/14/2023,02/14/2022 Seasonal Influenza, Trivalen t, (IIV3), with Preserv, (Fluzone) 01/31/2016,01/21/2015,03/05/2014,12/29,02/03/2009,01/28/2008 Varicella Zoster Vaccine (Adult) 11/04/2015 documented as [...] encounter Miscellaneous Notes * Telephone Encounter - Theo Humphries MD - 01/22/2024 8:33 AM EDT signed * Telephone Encounter - Clotilde Page LPN - 01/22/2024 8:03 AM EDT Chart reviewed and labs noted to be within normal limits. Patient has been seen within the last 12 months by a Rheumatology provider. Prolia authorization approved and updated in referral. AM orders pended for signature. Kidney functions lower, ok to give? documented in this encounter Plan of Treatment Upcoming Encounters Date Type Department Care Team (Late st Contact Info) Description 01/25/2024 11:00 AM EDT Nurse Only Rheumatology [address] [place] [phone] [place], Nurse [address] [place] [address] 10/13/2024 10:00 AM EDT Office Visit Rheumatology [address] [place] [phone] Theo Humphries MD [address] [place] [address] 12/01/2024 12:00 PM EDT Office Visit Pulmonary Medicine, [facility] [address] [place] [address] Les Paul MD [address] [place] [address] Health Maintenance Due Date Last Done Comments [...] D LEVEL ONCE IN A LIFETIME-USE SMARTSET# 12905 Completed 05/17/2023, 04/07/2016, 12/30/2015, Additional history exists [...] this encounter Medical Devices Implanted Type Area Blower Feeder Dyed Raw Stock Device Identifier Shelf Expiration Date Model / Serial / Lot Lens Intraoc 25.5 - [id number] - [id number] Implanted:Qty: 1 on 03/28/2022 by Kian Rhodes MD at OR [facility] Left: Eye BAUSCH & LOMB 10/20/2026 [id number] / [id number] / [id number] documented as of this encounter Visit Diagnoses Diagnosis Senile osteoporosis- Primary documented in this encounter Advance Directives * No Code [...] and were consensually agreed upon. Care Teams Inspector Plumbing Relationship Specialty Start Date End Date Theo Tripathi DO [address], [place] [address] PCP - General Family Medicine 09/29/20 documented as of this encounter
--- OUTSIDE RECORDS SUMMARY | 2024-01-26 12:24 | External Medical Summary | Summary of Care ---
Author Name Unknown Organization [facility] Address [address] [place] [address] Phone [phone] Care Team Providers Care Freight Loader Name Role Phone Theo Tripathi DO Primary Care Provider [phone] Encounter Details Date Type Department Care Team (Late st Contact Info) Description 01/09/2024 Orders Only Pulmonary Medicine Evonne Anton [address] [address] [phone] Les Paul MD [address] [phone] Allergies Active Allergy Reactions Criticality Noted Date [...] Tablet by mouth every evening. 2021 Active Ssjozsolrw-EKRZ-Ye ffeine 50-325-40 MG Oral Capsule Take 1 [...] Blister Dosing Unit 2 09/04/2023 Active Nystatin 400659 UNIT/ML Mouth/Throat Suspension APPLY 1 ML BUCCALLY [...] Obesity Protocol, #19 Chronic interstitial cystitis 07/28/2008 [place] ulcerative colitis 10/13/2004 Diaphragmatic hernia 10/13/2004 GERD (gastroesophageal reflux disease) 5 GENERAL OSTEOARTHROSIS 03/13/2002 Intradermal nevus, Back 09/10/99 01/09/2002 documented as of this encounter (statuses as of 01/09/2024) Resolved Problems Problem Noted Date Diagnosed Date Resolved Date Methotrexate, snf, current use 09/27/2020 02/08/2022 Osteoporosis 09/27/2015 12/30/2015 #[id number]-192/SEUN/ Godwin Villarreal 03/09/2003 0 08/06/2009 Overview: Renamed Per Clinical Trials Billing Project. Pt is a participant in the [employer] (Consortium of Rheumatology Researchers of [place]) national data collection study. For further information please call Dr Michael Villarreal or Alis Torres, RN, CCRC at [phone] [facility] RESEARCH OTHER*[id number] 03/09/2003 10/18/2009 Overview: Renamed Per Clinical Trials Billing Project. Pt is a participant in the [employer] (Consortium of Rheumatology Researchers of [place]) national data collection study. For further information please call Dr Michael Villarreal or Alis Torres, RN, CCRC at [phone] ARTHRITIS,RHEUMATOID 03/13/2002 016 Overview: MTX (2000-) documented [...] (Prevnar) 09/30/2015 Pneumococcal Conjugate Vacci ne, 20-valent ([id number]) 11/22/2021 Pneumococcal Polysaccharide PPV23 (Pneumovax) 10/23/2013,09/09/2007 Seasonal [...] on file documented as of this encounter Plan of Treatment Upcoming Encounters Date Type Department Care Team (Late st Contact Info) Description 01/25/2024 11:00 AM EDT Nurse Only Rheumatology [address] [place] [phone] [place], Nurse [address] [place] [phone] 10/13/2024 10:00 AM EDT Office Visit Rheumatology [address] [place] [phone] Theo Humphries MD [address] [place] [address] 12/01/2024 12:00 PM EDT Office Visit Pulmonary Medicine, [facility] [address] [facility] [place] [address] Les Paul MD [address] [facility] [place] [phone] Health Maintenance Due Date Last Done Comments Depression Screening 1957 Zoster Vaccines (2 of 3) 12/30/2015 11/04/2015 TSH 04/07/2017 04/07/2016, 08/21, 05/26/2014, Additional history exists *BISPHONATE OR OTHER ACCEPTABLE MEDICATION NEEDED FOR OSTEOPOROSIS (REFER TO SMARTSET #1146) 05/12/2023 COVID-19 Vaccine ( season) 2023 03/18/2023, 03/18/2023, 03/21/2022, Additional history exists Influenza Vaccine (FLU shot) (#1) 2023 03/14/2023, 02/14/2022, 03/09/2019, Additional history exists Colonoscopy 10/12/2024 10/12/2021, 06/21, 12/23/2004, Additional history exists DXA Scan 01/08/2026 10/26/2020, 01/22, 11/24/2015, Additional history exists Pneumococcal Vaccine: 65+ Years Completed 11/22/2021, 09/30/2015, 10/23/2013, Additional history exists VITAMIN D LEVEL ONCE IN A LIFETIME-USE SMARTSET# 72734 Completed 05/17/2023, 04/07/2016, 12/30/2015, Additional history exists [...] this encounter Medical Devices Implanted Type Area Pet Care Attendant Device Identifier Shelf Expiration Date Model / Serial / Lot Lens Intraoc 25.5 - [id number] - [id number] Implanted:Qty: 1 on 03/28/2022 by Kian Rhodes MD at [facility] Left: Eye BAUSCH & LOMB 10/20/2026 [id number] / [id number] / [id number] documented as of this encounter Procedures Procedure Name Priority Date/Time Associated Diagnosis Comments DEXA SCAN/BONE MINERAL AXIAL Routine 02/18/2019 documented in this encounter Results * DEXA SCAN/BONE MINERAL AXIAL (02/18/2019) Anatomical Region Laterality Modality Dexa, Vertebra, Spine, Hip, Pelvis Other 02/18/2019 History Per Patient RADIOLOGY (RAD GENER AL) documented in this encounter Advance Directives * [...] and were consensually agreed upon. Care Teams Freight Loader Relationship Specialty Start Date End Date Theo Tripathi DO [address] [facility] [address] [place] [address] PCP - General Family Medicine 09/29/20 documented as of this encounter
--- OUTSIDE RECORDS SUMMARY | 2024-01-26 12:24 | External Medical Summary | Summary of Care ---
Author Name Unknown Organization [facility] Address [address] [place] [address] Phone [phone] Care Team Providers Care Carroting Machine Operator Name Role Phone Theo Tripathi Primary Care Provider [phone] [phone] Reason for Visit * Reason Onset Date Comments Durable Medical Equipment 01/01/2024 Kepp O xygen now Encounter Details Date Type Department Care Team (Late st Contact Info) Description 01/01/2024 Telephone Pulmonary Medicine Evonne Anton [address] [place] [phone] Les Paul MD [address] [phone] Durable Medical Equipment (Kepp Oxygen now) Allergies [...] as of this encounter (statuses as of 01/10/2024) Medications Medication Sig Dispensed Refills Start Date [...] Tablet by mouth every evening. 2021 Active Kqxpqeesjw-ZVOR-Ed ffeine 50-325-40 MG Oral Capsule Take 1 [...] Blister Dosing Unit 2 09/04/2023 Active Nystatin 073628 UNIT/ML Mouth/Throat Suspension APPLY 1 ML BUCCALLY [...] as of this encounter (statuses as of 01/10/2024) Active Problems Problem Noted Date Diagnosed Date [...] Obesity Protocol, #19 Chronic interstitial cystitis 07/28/2008 [place] ulcerative colitis 10/13/2004 Diaphragmatic hernia 10/13/2004 GERD (gastroesophageal reflux disease) 5 GENERAL OSTEOARTHROSIS 03/13/2002 Intradermal nevus, Back 09/10/99 01/09/2002 documented as of this encounter (statuses as of 01/10/2024) Resolved Problems Problem Noted Date Diagnosed Date Resolved Date Methotrexate, heel scorer, current use 09/27/2020 02/08/2022 Osteoporosis 09/27/2015 12/30/2015 #00R-192/SEUN/ Godwin Villarreal 03/09/2003 0 08/06/2009 Overview: Renamed Per Clinical Trials Billing Project. Pt is a participant in the [employer] (Consortium of Rheumatology Researchers of [place]) national data collection study. For further information please call Dr Michael Villarreal or Alis Torres, RN, CCRC at [phone] [facility] RESEARCH OTHER*[id number] 03/09/2003 10/18/2009 Overview: Renamed Per Clinical Trials Billing Project. Pt is a participant in the [employer] (Consortium of Rheumatology Researchers of [place]) national data collection study. For further information please call Dr Michael Villarreal or Alis Torres RN, CCRC at [phone] ARTHRITIS,RHEUMATOID 03/13/2002 016 Overview: MTX (2000-) documented as of this encounter (statuses as of 01/10/2024) Immunizations Name Administration Dates Next Due COVID-19 mRNA, LNP-s, No Pre serve, 2-Dose Series (Moderna) 07/28/2020,06/27/2020,05/28/2020 COVID-19, mRNA, LNP-s, PF, B ooster, 100mcg/0.5mg (Moderna) 01/22/2021 Covid-19, Mrna, Lnp-s, Pf, B ivalent, 30 Mcg, IM, 12 yrs and above (Pfizer) 03/21/2022 PPD 06/04/2006,03/09/2003 Pneumococcal Conjugate Vacc, 13 Valent (Prevnar) 09/30/2015 Pneumococcal Conjugate Vacci ne, 20-valent ([id number]) 11/22/2021 Pneumococcal Polysaccharide PPV23 (Pneumovax) 10/23/2013,09/09/2007 Seasonal [...] encounter Miscellaneous Notes * Telephone Encounter - Coco Peng LPN - 01/10/2024 9:25 AM EDT FYI to the provider * Telephone Encounter - Claudine Bergman OSA - 01/09/2024 2:50 PM EDT Eliseo from [facility] is calling in stating that the patient would like to keep her oxygen now. Any questions please give her a call. Thank you! * Telephone Encounter - Sheyla Lynch OSA - 01/01/2024 9:11 AM EDT Order to cancel oxygen faxed to [facility]. documented in this encounter Plan of Treatment Upcoming Encounters Date Type Department Care Team (Late st Contact Info) Description 01/25/2024 11:00 AM EDT Nurse Only Rheumatology [place] David [address] [place] [phone] [place], Nurse [address] [place] [phone] 10/13/2024 10:00 AM EDT Office Visit Rheumatology [address] [place] [phone] Theo Humphries MD [address] [place] [address] 12/01/2024 12:00 PM EDT Office Visit Pulmonary Medicine, [facility] [address] [facility] [place] [address] Les Paul MD [address] [place] [address] Health Maintenance Due Date [...] D LEVEL ONCE IN A LIFETIME-USE SMARTSET# [id number] Completed 05/17/2023, 04/07/2016, 12/30/2015, Additional history exists [...] this encounter Medical Devices Implanted Type Area Hand Shaker Device Identifier Shelf Expiration Date Model / Serial / Lot Lens Intraoc 25.5 - [id number] - [id number] Implanted:Qty: 1 on 03/28/2022 by Kian Rhodes MD at [facility] Left: Eye [employer] LOMB 10/20/2026 [id number] / [id number] / [id number] documented as of this encounter Advance Directives [...] and were consensually agreed upon. Care Teams Carroting Machine Operator Relationship Specialty Start Date End Date Theo Tripathi DO [address] [place] [address] PCP - General Family Medicine 09/29/20 documented as of this encounter
--- OUTSIDE RECORDS SUMMARY | 2024-01-26 12:24 | External Medical Summary | Summary of Care ---
Author Name Unknown Organization [facility] Address [address] [place] [address] Phone [phone] Care Team Providers Care Air Force Pilot Name Role Phone Theo Tripathi Primary Care Provider [phone] Reason for Visit * Reason Onset Date Comments Medication Administration Prolia Medication Administration 01/25/2024 Prolia * Precert (Within 30 days (routine)) - Authorized Specialty Diagnoses / Procedures Referred By Contac t Referred To Contact Rheumatology Diagnoses Age-related osteoporosis without current pathological fracture Procedures NM DENOSUMAB INJECTION Theo Humphries MD [address] [place] [address] Theo Humphries MD [address] [place] [address] Referral ID Status Reason Start Date Expiration Date V isits Requested Visits Authorized [id number] Authorized Precert 09/28/2023 09/27/2024 2 2 Encounter Details Date Type Department Care Team (Late st Contact Info) Description 01/25/2024 11:00 AM EDT Nurse Only Rheumatology [address] [place] [phone] [place], Nurse Rheum [address] [place] [phone] Medication Administration (Prolia); Medica... Allergies Active Allergy Reactions Criticality Noted Date [...] as of this encounter (statuses as of 01/25/2024) Medications Medication Sig Dispensed Refills Start Date [...] Tablet by mouth every evening. 2021 Active Bxssepscjc-PKLC-Vc ffeine 50-325-40 MG Oral Capsule Take 1 [...] Blister Dosing Unit 2 09/04/2023 Active Nystatin 198530 UNIT/ML Mouth/Throat Suspension APPLY 1 ML BUCCALLY [...] inj 60 mgIndications:Senile osteoporosis 60 mg SC [id number] 01/22/2024 01/16/2025 Active documented as of this encounter (statuses as of 01/25/2024) Active Problems Problem Noted Date Diagnosed Date [...] Obesity Protocol, #19 Chronic interstitial cystitis 07/28/2008 [place] ulcerative colitis 10/13/2004 Diaphragmatic hernia 10/13/2004 GERD (gastroesophageal reflux disease) 5 GENERAL OSTEOARTHROSIS 03/13/2002 Intradermal nevus, Back 09/10/99 01/09/2002 documented as of this encounter (statuses as of 01/25/2024) Resolved Problems Problem Noted Date Diagnosed Date Resolved Date Methotrexate, mcc, current use 09/27/2020 02/08/2022 Osteoporosis 09/27/2015 12/30/2015 #00R-192/SEUN/ Godwin Villarreal 03/09/2003 0 08/06/2009 Overview: Renamed Per Clinical Trials Billing Project. Pt is a participant in the [facility] (Consortium of Rheumatology Researchers of [place]) national data collection study. For further information please call Dr Michael Villarreal or Alis Torres, RN, CCRC at [phone] [facility] RESEARCH OTHER*[id number] 03/09/2003 10/18/2009 Overview: Renamed Per Clinical Trials Billing Project. Pt is a participant in the [employer] (Consortium of Rheumatology Researchers of [facility]) national data collection study. For further information please call Dr Michael Villarreal or Alis Torres, RN, CCRC at [phone] ARTHRITIS,RHEUMATOID 03/13/2002 016 Overview: MTX (2000-) documented as of this encounter (statuses as of 01/25/2024) Immunizations Name Administration Dates Next Due COVID-19 mRNA, LNP-s, No Pre serve, 2-Dose Series (Moderna) 07/28/2020,06/27/2020,05/28/2020 COVID-19, mRNA, LNP-s, PF, B ooster, 100mcg/0.5mg (Moderna) 01/22/2021 Covid-19, Mrna, Lnp-s, Pf, B ivalent, 30 Mcg, IM, 12 yrs and above (Pfizer) 03/21/2022 PPD 06/04/2006 Pneumococcal Conjugate Vacc, 13 Valent (Prevnar) 09/30/2015 Pneumococcal Conjugate Vacci ne, 20-valent ([id number]) 11/22/2021 Pneumococcal Polysaccharide PPV23 (Pneumovax) 10/23/2013,09/09/2007 Seasonal Influenza Vac., MDV , IM, 0.5 mL (Fluzone) 01/31/2016,01/21/2015,03/05/2014,12/29,02/03/2009,01/28/2008 Seasonal Influenza, High Dos e, Trivalent, PF, IM (Fluzone HD) 03/09/2019 Seasonal Influenza, Quadriva lent Hd (Fluzone Hd) 03/14/2023,02/14/2022 Varicella Zoster Vaccine (Adult) 11/04/2015 documented as of this encounter Social History Tobacco Use Types Packs/Day Years Used Date Smoking Tobacco: Never Passive Smoke Exposure: Never Smokeless Tobacco: Never Tobacco Cessation:Counseling Given: Not Answered Alcohol Use Standard Drinks/Week Comments No 0 [...] on file documented as of this encounter Last Filed Vital Signs Vital Sign Reading Time Taken Comments Blood Pressure - - Pulse - - Temperature 36.7 C (98 F) 01/25/2024 10:57 AM EDT Respiratory Rate - - Oxygen Saturation - - Inhaled Oxygen Concentration - - Weight - - Height - - Body Mass Index - - documented in this encounter Progress Notes * Jillian Zabala LPN - 01/25/2024 10:58 AM EDT Mariel Camarillo Aislinn presents today for administration of Prolia. She understands the benefits and risks of this treatment. An educational pamphlet was given to the patient. Prolia 60 mg was administered subcutaneously. The patient tolerated the procedure without problems. She will return in 6 months for the next injection and evaluation. Jillian Zabala LPN documented in this encounter Nursing Notes * Jillian Zabala LPN - 01/25/2024 10:57 AM EDT Chief Complaint Patient presents with Medication Administration Prolia Patient denies being on any antibiotics, no current infections, no upcoming surgeries or dental procedures, no open wounds or sores, no current fractures. documented in this encounter Plan of Treatment Upcoming Encounters Date Type Department Care Team (Late st Contact Info) Description 10/13/2024 10:00 AM EDT Office Visit Rheumatology [address] [place] [phone] Theo Humphries MD [address] [facility] [place] [address] 12/01/2024 12:00 PM EDT Office Visit Pulmonary Medicine, [facility] [address] [facility] [place] [address] Les Paul MD [address] [place] [phone] Health Maintenance Due Date Last Done Comments Depression Screening 1957 Zoster Vaccines (2 of 3) 12/30/2015 11/04/2015 TSH 04/07/2017 04/07/2016, 08/21, 05/26/2014, Additional history exists DXA Scan 10/26/2022 10/26/2020, 01/22, 11/24/2015, Additional history exists COVID-19 Vaccine ( season) 2023 03/18/2023, 03/18/2023, 03/21/2022, Additional history exists Influenza Vaccine (FLU shot) (#1) 2023 03/14/2023, 02/14/2022, 03/09/2019, Additional history exists Colonoscopy 05/28/2026 05/28/2023, 09/22, 07/08/2020, Additional history exists Pneumococcal Vaccine: 65+ Years Completed 11/22/2021, 09/30/2015, 10/23/2013, Additional history exists VITAMIN D LEVEL ONCE IN A LIFETIME-USE SMARTSET# [id number] Completed 05/17/2023, 04/07/2016, 12/30/2015, Additional history exists [...] this encounter Medical Devices Implanted Type Area Police Matron Device Identifier Shelf Expiration Date Model / Serial / Lot Lens Intraoc 25.5 - [id number] - [id number] Implanted:Qty: 1 on 03/28/2022 by Kian Rhodes MD at [facility] Left: Eye [employer] LOM[employer] 10/20/2026 [id number] / [id number] / [id number] documented as of this encounter Visit Diagnoses Diagnosis Senile osteoporosis- Primary documented in this encounter Administered Medications Active Administered Medications - up to 3 most recent administrations Medication Order MAR Action Action Date Dose Rate Site Denosumab (Prolia) subcut inj 60 mg 60 mg, Subcutaneous, [id number], First dose on Sun01/22/24 at 0915, Last dose on Sun07/20/24 at 0915, For 2 doses Given 01/25/2024 11:03 AM EDT 60 mg Arm Right Upper documented in this encounter Advance Directives * [...] and were consensually agreed upon. Care Teams Air Force Pilot Relationship Specialty Start Date End Date Theo Tripathi DO [address] [address] PCP - General Family Medicine 09/29/20 documented as of this encounter
--- OUTSIDE RECORDS SUMMARY | 2024-01-26 12:25 | External Medical Summary | Summary of Care ---
Author Name Unknown Organization [facility] Address [address] [facility] [place] [address] Phone [phone] Care Team Providers Care Scalder Name Role Phone Theo Tripathi DO Primary Care Provider [phone] Reason for Visit * Reason Onset Date Comments Test Results 12/14/2023 Overnight pulse ox Encounter Details Date Type Department Care Team (Late st Contact Info) Description 12/14/2023 Telephone Pulmonary Medicine, [facility] [address] [facility] [place] [address] Les Camacho MD [address] [place] [address] Test Results (Overnight pulse ox) Allergies Active Allergy Reactions Criticality Noted Date [...] as of this encounter (statuses as of 01/04/2024) Medications Medication Sig Dispensed Refills Start Date [...] Tablet by mouth every evening. 2021 Active Nrduafdxdp-UDWU-Os ffeine 50-325-40 MG Oral Capsule Take 1 [...] Blister Dosing Unit 2 09/04/2023 Active Nystatin 835106 UNIT/ML Mouth/Throat Suspension APPLY 1 ML BUCCALLY [...] as of this encounter (statuses as of 01/04/2024) Active Problems Problem Noted Date Diagnosed Date [...] Obesity Protocol, #19 Chronic interstitial cystitis 07/28/2008 [place] ulcerative colitis 10/13/2004 Diaphragmatic hernia 10/13/2004 GERD (gastroesophageal reflux disease) 5 GENERAL OSTEOARTHROSIS 03/13/2002 Intradermal nevus, Back 09/10/99 01/09/2002 documented as of this encounter (statuses as of 01/04/2024) Resolved Problems Problem Noted Date Diagnosed Date Resolved Date Methotrexate, halfway, current use 09/27/2020 02/08/2022 Osteoporosis 09/27/2015 12/30/2015 #00R-192/SEUN/ Godwin Villarreal 03/09/2003 0 08/06/2009 Overview: Renamed Per Clinical Trials Billing Project. Pt is a participant in the [employer] (Consortium of Rheumatology Researchers of [place]) national data collection study. For further information please call Dr Michael Villarreal or Alis Torres, RN, CCRC at [phone] [facility] RESEARCH OTHER*[id number] 03/09/2003 10/18/2009 Overview: Renamed Per Clinical Trials Billing Project. Pt is a participant in the [employer] (Consortium of Rheumatology Researchers of [place]) national data collection study. For further information please call Dr Michael Villarreal or Alis Torres, RN, CCRC at [phone] ARTHRITIS,RHEUMATOID 03/13/2002 016 Overview: MTX (2000-) documented as of this encounter (statuses as of 01/04/2024) Immunizations Name Administration Dates Next Due COVID-19 mRNA, LNP-s, No Pre serve, 2-Dose Series (Moderna) 07/28/2020,06/27/2020,05/28/2020 COVID-19, mRNA, LNP-s, PF, B ooster, 100mcg/0.5mg (Moderna) 01/22/2021 Covid-19, Mrna, Lnp-s, Pf, B ivalent, 30 Mcg, IM, 12 yrs and above (Pfizer) 03/21/2022 PPD 06/04/2006,03/09/2003 Pneumococcal Conjugate Vacc, 13 Valent (Prevnar) 09/30/2015 Pneumococcal Conjugate Vacci ne, 20-valent ([id number]) 11/22/2021 Pneumococcal Polysaccharide PPV23 (Pneumovax) 10/23/2013,09/09/2007 Seasonal Influenza, High Dos e, Trivalent, PF, IM (Fluzone HD) 03/09/2019 Seasonal Influenza, Quadriva lent Hd (Fluzone Hd) 03/14/2023,02/14/2022 Seasonal Influenza, Trivalen t, (IIV3), with Preserv, (Fluzone) 01/31/2016,01/21/2015,03/05/2014,11/2010,02/03/2009,01/28/2008,03/20/2003/20/2002 Varicella Zoster Vaccine (Adult) 11/04/2015 documented as [...] Telephone Encounter - Coco Peng LPN - 01/04/2024 9:47 AM EDT Please see other message regarding O2 use * Telephone Encounter - Patricia Bird LPN - 12/19/2023 11:02 AM EDT LM relaying Dr Camacho's recommendation and asking her to call back with DME preferance. * Addendum Note - Les Camacho MD - 12/19/2023 10:52 AM EDTAddended by: LES CAMACHO on: 12/19/2023 10:52 AM Modules accepted: Orders * Telephone Encounter - Les Camacho MD - 12/19/2023 10:26 AM EDT Positive nocturnal oximetry for hypoxia. LPM nasal cannula oxygen for nighttime use being ordered. * Telephone Encounter - Jillian March LPN - 12/14/2023 10:30 AM EDT Overnight pulse oximetry results given to provider for review. documented in this encounter Plan of Treatment Upcoming Encounters Date Type Department Care Team (Late st Contact Info) Description 01/25/2024 11:00 AM EDT Nurse Only Rheumatology [address] [place] [phone] [place], Nurse Rheum [address] [place] [address] 04/08/2024 1:30 PM EST Imaging Radiology, [place] [address] [employer] [place] [address] 10/13/2024 10:00 AM EDT Office Visit Rheumatology [address] [place] [phone] Theo Humphries MD [facility] [employer] [place] [address] 12/01/2024 12:00 PM EDT Office Visit Pulmonary Medicine, [facility] [address] [facility] [place] [phone] Les Camacho MD [address] [facility] [place] [phone] Health Maintenance Due Date Last Done Comments Depression Screening 1957 Zoster Vaccines (2 of 3) 12/30/2015 11/04/2015 TSH 04/07/2017 04/07/2016, 08/21, 05/26/2014, Additional history exists DXA Scan 10/26/2022 10/26/2020, 0806/2015, 11/13/2013 *BISPHONATE OR OTHER ACCEPTABLE MEDICATION NEEDED FOR OSTEOPOROSIS (REFER TO SMARTSET #1146) 05/12/2023 COVID-19 Vaccine ( season) 2023 03/18/2023, 03/18/2023, 03/21/2022, Additional history exists Influenza Vaccine (FLU shot) (#1) 2023 03/14/2023, 02/14/2022, 03/09/2019, Additional history exists Colonoscopy 10/12/2024 10/12/2021, 06/21, 12/23/2004, Additional history exists Pneumococcal Vaccine: 65+ Years Completed 11/22/2021, 09/30/2015, 10/23/2013, Additional history exists VITAMIN D LEVEL ONCE IN A LIFETIME-USE SMARTSET# 95656 Completed 05/17/2023, 04/07/2016, 12/30/2015, Additional history exists [...] this encounter Medical Devices Implanted Type Area Gas Leak Inspector Device Identifier Shelf Expiration Date Model / Serial / Lot Lens Intraoc 25.5 - [id number] - [id number] Implanted:Qty: 1 on 03/28/2022 by Kian Rhodes MD at [facility] Left: Eye [employer]OMB 10/20/2026 [id number] / [id number] / [id number] documented as of this encounter Visit Diagnoses Diagnosis Chronic respiratory failure with hypoxia (HCC)- Primary Chronic respiratory failure documented in this encounter Advance Directives * [...] and were consensually agreed upon. Care Teams Scalder Relationship Specialty Start Date End Date Theo Tripathi DO [address] [facility] [address] [place] [address] PCP - General Family Medicine 09/29/20 documented as of this encounter
--- OUTSIDE RECORDS SUMMARY | 2024-01-26 12:25 | External Medical Summary | Summary of Care ---
Author Name Unknown Organization [facility] Address [address] [place] [facility] [place] [address] Phone [phone] Care Team Providers Care Assistant Property Manager Name Role Phone Theo Tripathi DO Primary Care Provider [phone] Reason for Visit * Reason Onset Date Comments Test Results 01/03/2024 6MW Encounter Details Date Type Department Care Team (Late st Contact Info) Description 01/03/2024 Telephone Pulmonary Medicine, [facility] [address] [facility] [place] [address] Les Paul MD [address] [place] [address] Test Results (6MW) Allergies Active Allergy Reactions Criticality Noted Date [...] as of this encounter (statuses as of 01/03/2024) Medications Medication Sig Dispensed Refills Start Date [...] Tablet by mouth every evening. 2021 Active Jjppzlcscz-TLJF-Ck ffeine 50-325-40 MG Oral Capsule Take 1 [...] Blister Dosing Unit 2 09/04/2023 Active Nystatin 436050 UNIT/ML Mouth/Throat Suspension APPLY 1 ML BUCCALLY [...] as of this encounter (statuses as of 01/03/2024) Active Problems Problem Noted Date Diagnosed Date [...] Obesity Protocol, #19 Chronic interstitial cystitis 07/28/2008 [place] ulcerative colitis 10/13/2004 Diaphragmatic hernia 10/13/2004 GERD (gastroesophageal reflux disease) 5 GENERAL OSTEOARTHROSIS 03/13/2002 Intradermal nevus, Back 09/10/99 01/09/2002 documented as of this encounter (statuses as of 01/03/2024) Resolved Problems Problem Noted Date Diagnosed Date Resolved Date Methotrexate, window shade cloth sewer, current use 09/27/2020 02/08/2022 Osteoporosis 09/27/2015 12/30/2015 #00R-192/SEUN/ Godwin Villarreal 03/09/2003 0 08/06/2009 Overview: Renamed Per Clinical Trials Billing Project. Pt is a participant in the [employer] (Consortium of Rheumatology Researchers of [place]) national data collection study. For further information please call Dr Michael Villarreal or Alis Torres, RN, CCRC at [phone] [employer] RESEARCH OTHER*[id number] 03/09/2003 10/18/2009 Overview: Renamed Per Clinical Trials Billing Project. Pt is a participant in the [employer] (Consortium of Rheumatology Researchers of [place]) national data collection study. For further information please call Dr Michael Villarreal or Alis Torres, RN, CCRC at [phone] ARTHRITIS,RHEUMATOID 03/13/2002 016 Overview: MTX (2000-) documented as of this encounter (statuses as of 01/03/2024) Immunizations Name Administration Dates Next Due COVID-19 mRNA, LNP-s, No Pre serve, 2-Dose Series (Moderna) 07/28/2020,06/27/2020,05/28/2020 COVID-19, mRNA, LNP-s, PF, B ooster, 100mcg/0.5mg (Moderna) 01/22/2021 Covid-19, Mrna, Lnp-s, Pf, B ivalent, 30 Mcg, IM, 12 yrs and above (Pfizer) 03/21/2022 PPD 06/04/2006 Pneumococcal Conjugate Vacc, 13 Valent (Prevnar) 09/30/2015 Pneumococcal Conjugate Vacci ne, 20-valent ([id number]) 11/22/2021 Pneumococcal Polysaccharide PPV23 (Pneumovax) 10/23/2013,09/09/2007 Seasonal [...] encounter Miscellaneous Notes * Telephone Encounter - Patricia Bird LPN - 01/03/2024 9:21 AM EDT ----- Message from Les Paul MD sent at 01/03/2024 8:59 AM EDT ----- 6 Minute walk was negative for hypoxia during ambulation on November 29, 2023 documented in this encounter Plan of Treatment Upcoming Encounters Date Type Department Care Team (Late st Contact Info) Description 01/25/2024 11:00 AM EDT Nurse Only Rheumatology [address] [place] [phone] [place], Nurse [address] [place] [address] 04/08/2024 1:30 PM EST Imaging Radiology, [place] [address] [place] [address] 10/13/2024 10:00 AM EDT Office Visit Rheumatology [address] [place] [phone] Theo Humphries MD [facility] [place] [address] 12/01/2024 12:00 PM EDT Office Visit Pulmonary Medicine, [facility] [address] [place] [address] Les Paul MD [address] [place] [phone] Health Maintenance Due Date Last Done Comments [...] D LEVEL ONCE IN A LIFETIME-USE SMARTSET# 50881 Completed 05/17/2023, 04/07/2016, 12/30/2015, Additional history exists [...] this encounter Medical Devices Implanted Type Area Parimutuel Clerk Device Identifier Shelf Expiration Date Model / Serial / Lot Lens Intraoc 25.5 - [id number] - [id number] Implanted:Qty: 1 on 03/28/2022 by Kian Rhodes MD at [facility] Left: Eye [employer]OM[employer] 10/20/2026 [id number] / [id number] / [id number] documented as of this encounter Advance Directives [...] and were consensually agreed upon. Care Teams Assistant Property Manager Relationship Specialty Start Date End Date Theo Tripathi DO [address] [place] [address] PCP - General Family Medicine 09/29/20 documented as of this encounter
--- NOTE | 2024-01-26 12:40 | Emergency Department Note ---
Impression & Plan CHF (congestive heart failure), Pulmonary congestion, Elevated troponin, Anemia ED Provider Note NAME: SJ GORMAN AGE: 78 SEX: F : 1945 ARRIVES VIA: Walk-In INFORMANT: Patient ED PROVIDER(S): Parveen Carpenter DO CHIEF COMPLAINT: shortness of breath and chest pain HPI: Patient is an 78-year-old female who presents ER with a past medical history of CAD, A-fib, hypertension who presents to the ER for chest pain and shortness of breath which has been present since this past Sunday. She notes she cathed at the [facility] about 2 and half weeks ago. She was told that she had an abnormal cath but is uncertain of what was abnormal. Her PCP told her to stop her Lasix. She believes she has stopped this on Sunday and has gained 5 to 7 pounds. She admits to exertional chest pain and shortness of breath with any movement. She notes that she has constant midsternal chest pain which has been present since Sunday as well. It waxes and wanes in intensity with exertion. Friend provides additional history and thought that she was still on her Lasix but patient denies this. No cough or congestion. No other exacerbating or remitting factors. ADDITIONAL HISTORY OBTAINED: Per HPI Chronic Medical/Social Conditions Affecting Care: Per HPI PAST MEDICAL HISTORY:See Below PAST SURGICAL HISTORY:See Below FAMILY HISTORY:See Below SOCIAL HISTORY:See Below HOME MEDICATIONS:See Below ALLERGIES:See Below VITALS:See Below PHYSICAL EXAMINATION: GENERAL: Sitting up in bed, alert, well appearing, well nourished, no distress, non-toxic EYE EXAM: normal conjunctiva. PERRL and EOM's grossly intact. OROPHARYNX: mucous membranes are moist NECK: supple, no nuchal rigidity, no adenopathy, non-tender LUNGS: Clear to auscultation. Normal chest wall mechanics HEART: no murmurs, S1 normal and S2 normal ABDOMEN: abdomen soft, non-tender, normo-active bowel sounds, no masses, no rebound or guarding. UPPER EXTREMITIES: upper extremities are grossly normal. LOWER EXTREMITIES: Mild pitting edema NEURO EXAM: Normal sensorium, cranial nerves II-XII grossly intact, normal speech, no gross weakness of arms, no gross weakness of legs. MEDICAL DECISION MAKING: Patient is an 78-year-old female who presents ER for the above-stated complaint. IV was established medicos obtained. Labs show no significant leukocytosis and a mild anemia 11.7. BMP along with LFTs bilirubin is unremarkable. Troponin slightly elevated at 15. chest x-ray with pulmonary congestion. Patient was given IV Lasix updated at bedside discussed case with the hospitalist for further evaluation management treatment of her CHF likely secondary to her stopping her Lasix. Consults/Care Managements Discussions: Per MDM Triage Nursing notes reviewed. Limited review of prior medical records performed Vital Signs: reviewed and remarkable for HTN Differential diagnosis: Cardiac ischemia, aortic dissection, pulmonary embolism, pneumothorax, pneumonia, pericarditis, myocarditis, esophageal rupture, GERD, cholecystitis, pancreatitis, musculoskeletal, as well as other pathologies. ER treatment provided: See below Diagnostics interpreted by me include EKG and cardiac monitoring as listed below: -Cardiac Monitoring: An order was placed for continuous cardiac monitoring. The monitor shows a rate of 90 with sinus rhythm. -ECG: Sinus rhythm rate of 72 Left bundle branch block Left axis QTc 492 -Laboratory studies:Interpreted by me as stated above in MDM and shown below. Imaging studies: Xrays: As interpreted by me: Portable AP upright 1 view of the chest shows pulmonary edema CTs show: none Procedures:none Critical Care: None Past Med/Surg History Problem List (Updated 01/26/24 @ 17:42 by Parveen Carpenter DO) Anemia (Acute) Elevated troponin (Acute) Pulmonary congestion (Acute) CHF (congestive heart failure) (Acute) Shortness of breath Chest pain Right renal mass Stage 3b chronic kidney disease Acute kidney injury Mild persistent asthma Anxiety Pulmonary nodule Hypertension (Chronic) Paroxysmal atrial fibrillation (Chronic) Post-op after CABG. EKG 07/02/20 also shows afib. Seen by cardio 07/16/20 after brief hospitalization for UGIB. ASA was d/c'd at that time due to GI bleed. Cardio notes possible recent afib but states would not anticoagulate at this time anyway due to bleed. At [facility] appt, notably in SR on exam, and H/H has normalized. Pt will call batter out re: restarting ASA. CAD (coronary artery disease) (Chronic) s/p CABG x 3 in 2016. Aortic atherosclerosis (Chronic) Carotid artery plaque (Chronic) Chronic kidney disease, stage III (moderate) (Chronic) Chronic dyspnea Abnormal CT scan of lung Hyperlipidemia (Chronic) Hypothyroidism (Chronic) GERD (gastroesophageal reflux disease) (Chronic) Depression (Chronic) Physical debility Poor balance Morbid obesity with BMI of 40.0-44.9, adult Medical History Benign familial tremor Mobitz type 1 second degree AV block Anaplasmosis Rheumatoid arthritis Periodic limb movement disorder Familial adenomatous polyposis Metabolic syndrome Asthma Gastrointestinal bleed Generalized osteoarthritis Lumbar spinal stenosis Dyslipidemia Chronic sinusitis 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, 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, XX mosaicism Amblyopia History of fractured vertebra Surgical History History of permanent cardiac pacemaker placement History of sinus surgery History of tubal ligation History of esophagogastroduodenoscopy (EGD) (~2011) Hx of arthroplasty H/O arthroscopic knee surgery (~08/2018) History of thoracotomy (~03/2018) History of bilateral breast reduction surgery History of total abdominal hysterectomy and bilateral salpingo-oophorectomy History of colonoscopy (~06/2016) History of cataract surgery History of cardiac cath History of coronary artery bypass graft (~01/2016) History of bronchoscopy (~06/2013) Family History Brother Diabetes Heart disease Mother Stroke Father Stroke Grandmother Stroke Grandfather Stroke Aunt Breast cancer Son Congenital heart disease Unknown Hypertension Daughter Liposarcoma Denies family history of Ovarian cancer Prostate cancer Myocardial infarction Colorectal cancer Social History Smoking Status: Never smoker Second Hand Exposure: No; Do You Dip or Chew Tobacco: No; Hx Alcohol Use: Yes Alcohol type: beer Hx Substance Use: No Preferred Language: Niuean Communication Ability: Effective Visual Impairment: No Limitations Hearing Ability: Normal Acquisitions Analyst Required: No Beliefs That Will Affect Care: Yazdanism marital status: / Current Living Situation: Alone current occupational status: retired Feels Safe at Home: Yes Childhood Exposure to Second-Hand Smoke: No caffeine: Yes Dental Care, Regularly: Yes Physical Activity Frequency: Does not Exercise Seatbelt Use: always Sunscreen Use: No Assistive Devices: Cane Allergies Allergies Allergy/AdvReac Type Severity Reaction Status Date / Time diphtheria toxoid,fluid Allergy Intermediate TdAP=swelli Verified 01/26/24 13:58 ng/redness poliomyelitis vaccine,killed Allergy Intermediate TdAP=swelli Verified 01/26/24 13:58 ng/redness tetanus toxoid, adsorbed Allergy Intermediate TdAP=swelli Verified 01/26/24 13:58 ng/redness nickel Allergy Mild pruritus Verified 01/26/24 13:58 etanercept [From Enbrel] AdvReac Severe pneumonia Verified 01/26/24 13:58 amoxicillin [From Augmentin] AdvReac Intermediate GI symptoms Verified 01/26/24 13:58 clavulanic acid AdvReac Intermediate GI symptoms Verified 01/26/24 13:58 [From Augmentin] NSAIDS (Non-Steroidal AdvReac Intermediate gi bleed Verified 01/26/24 13:58 Anti-Inflamma Home Meds Home Medications Medication Instructions Recorded Confirmed aspirin 81 mg tablet,delayed 81 mg PO DAILY 09/22/22 01/26/24 release (Adult Low Dose Aspirin) cholecalciferol (vitamin D3) 25 25 mcg PO DAILY 09/22/22 01/26/24 mcg (1,000 unit) capsule nitroglycerin 0.4 mg sublingual 0.4 mg sublingual Q5M PRN Chest 09/22/22 01/26/24 tablet (Nitrostat) Pain calcium 600 mg (as 1 cap PO DAILY 02/01/23 01/26/24 carbonate)-vitamin D3 10 mcg (400 unit) capsule furosemide 80 mg tablet 0 mg PO DAILY 03/23/23 01/26/24 polyethylene glycol 3350 17 gram 17 g PO BID PRN Constipation 07/11/23 01/26/24 oral powder packet (Miralax) venlafaxine 75 mg capsule,extended 225 mg PO QAM 10/09/23 01/26/24 release 24 hr levothyroxine 100 mcg tablet 100 mcg PO QAM 01/26/24 01/26/24 metolazone 5 mg tablet 0 mg PO DAILY 01/26/24 01/26/24 omeprazole 40 mg capsule,delayed 40 mg PO QAM 01/26/24 01/26/24 release Previous Rx's Medication Instructions Recorded ferrous gluconate 236 mg (27 mg 236 mg PO DAILY #30 tabs 01/10/23 iron) tablet potassium chloride 20 mEq 20 meq PO BID #180 tabs 02/27/23 tablet,extended release fluticasone fur. 200 mcg-umeclid 1 inh inhalation DAILY #60 ea 03/02/23 62.5 mcg-vilant 25 mcg inhalat.powder (Trelegy Ellipta) montelukast 10 mg tablet 10 mg PO QPM #90 tabs 03/06/23 atorvastatin 40 mg tablet 40 mg PO HS #90 tabs 07/09/23 allopurinol 300 mg tablet 300 mg PO QAM #90 tabs 07/11/23 apixaban 5 mg tablet 5 mg PO BID #180 tabs 08/08/23 isosorbide mononitrate 60 mg 60 mg PO DAILY #90 tabs 08/08/23 tablet,extended release 24 hr metoprolol succinate 50 mg 50 mg PO DAILY #90 tabs 08/08/23 tablet,extended release 24 hr topiramate 25 mg tablet 25 mg PO .COMPLEX #270 tabs 09/19/23 Results & Data (ED) Vital Signs Vital Signs - 24 hr 01/26/24 12:19 01/26/24 13:36 01/26/24 13:48 Temperature 36.6 C Temperature Source Temporal Artery Scan Pulse Rate 92 H 65 60 Pulse Rate [Right Brachial] Pulse Rate [Right Finger] Pulse Rate from SpO2 Sensor 63 61 Pulse Rhythm Pulse Rhythm [Right Brachial] Pulse Rhythm [Right Finger] Pulse Strength [Right Brachial] Pulse Strength [Right Finger] Respiratory Rate 18 22 28 H Respiratory Effort / Characteristics Non-Labored Spontaneous Respiratory Depth Normal Respiratory Pattern Regular Blood Pressure 158/88 H Blood Pressure [Left Arm] Blood Pressure [Right Arm] Blood Pressure Mean 111 Blood Pressure Mean [Left Arm] Blood Pressure Mean [Right Arm] Blood Pressure Position [Left Arm] Blood Pressure Position [Right Arm] Pulse Oximetry 98 94 96 Oxygen Delivery Method Room Air Sepsis Recent Fever Within 48 Hours No Sepsis New/Unexplained Change in Mental Status N/A Sepsis Action Taken by Nursing No Action Required 01/26/24 14:00 01/26/24 14:00 01/26/24 14:00 Temperature Temperature Source Pulse Rate Pulse Rate [Right Brachial] Pulse Rate [Right Finger] Pulse Rate from SpO2 Sensor Pulse Rhythm Pulse Rhythm [Right Brachial] Pulse Rhythm [Right Finger] Pulse Strength [Right Brachial] Pulse Strength [Right Finger] Respiratory Rate Respiratory Effort / Characteristics Respiratory Depth Respiratory Pattern Blood Pressure 111/65 111/65 Blood Pressure [Left Arm] Blood Pressure [Right Arm] Blood Pressure Mean 79 79 Blood Pressure Mean [Left Arm] Blood Pressure Mean [Right Arm] Blood Pressure Position [Left Arm] Blood Pressure Position [Right Arm] Pulse Oximetry 98 Oxygen Delivery Method Room Air Sepsis Recent Fever Within 48 Hours Sepsis New/Unexplained Change in Mental Status Sepsis Action Taken by Nursing 01/26/24 14:06 01/26/24 14:21 01/26/24 15:00 Temperature Temperature Source Pulse Rate 64 74 Pulse Rate [Right Brachial] 74 Pulse Rate [Right Finger] Pulse Rate from SpO2 Sensor 64 72 Pulse Rhythm Pulse Rhythm [Right Brachial] Regular Pulse Rhythm [Right Finger] Pulse Strength [Right Brachial] Normal Pulse Strength [Right Finger] Respiratory Rate 20 20 18 Respiratory Effort / Characteristics Normal for Patient Respiratory Depth Shallow Respiratory Pattern Regular Blood Pressure Blood Pressure [Left Arm] Blood Pressure [Right Arm] 115/76 Blood Pressure Mean Blood Pressure Mean [Left Arm] Blood Pressure Mean [Right Arm] 89 Blood Pressure Position [Left Arm] Blood Pressure Position [Right Arm] Sitting Pulse Oximetry 96 93 98 Oxygen Delivery Method Sepsis Recent Fever Within 48 Hours Sepsis New/Unexplained Change in Mental Status Sepsis Action Taken by Nursing 01/26/24 15:01 01/26/24 15:01 01/26/24 15:01 Temperature Temperature Source Pulse Rate 73 Pulse Rate [Right Brachial] Pulse Rate [Right Finger] 72 Pulse Rate from SpO2 Sensor Pulse Rhythm Regular Pulse Rhythm [Right Brachial] Pulse Rhythm [Right Finger] Regular Pulse Strength [Right Brachial] Pulse Strength [Right Finger] Normal Respiratory Rate 29 H 28 H Respiratory Effort / Characteristics Non-Labored Non-Labored Respiratory Depth Normal Normal Respiratory Pattern Regular Regular Blood Pressure Blood Pressure [Left Arm] 115/76 Blood Pressure [Right Arm] Blood Pressure Mean Blood Pressure Mean [Left Arm] 89 Blood Pressure Mean [Right Arm] Blood Pressure Position [Left Arm] Lying Blood Pressure Position [Right Arm] Pulse Oximetry 97 97 Oxygen Delivery Method Room Air Room Air Room Air Sepsis Recent Fever Within 48 Hours Sepsis New/Unexplained Change in Mental Status Sepsis Action Taken by Nursing 01/26/24 15:02 01/26/24 15:02 01/26/24 15:02 Temperature Temperature Source Pulse Rate Pulse Rate [Right Brachial] Pulse Rate [Right Finger] Pulse Rate from SpO2 Sensor Pulse Rhythm Pulse Rhythm [Right Brachial] Pulse Rhythm [Right Finger] Pulse Strength [Right Brachial] Pulse Strength [Right Finger] Respiratory Rate Respiratory Effort / Characteristics Respiratory Depth Respiratory Pattern Blood Pressure 115/76 115/76 115/76 Blood Pressure [Left Arm] Blood Pressure [Right Arm] Blood Pressure Mean 96 96 96 Blood Pressure Mean [Left Arm] Blood Pressure Mean [Right Arm] Blood Pressure Position [Left Arm] Blood Pressure Position [Right Arm] Pulse Oximetry Oxygen Delivery Method Sepsis Recent Fever Within 48 Hours Sepsis New/Unexplained Change in Mental Status Sepsis Action Taken by Nursing 01/26/24 17:31 Temperature Temperature Source Pulse Rate Pulse Rate [Right Brachial] 69 Pulse Rate [Right Finger] Pulse Rate from SpO2 Sensor Pulse Rhythm Pulse Rhythm [Right Brachial] Pulse Rhythm [Right Finger] Pulse Strength [Right Brachial] Pulse Strength [Right Finger] Respiratory Rate 19 Respiratory Effort / Characteristics Respiratory Depth Respiratory Pattern Blood Pressure Blood Pressure [Left Arm] Blood Pressure [Right Arm] 116/82 Blood Pressure Mean Blood Pressure Mean [Left Arm] Blood Pressure Mean [Right Arm] 93 Blood Pressure Position [Left Arm] Blood Pressure Position [Right Arm] Pulse Oximetry 95 Oxygen Delivery Method Room Air Sepsis Recent Fever Within 48 Hours Sepsis New/Unexplained Change in Mental Status Sepsis Action Taken by Nursing Laboratory Data 01/26/24 13:56 01/26/24 13:56 Lab Results 01/26/24 01/26/24 Range/Units 12:55 13:56 WBC Cancelled 10.08 RBC Cancelled 3.81 L Hgb Cancelled 11.7 L Hct Cancelled 37.2 MCV Cancelled 97.6 MCH Cancelled 30.7 MCHC Cancelled 31.5 L RDW Std Deviation Cancelled 53.8 H RDW Coeff of Sara Cancelled 15.1 H Plt Count Cancelled 143 MPV Cancelled 11.3 Immature Gran % (Auto) Cancelled 0.5 Neut % (Auto) Cancelled 73.5 Lymph % (Auto) Cancelled 13.5 Morrison % (Auto) Cancelled 8.5 Eos % (Auto) Cancelled 3.4 Baso % (Auto) Cancelled 0.6 Neut # (Auto) Cancelled 7.41 H Lymph # (Auto) Cancelled 1.36 Morrison # (Auto) Cancelled 0.86 H Eos # (Auto) Cancelled 0.34 Baso # (Auto) Cancelled 0.06 Immature Gran # (Auto) Cancelled 0.05 Absolute Nucleated RBC Cancelled Nucleated RBC % (auto) Cancelled Neutrophils % (Manual) Cancelled Band Neutrophils % Cancelled Lymphocytes % (Manual) Cancelled Prolymphocyte % Cancelled Reactive Lymphs % (Man) Cancelled Monocytes % (Manual) Cancelled Eosinophils % (Manual) Cancelled Basophils % (Manual) Cancelled Metamyelocytes % (Man) Cancelled Myelocytes % (Man) Cancelled Promyelocytes % (Man) Cancelled Blast Cells % (Manual) Cancelled Plasma Cell % (Manual) Cancelled Other Cells % Cancelled Nucleated RBC % Cancelled Neutrophils # (Manual) Cancelled Band Neutrophils # Cancelled Total Absolute Neuts Cancelled Lymphocytes # (Manual) Cancelled Prolymphocyte # Cancelled Reactive Lymphs # Cancelled Total Abs Lymphocytes Cancelled Monocytes # (Manual) Cancelled Eosinophils # (Manual) Cancelled Basophils # (Manual) Cancelled Metamyelocytes # (Man) Cancelled Myelocytes # (Manual) Cancelled Promyelocytes # (Man) Cancelled Blast Cells # (Man) Cancelled Plasma Cell # (Manual) Cancelled Other Cells # Cancelled Nucleated RBCs # (Man) Cancelled Hypersegmented Neuts Cancelled Hyposegmented Neuts Cancelled Hypogranular Neuts Cancelled Large Granular Lymphs Cancelled # Lrg Granular Lymphs Cancelled Hairy Cells Cancelled Smudge Cells Cancelled Toxic Granulation Cancelled Toxic Vacuolation Cancelled Dohle Bodies Cancelled Joann Rods Cancelled Platelet Estimate Cancelled Hypogranular Platelets Cancelled Giant Platelets Cancelled Platelet Satelliting Cancelled RBC Morphology Cancelled Polychromasia Cancelled Hypochromasia Cancelled Poikilocytosis Cancelled Basophilic Stippling Cancelled Anisocytosis Cancelled Microcytosis Cancelled Macrocytosis Cancelled Spherocytes Cancelled Pappenheimer Bodies Cancelled Sickle Cells Cancelled Target Cells Cancelled Tear Drop Cells Cancelled Ovalocytes Cancelled Stomatocytes Cancelled [place] Bodies Cancelled Echinocytes Cancelled Acanthocytes (Spur) Cancelled Rouleaux Cancelled RBC Agglutinates Cancelled Schistocytes Cancelled Sezary Cell Cancelled Sodium TNP 139 Potassium TNP 5.1 Chloride 109 H (98-107) mmol/L Carbon Dioxide 22 (21-32) mmol/L Anion Gap TNP BUN 20 (6-23) mg/dl Creatinine 1.09 (0.6-1.2) mg/dl Est Cr Clr Drug Dosing 46.3 ml/min eGFR 51.36 BUN/Creatinine Ratio 18.3 (10-20) Glucose 114 H (70-99(Fasting)) mg/dl Calcium 9.1 (8.6-10.3) mg/dl Total Bilirubin 0.6 (0.2-1.0) mg/dl AST TNP 21 ALT 18 (7-52) U/L Alkaline Phosphatase 97 (34-104) U/L Troponin I High Sens 14.9 H (0-14) pg/ml B-Natriuretic Peptide 1161 H (0-100) pg/ml Total Protein 7.1 (6.0-8.3) gm/dl Albumin 3.9 (3.4-5.0) gm/dl Globulin 3.2 (2.5-4.0) gm/dl Albumin/Globulin Ratio 1.2 (0.9-2) Lipase 25 (11-82) U/L TSH 4.041 (0.300-4.500) uIu/ml Blood Parasites ID Cancelled Administered Medications Discontinued Medications Aspirin (Aspirin Chew 324 Mg) 324 mg PO NOW STA Stop: 01/26/24 12:41 Last Admin: 01/26/24 12:48 Dose: 324 mg Documented By: SKY Furosemide (Furosemide 40 Mg/4 Ml Vial) 40 mg IV NOW STA Stop: 01/26/24 14:34 Last Admin: 01/26/24 14:42 Dose: 40 mg Documented By: SKY Nitroglycerin (Nitroglycerin Sl 0.4 Mg/Tab Tab) 0.4 mg SL NOW STA Stop: 01/26/24 12:41 Last Admin: 01/26/24 12:49 Dose: 0.4 mg Documented By: SKY Imaging Data Radiologist's Impression: Chest X-Ray 01/26/24 12:38 XR chest 1V portable CLINICAL HISTORY: Chest pain, nonspecific COMPARISON STUDY: Chest CT November 02, 2021. Chest radiograph October 23, 2022. FINDINGS: A left-sided pacer, median sternotomy wires and mediastinal surgical clips remain in place. There is no thorax. There are small bilateral pleural effusions with mild bibasilar opacities. Mild interstitial thickening is noted. A large hiatal hernia is present. IMPRESSION: 1. Cardiomegaly with pulmonary vascular congestion. 2. Small bilateral pleural effusions with bibasilar opacities which could reflect an infectious process or atelectasis. Radiographic follow up to ensure resolution is recommended. ACT 112: Negative or not required by law. Electronically signed by: Alex Emmanuel M.D. 01/26/2024 12:55 PM Discharge Plan Visit Data Chief Complaint: Shortness of Breath/Dyspnea Stated Complaint: RT HEART CATH, ABN BLOOD FLOW ED Provider: Parveen Carpenter Discharge Problem: CHF (congestive heart failure), Pulmonary congestion, Elevated troponin, Anemia Prescriptions Prescriptions: No Action cholecalciferol (vitamin D3) 25 mcg (1,000 unit) capsule 25 mcg PO DAILY aspirin [Adult Low Dose Aspirin] 81 mg tablet,delayed release (DR/EC) 81 mg PO DAILY nitroglycerin [Nitrostat] 0.4 mg tablet, sublingual 0.4 mg sublingual Q5M PRN (Reason: Chest Pain) Rx Instructions: do not exceed 3 doses per episode ferrous gluconate 236 mg (27 mg iron) tablet 236 mg PO DAILY Qty: 30 6RF potassium chloride 20 mEq tablet extended release 20 meq PO BID Qty: 180 3RF Trelegy Ellipta 200-62.5-25 mcg blister with device 1 inh inhalation DAILY Qty: 60 2RF montelukast 10 mg tablet 10 mg PO QPM Qty: 90 3RF atorvastatin 40 mg tablet 40 mg PO HS Qty: 90 3RF apixaban 5 mg tablet 5 mg PO BID Qty: 180 3RF isosorbide mononitrate 60 mg tablet extended release 24 hr 60 mg PO DAILY Qty: 90 2RF metoprolol succinate 50 mg tablet extended release 24 hr 50 mg PO DAILY Qty: 90 2RF calcium carbonate-vitamin D3 600 mg-10 mcg (400 unit) capsule 1 cap PO DAILY venlafaxine 75 mg capsule,extended release 24hr 225 mg PO QAM Rx Instructions: 2 in the AM, and 1 in the PM polyethylene glycol 3350 [Miralax] 17 gram powder in packet 17 g PO BID PRN (Reason: Constipation) allopurinol 300 mg tablet 300 mg PO QAM Qty: 90 3RF topiramate 25 mg tablet 25 mg PO .COMPLEX Qty: 270 3RF Rx Instructions: 50mg in AM and 25mg in PM furosemide 80 mg tablet 0 mg PO DAILY Rx Instructions: Per pt she has been holding this medication for a week per Teletypewriter Installer instructions. But she doesn't know why he told her to hold it. Original Directions: 80mg by mouth daily metolazone 5 mg tablet 0 mg PO DAILY Rx Instructions: Pt is unsure of this medication. Original Directions: 5mg by mouth daily omeprazole 40 mg capsule,delayed release(DR/EC) 40 mg PO QAM levothyroxine 100 mcg tablet 100 mcg PO QAM Rx Instructions: TAKE 1 TABLET BY MOUTH EVERY DAY Discharge Problem: CHF (congestive heart failure) Qualifiers: Heart failure type: unspecified Heart failure chronicity: unspecified Qualified Code(s): I50.9 - Heart failure, unspecified Anemia Qualifiers: Anemia type: unspecified type Qualified Code(s): D64.9 - Anemia, unspecified
[2024-01-26] MEDS: ASPIRIN CHEW 324 MG PO STA (12:48)
[2024-01-26] MEDS: NITROGLYCERIN SL 0.4 MG/TAB TAB SL STA (12:49)
--- NOTE | 2024-01-26 12:57 | XRay Report ---
XR chest 1V portable CLINICAL HISTORY: Chest pain, nonspecific COMPARISON STUDY: Chest CT November 02, 2021. Chest radiograph October 23, 2022. FINDINGS: A left-sided pacer, median sternotomy wires and mediastinal surgical clips remain in place. There is no thorax. There are small bilateral pleural effusions with mild bibasilar opacities. Mild interstitial thickening is noted. A large hiatal hernia is present. IMPRESSION: 1. Cardiomegaly with pulmonary vascular congestion. 2. Small bilateral pleural effusions with bibasilar opacities which could reflect an infectious proce ss or atelectasis. Radiographic follow up to ensure resolution is recommended. ACT 112: Negative or not required by law. Electronically signed by: Alex Emmanuel M.D. 01/26/2024 12:55 PM
[2024-01-26 13:38] LABS: Alanine Aminotransferase 18 U/L (7-52); Albumin Globulin Ratio 1.2 (0.9-2); Albumin Level 3.9 gm/dl (3.4-5.0); Alkaline Phosphatase 97 U/L (34-104); BUN Creatinine Ratio 18.3 (10-20); Bilirubin,Total 0.6 mg/dl (0.2-1.0); Blood Urea Nitrogen 20 mg/dl (6-23); Calcium 9.1 mg/dl (8.6-10.3); Carbon Dioxide 22 mmol/L (21-32); Chloride 109 mmol/L (98-107); Creatinine Clr Calc Pharmacy 46.3 ml/min; Globulin 3.2 gm/dl (2.5-4.0); Glucose 114 mg/dl (70-99(Fasting)); Lipase 25 U/L (11-82); Total Protein 7.1 gm/dl (6.0-8.3)
[2024-01-26 13:41] LABS: Troponin I High Sensitivity 14.9 pg/ml (0-14)
[2024-01-26 14:28] LABS: Basophils # (auto) 0.06 K/uL (0.00-0.20); Basophils % (auto) 0.6 %; Eosinophils # (auto) 0.34 K/uL (0.00-0.50); Eosinophils % (auto) 3.4 %; Hematocrit (blood only) 37.2 % (37.0-47.0); Hemoglobin 11.7 g/dl (12.0-16.0); Immature Granulocytes # (auto) 0.05 K/uL (0.01-0.20); Immature Granulocytes % (auto) 0.5 %; Lymphocytes # (auto) 1.36 K/uL (1.20-3.40); Lymphocytes % (auto) 13.5 %; Mean Corpuscular Hemoglobin 30.7 pg (25.0-34.0); Mean Corpuscular Hgb Conc 31.5 g/dL (32.0-36.0); Mean Corpuscular Volume 97.6 fL (80.0-100.0); Mean Platelet Volume 11.3 fL (9.4-12.4); Monocytes # (auto) 0.86 K/uL (0.11-0.59); Monocytes % (auto) 8.5 %; Neutrophils # (auto) 7.41 K/uL (1.40-6.50); Neutrophils % (auto) 73.5 %; Platelet Count 143 K/uL (130-400); RDW Coefficient of Variation 15.1 % (11.5-14.5); RDW Standard Deviation 53.8 fL (36.4-46.3); Red Blood Count 3.81 M/uL (4.20-5.40); White Blood Count 10.08 K/ul (4.8-10.8)
[2024-01-26 14:36] LABS: Potassium 5.1 mmol/L (3.5-5.1)
[2024-01-26] MEDS: FUROSEMIDE 40 MG/4 ML VIAL IV STA (14:42)
--- NOTE | 2024-01-26 15:29 | History & Physical Report ---
Date of Service January 26, 2024 Assessment & Plan (1) Chest pain: Plan: This is an 78-year-old female with past medical history of hypertension, paroxysmal A-fib, s/p pacemaker placement, s/p CABG, stage IIIb CKD, hypothyroidism who presented to the emergency room on 01/26/2024 for complaints of chest pain and shortness of breath since this past Sunday. Patient has been having ongoing symptoms since her right sided cardiac cath about 2.5 weeks ago at the [facility]. Etiology related to acute on chronic CHF vs a fib vs side effects from recent cardiac catheterization s/p ASA, Lasix, and Nitro in ED BNP 01/25: 1161 Troponin 01/25: 14.9 EKG - sinus rhythm, LBBB. continue to monitor on telemetry CXR 01/25: cardiomegaly w/ pulmonary vascular congestion. Small b/l pleural effusions w/ bibasilar opacities which could reflect an infectious process vs atelectasis. CBC without leukocytosis BMP reveals stable renal function and electrolytes Reached out to cardiology at [facility], recommendations below. Will try to obtain records as well. Cardiac cath revealed low ventricular filling, wedge 8. Recommended to resume Lasix if needed and as tolerated. Patient previously on amiodarone but was told to stop when she had COVID in Apr 2023 and was told to hold it. appears she never resumed it. Last echo completed 12/2022 which reviewed sustained A fib, resting wall abnormality in territory of RCA. LV normal size. EF 44+/-5%. L and R atrial cavities dilated. moderate mitral regurg due to restricted leaflet. Last BNP at their facility was 11 months ago which was 525. Start Lasix 40mg IV BID Monitor I&O's Daily weights AM CBC, BMP, BNP (2) Paroxysmal atrial fibrillation: Plan: s/p pacemaker 04/2023 Pacemaker check 01/25 - reports patient last in A fib 01/16 and only in A fib 4.9% of time. Continue to monitor on Telemetry Continue Eliquis Continue Isosorbide mononitrate, metoprolol If patient switches into sustained A fib, consider re-initiating amiodarone. (3) Shortness of breath: Plan: see plan above Patient w/ history of mild persistent asthma. Routinely follows with pulmnology 2L o2 via nasal cannula HS Continue Trelegy (4) Stage 3b chronic kidney disease: Plan: Creatinine 1.09 on admission. Follows w/ Nephrology outpatient. Getting worked up or right renal mass w/ MRI scheduled. AM BMP (5) Acute on chronic heart failure with preserved ejection fraction: Plan Chronic conditions: Hypothyroidism: Synthroid, TSH checked 01/25, stable at 4.041 HLD: statin GERD: PPI Mental health: venlafaxine Code status: full Diet: heart healthy DVT prophylaxis: Home Eliquis Disposition: telemetry History of Present Illness Primary Care Provider: Theo Tripathi DO This is an 78-year-old female with past medical history of hypertension, paroxysmal A-fib, s/p pacemaker placement, s/p CABG, stage IIIb CKD, hypothyroidism who presented to the emergency room on 01/26/2024 for complaints of chest pain and shortness of breath since this past Sunday. The patient was seen and examined. She was resting comfortably in bed and in no acute distress. Patient states that about 2-1/2 weeks ago she had a catheterization at the [facility]. Since then she has been having ongoing issues with chest pain and shortness of breath. She states that she has reach out to her care professional at the [facility] multiple times and had not heard back. Her PCP then stopped her Lasix outpatient this past Sunday and she is unsure why. There is also conflicting documentation on whether patient was started on amiodarone outpatient or not. Patient believes she never has taken this medication. She believes it may be due from recommendations that came from the [facility] but is unsure. Since that timeframe she has gained about 5 to 7 pounds and her leg edema has worsened. Patient reports that her shortness of breath and chest discomfort do worsen with activity but can also occur at rest. She describes the chest pain as nonradiating and states that it "feels like a pounding sensation in her chest". She denies feelings related to palpitation. Patient had a pacemaker placed in April 2023 and states that she does have a remote estephania to monitor this at home. Pacemaker was checked here and was found that her last A-fib run was 01/16 and that she is in A-fib 3% of the time. Patient also states that she has been having bilateral leg pain recently but noticed that her left leg was worse than her right. She states that it is her whole entire leg and not a specific area. States that she has had issues with ambulation and has only been able to walk minimally. She lives alone and does have to walk up 2 stairs to get to her bedroom. Patient also reports that she was started on 2L o2 via nasal cannula at bedtime recently as well. She states that about 3 to 4 weeks ago she did have a viral upper respiratory infection. Since then she denies any cough. She denies nausea, vomiting, abdominal pain. She denies fevers or chills. Patient was given Aspirin, Nitro, and Lasix while in the ED. Allergies Allergy/AdvReac Type Severity Reaction Status Date / Time diphtheria toxoid,fluid Allergy Intermediate TdAP=swelli Verified 01/26/24 13:58 ng/redness poliomyelitis vaccine,killed Allergy Intermediate TdAP=swelli Verified 01/26/24 13:58 ng/redness tetanus toxoid, adsorbed Allergy Intermediate TdAP=swelli Verified 01/26/24 13:58 ng/redness nickel Allergy Mild pruritus Verified 01/26/24 13:58 etanercept [From Enbrel] AdvReac Severe pneumonia Verified 01/26/24 13:58 amoxicillin [From Augmentin] AdvReac Intermediate GI symptoms Verified 01/26/24 13:58 clavulanic acid AdvReac Intermediate GI symptoms Verified 01/26/24 13:58 [From Augmentin] NSAIDS (Non-Steroidal AdvReac Intermediate gi bleed Verified 01/26/24 13:58 Anti-Inflamma Home Medications Medication Instructions Recorded Confirmed Type aspirin 81 mg tablet,delayed 81 mg PO DAILY 09/22/22 01/26/24 History release (Adult Low Dose Aspirin) cholecalciferol (vitamin D3) 25 25 mcg PO DAILY 09/22/22 01/26/24 History mcg (1,000 unit) capsule nitroglycerin 0.4 mg sublingual 0.4 mg sublingual Q5M PRN Chest 09/22/22 01/26/24 History tablet (Nitrostat) Pain ferrous gluconate 236 mg (27 mg 236 mg PO DAILY #30 tabs 01/10/23 01/26/24 Rx iron) tablet calcium 600 mg (as 1 cap PO DAILY 02/01/23 01/26/24 History carbonate)-vitamin D3 10 mcg (400 unit) capsule potassium chloride 20 mEq 20 meq PO BID #180 tabs 02/27/23 01/26/24 Rx tablet,extended release fluticasone fur. 200 mcg-umeclid 1 inh inhalation DAILY #60 ea 03/02/23 01/26/24 Rx 62.5 mcg-vilant 25 mcg inhalat.powder (Trelegy Ellipta) montelukast 10 mg tablet 10 mg PO QPM #90 tabs 03/06/23 01/26/24 Rx furosemide 80 mg tablet 0 mg PO DAILY 03/23/23 01/26/24 History atorvastatin 40 mg tablet 40 mg PO HS #90 tabs 07/09/23 01/26/24 Rx allopurinol 300 mg tablet 300 mg PO QAM #90 tabs 07/11/23 01/26/24 Rx polyethylene glycol 3350 17 gram 17 g PO BID PRN Constipation 07/11/23 01/26/24 History oral powder packet (Miralax) apixaban 5 mg tablet 5 mg PO BID #180 tabs 08/08/23 01/26/24 Rx isosorbide mononitrate 60 mg 60 mg PO DAILY #90 tabs 08/08/23 01/26/24 Rx tablet,extended release 24 hr metoprolol succinate 50 mg 50 mg PO DAILY #90 tabs 08/08/23 01/26/24 Rx tablet,extended release 24 hr topiramate 25 mg tablet 25 mg PO .COMPLEX #270 tabs 09/19/23 01/26/24 Rx venlafaxine 75 mg capsule,extended 225 mg PO QAM 10/09/23 01/26/24 History release 24 hr levothyroxine 100 mcg tablet 100 mcg PO QAM 01/26/24 01/26/24 History metolazone 5 mg tablet 0 mg PO DAILY 01/26/24 01/26/24 History omeprazole 40 mg capsule,delayed 40 mg PO QAM 01/26/24 01/26/24 History release Past Med/Surg History Problem List (Updated 01/27/24 @ 10:45 by Toni Carbajal MD) Acute on chronic heart failure with preserved ejection fraction Pacemaker Cardiomyopathy Mitral regurgitation Anemia (Acute) Elevated troponin (Acute) Pulmonary congestion (Acute) CHF (congestive heart failure) (Acute) Shortness of breath Chest pain Right renal mass Stage 3b chronic kidney disease Acute kidney injury Mild persistent asthma Anxiety Pulmonary nodule Hypertension (Chronic) Paroxysmal atrial fibrillation (Chronic) Post-op after CABG. EKG 07/02/20 also shows afib. Seen by cardio 07/16/20 after brief hospitalization for UGIB. ASA was d/c'd at that time due to GI bleed. Cardio notes possible recent afib but states would not anticoagulate at this time anyway due to bleed. At [facility] appt, notably in SR on exam, and H/H has normalized. Pt will call care professional re: restarting ASA. CAD (coronary artery disease) (Chronic) s/p CABG x 3 in 2016. Aortic atherosclerosis (Chronic) Carotid artery plaque (Chronic) Chronic kidney disease, stage III (moderate) (Chronic) Chronic dyspnea Abnormal CT scan of lung Hyperlipidemia (Chronic) Hypothyroidism (Chronic) GERD (gastroesophageal reflux disease) (Chronic) Depression (Chronic) Physical debility Poor balance Morbid obesity with BMI of 40.0-44.9, adult Medical History Benign familial tremor Mobitz type 1 second degree AV block Anaplasmosis Rheumatoid arthritis Periodic limb movement disorder Familial adenomatous polyposis Metabolic syndrome Asthma Gastrointestinal bleed Generalized osteoarthritis Lumbar spinal stenosis Dyslipidemia Chronic sinusitis Adrenal cortical adenoma Adrenal [place]'s syndrome 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, 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, XX mosaicism Amblyopia History of fractured vertebra Surgical History History of permanent cardiac pacemaker placement History of sinus surgery History of tubal ligation History of esophagogastroduodenoscopy (EGD) (~2011) Hx of arthroplasty H/O arthroscopic knee surgery (~08/2018) History of thoracotomy (~03/2018) History of bilateral breast reduction surgery History of total abdominal hysterectomy and bilateral salpingo-oophorectomy History of colonoscopy (~06/2016) History of cataract surgery History of cardiac cath History of coronary artery bypass graft (~01/2016) History of bronchoscopy (~06/2013) Family History Brother Diabetes Heart disease Mother Stroke Father Stroke Grandmother Stroke Grandfather Stroke Aunt Breast cancer Son Congenital heart disease Unknown Hypertension Daughter Liposarcoma Denies family history of Ovarian cancer Prostate cancer Myocardial infarction Colorectal cancer Social History Smoking Status: Never smoker Second Hand Exposure: No; Do You Dip or Chew Tobacco: No; Hx Alcohol Use: No Hx Substance Use: No Preferred Language: Maltese Communication Ability: Effective Visual Impairment: No Limitations Hearing Ability: Normal Mash Tub Cooker Required: No Beliefs That Will Affect Care: None marital status: / Current Living Situation: Alone current occupational status: retired Feels Safe at Home: Yes Safety Concerns: Feels Safe At This Time Childhood Exposure to Second-Hand Smoke: No caffeine: Yes Dental Care, Regularly: Yes Physical Activity Frequency: Does not Exercise Seatbelt Use: always Sunscreen Use: No Assistive Devices: Cane and Oxygen - at Night Physical Exam 2 Constitutional: WD/WN, vitals as above Eyes: PERRL, conjunctivae normal, anicteric sclerae Respiratory: normal respiratory effort, lungs clear to auscultation Cardiovascular: RRR, no murmur, no edema Gastrointestinal (Abdomen): normal bowel sounds, soft, nontender, no hepatosplenomegaly Psychiatric: A+Ox3, euthymic affect Results & Data Results & Data Vital Signs (Past 12 Hours) Vital Signs Temp Pulse Pulse Pulse Resp BP BP 01/26/24 15:02 115/76 01/26/24 15:02 115/76 01/26/24 15:02 115/76 01/26/24 15:01 73 28 H 01/26/24 15:01 72 29 H 115/76 01/26/24 15:01 01/26/24 15:00 74 18 01/26/24 14:21 74 20 01/26/24 14:06 64 20 01/26/24 14:00 111/65 01/26/24 14:00 111/65 01/26/24 14:00 01/26/24 13:48 60 28 H 01/26/24 13:36 65 22 01/26/24 12:19 36.6 C 92 H 18 158/88 H BP Pulse Ox O2 Del Method 01/26/24 15:02 01/26/24 15:02 01/26/24 15:02 01/26/24 15:01 97 Room Air 01/26/24 15:01 97 Room Air 01/26/24 15:01 Room Air 01/26/24 15:00 115/76 98 01/26/24 14:21 93 01/26/24 14:06 96 01/26/24 14:00 01/26/24 14:00 01/26/24 14:00 98 Room Air 01/26/24 13:48 96 01/26/24 13:36 94 01/26/24 12:19 98 Room Air Laboratory Results 01/26/24 13:56 01/26/24 13:56 Diagnostic Findings Chest X-Ray 01/26/24 12:38 XR chest 1V portable CLINICAL HISTORY: Chest pain, nonspecific COMPARISON STUDY: Chest CT November 02, 2021. Chest radiograph October 23, 2022. FINDINGS: A left-sided pacer, median sternotomy wires and mediastinal surgical clips remain in place. There is no thorax. There are small bilateral pleural effusions with mild bibasilar opacities. Mild interstitial thickening is noted. A large hiatal hernia is present. IMPRESSION: 1. Cardiomegaly with pulmonary vascular congestion. 2. Small bilateral pleural effusions with bibasilar opacities which could reflect an infectious process or atelectasis. Radiographic follow up to ensure resolution is recommended. ACT 112: Negative or not required by law. Electronically signed by: Alex Emmanuel M.D. 01/26/2024 12:55 PM Supervising Physician Co-Signing Physician Notes I personally saw and examined the patient. I independently reviewed the labs, EKG, imaging, problem list, medication list, past medical history and family history. I verified all ho points and agree with Mariela Lopez PA-C with the following exceptions and/or additions: 78 year old female presents to the ER due to shortness of breath. Recently stopped Lasix on advice of her care professional after right heart cath. No on anti- arrhythmic for a. fib despite 5 % burden since November on pacemaker check - doubtful this led to her current hospitalization however given much more likely alternative etiology. No pericardial effusion on POCUS US. O/E Irregular rhythm, regular, no murmurs, Chest bibasal crackles, Abdo SNT, no CVA tenderness A/P Acute on chronic heart failure with preserved ejection fraction - Lasix 40mg IV BID, I&Os, daily standing weights, consult cardiology to help establish care locally and manage ongoing heart failure as appears she is realitively labile between her dry weight and acute heart failure given she was felt to be dry during her recent right heart cath. Consider follow up in heart failure clinic with Payton Membreno. PG Care Time/CCT Total # of Minutes Spent Total Time Spent with Patient: Total time spent is greater than 50% in coordination of care (as documented) at patient's floor/unit and/or counseling patient: Coding Level of Care Code 70824 INT INP/OBS CARE 3/75MIN Diagnoses Chest pain R07.9 Paroxysmal atrial fibrillation I48.0 Shortness of breath R06.02 Stage 3b chronic kidney disease N18.32 Acute on chronic heart failure with preserved ejection fraction I50.33
[2024-01-26 15:58] LABS: Thyroid Stimulating Hormone 4.041 uIu/ml (0.300-4.500)
[2024-01-26] MEDS ORDERED: POLYETHYLENE (MIRALAX) 17 GM PACK PO PRN (18:01)
[2024-01-26] MEDS: FUROSEMIDE 40 MG/4 ML VIAL IV SCH (19:06)
[2024-01-26] MEDS: TOPIRAMATE 25 MG TAB PO SCH (20:21)
[2024-01-26] MEDS: POTASSIUM CHLORIDE CRTAB 20 MEQ TABCR PO SCH (20:21)
[2024-01-26] MEDS: ATORVASTATIN 40 MG TAB PO SCH (20:22)
[2024-01-26] MEDS: APIXABAN 5 MG TABLET PO SCH (20:22)
[2024-01-26] MEDS: MONTELUKAST SODIUM 10 MG TABLET PO SCH (20:22)
[2024-01-26] MEDS: VENLAFAXINE HCL XR 75 MG CAPXR PO SCH (20:58)
[2024-01-27] MEDS: LEVOTHYROXINE SODIUM 100 MCG TABLET PO SCH (05:03)
[2024-01-27 06:00] LABS: Hematocrit (blood only) 34.4 % (37.0-47.0); Hemoglobin 11.4 g/dl (12.0-16.0); Mean Corpuscular Hemoglobin 31.2 pg (25.0-34.0); Mean Corpuscular Hgb Conc 33.1 g/dL (32.0-36.0); Mean Corpuscular Volume 94.2 fL (80.0-100.0); Mean Platelet Volume 11.7 fL (9.4-12.4); Platelet Count 153 K/uL (130-400); RDW Coefficient of Variation 15.1 % (11.5-14.5); RDW Standard Deviation 52.5 fL (36.4-46.3); Red Blood Count 3.65 M/uL (4.20-5.40); White Blood Count 8.41 K/ul (4.8-10.8)
[2024-01-27 06:19] LABS: BUN Creatinine Ratio 19.4 (10-20); Calcium 8.6 mg/dl (8.6-10.3); Creatinine Clr Calc Pharmacy 42.3 ml/min; Potassium 3.9 mmol/L (3.5-5.1)
[2024-01-27 07:41] VITALS: RESP 18
[2024-01-27] MEDS: allopurinoL 300 MG TAB PO SCH (08:16)
[2024-01-27] MEDS: CHOLECALCIFEROL 25 MCG (1000 UNITS) TAB PO SCH (08:16)
[2024-01-27] MEDS: FLUTICASONE FUROATE 200MCG 14 PUFFS/INHALER INH SCH (08:16)
[2024-01-27] MEDS: CALCIUM 600MG + VIT D 400 IU TAB PO SCH (08:16)
[2024-01-27] MEDS: FERROUS GLUCONATE 324 MG TAB PO SCH (08:16)
[2024-01-27] MEDS: ASPIRIN 81 MG ECTAB PO SCH (08:16)
[2024-01-27] MEDS: METOPROLOL SUCC 50MG EXT REL TAB PO SCH (08:17)
[2024-01-27] MEDS: ISOSORBIDE MONO EXTENDED REL 60 MG TABCR PO SCH (08:17)
[2024-01-27] MEDS: PANTOprazole 40 MG TAB PO SCH (08:17)
[2024-01-27] MEDS: UMECLIDINIUM/VILANTEROL 62.5/25MCG 7 PUFFS/INHALER INH SCH (08:17)
[2024-01-27] MEDS: TOPIRAMATE 50 MG TAB PO SCH (08:17)
[2024-01-27] MEDS: VENLAFAXINE HCL XR 75 MG CAPXR PO SCH (08:18)
--- NOTE | 2024-01-27 08:34 | Cardiology Consultation ---
Date of Consultation January 27, 2024 Assessment & Plan (1) CHF (congestive heart failure): (2) Chest pain: (3) Paroxysmal atrial fibrillation: (4) CAD (coronary artery disease): (5) Mitral regurgitation: (6) Cardiomyopathy: (7) Pacemaker: Plan 1. Acute on chronic decompensated systolic heart failure: This would be the likely etiology between her recent exacerbation of breathing difficulty. She presented with edema, elevated BNP and pulmonary vascular congestion on her chest x-ray. She seems have responded well to intravenous diuretics and should likely resume her outpatient dose of Lasix. This seems to have been discontinued due to relatively low wedge pressure noted on her recent right heart catheterization. However, she certainly appears to do better with a daily dose of Lasix and this could be resumed. 2. Shortness of breath: She has chronic shortness of breath all of which is not likely related to her pulmonary vascular congestion. It seems very unlikely that her symptoms leading up to her heart catheterization were cardiac in nature. She is known to have primary lung disease and was reported to be deconditioned. 3. Chest pain: Atypical for an ischemic etiology. The longstanding nature of her symptoms in the absence of significant biomarker elevation suggest an alternate etiology. Likely just related to her pulmonary vascular congestion. 4. Atrial fibrillation: Paroxysmal. Few episodes noted on her device interrogation. She is on appropriate systemic anticoagulation. Reportedly she had been on amiodarone subsequent to device implant, but this does not appear to be necessary given her absence of symptoms and infrequent events. 5. Normally functioning dual-chamber permanent pacemaker: She paces in the ventricle most of the time. Seems there was some difficulty placing a true left bundle lead given some anatomical variants. However the lead appears to be in a septal location on her chest x-ray. 6. Coronary artery disease: She has a history of surgical revascularization. Noted to have occlusion of the vein graft to the right coronary. Catheterization 2020 did not prompt any revascularization. I do not think her current symptoms are related to ischemic heart disease. It seems she was originally advised to consider another coronary angiogram, but there were some concerns regarding her renal function and this was deferred in favor of a right heart catheterization for dyspnea. She will continue aggressive secondary prevention with high-dose atorvastatin, apixaban and aspirin. Unclear if she requires both apixaban and aspirin in the setting. 7. Mitral regurgitation: [place] to be moderate at the time of her last echocardiogram at the [facility] in 2022. Will reevaluate on today's echocardiogram. 8. Cardiomyopathy: Her last echocardiogram suggested mildly reduced LV systolic function. She also describes a report of "poor blood flow" subsequent to her recent right heart catheterization. Will reevaluate the LV function today. In the past she was advised to start Jardiance but this is not currently on her medication list. Will continue metoprolol succinate and reinitiate diuretic as noted above. History of Present Illness Reason for Consultation: Chest pain, shortness of breath Requesting Physician: John Attending Physician: Denzel Torres History of Present Illness The patient is an 78-year-old woman with a prior history of cardiac disease to coronary artery disease status post surgical revascularization, paroxysmal atrial fibrillation, symptomatic bradycardia status post dual-chamber Saint Tadeo pacemaker and heart failure with midrange ejection fraction who presented to the hospital with symptoms of breathing difficulty and chest discomfort. The patient receives her cardiac care from the [facility]. According to the patient this began when she engaged the [facility] for treatment of her colon polyps. She has been seen there for several years. It seems that recently she has been struggling with symptoms of exercise intolerance and dyspnea. She is known to have an element of asthma and is on an inhaler regimen. She is also felt to have an element of deconditioning and aversion to significant exercise. Due to concerns over cardiac etiology it seems that she underwent a right heart catheterization at the [facility] several weeks ago. These results apparently were available to the admitting team but are no l onger in the patient's chart. I suspect they have been sent to scanning and may resurface again in several weeks. Subsequent to her heart catheterization the patient's symptoms continued and she was advised by the cardiology office in [place] to discontinue her daily diuretic. In this setting her symptoms became worse, she began to notice difficulty sleeping at nighttime due to a sense of a "pounding" sensation in her chest and had worsening edema associated with 5 to 7 pound weight gain by her report. She elected to present to the hospital for an evaluation. Prior to her catheterization she had gone through physical therapy and felt that her activity level have improved. She was no longer using a cane and her balance was better. She has a long history of chronic lower extremity edema which worsened after stopping Lasix. She generally does not have symptoms of exertional chest pain or sense of palpitation. She did not endorse symptoms of dizziness or lightheadedness. After receiving intravenous Lasix last night she states that her symptoms are improved. Her lower extremity edema is improved. She is no longer noticing chest discomfort or "pounding" in her chest. Breathing difficulty also improved as she has been able to ambulate to the bathroom with minimal symptom. Allergies Allergy/AdvReac Type Severity Reaction Status Date / Time diphtheria toxoid,fluid Allergy Intermediate TdAP=swelli Verified 01/26/24 13:58 ng/redness poliomyelitis vaccine,killed Allergy Intermediate TdAP=swelli Verified 01/26/24 13:58 ng/redness tetanus toxoid, adsorbed Allergy Intermediate TdAP=swelli Verified 01/26/24 13:58 ng/redness nickel Allergy Mild pruritus Verified 01/26/24 13:58 etanercept [From Enbrel] AdvReac Severe pneumonia Verified 01/26/24 13:58 amoxicillin [From Augmentin] AdvReac Intermediate GI symptoms Verified 01/26/24 13:58 clavulanic acid AdvReac Intermediate GI symptoms Verified 01/26/24 13:58 [From Augmentin] NSAIDS (Non-Steroidal AdvReac Intermediate gi bleed Verified 01/26/24 13:58 Anti-Inflamma Home Medications Medication Instructions Recorded Confirmed Type aspirin 81 mg tablet,delayed 81 mg PO DAILY 09/22/22 01/26/24 History release (Adult Low Dose Aspirin) cholecalciferol (vitamin D3) 25 25 mcg PO DAILY 09/22/22 01/26/24 History mcg (1,000 unit) capsule nitroglycerin 0.4 mg sublingual 0.4 mg sublingual Q5M PRN Chest 09/22/22 01/26/24 History tablet (Nitrostat) Pain ferrous gluconate 236 mg (27 mg 236 mg PO DAILY #30 tabs 01/10/23 01/26/24 Rx iron) tablet calcium 600 mg (as 1 cap PO DAILY 02/01/23 01/26/24 History carbonate)-vitamin D3 10 mcg (400 unit) capsule potassium chloride 20 mEq 20 meq PO BID #180 tabs 02/27/23 01/26/24 Rx tablet,extended release fluticasone fur. 200 mcg-umeclid 1 inh inhalation DAILY #60 ea 03/02/23 01/26/24 Rx 62.5 mcg-vilant 25 mcg inhalat.powder (Trelegy Ellipta) montelukast 10 mg tablet 10 mg PO QPM #90 tabs 03/06/23 01/26/24 Rx furosemide 80 mg tablet 0 mg PO DAILY 03/23/23 01/26/24 History atorvastatin 40 mg tablet 40 mg PO HS #90 tabs 07/09/23 01/26/24 Rx allopurinol 300 mg tablet 300 mg PO QAM #90 tabs 07/11/23 01/26/24 Rx polyethylene glycol 3350 17 gram 17 g PO BID PRN Constipation 07/11/23 01/26/24 History oral powder packet (Miralax) apixaban 5 mg tablet 5 mg PO BID #180 tabs 08/08/23 01/26/24 Rx isosorbide mononitrate 60 mg 60 mg PO DAILY #90 tabs 08/08/23 01/26/24 Rx tablet,extended release 24 hr metoprolol succinate 50 mg 50 mg PO DAILY #90 tabs 08/08/23 01/26/24 Rx tablet,extended release 24 hr topiramate 25 mg tablet 25 mg PO .COMPLEX #270 tabs 09/19/23 01/26/24 Rx venlafaxine 75 mg capsule,extended 225 mg PO QAM 10/09/23 01/26/24 History release 24 hr levothyroxine 100 mcg tablet 100 mcg PO QAM 01/26/24 01/26/24 History metolazone 5 mg tablet 0 mg PO DAILY 01/26/24 01/26/24 History omeprazole 40 mg capsule,delayed 40 mg PO QAM 01/26/24 01/26/24 History release Patient History Medical History Benign familial tremor Mobitz type 1 second degree AV block Anaplasmosis Rheumatoid arthritis Periodic limb movement disorder Familial adenomatous polyposis Metabolic syndrome Asthma Gastrointestinal bleed Generalized osteoarthritis Lumbar spinal stenosis Dyslipidemia Chronic sinusitis Adrenal cortical adenoma 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, 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, XX mosaicism Amblyopia History of fractured vertebra Surgical History History of permanent cardiac pacemaker placement History of sinus surgery History of tubal ligation History of esophagogastroduodenoscopy (EGD) (~2011) Hx of arthroplasty H/O arthroscopic knee surgery (~08/2018) History of thoracotomy (~03/2018) History of bilateral breast reduction surgery History of total abdominal hysterectomy and bilateral salpingo-oophorectomy History of colonoscopy (~06/2016) History of cataract surgery History of cardiac cath History of coronary artery bypass graft (~01/2016) History of bronchoscopy (~06/2013) Family History Brother Diabetes Heart disease Mother Stroke Father Stroke Grandmother Stroke Grandfather Stroke Aunt Breast cancer Son Congenital heart disease Unknown Hypertension Daughter Liposarcoma Denies family history of Ovarian cancer Prostate cancer Myocardial infarction Colorectal cancer Social History Smoking Status: Never smoker Second Hand Exposure: No; Do You Dip or Chew Tobacco: No; Hx Alcohol Use: No Hx Substance Use: No Preferred Language: Austrian Communication Ability: Effective Visual Impairment: No Limitations Hearing Ability: Normal [employer] Network Manager Required: No Beliefs That Will Affect Care: None marital status: / Current Living Situation: Alone current occupational status: retired Feels Safe at Home: Yes Safety Concerns: Feels Safe At This Time Childhood Exposure to Second-Hand Smoke: No caffeine: Yes Dental Care, Regularly: Yes Physical Activity Frequency: Does not Exercise Seatbelt Use: always Sunscreen Use: No Assistive Devices: Cane and Oxygen - at Night Review of Systems Review of Systems: Per HPI Physical Exam Physical Exam: She is alert and oriented x3. Mood affect appear normal. She answered all ques tions appropriately. HEENT: Sclerae are anicteric. Pupils are equal and reactive to light and accommodation. Extraocular movements were intact. Neuro: Cranial nerves intact Chest: Well-healed device implant site left upper pectoral area Lungs: Lungs are clear to auscultation bilaterally. There are no rales wheezes or rhonchi. She has normal respiratory effort without use of accessory muscles. There is normal pulmonary excursion. Cardiac: The rhythm was regular. S1 and S2 were normal. There are no murmurs on examination. The PMI was not markedly displaced on palpation. Abdomen: The abdomen was soft and nontender. Extremities: Patient has bilateral radial pulses that are equal in intensity. There is no evidence cyanosis or clubbing. Only trace bilateral lower extremity edema Skin: There are no rashes noted on examination today. Results & Data Vital Signs (Past 12 Hours) Vital Signs Temp Pulse Pulse Pulse Resp BP BP 01/27/24 08:16 126/79 01/27/24 07:40 37.1 C 83 18 01/27/24 02:20 36.3 C L 69 16 107/65 01/26/24 22:31 80 01/26/24 22:30 01/26/24 22:27 36.4 C L 77 18 115/72 01/26/24 22:00 77 23 99/56 L 01/26/24 21:00 75 24 01/26/24 20:21 78 27 H BP Pulse Ox O2 Del Method 01/27/24 08:16 01/27/24 07:40 98/61 L 94 Room Air 01/27/24 02:20 92 Room Air 01/26/24 22:31 01/26/24 22:30 Room Air 01/26/24 22:27 95 Room Air 01/26/24 22:00 94 01/26/24 21:00 95 01/26/24 20:21 96 Laboratory Results Abnormal Lab Results 01/26/24 01/26/24 01/27/24 12:55 13:56 05:22 WBC Cancelled 10.08 8.41 RBC Cancelled 3.81 L 3.65 L Hgb Cancelled 11.7 L 11.4 L Hct Cancelled 37.2 34.4 L MCV Cancelled 97.6 94.2 MCH Cancelled 30.7 31.2 MCHC Cancelled 31.5 L 33.1 RDW Std Deviation Cancelled 53.8 H 52.5 H RDW Coeff of Sara Cancelled 15.1 H 15.1 H Plt Count Cancelled 143 153 MPV Cancelled 11.3 11.7 Immature Gran % (Auto) Cancelled 0.5 Neut % (Auto) Cancelled 73.5 Lymph % (Auto) Cancelled 13.5 Will % (Auto) Cancelled 8.5 Eos % (Auto) Cancelled 3.4 Baso % (Auto) Cancelled 0.6 Neut # (Auto) Cancelled 7.41 H Lymph # (Auto) Cancelled 1.36 Will # (Auto) Cancelled 0.86 H Eos # (Auto) Cancelled 0.34 Baso # (Auto) Cancelled 0.06 Immature Gran # (Auto) Cancelled 0.05 Absolute Nucleated RBC Cancelled Nucleated RBC % (auto) Cancelled Neutrophils % (Manual) Cancelled Band Neutrophils % Cancelled Lymphocytes % (Manual) Cancelled Prolymphocyte % Cancelled Reactive Lymphs % (Man) Cancelled Monocytes % (Manual) Cancelled Eosinophils % (Manual) Cancelled Basophils % (Manual) Cancelled Metamyelocytes % (Man) Cancelled Myelocytes % (Man) Cancelled Promyelocytes % (Man) Cancelled Blast Cells % (Manual) Cancelled Plasma Cell % (Manual) Cancelled Other Cells % Cancelled Nucleated RBC % Cancelled Neutrophils # (Manual) Cancelled Band Neutrophils # Cancelled Total Absolute Neuts Cancelled Lymphocytes # (Manual) Cancelled Prolymphocyte # Cancelled Reactive Lymphs # Cancelled Total Abs Lymphocytes Cancelled Monocytes # (Manual) Cancelled Eosinophils # (Manual) Cancelled Basophils # (Manual) Cancelled Metamyelocytes # (Man) Cancelled Myelocytes # (Manual) Cancelled Promyelocytes # (Man) Cancelled Blast Cells # (Man) Cancelled Plasma Cell # (Manual) Cancelled Other Cells # Cancelled Nucleated RBCs # (Man) Cancelled Hypersegmented Neuts Cancelled Hyposegmented Neuts Cancelled Hypogranular Neuts Cancelled Large Granular Lymphs Cancelled # Lrg Granular Lymphs Cancelled Hairy Cells Cancelled Smudge Cells Cancelled Toxic Granulation Cancelled Toxic Vacuolation Cancelled Dohle Bodies Cancelled Joann Rods Cancelled Platelet Estimate Cancelled Hypogranular Platelets Cancelled Giant Platelets Cancelled Platelet Satelliting Cancelled RBC Morphology Cancelled Polychromasia Cancelled Hypochromasia Cancelled Poikilocytosis Cancelled Basophilic Stippling Cancelled Anisocytosis Cancelled Microcytosis Cancelled Macrocytosis Cancelled Spherocytes Cancelled Pappenheimer Bodies Cancelled Sickle Cells Cancelled Target Cells Cancelled Tear Drop Cells Cancelled Ovalocytes Cancelled Stomatocytes Cancelled [place] Bodies Cancelled Echinocytes Cancelled Acanthocytes (Spur) Cancelled Rouleaux Cancelled RBC Agglutinates Cancelled Schistocytes Cancelled Sezary Cell Cancelled Sodium TNP 139 139 Potassium TNP 5.1 3.9 D Chloride 109 H 107 Carbon Dioxide 22 25 Anion Gap TNP 7 BUN 20 24 H Creatinine 1.09 1.24 H Est Cr Clr Drug Dosing 46.3 42.3 eGFR 51.36 43.99 BUN/Creatinine Ratio 18.3 19.4 Glucose 114 H 86 Calcium 9.1 8.6 Total Bilirubin 0.6 AST TNP 21 ALT 18 Alkaline Phosphatase 97 Troponin I High Sens 14.9 H B-Natriuretic Peptide 1161 H 782 H Total Protein 7.1 Albumin 3.9 Globulin 3.2 Albumin/Globulin Ratio 1.2 Lipase 25 TSH 4.041 Blood Parasites ID Cancelled Diagnostic Findings I reviewed the device interrogation obtained last evening. Normal sensing and threshold parameters on both atrial and ventricular leads. Approximately 70% ventricular pacing. Occasional episodes of atrial fibrillation which tend to be brief and infrequent. No other concerning arrhythmias. Normal rate histograms. 04/04/2023: Implantation of dual-chamber Saint Tadeo pacemaker with septal pacing lead. [facility]. Zio patch 02/2023: 1% atrial fibrillation. Longest episode approximately 3 hours with adequate rate control. Some episodes of AV block including third- degree AV block lasting 12 seconds. Echocardiogram 01/12/2023 [facility]: Ejection fraction 44%. Stage I diastolic dysfunction. Severe left atrial dilation. Moderate mitral regurgitation due to restricted leaflet motion. Cardiac catheterization 01/24/2021: Patent UNDERWOOD to LAD, patent saphenous vein graft to D1, occluded PDA and vein graft to the right coronary artery with [id number] collaterals. Wedge pressure 14 Coronary bypass grafting, around 2016 [facility]: UNDERWOOD to LAD, saphenous vein graft to first diagonal, saphenous vein graft to right coronary PG Care Time/CCT Total # of Minutes Spent Total Time Spent with Patient: Total time spent is greater than 50% in coordination of care (as documented) at patient's floor/unit and/or counseling patient: Coding Level of Care Code 12293 INT INP/OBS CARE MIN Diagnoses CHF (congestive heart failure) I50.9 Heart failure chronicity: unspecified Heart failure type: unspecified Chest pain R07.9 Paroxysmal atrial fibrillation I48.0 CAD (coronary artery disease) I25.10 Mitral regurgitation I34.0 Cardiomyopathy I42.9 Pacemaker Z95.0 (1) CHF (congestive heart failure) Heart failure chronicity: unspecified Heart failure type: unspecified Qualified Code(s): I50.9 - Heart failure, unspecified
[2024-01-27] MEDS ORDERED: INFLUENZA VACC TS2024-25(65y+)/PF (IIV3) 0.5mL Syr IM ONE (09:00)
[2024-01-27] MEDS ORDERED: NON-FORMULARY MEDICATION (Fluticasone-Umeclidin-Vilanter [Trelegy Ellipta] 200-62.5-25 mcg INH SCH (09:00)
--- NOTE | 2024-01-27 14:31 | Electrocardiogram Report ---
Test Reason : Blood Pressure : */* mmHG Vent. Rate : 72 BPM Atrial Rate : 72 BPM P-R Int : 128 ms QRS Dur : 160 ms QT Int : 450 ms P-R-T Axes : 86 -35 100 degrees QTcB Int : 492 ms Sinus rhythm with sinus arrhythmia with occasional atrial-paced complexes Left axis deviation Left bundle branch block Abnormal ECG When compared with ECG of 23-Mar-2023 19:04, Left bundle branch block is now Present Confirmed by Robert Kaur ([id number]) on 01/27/2024 2:31:39 PM Referred By: REFERRED SELF Confirmed By: Robert Kaur
--- NOTE | 2024-01-27 19:17 | XCELERA ---
[id number]
--- NOTE | 2024-01-27 22:13 | Hospitalist Progress Note ---
Date of Service January 27, 2024 Assessment & Plan (1) Chest pain: Plan: This is an 78-year-old female with past medical history of hypertension, paroxysmal A-fib, s/p pacemaker placement, s/p CABG, stage IIIb CKD, hypothyroidism who presented to the emergency room on 01/26/2024 for complaints of chest pain and shortness of breath since this past Sunday. Patient has been having ongoing symptoms since her right sided cardiac cath about 2.5 weeks ago at the [facility]. Etiology related to acute on chronic CHF vs a fib vs side effects from recent cardiac catheterization s/p ASA, Lasix, and Nitro in ED BNP 01/25: 1161 Troponin 01/25: 14.9 EKG - sinus rhythm, LBBB. continue to monitor on telemetry CXR 01/25: cardiomegaly w/ pulmonary vascular congestion. Small b/l pleural effusions w/ bibasilar opacities which could reflect an infectious process vs at electasis. CBC without leukocytosis BMP reveals stable renal function and electrolytes Reached out to cardiology at [facility], recommendations below. Will try to obtain records as well. Cardiac cath revealed low ventricular filling, wedge 8. Recommended to resume Lasix if needed and as tolerated. Patient previously on amiodarone but was told to stop when she had COVID in Apr 2023 and was told to hold it. appears she never resumed it. Last echo completed 12/2022 which reviewed sustained A fib, resting wall abnormality in territory of RCA. LV normal size. EF 44+/-5%. L and R atrial cavities dilated. moderate mitral regurg due to restricted leaflet. Last BNP at their facility was 11 months ago which was 525. Start Lasix 40mg IV BID Monitor I&O's Daily weights Patient improving with above diuretics, will contiue to monitor. (2) Paroxysmal atrial fibrillation: Plan: s/p pacemaker 04/2023 Pacemaker check 01/25 - reports patient last in A fib 01/16 and only in A fib 4.9% of time. Continue to monitor on Telemetry Continue Eliquis Continue Isosorbide mononitrate, metoprolol If patient switches into sustained A fib, consider re-initiating amiodarone. (3) Shortness of breath: Plan: see plan above Patient w/ history of mild persistent asthma. Routinely follows with pulmnology 2L o2 via nasal cannula HS Continue Trelegy (4) Stage 3b chronic kidney disease: Plan: Creatinine 1.09 on admission. Follows w/ Nephrology outpatient. Getting worked up or right renal mass w/ MRI scheduled. AM BMP (5) Acute on chronic heart failure with preserved ejection fraction: Plan Chronic conditions: Hypothyroidism: Synthroid, TSH checked 01/25, stable at 4.041 HLD: statin GERD: PPI Mental health: venlafaxine Code status: full Diet: heart healthy DVT prophylaxis: Home Eliquis Disposition: telemetry Admission and Anticipated Discharge Date Admission Date: January 26, 2024 Subjective Patient reports feeling better but not quite at baseline Review of Systems Review of Systems: All systems reviewed & are unremarkable except as noted in HPI & below Physical Exam Constitutional: WD/WN, vitals as above Eyes: PERRL, conjunctivae normal, anicteric sclerae Respiratory: normal respiratory effort, lungs clear to auscultation Cardiovascular: RRR, no murmur, no edema Gastrointestinal (Abdomen): normal bowel sounds, soft, nontender, no hepatosplenomegaly Psychiatric: A+Ox3, euthymic affect Results & Data Results & Data Vital Signs (Past 12 Hours) Vital Signs Temp Pulse Pulse Resp BP BP Pulse Ox 01/27/24 18:57 36.7 C 87 18 117/82 94 01/27/24 16:14 36.8 C 93 H 18 135/83 94 01/27/24 13:57 83 01/27/24 11:08 36.2 C L 93 H 18 123/80 96 O2 Del Method 01/27/24 18:57 Room Air 01/27/24 16:14 Room Air 01/27/24 13:57 01/27/24 11:08 Room Air PG Care Time/CCT Total # of Minutes Spent Total Time Spent with Patient: Total time spent is greater than 50% in coordination of care (as documented) at patient's floor/unit and/or counseling patient: Coding Level of Care Code 60683 SUB INP/OBS CARE 2/35MIN Diagnoses Chest pain R07.9 Paroxysmal atrial fibrillation I48.0 Shortness of breath R06.02 Stage 3b chronic kidney disease N18.32 Acute on chronic heart failure with preserved ejection fraction I50.33
[2024-01-28 03:26] VITALS: TEMP 97.5
[2024-01-28 06:08] LABS: Hematocrit (blood only) 36.8 % (37.0-47.0); Hemoglobin 11.8 g/dl (12.0-16.0); Mean Corpuscular Hemoglobin 30.9 pg (25.0-34.0); Mean Corpuscular Hgb Conc 32.1 g/dL (32.0-36.0); Mean Corpuscular Volume 96.3 fL (80.0-100.0); Mean Platelet Volume 11.1 fL (9.4-12.4); Platelet Count 148 K/uL (130-400); RDW Standard Deviation 53.4 fL (36.4-46.3); Red Blood Count 3.82 M/uL (4.20-5.40); White Blood Count 7.15 K/ul (4.8-10.8)
[2024-01-28 06:19] LABS: BUN Creatinine Ratio 20.1 (10-20); Calcium 8.1 mg/dl (8.6-10.3); Creatinine Clr Calc Pharmacy 33.8 ml/min; Potassium 4.1 mmol/L (3.5-5.1)
[2024-01-28 11:24] VITALS: O2SAT 95
[2024-01-28 15:27] VITALS: BP 144/84; PULSE 76
--- NOTE | 2024-02-01 10:24 | Discharge Summary ---
Discharge Summary Date of Service January 28, 2024 Principal Dx & Hospital Course #1 = Principal Diagnosis (1) Chest pain: This is an 78-year-old female with past medical history of hypertension, paroxysmal A-fib, s/p pacemaker placement, s/p CABG, stage IIIb CKD, hypothyroidism who presented to the emergency room on 01/26/2024 for complaints of chest pain and shortness of breath since this past Sunday. Patient has been having ongoing symptoms since her right sided cardiac cath about 2.5 weeks ago at the [facility]. Etiology related to acute on chronic CHF vs a fib vs side effects from recent cardiac catheterization s/p ASA, Lasix, and Nitro in ED BNP 01/25: 1161 Troponin 01/25: 14.9 EKG - sinus rhythm, LBBB. continue to monitor on telemetry CXR 01/25: cardiomegaly w/ pulmonary vascular congestion. Small b/l pleural effusions w/ bibasilar opacities which could reflect an infectious process vs atelectasis. CBC without leukocytosis BMP reveals stable renal function and electrolytes Reached out to cardiology at [facility], recommendations below. Will try to obtain records as well. Cardiac cath revealed low ventricular filling, wedge 8. Recommended to resume Lasix if needed and as tolerated. Patient previously on amiodarone but was told to stop when she had COVID in Apr 2023 and was told to hold it. appears she never resumed it. Last echo completed 12/2022 which reviewed sustained A fib, resting wall abnormality in territory of RCA. LV normal size. EF 44+/-5%. L and R atrial cavities dilated. moderate mitral regurg due to restricted leaflet. Last BNP at their facility was 11 months ago which was 525. Start Lasix 40mg IV BID Patient improved with above diuretics. Patient was discharged. BNP dropped to the 500 range. 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 (2) Paroxysmal atrial fibrillation: s/p pacemaker 04/2023 Pacemaker check 01/25 - reports patient last in A fib 01/16 and only in A fib 4.9% of time. Continue to monitor on Telemetry Continue Eliquis Continue Isosorbide mononitrate, metoprolol (3) Shortness of breath: see plan above Patient w/ history of mild persistent asthma. Routinely follows with pulmnology 2L o2 via nasal cannula HS Continue Trelegy (4) Stage 3b chronic kidney disease: Creatinine 1.09 on admission. Follows w/ Nephrology outpatient. Getting worked up or right renal mass w/ MRI scheduled. (5) Acute on chronic heart failure with preserved ejection fraction: Plan Chronic conditions: Hypothyroidism: Synthroid, TSH checked 01/25, stable at 4.041 HLD: statin GERD: PPI Mental health: venlafaxine Admission HPI Per Admitting Provider This is an 78-year-old female with past medical history of hypertension, paroxysmal A-fib, s/p pacemaker placement, s/p CABG, stage IIIb CKD, hypothyroidism who presented to the emergency room on 01/26/2024 for complaints of chest pain and shortness of breath since this past Sunday. The patient was seen and examined. She was resting comfortably in bed and in no acute distress. Patient states that about 2-1/2 weeks ago she had a catheterization at the [facility]. Since then she has been having ongoing issues with chest pain and shortness of breath. She states that she has reach out to her ship self defense system mk1 operator at the [facility] multiple times and had not heard back. Her PCP then stopped her Lasix outpatient this past Sunday and she is unsure why. There is also conflicting documentation on whether patient was started on amiodarone outpatient or not. Patient believes she never has taken this medication. She believes it may be due from recommendations that came from the [facility] but is unsure. Since that timeframe she has gained about 5 to 7 pounds and her leg edema has worsened. Patient reports that her shortness of breath and chest discomfort do worsen with activity but can also occur at rest. She describes the chest pain as nonradiating and states that it "feels like a pounding sensation in her chest". She denies feelings related to palpitation. Patient had a pacemaker placed in April 2023 and states that she does have a remote estephania to monitor this at home. Pacemaker was checked here and was found that her last A-fib run was 01/16 and that she is in A-fib 3% of the time. Patient also states that she has been having bilateral leg pain recently but noticed that her left leg was worse than her right. She states that it is her whole entire leg and not a specific area. States that she has had issues with ambulation and has only been able to walk minimally. She lives alone and does have to walk up 2 stairs to get to her bedroom. Patient also reports that she was started on 2L o2 via nasal cannula at bedtime recently as well. She states that about 3 to 4 weeks ago she did have a viral upper respiratory infection. Since then she denies any cough. She denies nausea, vomiting, abdominal pain. She denies fevers or chills. Patient was given Aspirin, Nitro, and Lasix while in the ED. Discharge Exam Constitutional WD/WN, vitals as above Eyes PERRL, conjunctivae normal, anicteric sclerae Respiratory normal respiratory effort, lungs clear to auscultation Cardiovascular RRR, no murmur, no edema Gastrointestinal (Abdomen) normal bowel sounds, soft, nontender, no hepatosplenomegaly Psychiatric A+Ox3, euthymic affect Discharge Plan Discharge Items Patient Disposition: Home - Self-Care Reason For Visit: CHEST PAIN Discharge Diagnosis: SOB Activity: Resume your previous activity Non-emergency contact: Primary Care Provider Call non-emergency contact if: you have any medication questions Follow-up/Referrals: Theo Tripathi DO [Primary Care Provider] - 02/05/24 2:45 pm Diet: Heart Healthy Addtl Attending Provider Instructions: Call your Primary Care doctor if any of the following symptoms or problems start or get worse: * Shortness of breath or difficulty breathing * Wake up at night short of breath * Chest pain * Cough * Swelling of your hands, feet, or legs * More fatigued or tired with your normal activity * Palpitations - sudden fast heart beats WEIGHT * Weigh yourself every morning after using the bathroom. * Use the same scale. * Wear the same amount of clothing. * Write your weight down on a chart. * Call your Primary Care doctor if you gain more than 2-3 pounds in 1-2 days. MEDICATIONS * Use this discharge instruction sheet for medication instructions. * Take your medications at the time your doctor ordered. * Do not skip a dose of your medicines. * If you miss a dose of medicine, take it as soon as possible, but DO NOT DOUBLE A DOSE. * Read your medicine information when you get home. * Know all of the side effects of your medicine. If in doubt, ask your pharmacist * Call your Primary Care doctor's office if you have any side effects. * Be sure all of your doctors know what medicine and herbs you take (including cold, flu, and herbal medicine). Take the following with you to your follow-up doctor appointments: * Weight Chart * Medication List * List of questions Do not drink excessive alcohol, beer or wine. Pending Studies at Discharge: No Stand-Alone Forms: My [facility] [employer], Smoking Cessation Medications and DC Order Prescriptions: Continued cholecalciferol (vitamin D3) 25 mcg (1,000 unit) capsule 25 mcg PO DAILY aspirin [Adult Low Dose Aspirin] 81 mg tablet,delayed release (DR/EC) 81 mg PO DAILY nitroglycerin [Nitrostat] 0.4 mg tablet, sublingual 0.4 mg sublingual Q5M PRN (Reason: Chest Pain) Rx Instructions: do not exceed 3 doses per episode ferrous gluconate 236 mg (27 mg iron) tablet 236 mg PO DAILY Qty: 30 6RF potassium chloride 20 mEq tablet extended release 20 meq PO BID Qty: 180 3RF Trelegy Ellipta 200-62.5-25 mcg blister with device 1 inh inhalation DAILY Qty: 60 2RF montelukast 10 mg tablet 10 mg PO QPM Qty: 90 3RF atorvastatin 40 mg tablet 40 mg PO HS Qty: 90 3RF apixaban 5 mg tablet 5 mg PO BID Qty: 180 3RF isosorbide mononitrate 60 mg tablet extended release 24 hr 60 mg PO DAILY Qty: 90 2RF metoprolol succinate 50 mg tablet extended release 24 hr 50 mg PO DAILY Qty: 90 2RF calcium carbonate-vitamin D3 600 mg-10 mcg (400 unit) capsule 1 cap PO DAILY venlafaxine 75 mg capsule,extended release 24hr 225 mg PO QAM Rx Instructions: 2 in the AM, and 1 in the PM polyethylene glycol 3350 [Miralax] 17 gram powder in packet 17 g PO BID PRN (Reason: Constipation) allopurinol 300 mg tablet 300 mg PO QAM Qty: 90 3RF topiramate 25 mg tablet 25 mg PO .COMPLEX Qty: 270 3RF Rx Instructions: 50mg in AM and 25mg in PM furosemide 80 mg tablet 0 mg PO DAILY Rx Instructions: Per pt she has been holding this medication for a week per [employer] instructions. But she doesn't know why he told her to hold it. Original Directions: 80mg by mouth daily omeprazole 40 mg capsule,delayed release(DR/EC) 40 mg PO QAM levothyroxine 100 mcg tablet 100 mcg PO QAM Rx Instructions: TAKE 1 TABLET BY MOUTH EVERY DAY Held metolazone 5 mg tablet 0 mg PO DAILY Hold Instructions: Resume on 02/04/24. until cleared by ship self defense system mk1 operator Rx Instructions: Pt is unsure of this medication. Original Directions: 5mg by mouth daily Discharge Orders: Discharge Order (Routine); Ordered 01/28/24 Ordered By: Denzel Torres Admission Data Admit Date/Time: 01/26/24 15:21 Attending Provider: Denzel Torres Admit Provider: Toni Carbajal Primary Care Provider: Theo Tripathi Other Providers: Joao Baker Other Interventions: Discharge Summary Assessment (RN) Last Done: 01/28/24 15:26 Hospital Stay Data Consultations 01/26/24 14:33 ED Decision to Admit Stat 01/26/24 22:24 Consult Cardiology Routine Pending Results Patient Have Any Pending Studies at Discharge: No Discharge Instructions Given to Patient (Per Discharging Provider) Call your Primary Care doctor if any of the following symptoms or problems start or get worse: * Shortness of breath or difficulty breathing * Wake up at night short of breath * Chest pain * Cough * Swelling of your hands, feet, or legs * More fatigued or tired with your normal activity * Palpitations - sudden fast heart beats WEIGHT * Weigh yourself every morning after using the bathroom. * Use the same scale. * Wear the same amount of clothing. * Write your weight down on a chart. * Call your Primary Care doctor if you gain more than 2-3 pounds in 1-2 days. MEDICATIONS * Use this discharge instruction sheet for medication instructions. * Take your medications at the time your doctor ordered. * Do not skip a dose of your medicines. * If you miss a dose of medicine, take it as soon as possible, but DO NOT DOUBLE A DOSE. * Read your medicine information when you get home. * Know all of the side effects of your medicine. If in doubt, ask your pharmacist * Call your Primary Care doctor's office if you have any side effects. * Be sure all of your doctors know what medicine and herbs you take (including cold, flu, and herbal medicine). Take the following with you to your follow-up doctor appointments: * Weight Chart * Medication List * List of questions Do not drink excessive alcohol, beer or wine. Total Time Total Time Spent Total Time Spent (In Minutes): 32 Coding Level of Care Code 64574 INP/OBS DISCH >30 MIN Diagnoses Chest pain R07.9 Paroxysmal atrial fibrillation I48.0 Shortness of breath R06.02 Stage 3b chronic kidney disease N18.32 Acute on chronic heart failure with preserved ejection fraction I50.33
== END 2024-01-28 17:10 | disposition home or self-care (01) | DRG 291 ==
LOC: ED 12:17 → SUATTDRO 15:21 → EDINP 15:21 → INTOOBSV 15:21 → 2N 21:43